=== PATIENT | female | born 1960 | race Caucasian/White ===

== ENCOUNTER → 2024-07-17 | Outpatient (CLI) | payer OTHER ==
--- NOTE | 2024-07-17 19:07 | XR ---
EXAMINATION TYPE: XR chest 2V DATE OF EXAM: 07/17/2024 6:52 PM CLINICAL INDICATION: Female, 63 years old with history of R06.02 SHORT OF BREATH; PHH COMPARISON: None TECHNIQUE: XR chest 2V Frontal view of the chest. FINDINGS: Lungs/Pleura: There is no evidence of pleural effusion, focal consolidation, or pneumothorax. Pulmonary vascularity: Unremarkable. Heart/mediastinum: Cardiomediastinal silhouette is unremarkable. Musculoskeletal: Degenerative changes of the shoulder joints. IMPRESSION: No acute cardiopulmonary disease/process.
== END | disposition home or self-care (01) ==
LOC: RADXRMAIN 18:23
PROVIDERS: ATTEND Internal Medicine
DX: R06.02 Shortness of breath
CPT/HCPCS: 71046

== ENCOUNTER → 2024-09-21 | Outpatient (CLI) | payer MEDICARE ==
[2024-09-21 13:43] LABS: African American GFR (CKD) >90 (>60 ml/min/1.73 sqM); Blood Urea Nitrogen 15 mg/dL (7-17); Non-African American GFR(CKD) 85 (>60 ml/min/1.73 sqM)
--- NOTE | 2024-09-21 15:18 | CT ---
CT chest and abdomen with and without contrast HISTORY: Shortness of breath. History of lung cancer. COMPARISON: None. TECHNIQUE: Multiple axial images are obtained through the chest and abdomen before and after the unev entful administration of nonionic IV contrast material. FINDINGS: CT CHEST: There are multiple scattered ill-defined nodular/parenchymal densities, right greater than left. The largest density seen right lower lobe posteriorly and measures approximately 19 mm. There is no pleural effusion or pneumothorax. There is moderate to marked cardiomegaly with marked left atrial enlargement. The main pulmonary brent ry is 4 cm raising the question of pulmonary hypertension. Caliber of the thoracic aorta is normal. There are no focal osseous lesions. There is no mediastinal, hilar or axillary adenopathy. CT ABDOMEN: The gallbladder is normal. There is no focal mass or organomegaly involving the liver, pancreas, spleen or adrenal glands. There are multiple large right renal cortical cysts but there is no solid renal mass or hydronephrosi s. The caliber of the abdominal aorta is normal as no retroperitoneal adenopathy. The bowel loops are normal in caliber and no dilatation or obstruction. No inflammatory changes are i dentified in the bowel wall or mesentery and there is no free intraperitoneal air or fluid. The osseous structures are intact. IMPRESSION: 1. Multiple scattered ill-defined lung masses as described above. Given the provided history of lung cancer. the possibility of recurrent lung cancer cannot be excluded. The findings could also be infe ctious in nature and either PET scan or short-term follow-up is recommended. 2. Marked dilatation of the main pulmonary artery raising question of pulmonary hypertension. 3. Moderate to marked cardiomegaly and marked left atrial enlargement. 4. No significant abnormality in the abdomen. [facility], Workstation: FÉLIX, 09/21/2024 3:16 PM
== END | disposition home or self-care (01) ==
LOC: RADCTMAIN 12:49
PROVIDERS: ATTEND Internal Medicine
DX: I27.20 Pulmonary hypertension, unspecified (principal); I51.7 Cardiomegaly; N28.1 Cyst of kidney, acquired; B37.2 Candidiasis of skin and nail; R91.8 Other nonspecific abnormal finding of lung field
CPT/HCPCS: 82565; 84520; 71270; 74170; 36415; Q9967

== ENCOUNTER → 2024-10-26 | Outpatient (CLI) | payer MEDICARE ==
--- NOTE | 2024-10-28 22:38 | PE ---
EXAMINATION TYPE: PET CT fusion skull to thigh DATE OF EXAM: 10/26/2024 COMPARISON: Chest abdomen 09/21/2024 Prior PET/CT: None CLINICAL INDICATION: Female, 64 years old with history of R91.8 lung mass, TECHNIQUE: Following the intravenous administration of 10.38 mCi of F-18 FDG, whole body images are performed from the skull base to the midthigh. Images are reviewed on the computer in the coronal, a xial, and sagittal planes. Reconstructed rotating images are created on independent workstation and reviewed on the computer. A localization and attenuation correction CT is performed in conjunction with the PET scan. DLP: 684.68 mGycm SCAN: Initial Blood glucose: 182 mg/dL Average Mediastinum SUV: 2.23 Average Liver SUV: 2.96 FINDINGS: NECK: No suspicious uptake THORAX: No suspicious uptake. Example nodule right lateral chest, SUV 0.62 posterior right chest SUV 0.58 image 94 ABDOMEN: No suspicious uptake PELVIS: No suspicious uptake OSSEOUS STRUCTURES: No abnormal uptake LOCALIZATION CT: The abnormal densities within the lung castellon are identified on the PET/CT may be so mewhat smaller COMPARISON: Findings from the PET/CT correlate with the earlier CT chest. No enlargement is evident. IMPRESSION: 1. No suspicious radiotracer lung findings have diminished in size over the interval. No suspicious r adiotracer uptake identified. Inflammatory changes most likely within the differential. Recommend fol low-up CT chest in 3-6 months. [facility], , 10/28/2024 10:36 PM
== END | disposition home or self-care (01) ==
LOC: RADPETMAIN 08:19
PROVIDERS: ATTEND Internal Medicine
DX: R91.8 Other nonspecific abnormal finding of lung field (principal)
CPT/HCPCS: 78815; A9552

== ENCOUNTER 2024-11-15 18:10 | Inpatient (IN) | payer MEDICARE ==
--- NOTE | 2024-11-15 18:42 | ED ---
SOB HPI - General Source: patient, RN notes reviewed Mode of arrival: wheelchair Limitations: no limitations - History of Present Illness MD Complaint: shortness of breath, cough <Paulette Bowman - Last Filed: 11/15/24 18:39> <Shahriar Louis - Last Filed: 11/15/24 21:33> - General Chief Complaint: Shortness of Breath Stated Complaint: unable to walk,urinate or breathe Time Seen by Provider: 11/15/24 18:35 - History of Present Illness Initial Comments: Quick Note: This is a 64-year-old female who presents to the emergency department for shortness of breath. Patient reports worsening shortness of breath over the last week. She has a history of COPD and states that her inhalers are not effective. She also reports a history of lung cancer. She has some coughing. States that her chest feels tight and that she cannot take a deep breath. She is also struggling to lay flat. Additionally, she is concerned about left leg pain that has been there for 1.5 years. She has had x- rays and ultrasounds that have been negative and she is waiting for a referral to pain management, but is concerned because the pain is getting worse and she is struggling to walk. (Paulette Bowman) Dictation was produced using [employer] dictation software. please excuse any grammatical, word or spelling errors. Chief Complaint: 64-year-old female presents emergency department with generalized weakness History of Present Illness: Patient is a 64-year-old female presents emergency department for generalized weakness and shortness of breath. Patient is here wi th her son who she lives with. She stays at home by herself because son and patient's [id number] work long hours. She was at home by herself felt too weak to get out of bed and take her medications. Patient has been having cough congestion. No obvious sick contacts. She has been complaining of some leg pain secondary to her rheumatoid arthritis The ROS documented in this emergency department record has been reviewed and confirmed by me. Those systems with pertinent positive or negative responses have been documented in the HPI. All other systems are other negative and/or noncontributory. (Shahriar Louis) - Related Data Allergies Allergy/AdvReac Type Severity Reaction Status Date / Time No Known Allergies Allergy Verified 11/15/24 20:36 Review of Systems ROS Other: All systems not noted in ROS Statement are negative. <Paulette Bowman - Last Filed: 11/15/24 18:39> ROS Other: All systems not noted in ROS Statement are negative. <Shahriar Louis - Last Filed: 11/15/24 21:33> ROS Statement: Those systems with pertinent positive or pertinent negative responses have been documented in the HPI. General Exam <Paulette Bowman - Last Filed: 11/15/24 18:39> <Shahriar Louis - Last Filed: 11/15/24 21:33> - General Exam Comments Initial Comments: Visual Physical Exam Vital signs reviewed General: Well-appearing, nontoxic, no acute distress. Head: Normocephalic, atraumatic Eyes: PERRLA, EOMI ENT: Airway patent Chest: Nonlabored breathing Skin: No visual rash, normal skin tone Neuro: Alert and oriented 3 Musculoskeletal: No gross abnormalities (Paulette Bowman) PHYSICAL EXAM: General Impression: Alert and oriented x3, not in acute distress HEENT: Normocephalic atraumatic, extra-ocular movements intact, pupils equal and reactive to light bilaterally, mucous membranes moist. Cardiovascular: Newly tachycardic Chest: Able to complete full sentences, no retractions, no tachypnea Abdomen: abdomen soft, non-tender, non-distended, no organomegaly Musculoskeletal: Pulses present and equal in all extremities, no peripheral edema lower extremity in internal rotation Motor: no focal deficits noted Neurological: CN II-XII grossly intact, no focal motor or sensory deficits noted Skin: Intact with no visualized rashes Psych: Normal affect and mood (Shahriar Louis) Course Vital Signs 11/15/24 11/15/24 11/15/24 18:54 21:10 21:25 Temperature 98.2 F Pulse Rate 128 H 144 H Respiratory 22 18 18 Rate Blood Pressure 166/116 171/97 O2 Sat by Pulse 93 L 92 L Oximetry Medical Decision Making <Paulette Bowman - Last Filed: 11/15/24 18:39> - Lab Data Result diagrams: 11/15/24 20:07 11/15/24 20:07 <Shahriar Louis - Last Filed: 11/15/24 21:33> - Medical Decision Making I performed the QuickNote portion of this chart. Signed Paulette Bowman PA-C. (Paulette Bowman) Was pt. sent in by a medical professional or institution (CORDELIA Mcdonough, [employer], urgent care, hospital, or long-term...) When possible be specific @ -No Did you speak to anyone other than the patient for history (EMS, parent, family, police, friend...)? What history was obtained from this source @ -History obtained from son as described above Did you review nursing and triage notes (agree or disagree)? Why? @ -I reviewed and agree with nursing and triage notes Were old charts reviewed (outside hosp., previous admission, EMS record, old EKG, old radiological studies, urgent care reports/EKG's, long-term records)? Report findings @ -No old charts were reviewed Differential Diagnosis (chest pain, altered mental status, abdominal pain women, abdominal pain men, vaginal bleeding, musculoskeletal, weakness, fever, dyspnea, syncope, headache, dizziness, GI bleed, back pain, seizure, CVA, palpatations, mental health)? @ -Differential Weakness: Hypoglycemia, shock, sepsis, hyponatremia, anemia, infection, OH, ETOH, adverse medicine reaction, overdose, stroke, this is not meant to be an all-inclusive list. EKG interpreted by me (3pts min.). @ -My EKG interpretation: Ventricular rate 141, A-fib with RVR, QRS 93, QTc 36 4. No QTC prolongation, no ST or T-wave changes noted. EKG for comparison. EKG is nonspecific X-rays interpreted by me (1pt min.). @ -Chest x-ray shows no acute processes CT interpreted by me (1pt min.). @ -None done U/S interpreted by me (1pt. min.). @ -None done What testing was considered but not performed or refused? (CT, X-rays, U/S, labs)? Why? @ -None What meds were considered but not given or refused? Why? @ -None Was smoking cessation discussed for >3mins.? @ -No Were there social determinants of health that impacted care today? How? (Homelessness, low income, unemployed, alcoholism, drug addiction, transportation, low edu. Level, literacy, decrease access to med. care, long-term, rehab)? @ -No Was there de-escalation of care discussed even if they declined (Discuss DNR or withdrawal of care, Hospice)? DNR status @ -No What co-morbidities impacted this encounter? (DM, HTN, Smoking, COPD, CAD, Cancer, CVA, ARF, Chemo, Hep., AIDS, mental health diagnosis, sleep apnea, mor bid obesity)? @ -A-fib Was patient admitted / discharged? Hospital course, mention meds given and r oute, prescriptions, significant lab abnormalities, going to OR and other pertinent info. @ -64-year-old female presents to the emergency department weakness congestion upper respiratory type symptoms. Vital signs upon arrival shows heart rate of 128 vitals within acceptable limits. Laboratory evaluation obtained. CBC, coag panel metabolic panel is within acceptable limits. Patient positive for coronavirus. Chest x-ray nonacute. Patient in A-fib RVR started on Cardizem drip. Will be admitted for further care including social work consultation, cardiology consultation Did you discuss the management of the patient with other professionals (professionals i.e. , PA, [employer]PER[employer], lab, RT, psych nurse, social work faculty member, lawyers, teacher, medical officer psychiatry, heel caser)? Give summary @ -Case discussed with hospitalist for admission Was critical care preformed (if so, how long)? @ -Yes for management of A-fib with RVR, 33 minutes Undiagnosed new problem with uncertain prognosis? @ -No Drug Therapy requiring intensive monitoring for toxicity (Heparin, Nitro, Insulin, Cardizem)? @ -No Were any procedures done? @ -No Diagnosis/symptom? Acute, or Chronic, or Acute on Chronic? Uncomplicated (without systemic symptoms) or Complicated (systemic symptoms)? @ -Coronavirus, A-fib with RVR Side effects of treatment? @ -No Exacerbation, Progression, or Severe Exacerbation? @ -No Poses a threat to life or bodily function? How? (Chest pain, USA, OH, pneumonia, PE, COPD, DKA, ARF, appy, cholecystitis, CVA, Diverticulitis, Homicidal, Suicidal, threat to staff... and all critical care pts) @ -yes (Shahriar Louis) - Lab Data Lab Results 01/01/0811/15/24 11/15/24 Range/Units 20:07 20:07 20:07 WBC 9.8 (3.8-10.6) k/uL RBC 5.08 (3.80-5.40) m/uL Hgb 13.1 (11.4-16.0) gm/dL Hct 41.5 (34.0-46.0) % MCV 81.7 (80.0-100.0) fL MCH 25.8 (25.0-35.0) pg MCHC 31.6 (31.0-37.0) g/dL RDW 15.2 (11.5-15.5) % Plt Count 348 (150-450) k/uL MPV 8.1 Neutrophils % 87 % Lymphocytes % 6 % Monocytes % 5 % Eosinophils % 1 % Basophils % 0 % Neutrophils # 8.5 H (1.3-7.7) k/uL Lymphocytes # 0.6 L (1.0-4.8) k/uL Monocytes # 0.5 (0-1.0) k/uL Eosinophils # 0.1 (0-0.7) k/uL Basophils # 0.0 (0-0.2) k/uL Hypochromasia Moderate PT 11.4 (10.0-12.5) sec INR 1.0 (<1.2) APTT 24.5 (22.0-30.0) sec Sodium 139 (137-145) mmol/L Potassium 3.9 (3.5-5.1) mmol/L Chloride 99 (98-107) mmol/L Carbon Dioxide 25 (22-30) mmol/L Anion Gap 15 mmol/L BUN 13 (7-17) mg/dL Creatinine 0.49 L (0.52-1.04) mg/dL Est GFR (CKD-EPI)AfAm >90 (>60 ml/min/1.73 sqM) Est GFR (CKD-EPI)NonAf >90 (>60 ml/min/1.73 sqM) Glucose 162 H (74-99) mg/dL Plasma Lactic Acid Giovanny (0.7-2.0) mmol/L Calcium 9.3 (8.4-10.2) mg/dL Magnesium 1.7 (1.6-2.3) mg/dL Total Bilirubin 0.7 (0.2-1.3) mg/dL AST 20 (14-36) U/L ALT 10 (4-34) U/L Alkaline Phosphatase 116 (38-126) U/L Troponin I (0.000-0.034) ng/mL NT-Pro-B Natriuret Pep 1720 pg/mL Total Protein 7.3 (6.3-8.2) g/dL Albumin 4.5 (3.5-5.0) g/dL Influenza Type A (PCR) (Not Detectd) Influenza Type B (PCR) (Not Detectd) RSV (PCR) (Not Detectd) SARS-CoV-2 (PCR) (Not Detectd) 11/15/24 11/15/24 11/15/24 Range/Units 20:07 20:07 20:07 WBC (3.8-10.6) k/uL RBC (3.80-5.40) m/uL Hgb (11.4-16.0) gm/dL Hct (34.0-46.0) % MCV (80.0-100.0) fL MCH (25.0-35.0) pg MCHC (31.0-37.0) g/dL RDW (11.5-15.5) % Plt Count (150-450) k/uL MPV Neutrophils % % Lymphocytes % % Monocytes % % Eosinophils % % Basophils % % Neutrophils # (1.3-7.7) k/uL Lymphocytes # (1.0-4.8) k/uL Monocytes # (0-1.0) k/uL Eosinophils # (0-0.7) k/uL Basophils # (0-0.2) k/uL Hypochromasia PT (10.0-12.5) sec INR (<1.2) APTT (22.0-30.0) sec Sodium (137-145) mmol/L Potassium (3.5-5.1) mmol/L Chloride (98-107) mmol/L Carbon Dioxide (22-30) mmol/L Anion Gap mmol/L BUN (7-17) mg/dL Creatinine (0.52-1.04) mg/dL Est GFR (CKD-EPI)AfAm (>60 ml/min/1.73 sqM) Est GFR (CKD-EPI)NonAf (>60 ml/min/1.73 sqM) Glucose (74-99) mg/dL Plasma Lactic Acid Giovanny 1.4 (0.7-2.0) mmol/L Calcium (8.4-10.2) mg/dL Magnesium (1.6-2.3) mg/dL Total Bilirubin (0.2-1.3) mg/dL AST (14-36) U/L ALT (4-34) U/L Alkaline Phosphatase (38-126) U/L Troponin I <0.012 (0.000-0.034) ng/mL NT-Pro-B Natriuret Pep pg/mL Total Protein (6.3-8.2) g/dL Albumin (3.5-5.0) g/dL Influenza Type A (PCR) Not Detected (Not Detectd) Influenza Type B (PCR) Not Detected (Not Detectd) RSV (PCR) Not Detected (Not Detectd) SARS-CoV-2 (PCR) Detected A (Not Detectd) Disposition <Paulette Bowman - Last Filed: 11/15/24 18:39> Decision Time: 20:30 <Shahriar Louis - Last Filed: 11/15/24 21:33> Clinical Impression: Atrial fibrillation with RVR, Coronavirus infection Disposition: ADMITTED IP TO THIS HOSP Condition: Fair Referrals: Khanh Hale DO [Primary Care Provider] - 1-2 days
--- NOTE | 2024-11-15 19:43 | XR ---
EXAMINATION TYPE: XR chest 2V DATE OF EXAM: 11/15/2024 7:31 PM COMPARISON: Chest radiographs from 07/17/2024. CLINICAL INDICATION: Female, 64 years old with history of difficulty breathing; TECHNIQUE: XR chest 2V Frontal and lateral views of the chest. FINDINGS: Lungs/Pleura: There is flattening of the diaphragm with increased lucency of the lungs. No evidence o f pneumothorax, pleural effusion or focal consolidation. Pulmonary vascularity: Unremarkable. Heart/mediastinum: Cardiomediastinal silhouette is unremarkable. Musculoskeletal: No acute osseous pathology. IMPRESSION: 1. No acute cardiopulmonary disease process. 2. COPD changes. [facility], , 11/15/2024 7:41 PM
[2024-11-15 20:24] LABS: Basophils % (A) 0 %; Eosinophils # (A) 0.1 k/uL (0-0.7); Eosinophils % (A) 1 %; HCT 41.5 % (34.0-46.0); HGB 13.1 gm/dL (11.4-16.0); Hypochromasia Moderate; Lymphocytes # (A) 0.6 k/uL (1.0-4.8); Lymphocytes % (A) 6 %; MCH 25.8 pg (25.0-35.0); MCHC 31.6 g/dL (31.0-37.0); MCV 81.7 fL (80.0-100.0); Mean Platelet Volume 8.1; Monocytes # (A) 0.5 k/uL (0-1.0); Monocytes % (A) 5 %; Neutrophils # (A) 8.5 k/uL (1.3-7.7); Neutrophils % (A) 87 %; Platelet Count 348 k/uL (150-450); RBC 5.08 m/uL (3.80-5.40); RDW 15.2 % (11.5-15.5); WBC 9.8 k/uL (3.8-10.6)
[2024-11-15 20:34] LABS: Partial Thromboplastin Time 24.5 sec (22.0-30.0); Prothrombin Time 11.4 sec (10.0-12.5)
[2024-11-15 20:43] LABS: ALT 10 U/L (4-34); AST 20 U/L (14-36); African American GFR (CKD) >90 (>60 ml/min/1.73 sqM); Albumin 4.5 g/dL (3.5-5.0); Alkaline Phosphatase 116 U/L (38-126); Anion Gap 15 mmol/L; Blood Urea Nitrogen 13 mg/dL (7-17); Calcium 9.3 mg/dL (8.4-10.2); Carbon Dioxide 25 mmol/L (22-30); Chloride 99 mmol/L (98-107); Glucose 162 mg/dL (74-99); Magnesium 1.7 mg/dL (1.6-2.3); Non-African American GFR(CKD) >90 (>60 ml/min/1.73 sqM); Potassium 3.9 mmol/L (3.5-5.1); Sodium 139 mmol/L (137-145); Total Bilirubin 0.7 mg/dL (0.2-1.3); Total Protein 7.3 g/dL (6.3-8.2)
[2024-11-15 20:52] LABS: NT-Pro-B-Type Natriuretic Pept 1720 pg/mL
[2024-11-15] MEDS: MORPHINE SULFATE 4 MG/ML SYRINGE IV STA (21:59)
[2024-11-15] MEDS: DILTIAZEM 125 MG in SODIUM CHLORIDE 0.9% 100 ML IV SCH (22:00)
[2024-11-15] MEDS ORDERED: NALOXONE 0.4 MG/ML 1 ML VIAL IV PRN (23:00)
[2024-11-16] MEDS: SODIUM CHLORIDE 0.9% 1,000 ML IV SCH (02:19)
[2024-11-16] MEDS: MORPHINE SULFATE 4 MG/ML SYRINGE IV PRN (02:23)
--- NOTE | 2024-11-16 03:35 | P.HPIM ---
History of Present Illness H&P Date: 11/15/24 Patient is a 64-year-old female with a PMH of A-fib on Eliquis, COPD, and chronic left hip pain who presents to the emergency room with complaints of shortness of breath. The patient reports that she has been experiencing progressive shortness of breath over the past 1 week. She reports using her inhaler multiple times with minimal relief. She also reports that she has had a persistent left hip pain for which she has followed up with multiple providers at [facility] and with pain management but that they have been unable to manage her pain. She is requesting another opinion from an orthopedic surgeon. She reports compliance with her home medications including Eliquis. She denied experiencing chest discomfort, nausea, vomiting, dizziness, abdominal pain, diarrhea, diaphoresis. Chest x-ray in emergency room revealed findings of COPD with EKG showing A-fib with RVR at 141 bpm as reviewed by me. Laboratory evaluation revealed a troponin less than 0.012 with proBNP 1720 with coronavirus PCR positive. ED documentation reviewed and case discussed with ED provider. Review of systems: Pertinent positives and negatives as discussed in HPI, a complete review of systems was performed and all other systems are negative. Physical examination: Vital signs reviewed General: non toxic, no distress, appears at stated age, overweight Derm: no unusual rashes/lesions, warm Head: atraumatic, normocephalic, symmetric Eyes: EOMI, no lid lag, anicteric sclera, pupils equal round reactive to light ENT: Nose and ears atraumatic Neck: No cervical lymphadenopathy, trachea midline, supple Mouth: no lip lesion, mucus membranes moist Cardiovascular: Irregularly irregular, no murmur, positive dorsalis pedis pulse bilateral, no edema Lungs: CTA bilateral, no rhonchi, no rales, no accessory muscle use Abdominal: soft, nontender to palpation, no guarding Ext: muscle strength 4 out of 5 in all 4 extremities grossly, no gross muscle atrophy, no contractures, Neuro: CN II-XI grossly intact, no gross focal neuro deficits Psych: Alert, oriented, appropriate affect Assessment: A-fib with RVR Coronavirus PCR positive, suspect incidental finding Left hip pain Imaging: Chest x-ray in emergency room revealed findings of COPD with EKG showing A-fib with RVR at 141 bpm as reviewed by me. Data Review: Laboratory evaluation revealed a troponin less than 0.012 with proBNP 1720 with coronavirus PCR positive. Plan: Continue with Cardizem infusion monitoring analyst Cardiology consult Obtain echocardiogram Resume patient's home medications once reconciled Orthopedic surgery consult DVT prophylaxis: Heparin subq The patient is admitted with an anticipated greater than 2 midnight stay for e valuation of Afib CODE STATUS: Full Code Discussed with: Patient Anticipated discharge place: Home 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, Past Psychological History: Bipolar, Depression Smoking Status: Former smoker Past Alcohol Use History: Occasional Past Drug Use History: None Reported Medications and Allergies Allergies Allergy/AdvReac Type Severity Reaction Status Date / Time No Known Allergies Allergy Verified 11/15/24 20:36 Physical Exam Vitals: Vital Signs Temp Pulse Resp BP Pulse Ox 11/16/24 02:31 117 H 18 133/72 11/16/24 01:31 120 H 18 141/90 96 11/16/24 00:17 125 H 18 130/89 95 11/15/24 21:25 144 H 18 171/97 92 L 11/15/24 21:10 18 11/15/24 18:54 98.2 F 128 H 22 166/116 93 L Intake and Output 11/15/24 11/15/24 11/16/24 14:59 22:59 06:59 Other: Weight 70.307 kg Results CBC & Chem 7: 11/15/24 20:07 11/15/24 20:07 Labs: Abnormal Lab Results - Last 24 Hours (Table) 11/15/24 11/15/24 11/15/24 Range/Units 20:07 20:07 20:07 Neutrophils # 8.5 H (1.3-7.7) k/uL Lymphocytes # 0.6 L (1.0-4.8) k/uL Creatinine 0.49 L (0.52-1.04) mg/dL Glucose 162 H (74-99) mg/dL SARS-CoV-2 (PCR) Detected A (Not Detectd)
[2024-11-16] MEDS: ACETAMINOPHEN TAB 325 MG TAB PO PRN (04:50)
--- NOTE | 2024-11-16 08:31 | P.CNOR ---
History of Present Illness - [facility] Consult date: 11/16/24 Requesting physician: Jose Rafael Yap Consult reason: other (left hip pain) History of present illness: History of Presenting Illness Patient is a Pleasant 64-year-old female who presented to the ER with complaints of shortness of breath. Patient is also reporting left hip pain that has been persistent over the last year. Our services have been consulted in regards to the left hip pain. Patient describes a dull aching lumbar pain that radiates into the left buttock, left hip, and anterior left thigh. Patient denies any numbness or tingling to the bilateral lower extremities. Patient states that she does have a history of rheumatoid arthritis. She states that she has been following with multiple doctors at [facility] due to multiple bilateral hip surgeri es. Patient reports that she has had for surgeries performed to her left hip and 3 surgeries performed to her right hip. Patient states that she has been attempting to see Dr. Ashley since May for possible injections into her low back, but has yet to have a call back. Patient states that she has just moved up here to live with her son due to her inability to care for herself. Patient states that she has been missing physician appointments. Over the past year she states that she was utilizing a cane and has now used a 4 wheeled walker due to the progression with her pain. Patient does have a past medical history of A- fib and is currently on Eliquis and COPD. During her workup through the ER patient is positive for COVID. Review of Systems Pertinent positives and negatives as discussed in HPI, a complete review of systems was performed and all other systems are negative. Physical Examination General: The patient is awake and alert, in no acute distress Skin: Skin is warm and dry with no obvious rashes or lesions. Neck: The neck is supple, there is no tenderness and ROM intact. Gastrointestinal: Soft, non-distended, non-tender abdomen. Back: There is no tenderness to palpation in the midline, paralumbar, paratho racic or buttocks region. There is no obvious deformity. Musculoskeletal: ROM limited to the left hip due to pain. Patients left leg is internally rotated at he hip and knee, she is unable to straighten this extremity. Right: shoulder abduction 5/5, elbow flexors 5/5, wrist dorsiflexors 5/5. finger abductor 5/5, baker second 5/5, hip flexor 4/5, knee flexor 4/5, ankle dorsiflexor 4/5, ankle plantarflexion 4/5 and extensor hallucis 4/5. Left: shoulder abduction 5/5, elbow flexors 5/5, wrist dorsiflexors 5/5. finger abductor 5/5, baker second 5/5, hip flexor 3/5, knee flexor 4/5, ankle dorsiflexor 4/5, ankle plantarflexion 4/5 and extensor hallucis 4/5. Neurological: CN 2-12 intact. There are no obvious motor or sensory deficits. Movement and coordination equal and intact. Sensory exam to light touch intact C5-T1 and intact from L2-S1. Reflexes 2/4 in bilateral upper and lower extremities. Negative Hoffmans, babinski, and clonus signs. Psychiatric: Cooperative, appropriate mood & affect, normal judgment. Special test: Straight leg raise positive on the left. Log roll maneuver of the left lower extremity does not reproduce pain. Assessment Mechanical low back pain left lower extremity radiculopathy left lower extremity weakness multiple complex medical comorbidities Plan At this time we have ordered x-rays of the pelvis and a CT scan of the lumbar spine for further evaluation and recommendations will follow. 2. Appreciate medical management 3. Pain management - continue with current treatment regimen 4. PT/OT - weightbearing as tolerated with a walker as needed. 5. Appreciate consult. I reviewed and discussed this case with my attending Dr. Oconnor, whom has reviewed this chart and films and is in agreement with assessment and plan of care as outlined above. I have personally seen and examined the patient, performed the documentation and the assessment and plan as written. Number of minutes spent on the visit: 30m. 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, Past Psychological History: Bipolar, Depression Smoking Status: Former smoker Past Alcohol Use History: Occasional Past Drug Use History: None Reported Medications and Allergies Home Medications Medication Instructions Recorded Confirmed Type Apixaban [Eliquis] 5 mg PO BID 01/03/25 01/03/25 History Empagliflozin [Jardiance] 10 mg PO DAILY 11/16/24 11/16/24 History Fluticasone Propion/Salmeterol 1 inhalation PO RT-BID 11/16/24 11/16/24 History [Advair 250-50 Diskus] Furosemide [Lasix] 20 mg PO DAILY PRN 11/16/24 11/16/24 History Ibuprofen [Advil] 400 mg PO 5XD 11/16/24 11/16/24 History Metoprolol Succinate [Toprol XL] 100 mg PO BID 11/16/24 11/16/24 History Tiotropium [place] [Spiriva] 1 puff INHALATION RT-DAILY 11/16/24 11/16/24 History dilTIAZem HCL [Cardizem CD] 360 mg PO DAILY 11/16/24 11/16/24 History Allergies Allergy/AdvReac Type Severity Reaction Status Date / Time codeine AdvReac Nausea Verified 11/16/24 08:05 Results - Labs Labs: Abnormal Lab Results - Last 24 Hours (Table) 11/15/24 11/15/24 11/15/24 Range/Units 20:07 20:07 20:07 Neutrophils # 8.5 H (1.3-7.7) k/uL Lymphocytes # 0.6 L (1.0-4.8) k/uL Creatinine 0.49 L (0.52-1.04) mg/dL Glucose 162 H (74-99) mg/dL SARS-CoV-2 (PCR) Detected A (Not Detectd) H & H 11/15/24 Range/Units 20:07 Hgb 13.1 (11.4-16.0) gm/dL Hct 41.5 (34.0-46.0) % Coagulation 11/15/24 Range/Units 20:07 INR 1.0 (<1.2) Result Diagrams: 11/15/24 20:07 11/15/24 20:07
[2024-11-16] MEDS ORDERED: FUROSEMIDE 20 MG TAB PO PRN (09:17)
[2024-11-16 09:45] LABS: HCT 35.1 % (34.0-46.0); HGB 11.2 gm/dL (11.4-16.0); Hypochromasia Moderate; MCH 26.1 pg (25.0-35.0); MCHC 31.8 g/dL (31.0-37.0); MCV 82.2 fL (80.0-100.0); Mean Platelet Volume 8.8; Platelet Count 271 k/uL (150-450); RBC 4.28 m/uL (3.80-5.40); RDW 15.3 % (11.5-15.5); WBC 6.1 k/uL (3.8-10.6)
[2024-11-16] MEDS: APIXABAN 5 MG TAB PO SCH (09:59)
[2024-11-16] MEDS: DAPAGLIFLOZIN PROPANEDIOL 5 MG TABLET PO SCH (10:00)
[2024-11-16] MEDS: METOPROLOL SUCCINATE (ER) 100 MG TAB.ER.24H PO SCH (10:00)
--- NOTE | 2024-11-16 10:09 | XR ---
EXAMINATION TYPE: XR Hip Bilateral and AP pelvis DATE OF EXAM: 11/16/2024 9:08 AM COMPARISON: None. CLINICAL INDICATION: Female, 64 years old with history of pain s/p multiple surgeries, pain TECHNIQUE: 2 views view(s) obtained bilateral hips. Supplemented with an AP pelvis FINDINGS: Bilateral hip prostheses are present. A complex prosthesis is at the left acetabulum. No acute fractures evident. No dislocation identified. IMPRESSION: 1. Bilateral hip prostheses. No acute fractures identified. [facility], , 11/16/2024 10:06 AM
[2024-11-16 10:19] LABS: ALT 10 U/L (4-34); AST 17 U/L (14-36); African American GFR (CKD) >90 (>60 ml/min/1.73 sqM); Albumin 3.4 g/dL (3.5-5.0); Alkaline Phosphatase 86 U/L (38-126); Anion Gap 7 mmol/L; Blood Urea Nitrogen 15 mg/dL (7-17); Calcium 8.6 mg/dL (8.4-10.2); Carbon Dioxide 30 mmol/L (22-30); Chloride 101 mmol/L (98-107); Glucose 167 mg/dL (74-99); Magnesium 1.8 mg/dL (1.6-2.3); Non-African American GFR(CKD) >90 (>60 ml/min/1.73 sqM); Potassium 3.8 mmol/L (3.5-5.1); Sodium 138 mmol/L (137-145); Total Bilirubin 0.6 mg/dL (0.2-1.3); Total Protein 5.9 g/dL (6.3-8.2)
--- NOTE | 2024-11-16 12:02 | P.CRDCN ---
History of Present Illness Consult date: 11/16/24 Consult reason: atrial fibrillation History of present illness: This is a 64-year-old female patient of Dr. Myles Decker with past medical history of persistent atrial fibrillation on Eliquis with previous ablation done at [facility], congestive heart failure, COPD and follows with Dr. 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 We have been asked to evaluate the patient for atrial fibrillation. Patient presented to the hospital due to left hip pain. She states due to rheumatoid arthritis she has had 5 hip replacements done. She has been suffering with left hip pain for the past year that comes and goes. She now states the pain is a number 10 out of 10. Patient also complains of some difficulty in breathing as well as cough and wheezing. Patient has tested positive for COVID. Blood pressure 128/73, heart rate 106, pulse ox 93% on 2 L nasal cannula. Patient's heart rate has been up to a maximum of 144. Patient is seen today in the emergency center waiting for bed on the cardiac stepdown un it. Patient has been started on a Cardizem drip currently at 10 mg/h. Patient states that she has been taking her Eliquis and not missing any doses. -EKG: Atrial fibrillation with ventricular rate of 141 bpm -Chest x-ray: No acute process. COPD. -Laboratory studies: WBC 6.1, hemoglobin 11.2. Sodium 138, potassium 3.8, BUN 15 creatinine 0.53. Troponin negative x 1. proBNP 1720. TSH 1.25. -Home cardiac medications: Eliquis 5 mg twice daily, Cardizem CD3 160 mg daily, Jardiance 10 mg daily, Lasix 20 mg daily as needed, Toprol-XL 100 mg twice daily. -Echocardiogram performed in the office on 11/12/2024 revealed EF of 50 to 55%, mild left ventricular hypertrophy, mildly dilated right atrium and severely dilated left atrium, trace aortic regurgitation, a ascending aorta is enlarged, mild to moderate mitral regurgitation, mild tricuspid regurgitation, pulmonary artery systolic pressure of 35 mmHg, mild pulmonary regurgitation. -Event monitor 09/29/2024 revealed atrial fibrillation/flutter with average heart rate of 87 bpm, minimum heart rate 54 and maximum heart rate 122. PVC burden 0.08%. -Patient reports history of cardiac catheterization done 1 year ago at [facility] that revealed no obstructive disease. Review Of Systems: At the time of my exam: CONSTITUTIONAL: Denies fever or chills. HEENT: Denies blurred vision, vision changes, or eye pain. Denies hemoptysis CARDIOVASCULAR: Denies chest pain. Denies orthopnea. Denies PND. Denies palpitations RESPIRATORY: Chronic shortness of breath. Reports cough, reports wheezing. GASTROINTESTINAL: Denies abdominal pain. Denies nausea or vomiting. HEMATOLOGIC: Denies bleeding disorders. GENITOURINARY: Denies any blood in urine. SKIN: Denies puritis. Denies rash. Physical examination: Gen: This is a 64-year-old female in no acute respiratory distress VS: reviewed HEENT: Head is atraumatic, normocephalic. Pupils equal, round. Sclerae is anicteric. NECK: Supple. No JVD. LUNGS: Clear to auscultation. No wheezes or rhonchi. No intercostal retractions. HEART: Irregular rate and rhythm. No murmur. ABDOMEN: Soft No tenderness. EXTREMITIES: No pedal edema. No calf tenderness. NEUROLOGICAL: Patient is awake, alert and oriented x3. Assessment: COVID Left hip pain Persistent atrial fibrillation with RVR due to COVID infection COPD Chronic hypoxic respiratory failure on home O2 at 2 L Hypertension History of CVA x 3 Remote history of tobacco use and dependence Plan: Resume patient's home cardiac medications Continue Cardizem drip and plan to transition to oral Cardizem tomorrow. Patient is on Cardizem CD 360 mg daily at home. No need to repeat echocardiogram as this was done in the office Further recommendations to follow based upon clinical course Thank you kindly for this consultation. Nurse practitioner note has been reviewed, I agree with documented findings and plan of care. Patient was seen and examined. 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, Past Psychological History: Bipolar, Depression Smoking Status: Former smoker Past Alcohol Use History: Occasional Past Drug Use History: None Reported Medications and Allergies Home Medications Medication Instructions Recorded Confirmed Type Apixaban [Eliquis] 5 mg PO BID 11/16/24 11/16/24 History Empagliflozin [Jardiance] 10 mg PO DAILY 11/16/24 11/16/24 History Fluticasone Propion/Salmeterol 1 inhalation PO RT-BID 11/16/24 11/16/24 History [Advair 250-50 Diskus] Furosemide [Lasix] 20 mg PO DAILY PRN 11/16/24 11/16/24 History Ibuprofen [Advil] 400 mg PO 5XD 11/16/24 11/16/24 History Metoprolol Succinate [Toprol XL] 100 mg PO BID 11/16/24 11/16/24 History Tiotropium [place] [Spiriva] 1 puff INHALATION RT-DAILY 11/16/24 11/16/24 History dilTIAZem HCL [Cardizem CD] 360 mg PO DAILY 11/16/24 11/16/24 History Allergies Allergy/AdvReac Type Severity Reaction Status Date / Time codeine AdvReac Nausea Verified 11/16/24 08:05 Physical Exam Vitals: Vital Signs Temp Pulse Resp BP Pulse Ox 11/16/24 06:12 106 H 18 128/73 93 L 11/16/24 04:34 109 H 16 139/85 11/16/24 02:31 117 H 18 133/72 11/16/24 01:31 120 H 18 141/90 96 11/16/24 00:17 125 H 18 130/89 95 11/15/24 21:25 144 H 18 171/97 92 L 11/15/24 21:10 18 11/15/24 18:54 98.2 F 128 H 22 166/116 93 L Intake and Output 11/15/24 11/16/24 11/16/24 22:59 06:59 14:59 Other: Weight 70.307 kg Results 11/16/24 09:31 11/16/24 09:31 Cardiac Enzymes 11/15/24 11/15/24 Range/Units 20:07 20:07 AST 20 (14-36) U/L Troponin I <0.012 (0.000-0.034) ng/mL Coagulation 11/15/24 Range/Units 20:07 PT 11.4 (10.0-12.5) sec APTT 24.5 (22.0-30.0) sec CBC 11/15/24 11/16/24 Range/Units 20:07 09:31 WBC 9.8 6.1 (3.8-10.6) k/uL RBC 5.08 4.28 (3.80-5.40) m/uL Hgb 13.1 11.2 L (11.4-16.0) gm/dL Hct 41.5 35.1 (34.0-46.0) % Plt Count 348 271 (150-450) k/uL Comprehensive Metabolic Panel 11/15/24 Range/Units 20:07 Sodium 139 (137-145) mmol/L Potassium 3.9 (3.5-5.1) mmol/L Chloride 99 (98-107) mmol/L Carbon Dioxide 25 (22-30) mmol/L BUN 13 (7-17) mg/dL Creatinine 0.49 L (0.52-1.04) mg/dL Glucose 162 H (74-99) mg/dL Calcium 9.3 (8.4-10.2) mg/dL AST 20 (14-36) U/L ALT 10 (4-34) U/L Alkaline Phosphatase 116 (38-126) U/L Total Protein 7.3 (6.3-8.2) g/dL Albumin 4.5 (3.5-5.0) g/dL Current Medications Generic Name Dose Route Start Last Admin Trade Name Freq PRN Reason Stop Dose Admin Acetaminophen 650 mg 11/15/24 23:00 11/16/24 04:50 Acetaminophen Tab 325 Mg Tab PO 650 mg Q6HR PRN Administration Mild Pain or Fever > 100.5 Apixaban 5 mg 11/16/24 09:30 Apixaban 5 Mg Tab PO BID [facility] Protocol Budesonide/Formoterol Fumarate 2 puff 11/16/24 20:00 Symbicort 80-4.5 Mcg Inhaler INHALATION RT-BID ANTONELLA Dapagliflozin 5 mg 11/16/24 09:30 Dapagliflozin Propanediol 5 Mg Tablet PO DAILY [facility] Diltiazem HCl 360 mg 11/17/24 09:00 Diltiazem Cd 180 Mg Cap.Er.24h PO DAILY ANTONELLA Furosemide 20 mg 11/16/24 09:17 Furosemide 20 Mg Tab PO DAILY PRN Edema Diltiazem HCl 125 mg/ Sodium 125 mls @ 10 mls/hr 11/15/24 21:30 11/15/24 22:0 0 Chloride IV 10 mg/hr .[id number] ANTONELLA 10 mls/hr Administration 10 MG/HR Sodium Chloride 1,000 mls @ 20 mls/hr 11/15/24 23:00 11/16/24 02:19 Saline 0.9% IV 20 mls/hr .Q24H ANTONELLA Administration Ipratropium [place] 0.5 mg 11/17/24 08:00 Ipratropium 0.5 Mg/2.5 Ml Nebu INHALATION RT-QID ANTONELLA Metoprolol Succinate 100 mg 11/16/24 09:30 Metoprolol Succinate (Er) 100 Mg Tab.Er.24h PO BID ANTONELLA Morphine Sulfate 4 mg 11/15/24 23:00 11/16/24 02:23 Morphine Sulfate 4 Mg/Ml Syringe IV 4 mg Q4HR PRN Administration Severe Pain (Scale 7 to 10) Naloxone HCl 0.2 mg 11/15/24 23:00 Naloxone 0.4 Mg/Ml 1 Ml Vial IV Q2M PRN Opioid Reversal Intake and Output 11/15/24 11/16/24 11/16/24 22:59 06:59 14:59 Other: Weight 70.307 kg 11/16/24 09:31 11/15/24 20:07
[2024-11-16] MEDS ORDERED: ALBUTEROL HFA INHALER INHALATION PRN (16:01)
--- NOTE | 2024-11-16 16:08 | P.PN ---
Subjective Progress Note Date: 11/16/24 Hospital course: Patient is a very pleasant 64-year-old female with a past medical history of chronic atrial fibrillation on Eliquis, history of 3 previous CVAs, COPD with chronic hypoxic respiratory failure home oxygen dependent on 2 L, and chronic left hip pain. She presented to the hospital on 11/15/2024 with complaints of shortness of breath. The patient reports that she has been experiencing progressive shortness of breath over the past 1 week. She reports using her inhaler multiple times with minimal relief. She also reported that she has had a persistent left hip pain for which she has followed up with multiple providers at [facility] and with pain management but that they have been unable to manage her pain. She is requesting another opinion from an orthopedic surgeon. She reports compliance with her home medications including Eliquis. She denied experiencing chest discomfort, nausea, vomiting, dizziness, abdominal pain, diarrhea, diaphoresis. Upon arrival to our facility, patient underwent evaluation in the emergency department. Vital signs upon arrival show blood pressure 166/116, heart rate 128, respiratory rate 22, temp 98.2 F, and SpO2 of 93% on room air. EKG was completed showing A-fib RVR to 141 bpm with T wave inversion in lateral lead I and aVL and incomplete right bundle branch block. Chest x-ray completed negative for acute cardiopulmonary process showing changes of COPD with flattening of the diaphragm and increased lucency of the lungs. Labs completed and reviewed. CBC unremarkable. Coagulation profile normal findings. BMP unremarkable. Blood glucose 162. Lactic acid was 1.4. Magnesium slightly low at 1.7. Liver profile unremarkable. Troponin was negative at less than 0.012 and proBNP was 1720. Cepheid 4 Plex viral panel positive for COVID. Patient admitted under our services with consultation to cardiology and orthopedic surgery. Physical exam: Patient was seen and fully evaluated at bedside this morning. She remains in atrial fibrillation with RVR rate 110s to 120s at this time. Cardizem infusing. Patient reports continued shortness of breath and states her main concern is her uncontrolled hip pain and difficulty with ambulation. Patient requesting placement in SNF on discharge. PT/OT has been consulted. Vital signs reviewed and stable. General: Nontoxic, no distress and appears stated age. Derm: Skin warm and dry, normal coloration for ethnicity. Head: Atraumatic, normocephalic and symmetric. Eyes: EOM's intact, no lid lag, and anicteric sclera Mouth: no lip lesions, mucus membranes moist Cardiovascular: irregularly irregular, no murmur, positive posterior tibial pulses bilaterally, and cap refill < 2 seconds. Lungs: Respirations even, regular, and unlabored on 2 L O2. Lungs CTA bilaterally, no rhonchi, no rales, no wheezing, and no accessory muscle usage. Abdominal: soft, nontender to palpation, no guarding, no appreciable organomegaly Ext: ROM intact. No gross muscle atrophy, 1+ bilateral lower extremity edema, no contractures Neuro: Speech clear, face symmetrical and CN II-XII grossly intact with no noted focal neuro deficits Psych: Alert and oriented to person, place, time, and situation. Appropriate and pleasant affect. Assessment and Plan of Care: Atrial fibrillation with RVR Hypertension History of CVA x 3 -Cardiology consulted, appreciate recommendations -Telemetry monitoring -Continue Cardizem infusion 10 mg/h with likely plans for transitioning to oral Cardizem tomorrow morning. -Continue home cardiac medication regimen with Eliquis 5 mg twice daily, Farxiga 5 mg daily, and metoprolol 100 mg twice daily. COVID-19 infection COPD Chronic hypoxic respiratory failure home oxygen dependent on 2 L -Contact plus droplet precautions. -Continue Symbicort 80-4.5 mcg inhaler 2 puffs twice daily and Spiriva 2.5 mcg inhaler 2 puffs daily. -Supportive and symptomatic care. -Provide patient with supplemental oxygen as needed to maintain SpO2 equal to or greater than 90%. -Ventolin inhaler scheduled 4 times daily and as needed for wheezing/shortness of breath. Acute on chronic hip pain Weakness and difficulties with ambulation -Orthopedic surgery consulted ordered for CT lumbar spine and x-ray of bilateral hips. -PT/OT consulted, appreciate recommendations -Case management/social work consulted for assistance with possible placement. Data and imaging reviewed: Morning labs reviewed. CBC showing stable normocytic anemia with hemoglobin of 11.2. BMP unremarkable. Blood glucose 167. Magnesium 1.8. Liver profile normal findings. TSH 1.25. Vital signs reviewed. Blood pressure 128/73, heart rate 106, respiratory rate 18, and SpO2 of 93% on 2 L. CODE STATUS: Full code DVT prophylaxis: Eliquis Anticipated discharge date: Pending clinical course Anticipated discharge place: Pending clinical course, patient requesting SNF placement awaiting PT recommendations. Patient was seen independently by Nurse Pracitioner. This document was prepared using [employer] dictation software. Please allow for errors in pool lifeguard, while rare they do occur. Joe Romero NP rendered care for this patient independently, reviewed the findings and plan as documented in the note above and agree with plan. I did not physically speak with or examine the patient on this date. Objective - Vital Signs Vital signs: Vital Signs Temp 98.2 F 11/15/24 18:54 Pulse 106 H 11/16/24 06:12 Resp 18 11/16/24 06:12 BP 128/73 11/16/24 06:12 Pulse Ox 93 L 11/16/24 06:12 FiO2 Intake & Output 11/15/24 11/16/24 11/16/24 18:59 06:59 18:59 Weight 70.307 kg - Labs CBC & Chem 7: 11/16/24 09:31 11/16/24 09:31 Labs: Abnormal Lab Results - Last 24 Hours (Table) 11/15/24 11/15/24 11/15/24 Range/Units 20:07 20:07 20:07 Neutrophils # 8.5 H (1.3-7.7) k/uL Lymphocytes # 0.6 L (1.0-4.8) k/uL Creatinine 0.49 L (0.52-1.04) mg/dL Glucose 162 H (74-99) mg/dL SARS-CoV-2 (PCR) Detected A (Not Detectd)
--- NOTE | 2024-11-16 16:21 | CT ---
EXAMINATION TYPE: CT lumbar spine wo con DATE OF EXAM: 11/16/2024 9:16 AM COMPARISON: None. CLINICAL INDICATION: Female, 64 years old with history of pain s/p multiple surgeries, pain s/p multi ple surgeries TECHNIQUE: CT of the lumbar spine is performed on a spiral scan at 3 mm thick sections. Reconstructed images are performed in the coronal and sagittal planes. Contrast used: mL of , (none if empty) Oral contrast used: (none if empty) CT DLP: 1023.6 mGycm, Automated exposure control for dose reduction was used. FINDINGS: T12-L1: No focal disc herniation or significant disc bulge is evident. No spinal canal stenosis or neural foraminal stenosis is present. L1-L2: No focal disc herniation or significant disc bulge is evident. No spinal canal stenosis or n eural foraminal stenosis is present L2-L3: Minimal disc bulge is present with anterior thecal sac contact. No AP spinal canal stenosis fo ramen are patent. No spinal canal stenosis or neural foraminal stenosis is present L3-L4: Mild disc bulge is present with anterior thecal sac flattening. AP spinal canal stenosis. Neur al foramen are patent No spinal canal stenosis or neural foraminal stenosis is present L4-L5: No focal disc herniation or significant disc bulge is evident. No spinal canal stenosis or n eural foraminal stenosis is present L5-S1: No focal disc herniation or significant disc bulge is evident. No spinal canal stenosis or n eural foraminal stenosis is present Vertebral alignment appears normal. IMPRESSION: 1. Mild disc bulging L3-4 with anterior thecal sac flattening. 2. Minimal disc bulging with anterior thecal sac contacting L2-3. [facility], , 11/16/2024 4:19 PM
[2024-11-16 16:44] LABS: Glucose,Whole Blood 122 mg/dL (70-110)
--- NOTE | 2024-11-16 18:09 | P.PN ---
Progress Note - Text Progress Note Date: 11/16/24 CT of the lumbar spine and X-rays of the pelvis have been reviewed, no acute process of the bilateral hips. The lumbar spine demonstrates mild disc bulge at L2-L3 and L3-L4. At this time we do not recommend any urgent /emergent surgical intervention. Patient may follow up with Dr. Oconnor's office for further evaluation as needed. Recommend a consult to pain management for possible injections. Our services will be signing off at this time. Please feel free to reach out with any questions or concerns.
[2024-11-16 19:55] LABS: Glucose,Whole Blood 178 mg/dL (70-110)
[2024-11-16] MEDS: ALBUTEROL HFA INHALER INHALATION SCH (22:25)
[2024-11-16] MEDS: SYMBICORT 80-4.5 MCG INHALER INHALATION SCH (22:25)
[2024-11-17 05:48] LABS: Glucose,Whole Blood 144 mg/dL (70-110)
[2024-11-17 06:28] LABS: HCT 32.6 % (34.0-46.0); HGB 10.3 gm/dL (11.4-16.0); Hypochromasia Moderate; MCHC 31.7 g/dL (31.0-37.0); Mean Platelet Volume 8.6; Platelet Count 261 k/uL (150-450); RBC 3.98 m/uL (3.80-5.40); RDW 15.2 % (11.5-15.5); WBC 6.3 k/uL (3.8-10.6)
[2024-11-17 06:53] LABS: ALT 8 U/L (4-34); AST 20 U/L (14-36); African American GFR (CKD) >90 (>60 ml/min/1.73 sqM); Albumin 3.1 g/dL (3.5-5.0); Alkaline Phosphatase 82 U/L (38-126); Anion Gap 7 mmol/L; Blood Urea Nitrogen 11 mg/dL (7-17); Calcium 8.2 mg/dL (8.4-10.2); Carbon Dioxide 27 mmol/L (22-30); Chloride 98 mmol/L (98-107); Glucose 135 mg/dL (74-99); Magnesium 1.7 mg/dL (1.6-2.3); Non-African American GFR(CKD) >90 (>60 ml/min/1.73 sqM); Sodium 132 mmol/L (137-145); Total Bilirubin 0.4 mg/dL (0.2-1.3); Total Protein 5.5 g/dL (6.3-8.2)
[2024-11-17] MEDS ORDERED: IPRATROPIUM 0.5 MG/2.5 ML NEBU INHALATION SCH (08:00)
[2024-11-17] MEDS ORDERED: DILTIAZEM CD 180 MG CAP.ER.24H PO SCH (09:00)
[2024-11-17] MEDS: TIOTROPIUM 2.5 MCG INHALER INHALATION SCH (09:36)
[2024-11-17] MEDS: MAGNESIUM SULFATE-D5W PMX 1 GM in DEXTROSE/WATER 1 100ML.BAG IVPB SCH (10:07)
[2024-11-17] MEDS: DILTIAZEM CD 180 MG CAP.ER.24H PO SCH (12:33)
--- NOTE | 2024-11-17 13:54 | P.PN ---
Subjective HISTORY OF PRESENT ILLNESS: This is a 64-year-old female patient of Dr. Myles Decker with past medical history of persistent atrial fibrillation on Eliquis with previous ablation done at [facility], congestive heart failure, COPD and follows with Dr. 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 We have been asked to evaluate the patient for atrial fibrillation. Patient presented to the hospital due to left hip pain. She states due to rheumatoid arthritis she has had 5 hip replacements done. She has been suffering with left hip pain for the past year that comes and goes. She now states the pain is a number 10 out of 10. Patient also complains of some difficulty in breathing as well as cough and wheezing. Patient has tested positive for COVID. Blood pressure 128/73, heart rate 106, pulse ox 93% on 2 L nasal cannula. Patient's heart rate has been up to a maximum of 144. Patient is seen today in the emergency center waiting for bed on the cardiac stepdown unit. Patient has been started on a Cardizem drip currently at 10 mg/h. Patient states that she has been taking her Eliquis and not missing any doses. -EKG: Atrial fibrillation with ventricular rate of 141 bpm -Chest x-ray: No acute process. COPD. -Laboratory studies: WBC 6.1, hemoglobin 11.2. Sodium 138, potassium 3.8, BUN 15 creatinine 0.53. Troponin negative x 1. proBNP 1720. TSH 1.25. -Home cardiac medications: Eliquis 5 mg twice daily, Cardizem CD3 160 mg daily, Jardiance 10 mg daily, Lasix 20 mg daily as needed, Toprol-XL 100 mg twice daily. -Echocardiogram performed in the office on 11/12/2024 revealed EF of 50 to 55%, mild left ventricular hypertrophy, mildly dilated right atrium and severely dilated left atrium, trace aortic regurgitation, a ascending aorta is enlarged, mild to moderate mitral regurgitation, mild tricuspid regurgitation, pulmonary artery systolic pressure of 35 mmHg, mild pulmonary regurgitation. -Event monitor 09/29/2024 revealed atrial fibrillation/flutter with average heart rate of 87 bpm, minimum heart rate 54 and maximum heart rate 122. PVC burden 0.08%. -Patient reports history of cardiac catheterization done 1 year ago at [facility] that revealed no obstructive disease. 11/17/2024 Patient examined this morning at the bedside. Patient currently denies chest pain or pressure. She denies shortness of breath. She continues to report pain in her hip. She has been evaluated by orthopedics with no plans for any surgical intervention. Pain management has been consulted for evaluation. The patient remains on IV Cardizem at 10 mg an hour. Telemetry reviewed revealing atrial fibrillation with heart rate in the 80s. PHYSICAL EXAM: VITAL SIGNS: Reviewed. GENERAL: Well-developed in no acute distress. NECK: Supple. No JVD or thyromegaly LUNGS: Respirations even and unlabored. Lungs essentially clear to auscultation bilaterally. HEART: Irregular rate and rhythm. S1 and S2 heard. EXTREMITIES: Normal range of motion. No clubbing or cyanosis. Peripheral pulses intact. No lower extremity edema ASSESSMENT: COVID Left hip pain Persistent atrial fibrillation with RVR due to COVID infection COPD Chronic hypoxic respiratory failure on home O2 at 2 L Hypertension History of CVA x 3 Remote history of tobacco use and dependence PLAN: Continue current cardiac medications Discontinue IV Cardizem. Begin oral Cardizem 180 mg daily Continue oral anticoagulation with Eliquis Continue telemetry monitoring Awaiting evaluation from pain management in regards to left hip pain Further recommendations pending patient course Nurse practitioner note has been reviewed by physician. Signing provider agrees with the documented findings, assessment, and plan of care documented by SUPERVISOR ELECTRON [employer]BE PROCESSING as a scribe. Objective - Vital Signs Vital signs: Vital Signs Temp 98.1 F 11/17/24 08:58 Pulse 82 11/17/24 09:40 Resp 18 11/17/24 09:40 BP 166/74 11/17/24 08:58 Pulse Ox 90 L 11/17/24 08:58 FiO2 Intake & Output 11/16/24 11/17/24 11/17/24 18:59 06:59 18:59 Intake Total 125 108.667 365 Output Total 700 Balance 125 108.667 -335 Weight 74.7 kg Intake: Intake, IV Titration 125 108.667 125 Amount Diltiazem 125 mg In 125 108.667 125 Sodium Chloride 0.9% 100 ml @ 10 MG/HR 10 mls/hr IV .[id number] [facility] Rx#: [id number] Oral 240 Output: Urine 700 Other: Voiding Method External Catheter Diaper # Bowel Movements 1 - Labs CBC & Chem 7: 11/17/24 05:38 11/17/24 05:38 Labs: Abnormal Lab Results - Last 24 Hours (Table) 11/16/24 11/16/24 11/17/24 Range/Units 16:43 19:53 05:38 Hgb 10.3 L (11.4-16.0) gm/dL Hct 32.6 L (34.0-46.0) % Sodium (137-145) mmol/L Glucose (74-99) mg/dL POC Glucose (mg/dL) 122 H 178 H (70-110) mg/dL Calcium (8.4-10.2) mg/dL Total Protein (6.3-8.2) g/dL Albumin (3.5-5.0) g/dL 11/17/24 11/17/24 Range/Units 05:38 05:41 Hgb (11.4-16.0) gm/dL Hct (34.0-46.0) % Sodium 132 L (137-145) mmol/L Glucose 135 H (74-99) mg/dL POC Glucose (mg/dL) 144 H (70-110) mg/dL Calcium 8.2 L (8.4-10.2) mg/dL Total Protein 5.5 L (6.3-8.2) g/dL Albumin 3.1 L (3.5-5.0) g/dL
[2024-11-17] MEDS: NYSTATIN 100,000 UNIT/GM OINT 30 GM TUBE TOPICAL SCH (15:33)
[2024-11-17 16:18] LABS: Glucose,Whole Blood 156 mg/dL (70-110)
--- NOTE | 2024-11-17 16:23 | P.PN ---
Subjective Progress Note Date: 11/17/24 Hospital course: Patient is a very pleasant 64-year-old female with a past medical history of chronic atrial fibrillation on Eliquis, history of 3 previous CVAs, COPD with chronic hypoxic respiratory failure home oxygen dependent on 2 L, and chronic left hip pain. She presented to the hospital on 11/15/2024 with complaints of shortness of breath. The patient reports that she has been experiencing progressive shortness of breath over the past 1 week. She reports using her inhaler multiple times with minimal relief. She also reported that she has had a persistent left hip pain for which she has followed up with multiple providers at [facility] and with pain management but that they have been unable to manage her pain. She is requesting another opinion from an orthopedic surgeon. She reports compliance with her home medications including Eliquis. She denied experiencing chest discomfort, nausea, vomiting, dizziness, abdominal pain, diarrhea, diaphoresis. Upon arrival to our facility, patient underwent evaluation in the emergency department. Vital signs upon arrival show blood pressure 166/116, heart rate 128, respiratory rate 22, temp 98.2 F, and SpO2 of 93% on room air. EKG was completed showing A-fib RVR to 141 bpm with T wave inversion in lateral lead I and aVL and incomplete right bundle branch block. Chest x-ray completed negative for acute cardiopulmonary process showing changes of COPD with flattening of the diaphragm and increased lucency of the lungs. Labs completed and reviewed. CBC unremarkable. Coagulation profile normal findings. BMP unremarkable. Blood glucose 162. Lactic acid was 1.4. Magnesium slightly low at 1.7. Liver profile unremarkable. Troponin was negative at less than 0.012 and proBNP was 1720. Cepheid 4 Plex viral panel positive for COVID. Patient admitted under our services with consultation to cardiology and orthopedic surgery. Physical exam: Patient was seen and fully evaluated at bedside this morning. She remains in atrial fibrillation with controlled ventricular rate 80s to 90s at this time. Cardizem infusing. Patient reports continued shortness of breath and uncontrolled pain in her lower back and left hip radiating down left lateral leg. Vital signs reviewed and stable. General: Nontoxic, no distress and appears stated age. Derm: Skin warm and dry, normal coloration for ethnicity. Head: Atraumatic, normocephalic and symmetric. Eyes: EOM's intact, no lid lag, and anicteric sclera Mouth: no lip lesions, mucus membranes moist Cardiovascular: irregularly irregular, no murmur, positive posterior tibial pulses bilaterally, and cap refill < 2 seconds. Lungs: Respirations even, regular, and unlabored on 2 L O2. Lungs CTA bilaterally, no rhonchi, no rales, no wheezing, and no accessory muscle usage. Abdominal: soft, nontender to palpation, no guarding, no appreciable organomegaly Ext: ROM intact. No gross muscle atrophy, 1+ bilateral lower extremity edema, no contractures Neuro: Speech clear, face symmetrical and CN II-XII grossly intact with no noted focal neuro deficits Psych: Alert and oriented to person, place, time, and situation. Appropriate and pleasant affect. Assessment and Plan of Care: Atrial fibrillation with RVR Hypertension History of CVA x 3 -Cardiology consulted, discussed plan of care in detail with cardiac COUNTER CONTROL OPERATOR will be transitioning patient from IV Cardizem to oral Cardizem today. -Telemetry monitoring -Continue Cardizem infusion 10 mg/h with likely plans for transitioning to oral Cardizem tomorrow morning. -Continue home cardiac medication regimen with Eliquis 5 mg twice daily, Farxiga 5 mg daily, and metoprolol 100 mg twice daily. COVID-19 infection COPD Chronic hypoxic respiratory failure home oxygen dependent on 2 L -Contact plus droplet precautions. -Continue Symbicort 80-4.5 mcg inhaler 2 puffs twice daily and Spiriva 2.5 mcg inhaler 2 puffs daily. -Supportive and symptomatic care. -Provide patient with supplemental oxygen as needed to maintain SpO2 equal to or greater than 90%. -Ventolin inhaler scheduled 4 times daily and as needed for wheezing/shortness of breath. Acute on chronic lower back and left hip pain with left lower extremity radiculopathy Weakness and difficulties with ambulation -CT lumbar spine showing mild disc bulging L3-L4 with anterior thecal sac flattening and minimal disc bulging with anterior thecal sac contacting L2-L3. -X-ray bilateral hips showing bilateral hip prosthesis with no acute fractures or dislocations reported. -Orthopedic surgery evaluated and discussed case with orthopedic COUNTER CONTROL OPERATOR recommending no urgent or emergent surgical intervention stating patient may benefit from pain management consult and to follow-up outpatient in their office. -Consult placed to pain management -PT/OT consulted, appreciate recommendations -Case management/social work consulted for assistance with possible placement in SNF. Data and imaging reviewed: -CT lumbar spine showing mild disc bulging L3-L4 with anterior thecal sac flattening and minimal disc bulging with anterior thecal sac contacting L2-L3. -X-ray bilateral hips showing bilateral hip prosthesis with no acute fractures or dislocations reported. -Morning labs reviewed. CBC showing stable normocytic anemia with hemoglobin of 10.3. BMP showing mild hyponatremia sodium of 132, blood glucose 135, and slightly low magnesium of 1.7. Orders placed for magnesium sulfate 2 g IVPB. -Vital signs reviewed. Blood pressure 166/74, heart rate 82, respiratory rate 18, temp 98.1 F, and SpO2 of 90% on room air. CODE STATUS: Full code DVT prophylaxis: Eliquis Anticipated discharge date: Pending evaluation by pain management and PT/OT Anticipated discharge place: Pending clinical course, patient requesting SNF placement awaiting PT recommendations. Patient was seen independently by Nurse Pracitioner. This document was prepared using Desk[employer] dictation software. Please allow for errors in terminal block assembler, while rare they do occur. Joe Romero NP rendered care for this patient independently, reviewed the findings and plan as documented in the note above and agree with plan. I did not physically speak with or examine the patient on this date. Objective - Vital Signs Vital signs: Vital Signs Temp 98.1 F 11/17/24 08:58 Pulse 82 11/17/24 08:58 Resp 18 11/17/24 08:58 BP 166/74 11/17/24 08:58 Pulse Ox 90 L 11/17/24 08:58 FiO2 Intake & Output 11/16/24 11/17/24 11/17/24 18:59 06:59 18:59 Intake Total 125 108.667 240 Balance 125 108.667 240 Weight 74.7 kg Intake: Intake, IV Titration 125 108.667 Amount Diltiazem 125 mg In 125 108.667 Sodium Chloride 0.9% 100 ml @ 10 MG/HR 10 mls/hr IV .[id number] [facility] Rx#: [id number] Oral 240 Other: Voiding Method External Catheter - Labs CBC & Chem 7: 11/17/24 05:38 11/17/24 05:38 Labs: Abnormal Lab Results - Last 24 Hours (Table) 11/16/24 11/16/24 11/16/24 Range/Units 09:31 09:31 16:43 Hgb 11.2 L (11.4-16.0) gm/dL Hct (34.0-46.0) % Sodium (137-145) mmol/L Glucose 167 H (74-99) mg/dL POC Glucose (mg/dL) 122 H (70-110) mg/dL Calcium (8.4-10.2) mg/dL Total Protein 5.9 L (6.3-8.2) g/dL Albumin 3.4 L (3.5-5.0) g/dL 11/16/24 11/17/24 11/17/24 Range/Units 19:53 05:38 05:38 Hgb 10.3 L (11.4-16.0) gm/dL Hct 32.6 L (34.0-46.0) % Sodium 132 L (137-145) mmol/L Glucose 135 H (74-99) mg/dL POC Glucose (mg/dL) 178 H (70-110) mg/dL Calcium 8.2 L (8.4-10.2) mg/dL Total Protein 5.5 L (6.3-8.2) g/dL Albumin 3.1 L (3.5-5.0) g/dL 11/17/24 Range/Units 05:41 Hgb (11.4-16.0) gm/dL Hct (34.0-46.0) % Sodium (137-145) mmol/L Glucose (74-99) mg/dL POC Glucose (mg/dL) 144 H (70-110) mg/dL Calcium (8.4-10.2) mg/dL Total Protein (6.3-8.2) g/dL Albumin (3.5-5.0) g/dL
[2024-11-17 20:47] LABS: Glucose,Whole Blood 205 mg/dL (70-110)
[2024-11-18 06:13] LABS: Glucose,Whole Blood 134 mg/dL (70-110)
[2024-11-18 07:25] LABS: HCT 33.5 % (34.0-46.0); HGB 10.4 gm/dL (11.4-16.0); Hypochromasia Marked; MCH 25.6 pg (25.0-35.0); MCHC 30.9 g/dL (31.0-37.0); MCV 82.7 fL (80.0-100.0); Mean Platelet Volume 8.1; Platelet Count 254 k/uL (150-450); RBC 4.05 m/uL (3.80-5.40); RDW 15.1 % (11.5-15.5); WBC 6.4 k/uL (3.8-10.6)
[2024-11-18 07:50] LABS: African American GFR (CKD) >90 (>60 ml/min/1.73 sqM); Anion Gap 5 mmol/L; Blood Urea Nitrogen 10 mg/dL (7-17); Calcium 8.2 mg/dL (8.4-10.2); Carbon Dioxide 30 mmol/L (22-30); Chloride 100 mmol/L (98-107); Glucose 124 mg/dL (74-99); Magnesium 1.9 mg/dL (1.6-2.3); Non-African American GFR(CKD) >90 (>60 ml/min/1.73 sqM); Potassium 4.1 mmol/L (3.5-5.1); Sodium 135 mmol/L (137-145)
[2024-11-18] MEDS: DILTIAZEM ORAL 30 MG TAB PO STA (10:28)
[2024-11-18 11:42] LABS: Glucose,Whole Blood 173 mg/dL (70-110)
--- NOTE | 2024-11-18 13:53 | P.PN ---
Subjective HISTORY OF PRESENT ILLNESS: This is a 64-year-old female patient of Dr. Myles Decker with past medical history of persistent atrial fibrillation on Eliquis with previous ablation done at [facility], congestive heart failure, COPD and follows with Dr. 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 We have been asked to evaluate the patient for atrial fibrillation. Patient presented to the hospital due to left hip pain. She states due to rheumatoid arthritis she has had 5 hip replacements done. She has been suffering with left hip pain for the past year that comes and goes. She now states the pain is a number 10 out of 10. Patient also complains of some difficulty in breathing as well as cough and wheezing. Patient has tested positive for COVID. Blood pressure 128/73, heart rate 106, pulse ox 93% on 2 L nasal cannula. Patient's heart rate has been up to a maximum of 144. Patient is seen today in the emergency center waiting for bed on the cardiac stepdown unit. Patient has been started on a Cardizem drip currently at 10 mg/h. Patient states that she has been taking her Eliquis and not missing any doses. -EKG: Atrial fibrillation with ventricular rate of 141 bpm -Chest x-ray: No acute process. COPD. -Laboratory studies: WBC 6.1, hemoglobin 11.2. Sodium 138, potassium 3.8, BUN 15 creatinine 0.53. Troponin negative x 1. proBNP 1720. TSH 1.25. -Home cardiac medications: Eliquis 5 mg twice daily, Cardizem CD3 160 mg daily, Jardiance 10 mg daily, Lasix 20 mg daily as needed, Toprol-XL 100 mg twice daily. -Echocardiogram performed in the office on 11/12/2024 revealed EF of 50 to 55%, mild left ventricular hypertrophy, mildly dilated right atrium and severely dilated left atrium, trace aortic regurgitation, a ascending aorta is enlarged, mild to moderate mitral regurgitation, mild tricuspid regurgitation, pulmonary artery systolic pressure of 35 mmHg, mild pulmonary regurgitation. -Event monitor 09/29/2024 revealed atrial fibrillation/flutter with average heart rate of 87 bpm, minimum heart rate 54 and maximum heart rate 122. PVC burden 0.08%. -Patient reports history of cardiac catheterization done 1 year ago at [facility] that revealed no obstructive disease. 11/17/2024 Patient examined this morning at the bedside. Patient currently denies chest pain or pressure. She denies shortness of breath. She continues to report pain in her hip. She has been evaluated by orthopedics with no plans for any surgical intervention. Pain management has been consulted for evaluation. The patient remains on IV Cardizem at 10 mg an hour. Telemetry reviewed revealing atrial fibrillation with heart rate in the 80s. 11/18/2024 Patient examined this morning at the bedside. Patient currently denies chest pain or pressure. She denies shortness of breath. She remains in atrial fibrillation with a heart rate around [id number]. She continues to report pain in her hip and is awaiting evaluation from anesthesia pain management. PHYSICAL EXAM: VITAL SIGNS: Reviewed. GENERAL: Well-developed in no acute distress. NECK: Supple. No JVD or thyromegaly LUNGS: Respirations even and unlabored. Lungs essentially clear to auscultation bilaterally. HEART: Irregular rate and rhythm. S1 and S2 heard. EXTREMITIES: Normal range of motion. No clubbing or cyanosis. Peripheral pulses intact. No lower extremity edema ASSESSMENT: COVID Left hip pain Persistent atrial fibrillation with RVR due to COVID infection COPD Chronic hypoxic respiratory failure on home O2 at 2 L Hypertension History of CVA x 3 Remote history of tobacco use and dependence PLAN: Continue current cardiac medications Increase Cardizem CD to 240 mg daily. Give additional dose of 60 mg x 1 now Continue oral anticoagulation with Eliquis Continue telemetry monitoring Awaiting evaluation from pain management in regards to left hip pain Further recommendations pending patient course Nurse practitioner note has been reviewed by physician. Signing provider agrees with the documented findings, assessment, and plan of care documented by GROUP ROOMS COORDINATOR as a scribe. Objective - Vital Signs Vital signs: Vital Signs Temp 97.8 F 11/18/24 08:44 Pulse 104 H 11/18/24 13:21 Resp 18 11/18/24 13:21 BP 139/63 11/18/24 08:44 Pulse Ox 93 L 11/18/24 08:44 FiO2 Intake & Output 11/17/24 11/18/24 11/18/24 18:59 06:59 18:59 Intake Total 725 716 Output Total 700 Balance 25 716 Intake: Intake, IV Titration 125 Amount Diltiazem 125 mg In 125 Sodium Chloride 0.9% 100 ml @ 10 MG/HR 10 mls/hr IV .[id number] [facility] Rx#: [id number] Oral 600 716 Output: Urine 700 Other: Voiding Method Diaper Diaper Diaper # Voids 1 1 # Bowel Movements 1 - Labs CBC & Chem 7: 11/18/24 06:38 11/18/24 06:38 Labs: Abnormal Lab Results - Last 24 Hours (Table) 11/17/24 11/17/24 11/18/24 Range/Units 16:16 20:46 06:11 Hgb (11.4-16.0) gm/dL Hct (34.0-46.0) % MCHC (31.0-37.0) g/dL Sodium (137-145) mmol/L Glucose (74-99) mg/dL POC Glucose (mg/dL) 156 H 205 H 134 H (70-110) mg/dL Calcium (8.4-10.2) mg/dL 11/18/24 11/18/24 11/18/24 Range/Units 06:38 06:38 11:40 Hgb 10.4 L (11.4-16.0) gm/dL Hct 33.5 L (34.0-46.0) % MCHC 30.9 L (31.0-37.0) g/dL Sodium 135 L (137-145) mmol/L Glucose 124 H (74-99) mg/dL POC Glucose (mg/dL) 173 H (70-110) mg/dL Calcium 8.2 L (8.4-10.2) mg/dL
--- NOTE | 2024-11-18 14:16 | P.PN ---
Subjective Progress Note Date: 11/18/24 Hospital course: Patient is a very pleasant 64-year-old female with a past medical history of chronic atrial fibrillation on Eliquis, history of 3 previous CVAs, COPD with chronic hypoxic respiratory failure home oxygen dependent on 2 L, and chronic left hip pain. She presented to the hospital on 11/15/2024 with complaints of shortness of breath. The patient reports that she has been experiencing progressive shortness of breath over the past 1 week. She reports using her inhaler multiple times with minimal relief. She also reported that she has had a persistent left hip pain for which she has followed up with multiple providers at [facility] and with pain management but that they have been unable to manage her pain. She is requesting another opinion from an orthopedic surgeon. She reports compliance with her home medications including Eliquis. She denied experiencing chest discomfort, nausea, vomiting, dizziness, abdominal pain, diarrhea, diaphoresis. Upon arrival to our facility, patient underwent evaluation in the emergency department. Vital signs upon arrival show blood pressure 166/116, heart rate 128, respiratory rate 22, temp 98.2 F, and SpO2 of 93% on room air. EKG was completed showing A-fib RVR to 141 bpm with T wave inversion in lateral lead I and aVL and incomplete right bundle branch block. Chest x-ray completed negative for acute cardiopulmonary process showing changes of COPD with flattening of the diaphragm and increased lucency of the lungs. Labs completed and reviewed. CBC unremarkable. Coagulation profile normal findings. BMP unremarkable. Blood glucose 162. Lactic acid was 1.4. Magnesium slightly low at 1.7. Liver profile unremarkable. Troponin was negative at less than 0.012 and proBNP was 1720. Cepheid 4 Plex viral panel positive for COVID. Patient admitted under our services with consultation to cardiology and orthopedic surgery. Physical exam: Patient was seen and fully evaluated at bedside this morning. She remains in atrial fibrillation with RVR with rate 100-110's. Patient appears to be comfortable at this time and denied any needs or complaints. Vital signs reviewed and stable. General: Nontoxic, no distress and appears stated age. Derm: Skin warm and dry, normal coloration for ethnicity. Head: Atraumatic, normocephalic and symmetric. Eyes: EOM's intact, no lid lag, and anicteric sclera Mouth: no lip lesions, mucus membranes moist Cardiovascular: irregularly irregular, no murmur, positive posterior tibial pulses bilaterally, and cap refill < 2 seconds. Lungs: Respirations even, regular, and unlabored on 2 L O2. Lungs CTA bilaterally, no rhonchi, no rales, no wheezing, and no accessory muscle usage. Abdominal: soft, nontender to palpation, no guarding, no appreciable organomegaly Ext: ROM intact. No gross muscle atrophy, 1+ bilateral lower extremity edema, no contractures Neuro: Speech clear, face symmetrical and CN II-XII grossly intact with no noted focal neuro deficits Psych: Alert and oriented to person, place, time, and situation. Appropriate and pleasant affect. Assessment and Plan of Care: Atrial fibrillation with RVR Hypertension History of CVA x 3 -Cardiology moving, discussed plan of care in detail with cardiac LABORATORY MACHINIST stating they are increasing Cardizem to 240 mg daily and will continue to monitor overnight. -Telemetry monitoring -Continue home cardiac medication regimen with Eliquis 5 mg twice daily, Farxiga 5 mg daily, and metoprolol 100 mg twice daily and Cardizem was increased to 240 mg daily. COVID-19 infection COPD Chronic hypoxic respiratory failure home oxygen dependent on 2 L -Contact plus droplet precautions. -Continue Symbicort 80-4.5 mcg inhaler 2 puffs twice daily and Spiriva 2.5 mcg inhaler 2 puffs daily. -Supportive and symptomatic care. -Provide patient with supplemental oxygen as needed to maintain SpO2 equal to or greater than 90%. -Ventolin inhaler scheduled 4 times daily and as needed for wheezing/shortness of breath. Acute on chronic lower back and left hip pain with left lower extremity radiculopathy Weakness and difficulties with ambulation -CT lumbar spine showing mild disc bulging L3-L4 with anterior thecal sac flattening and minimal disc bulging with anterior thecal sac contacting L2-L3. -X-ray bilateral hips showing bilateral hip prosthesis with no acute fractures or dislocations reported. -Orthopedic surgery evaluated and recommending no urgent or emergent surgical intervention stating patient may benefit from pain management consult and to follow-up outpatient in their office. -Consult placed to pain management, appreciate recommendations -PT/OT consulted, appreciate recommendations -Case management/social work consulted for assistance with possible placement in SNF. Data and imaging reviewed: -Morning labs reviewed. CBC showing stable normocytic anemia with hemoglobin of 10.3. BMP showing mild hyponatremia sodium of 132, blood glucose 135, and slightly low magnesium of 1.7. Orders placed for magnesium sulfate 2 g IVPB. -Vital signs reviewed. Blood pressure 139/63, heart rate 104, respiratory rate 18, temp 97.8 F, and SpO2 of 93% on 3 L. CODE STATUS: Full code DVT prophylaxis: Eliquis Anticipated discharge date: Pending evaluation by pain management and PT/OT Anticipated discharge place: Pending clinical course, patient requesting SNF placement awaiting PT recommendations. Patient was seen independently by Nurse Pracitioner. This document was prepared using [employer] dictation software. Please allow for errors in automobile rental representative, while rare they do occur. Joe Romero NP rendered care for this patient independently, reviewed the findings and plan as documented in the note above and agree with plan. I did not physically speak with or examine the patient on this date. Objective - Vital Signs Vital signs: Vital Signs Temp 98.2 F 11/18/24 03:14 Pulse 88 11/18/24 03:14 Resp 18 11/18/24 03:14 BP 146/75 11/18/24 03:14 Pulse Ox 95 11/18/24 03:14 FiO2 Intake & Output 11/17/24 11/18/24 11/18/24 18:59 06:59 18:59 Intake Total 725 Output Total 700 Balance 25 Intake: Intake, IV Titration 125 Amount Diltiazem 125 mg In 125 Sodium Chloride 0.9% 100 ml @ 10 MG/HR 10 mls/hr IV .[id number] [facility] Rx#: [id number] Oral 600 Output: Urine 700 Other: Voiding Method Diaper Diaper # Voids 1 1 # Bowel Movements 1 - Labs CBC & Chem 7: 11/18/24 06:38 11/18/24 06:38 Labs: Abnormal Lab Results - Last 24 Hours (Table) 11/17/24 11/17/24 11/18/24 Range/Units 16:16 20:46 06:11 Hgb (11.4-16.0) gm/dL Hct (34.0-46.0) % MCHC (31.0-37.0) g/dL Sodium (137-145) mmol/L Glucose (74-99) mg/dL POC Glucose (mg/dL) 156 H 205 H 134 H (70-110) mg/dL Calcium (8.4-10.2) mg/dL 11/18/24 11/18/24 Range/Units 06:38 06:38 Hgb 10.4 L (11.4-16.0) gm/dL Hct 33.5 L (34.0-46.0) % MCHC 30.9 L (31.0-37.0) g/dL Sodium 135 L (137-145) mmol/L Glucose 124 H (74-99) mg/dL POC Glucose (mg/dL) (70-110) mg/dL Calcium 8.2 L (8.4-10.2) mg/dL
[2024-11-18 16:55] LABS: Glucose,Whole Blood 190 mg/dL (70-110)
[2024-11-18 20:24] LABS: Glucose,Whole Blood 229 mg/dL (70-110)
[2024-11-18] MEDS ORDERED: DEXTROSE 50% SYRINGE 50 ML IVP PRN ×2 (20:32)
[2024-11-18] MEDS: INSULIN ASPART (NovoLOG) 100 UNIT/ML VIAL SQ SCH (21:41)
[2024-11-19 06:21] LABS: Glucose,Whole Blood 110 mg/dL (70-110)
[2024-11-19] MEDS: DILTIAZEM CD 240 MG CAP.ER.24H PO SCH (07:54)
[2024-11-19 11:24] LABS: Glucose,Whole Blood 120 mg/dL (70-110)
--- NOTE | 2024-11-19 13:31 | P.PN ---
Subjective Progress Note Date: 11/19/24 Hospital course: Patient is a very pleasant 64-year-old female with a past medical history of chronic atrial fibrillation on Eliquis, history of 3 previous CVAs, COPD with chronic hypoxic respiratory failure home oxygen dependent on 2 L, and chronic left hip pain. She presented to the hospital on 11/15/2024 with complaints of shortness of breath. The patient reports that she has been experiencing progressive shortness of breath over the past 1 week. She reports using her inhaler multiple times with minimal relief. She also reported that she has had a persistent left hip pain for which she has followed up with multiple providers at [facility] and with pain management but that they have been unable to manage her pain. She is requesting another opinion from an orthopedic surgeon. She reports compliance with her home medications including Eliquis. She denied experiencing chest discomfort, nausea, vomiting, dizziness, abdominal pain, diarrhea, diaphoresis. Upon arrival to our facility, patient underwent evaluation in the emergency department. Vital signs upon arrival show blood pressure 166/116, heart rate 128, respiratory rate 22, temp 98.2 F, and SpO2 of 93% on room air. EKG was completed showing A-fib RVR to 141 bpm with T wave inversion in lateral lead I and aVL and incomplete right bundle branch block. Chest x-ray completed negative for acute cardiopulmonary process showing changes of COPD with flattening of the diaphragm and increased lucency of the lungs. Labs completed and reviewed. CBC unremarkable. Coagulation profile normal findings. BMP unremarkable. Blood glucose 162. Lactic acid was 1.4. Magnesium slightly low at 1.7. Liver profile unremarkable. Troponin was negative at less than 0.012 and proBNP was 1720. Cepheid 4 Plex viral panel positive for COVID. Patient admitted under our services with consultation to cardiology and orthopedic surgery. Orthopedic surgery evaluated and recommending no urgent or emergent surgical intervention stating patient may benefit from pain management consult and to follow-up outpatient in their office. Physical exam: Patient was seen and fully evaluated at bedside this morning. Patient was sleeping upon entering room and was easily awoken via verbal stimuli. Upon awakening patient tearful stating that her hip and left leg still hurts. Patient very concerned that she is going to be discharged home and still be in pain. Awaiting evaluation and recommendations from pain management and discussed this with patient. Patient also awaiting evaluation from PT/OT for possible placement in SNF. Vital signs reviewed and stable. General: Nontoxic, no distress and appears stated age. Derm: Skin warm and dry, normal coloration for ethnicity. Head: Atraumatic, normocephalic and symmetric. Eyes: EOM's intact, no lid lag, and anicteric sclera Mouth: no lip lesions, mucus membranes moist Cardiovascular: irregularly irregular, no murmur, positive posterior tibial pulses bilaterally, and cap refill < 2 seconds. Lungs: Respirations even, regular, and unlabored on 2 L O2. Lungs CTA bilaterally, no rhonchi, no rales, no wheezing, and no accessory muscle usage. Abdominal: soft, nontender to palpation, no guarding, no appreciable organomegaly Ext: ROM intact. No gross muscle atrophy, 1+ bilateral lower extremity edema, no contractures Neuro: Speech clear, face symmetrical and CN II-XII grossly intact with no noted focal neuro deficits Psych: Alert and oriented to person, place, time, and situation. Appropriate and pleasant affect. Assessment and Plan of Care: Atrial fibrillation with RVR Hypertension History of CVA x 3 -Cardiology following, discussed plan of care in detail with cardiac GORE INSERTER stating they are increasing Cardizem to 240 mg daily and will continue to monitor overnight. -Telemetry monitoring -Continue home cardiac medication regimen with Eliquis 5 mg twice daily, Farxiga 5 mg daily, and metoprolol 100 mg twice daily and Cardizem was increased to 240 mg daily. COVID-19 infection COPD Chronic hypoxic respiratory failure home oxygen dependent on 2 L -Contact plus droplet precautions. -Continue Symbicort 80-4.5 mcg inhaler 2 puffs twice daily and Spiriva 2.5 mcg inhaler 2 puffs daily. -Supportive and symptomatic care. -Provide patient with supplemental oxygen as needed to maintain SpO2 equal to or greater than 90%. -Ventolin inhaler scheduled 4 times daily and as needed for wheezing/shortness of breath. Acute on chronic lower back and left hip pain with left lower extremity radiculopathy Weakness and difficulties with ambulation -CT lumbar spine showing mild disc bulging L3-L4 with anterior thecal sac flattening and minimal disc bulging with anterior thecal sac contacting L2-L3. -X-ray bilateral hips showing bilateral hip prosthesis with no acute fractures or dislocations reported. -Orthopedic surgery evaluated and recommending no urgent or emergent surgical intervention stating patient may benefit from pain management consult and to follow-up outpatient in their office. -Consult placed to pain management, appreciate recommendations -PT/OT consulted, appreciate recommendations -Case management/social work consulted for assistance with possible placement in SNF. Hyperglycemia, newly diagnosed type 2 diabetes melitis with hemoglobin A1c of 7.8%. -Patient currently on glycemic protocol with NovoLog sliding scale and will plan for discharge on metformin 500 mg twice daily. Data and imaging reviewed: -Labs reviewed. CBC showing stable normocytic anemia with hemoglobin of 10.3. BMP showing mild hyponatremia sodium of 132, blood glucose 135, and slightly low magnesium of 1.7. Hemoglobin A1c 7.8%. -Vital signs reviewed. Blood pressure 151/84, heart rate 95, respiratory rate 18, temp 97.7 F, and SpO2 of 95% on 4 L.. CODE STATUS: Full code DVT prophylaxis: Eliquis Anticipated discharge date: Pending evaluation by pain management and PT/OT Anticipated discharge place: Pending clinical course, patient requesting SNF placement awaiting PT recommendations. Patient was seen independently by Nurse Pracitioner. This document was prepared using [employer] dictation software. Please allow for errors in hand bookbinder, while rare they do occur. Joe Romero NP rendered care for this patient independently, reviewed the findings and plan as documented in the note above and agree with plan. I did not physically speak with or examine the patient on this date. Objective - Vital Signs Vital signs: Vital Signs Temp 97.7 F 11/19/24 07:56 Pulse 95 11/19/24 07:56 Resp 18 11/19/24 07:56 BP 151/84 11/19/24 07:56 Pulse Ox 95 11/19/24 07:56 FiO2 Intake & Output 11/18/24 11/19/24 11/19/24 18:59 06:59 18:59 Intake Total 1178 250 Balance 1178 250 Intake: IV 10 Invasive Line 1 10 Oral 1178 240 Other: Voiding Method Diaper Diaper Bedpan Diaper # Voids 1 - Labs CBC & Chem 7: 11/18/24 06:38 11/18/24 06:38 Labs: Abnormal Lab Results - Last 24 Hours (Table) 11/18/24 11/18/24 11/18/24 Range/Units 11:40 16:53 20:22 POC Glucose (mg/dL) 173 H 190 H 229 H (70-110) mg/dL
--- NOTE | 2024-11-19 14:15 | P.PN ---
Subjective HISTORY OF PRESENT ILLNESS: This is a 64-year-old female patient of Dr. Myles Decker with past medical history of persistent atrial fibrillation on Eliquis with previous ablation done at [facility], congestive heart failure, COPD and follows with Dr. 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 We have been asked to evaluate the patient for atrial fibrillation. Patient presented to the hospital due to left hip pain. She states due to rheumatoid arthritis she has had 5 hip replacements done. She has been suffering with left hip pain for the past year that comes and goes. She now states the pain is a number 10 out of 10. Patient also complains of some difficulty in breathing as well as cough and wheezing. Patient has tested positive for COVID. Blood pressure 128/73, heart rate 106, pulse ox 93% on 2 L nasal cannula. Patient's heart rate has been up to a maximum of 144. Patient is seen today in the emergency center waiting for bed on the cardiac stepdown unit. Patient has been started on a Cardizem drip currently at 10 mg/h. Patient states that she has been taking her Eliquis and not missing any doses. -EKG: Atrial fibrillation with ventricular rate of 141 bpm -Chest x-ray: No acute process. COPD. -Laboratory studies: WBC 6.1, hemoglobin 11.2. Sodium 138, potassium 3.8, BUN 15 creatinine 0.53. Troponin negative x 1. proBNP 1720. TSH 1.25. -Home cardiac medications: Eliquis 5 mg twice daily, Cardizem CD3 160 mg daily, Jardiance 10 mg daily, Lasix 20 mg daily as needed, Toprol-XL 100 mg twice daily. -Echocardiogram performed in the office on 11/12/2024 revealed EF of 50 to 55%, mild left ventricular hypertrophy, mildly dilated right atrium and severely dilated left atrium, trace aortic regurgitation, a ascending aorta is enlarged, mild to moderate mitral regurgitation, mild tricuspid regurgitation, pulmonary artery systolic pressure of 35 mmHg, mild pulmonary regurgitation. -Event monitor 09/29/2024 revealed atrial fibrillation/flutter with average heart rate of 87 bpm, minimum heart rate 54 and maximum heart rate 122. PVC burden 0.08%. -Patient reports history of cardiac catheterization done 1 year ago at [facility] that revealed no obstructive disease. 11/17/2024 Patient examined this morning at the bedside. Patient currently denies chest pain or pressure. She denies shortness of breath. She continues to report pain in her hip. She has been evaluated by orthopedics with no plans for any surgical intervention. Pain management has been consulted for evaluation. The patient remains on IV Cardizem at 10 mg an hour. Telemetry reviewed revealing atrial fibrillation with heart rate in the 80s. 11/18/2024 Patient examined this morning at the bedside. Patient currently denies chest pain or pressure. She denies shortness of breath. She remains in atrial fibrillation with a heart rate around [id number]. She continues to report pain in her hip and is awaiting evaluation from anesthesia pain management. 11/19/2024 Patient examined this morning the bedside. Patient without complaints of chest pain or shortness of breath. Telemetry reveals atrial fibrillation with controlled ventricular rate in the 70s. PHYSICAL EXAM: VITAL SIGNS: Reviewed. GENERAL: Well-developed in no acute distress. NECK: Supple. No JVD or thyromegaly LUNGS: Respirations even and unlabored. Lungs essentially clear to auscultation bilaterally. HEART: Irregular rate and rhythm. S1 and S2 heard. EXTREMITIES: Normal range of motion. No clubbing or cyanosis. Peripheral pulses intact. No lower extremity edema ASSESSMENT: COVID Left hip pain Persistent atrial fibrillation with RVR due to COVID infection COPD Chronic hypoxic respiratory failure on home O2 at 2 L Hypertension History of CVA x 3 Remote history of tobacco use and dependence PLAN: Continue current cardiac medications Continue telemetry monitoring No further inpatient recommendations from a cardiac standpoint We will sign off. Please reconsult if needed. Nurse practitioner note has been reviewed by physician. Signing provider agrees with the documented findings, assessment, and plan of care documented by MATHEMATICAL STATISTICIAN as a scribe. Objective - Vital Signs Vital signs: Vital Signs Temp 98 F 11/19/24 12:54 Pulse 82 11/19/24 12:54 Resp 20 11/19/24 12:54 BP 163/99 11/19/24 13:02 Pulse Ox 93 L 11/19/24 13:02 FiO2 Intake & Output 11/18/24 11/19/24 11/19/24 18:59 06:59 18:59 Intake Total 1178 472 Balance 1178 472 Intake: IV 10 Invasive Line 1 10 Oral [id number] Other: Voiding Method Diaper Diaper Bedpan Diaper # Voids 1 1 - Labs CBC & Chem 7: 11/18/24 06:38 11/18/24 06:38 Labs: Abnormal Lab Results - Last 24 Hours (Table) 11/18/24 11/18/24 11/19/24 Range/Units 16:53 20:22 07:26 POC Glucose (mg/dL) 190 H 229 H (70-110) mg/dL Hemoglobin A1c 7.8 H (<=6.0) % 11/19/24 Range/Units 11:22 POC Glucose (mg/dL) 120 H (70-110) mg/dL Hemoglobin A1c (<=6.0) %
[2024-11-19 16:39] LABS: Glucose,Whole Blood 153 mg/dL (70-110)
--- NOTE | 2024-11-19 17:03 | P.PAINPG ---
Objective - Vital Signs Vital signs: Vital Signs Temp 98 F 11/19/24 12:54 Pulse 82 11/19/24 12:54 Resp 20 11/19/24 12:54 BP 163/99 11/19/24 13:02 Pulse Ox 93 L 11/19/24 14:24 FiO2 Intake & Output 11/18/24 11/19/24 11/19/24 18:59 06:59 18:59 Intake Total 1178 472 Balance 1178 472 Intake: IV 10 Invasive Line 1 10 Oral 1178 462 Other: Voiding Method Diaper Diaper Bedpan Diaper # Voids 1 1 - Labs CBC & Chem 7: 11/18/24 06:38 11/18/24 06:38 Labs: Abnormal Lab Results - Last 24 Hours (Table) 11/18/24 11/18/24 11/19/24 Range/Units 16:53 20:22 07:26 POC Glucose (mg/dL) 190 H 229 H (70-110) mg/dL Hemoglobin A1c 7.8 H (<=6.0) % 11/19/24 11/19/24 Range/Units 11:22 16:37 POC Glucose (mg/dL) 120 H 153 H (70-110) mg/dL Hemoglobin A1c (<=6.0) % PQRS Measure Charge Sheet Comment: HISTORY OF PRESENT ILLNESS: A 64 yr old female presents today w severe and chronic LBP and L hip pain secondary to DJD, radiculopathy, spondylosis and facet arthropathy without myelopathy for evaluation. Pt states pain level is provoked at 7 /10 in intensity, constant, localized in the mid lumbar spine and L hip, predominantly axial, achy in character w occasional shooting pain from the lumbar spine towards the L hip. Pain is provoked by any movement. Pain is alleviated by medications (MS 4mg IVP q4h prn, Tyl 650mg PO q6h prn), repositioning and rest . PMH: OA, aFib, CHF, CAD, COPD, CVA x3, Seizure Disorder, Juvenile RA, MDD/ Bipolar PSH: Lung CA, , Hip Replacement x5, RUE Tumor Resection SH: Former tobacco user, Occ ETOH use, No illicit drug use FH: Non contributory All: See list Meds: See list REVIEW OF ORGAN SYSTEMS: CONSTITUTIONAL: No fevers or chills. No recent weight loss. NEUROLOGICAL: + numbness and tingling along the distal extremities. No seizure disorders or headaches. MUSCULOSKELETAL: + pain PSYCHIATRIC: Denies current depression or suicidal thoughts. Physical Examinations : Constitutional : Cooperative , not in acute distress . Neurologic : Cranial nerve II to XII intact. No focal neurological deficits. Psychiatric : alert & oriented x 3. Matching mood & appropriate affect. Judgment & insight intact. Musculoskeletal : Cervical Spine Motor strength in the deltoid and biceps: Normal right side. Normal Left side Motor strength biceps and the wrist extensors: Normal right side . Normal left side Motor strength in the triceps muscle: Normal right side. Normal left side Deep tendon reflexes: Normal at the biceps. Normal at Brachioradialis. Normal at triceps Vertebral body tenderness to deep palpation over Cervical facet loading test: positive bilaterally Spurling test: positive bilaterally Neck distraction test: positive bilaterally Wisam sign: positive bilaterally Lumbar spine Motor strength lower extremities ,thigh and legs 5/5 Right side , 5/5 Left side Deep tendon reflexes : Normal Knee Jerk. Normal Ankle Jerk Vertebral body tenderness over Kwong Test positive L3-L4 BL Lumbar facet Loading Test: positive Right / positive Left Range of motion of the lumbar spine Flexion 30 degrees, extension 10 degrees Straight Leg Raise test: Left/ Right positive at degrees Lacy test: positive right / positive left. Severe tenderness over the Sacroiliac joint on the Right / Left sides Gaenslen test: positive bilaterally Seated flexion test: positive bilaterally. Sacral spine : Severe tenderness over the Sacroiliac joint: right side / left side Range of motion: Flexion of the lumbar spine <60 degrees Range of motion: Extension of the lumbar spine <20 degrees Gaenslen's Test positive Lacy test: positive right side / left side Thigh Thrust Test Sacral Thrust Test Imaging: CT non contrast lumbar spine from 11/18/24 reviewed Assessment/ Plan : L3-L4 radiculopathy Recommendation of medication management. Would benefit from FREDO L3-L4 in an outpatient basis. Pt is scheduled a discharge to a SNF at this time. Discussed taking Percocet prior to start of in-house PT to achieve therapy goals. All questions answered. I have spent greater than 30 minutes on patient care today. Dr Kmibrough was available by phone for the evaluation of this patient. The time was used to review the medical records including relevant urine studies and Prescription history (MAPs), review of the available imaging, evaluation and examination of the patient, coordination of care with the medical staff and if applicable referring physicians, as well as creation of the medical record Pain Comment: patient rolled and bed changed increased o2 to 5L PQRS Narrative: Blood Pressure [Left Arm] 163/99 Blood Pressure 152/70 Pain Intensity [Left Hip] 8 Pain Intensity [Back] 0 Pain Intensity 5 Pain Scale Used Numeric (1 - 10) Scale Used Numeric (1 - 10) Home Medications: Ambulatory Orders Apixaban [Eliquis] 5 mg PO BID 11/16/24 Empagliflozin [Jardiance] 10 mg PO DAILY 11/16/24 Fluticasone Propion/Salmeterol [Advair 250-50 Diskus] 1 inhalation PO RT-BID 11/16/24 Furosemide [Lasix] 20 mg PO DAILY PRN 11/16/24 Ibuprofen [Advil] 400 mg PO 5XD 11/16/24 Metoprolol Succinate [Toprol XL] 100 mg PO BID 11/16/24 Tiotropium [place] [Spiriva] 1 puff INHALATION RT-DAILY 11/16/24 dilTIAZem HCL [Cardizem CD] 360 mg PO DAILY 11/16/24 Controlled Substance Measures - Controlled Substance Measures Is patient prescribed a controlled substance at discharge?: No
[2024-11-19 20:25] LABS: Glucose,Whole Blood 163 mg/dL (70-110)
[2024-11-20 05:46] LABS: Glucose,Whole Blood 147 mg/dL (70-110)
[2024-11-20 08:01] LABS: HCT 35.9 % (34.0-46.0); HGB 10.9 gm/dL (11.4-16.0); Hypochromasia Marked; MCH 25.1 pg (25.0-35.0); MCHC 30.3 g/dL (31.0-37.0); MCV 82.8 fL (80.0-100.0); Mean Platelet Volume 8.3; Platelet Count 273 k/uL (150-450); RBC 4.34 m/uL (3.80-5.40)
[2024-11-20 08:26] LABS: African American GFR (CKD) >90 (>60 ml/min/1.73 sqM); Anion Gap 5 mmol/L; Blood Urea Nitrogen 9 mg/dL (7-17); Calcium 8.5 mg/dL (8.4-10.2); Carbon Dioxide 35 mmol/L (22-30); Chloride 98 mmol/L (98-107); Glucose 121 mg/dL (74-99); Non-African American GFR(CKD) >90 (>60 ml/min/1.73 sqM); Potassium 4.4 mmol/L (3.5-5.1); Sodium 138 mmol/L (137-145)
[2024-11-20 11:40] LABS: Glucose,Whole Blood 179 mg/dL (70-110)
[2024-11-20 13:03] VITALS: RESP 20
--- NOTE | 2024-11-20 13:35 | P.PN ---
Subjective Progress Note Date: 11/20/24 Hospital course: Patient is a very pleasant 64-year-old female with a past medical history of chronic atrial fibrillation on Eliquis, history of 3 previous CVAs, COPD with chronic hypoxic respiratory failure home oxygen dependent on 2 L, and chronic left hip pain. She presented to the hospital on 11/15/2024 with complaints of shortness of breath. The patient reports that she has been experiencing progressive shortness of breath over the past 1 week. She reports using her inhaler multiple times with minimal relief. She also reported that she has had a persistent left hip pain for which she has followed up with multiple providers at [facility] and with pain management but that they have been unable to manage her pain. She is requesting another opinion from an orthopedic surgeon. She reports compliance with her home medications including Eliquis. She denied experiencing chest discomfort, nausea, vomiting, dizziness, abdominal pain, diarrhea, diaphoresis. Upon arrival to our facility, patient underwent evaluation in the emergency department. Vital signs upon arrival show blood pressure 166/116, heart rate 128, respiratory rate 22, temp 98.2 F, and SpO2 of 93% on room air. EKG was completed showing A-fib RVR to 141 bpm with T wave inversion in lateral lead I and aVL and incomplete right bundle branch block. Chest x-ray completed negative for acute cardiopulmonary process showing changes of COPD with flattening of the diaphragm and increased lucency of the lungs. Labs completed and reviewed. CBC unremarkable. Coagulation profile normal findings. BMP unremarkable. Blood glucose 162. Lactic acid was 1.4. Magnesium slightly low at 1.7. Liver profile unremarkable. Troponin was negative at less than 0.012 and proBNP was 1720. Cepheid 4 Plex viral panel positive for COVID. Patient admitted under our services with consultation to cardiology and orthopedic surgery. Orthopedic surgery evaluated and recommending no urgent or emergent surgical intervention stating patient may benefit from pain management consult and to follow-up outpatient in their office. Physical exam: Patient was seen and fully evaluated at bedside this morning. She is currently resting comfortably, appears in better spirits now that she knows she is going to [facility] facility stating she has some relief. Patient denies having any other complaints at this time. She states right now her back pain is better controlled. Vital signs reviewed and stable. General: Nontoxic, no distress and appears stated age. Derm: Skin warm and dry, normal coloration for ethnicity. Head: Atraumatic, normocephalic and symmetric. Eyes: EOM's intact, no lid lag, and anicteric sclera Mouth: no lip lesions, mucus membranes moist Cardiovascular: irregularly irregular, no murmur, positive posterior tibial pulses bilaterally, and cap refill < 2 seconds. Lungs: Respirations even, regular, and unlabored on 2 L O2. Lungs CTA bilaterally, no rhonchi, no rales, no wheezing, and no accessory muscle usage. Abdominal: soft, nontender to palpation, no guarding, no appreciable organomegaly Ext: ROM intact. No gross muscle atrophy, 1+ bilateral lower extremity edema, no contractures Neuro: Speech clear, face symmetrical and CN II-XII grossly intact with no noted focal neuro deficits Psych: Alert and oriented to person, place, time, and situation. Appropriate and pleasant affect. Assessment and Plan of Care: Atrial fibrillation with RVR Hypertension History of CVA x 3 -Cardiology following, discussed plan of care in detail with cardiac SELF PAY REPRESENTATIVE stating patient cleared from cardiac perspective for discharge. -Telemetry monitoring -Continue home cardiac medication regimen with Eliquis 5 mg twice daily, Farxiga 5 mg daily, and metoprolol 100 mg twice daily and Cardizem 240 mg daily. COVID-19 infection COPD Chronic hypoxic respiratory failure home oxygen dependent on 2 L -Contact plus droplet precautions. -Continue Symbicort 80-4.5 mcg inhaler 2 puffs twice daily and Spiriva 2.5 mcg inhaler 2 puffs daily. -Decadron 10 mg IVP x 1 dose followed by Decadron 6 mg by mouth daily. -Supportive and symptomatic care. -Provide patient with supplemental oxygen as needed to maintain SpO2 equal to or greater than 90%. -Ventolin inhaler scheduled 4 times daily and as needed for wheezing/shortness of breath. Acute on chronic lower back and left hip pain with left lower extremity radiculopathy Weakness and difficulties with ambulation -CT lumbar spine showing mild disc bulging L3-L4 with anterior thecal sac flattening and minimal disc bulging with anterior thecal sac contacting L2-L3. -X-ray bilateral hips showing bilateral hip prosthesis with no acute fractures or dislocations reported. -Orthopedic surgery evaluated and recommending no urgent or emergent surgical intervention stating patient may benefit from pain management consult and to follow-up outpatient in their office. -Consult placed to pain management, appreciate recommendations -PT/OT consulted, appreciate recommendations -Case management/social work consulted for assistance with possible placement in SNF. Hyperglycemia, newly diagnosed type 2 diabetes melitis with hemoglobin A1c of 7.8%. -Patient currently on glycemic protocol with NovoLog sliding scale and will plan for discharge on metformin 500 mg twice daily. Data and imaging reviewed: -Labs reviewed. CBC showing stable normocytic anemia with hemoglobin of 10.9. BMP showing hypercarbia with bicarb of 35 otherwise normal findings. Blood glucose 121. -Vital signs reviewed. Blood pressure 160/86, heart rate 103, respiratory rate 22, temp 97.5 F, and SpO2 of 93% on 4 L.. CODE STATUS: Full code DVT prophylaxis: Eliquis Anticipated discharge date: Patient has been accepted to SNF, awaiting insurance authorization. Anticipated discharge place: [facility] Patient was seen independently by Nurse Pracitioner. This document was prepared using [employer] dictation software. Please allow for errors in trade facilitator, while rare they do occur. Joe Romero NP rendered care for this patient independently, reviewed the findings and plan as documented in the note above and agree with plan. I did not physically speak with or examine the patient on this date. Objective - Vital Signs Vital signs: Vital Signs Temp 98.1 F 11/20/24 03:30 Pulse 82 11/20/24 03:30 Resp 20 11/20/24 03:30 BP 126/75 11/20/24 03:30 Pulse Ox 94 L 11/20/24 03:30 FiO2 Intake & Output 11/19/24 11/20/24 11/20/24 18:59 06:59 18:59 Intake Total 704 20 Balance 704 20 Intake: IV 20 20 Invasive Line 1 10 Invasive Line 2 10 20 Oral 684 Other: Voiding Method Bedpan Bedpan Diaper Diaper # Voids 2 2 - Labs CBC & Chem 7: 11/20/24 07:20 11/20/24 07:20 Labs: Abnormal Lab Results - Last 24 Hours (Table) 11/19/24 11/19/24 11/19/24 Range/Units 07:26 11:22 16:37 Hgb (11.4-16.0) gm/dL MCHC (31.0-37.0) g/dL POC Glucose (mg/dL) 120 H 153 H (70-110) mg/dL Hemoglobin A1c 7.8 H (<=6.0) % 11/19/24 11/20/24 11/20/24 Range/Units 20:23 05:44 07:20 Hgb 10.9 L (11.4-16.0) gm/dL MCHC 30.3 L (31.0-37.0) g/dL POC Glucose (mg/dL) 163 H 147 H (70-110) mg/dL Hemoglobin A1c (<=6.0) %
--- NOTE | 2024-11-20 14:45 | P.CN ---
Psychiatric Consult - . Consult date: 11/20/24 Consult:: 11/20/24 13:50 IDENTIFYING DATA: This patient is a 64-year-old female, currently is , lives with her son, [id number], 3 grandkids in a house, she collects Social Security disability REASON FOR REFERRAL: Psychiatry was consulted for depression HISTORY OF PRESENT ILLNESS: The patient presented to the hospital on 11/15 for shortness of breath increasing for the past week or so, patient apparently is endorsing a cough has a history of COPD lung cancer and several other comorbidities. Patient was also found positive for COVID, also atrial fibrillation. Patient was sitting in a chair agreeable to speak to policy writer today. She was endorsing "severe leg pain" and states that this is chronic since she was younger. Claims that she has a history of rheumatoid arthritis from a young age. States that she was seeing pain management however was not getting much help from them. Claims that she is taking a lot of ibuprofen at home, received morphine while in the hospital which helped. She claims that its gotten the point where she has trouble walking. Claims that she is finding it difficult to manage several different medical comorbidities. Denied any problems at home with the kids or with her son and [id number]. Claims that she does have financial issues. Claims that her sleep and appetite are fair at this time however is sleeping a bit during the day. Claims that she is not having any paranoia no delusions today. At this time patient denies any suicidal or homical ideations, intent or plan. Patient denies any auditory, visual hallucinations and denies any paranoia or delusions. Patients admits to using no recreational drugs, claims that she quit smoking several years ago PAST PSYCHIATRIC HISTORY: Patient has a a history of depression. Claims that she has been on several different antidepressants in the past including Effexor Prozac, has also tried Xanax which was not effective. She states that she has been on other medications however cannot remember them. Claims that she was admitted to a psychiatric unit about 5 years ago to [facility]. Patient denies any psychiatric outpatient follow-up. Claims that she attempted suicide when she went on the train track and laid on it this was about 5 years ago PAST MEDICAL HISTORY: As per medical H&P ALLERGIES: as per EMR. CHEMICAL DEPENDENCY HISTORY: as per HPI. FAMILY PSYCHIATRIC/SUBSTANCE USE HISTORY: Denies SOCIAL HISTORY: Patient was born and raised in [place]. 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 Claims that she currently lives with her son and also her [id number]. Claims that she has 3 grandkids, she lives in a house. Denies any legal history. MENTAL STATUS EXAM: General Appearance: Patient appears to be sitting in a chair, has a nasal cannula, stated age is alert, attempts to be cooperative. Patient appears to have fair hygiene and grooming wearing hospital gown with fair eye contact. Behavior: Patient is calmly lying in bed without any agitated behavior. Attempts to cooperate, somewhat demanding Speech: Patient's speech is fluent and nonpressured. Mood/Affect: Patient reports their mood is "depressed and a bit anxious", affect is congruent and emotional at times during the interview Suicidality/Homicidality: Patient denies having any suicidal or homicidal ideation intent or plan. Perceptions: Patient denies any visual hallucinations and denies any auditory hallucinations Though content/process: There is no evidence of any delusional thought content and thought process is linear and goal-directed. Focused on her pain Memory and concentration: AOX3, grossly intact for the purposes of this session. Can spell "WORLD" backwards Judgment and insight: Poor IMPRESSIONS: Major depressive disorder Pain disorder with psychological factors Anxiety disorder unspecified PLAN: -At this time patient DOES NOT meet criteria for inpatient psychiatric admission. -Delirium precautions recommended with patient including - avoiding use of narcotics and LICENSED CERTIFIED ORTHOTIST sedatives, limit anticholinergic medications when possible, frequent re-orientation, minimize use of restraints, open window shades during the day and close them at night -Would recommend the following medication changes/additions: Please be cautious with steroids and also opiates as it may precipitate an episode of delirium/confusion. Melatonin 5 mg nightly for sleep, Cymbalta 30 mg daily for mood/anxiety/pain. -bee worker to provide patient with outpatient mental health/psychiatry resources for appropriate follow up upon discharge -Communicated plan to patient's nurse and CM. Would recommend placement at this time in [place], will likely be going to [facility]. -Psychiatry will sign off at this time -Please contact with any questions.
[2024-11-20 16:46] LABS: Glucose,Whole Blood 158 mg/dL (70-110)
[2024-11-20] MEDS: DEXAMETHASONE SOD PHOSPHATE 10 MG/ML 1 ML VIAL IVP STA (16:55)
[2024-11-20] MEDS: DULoxetine HCL 30 MG CAPSULE.DR PO SCH (16:55)
[2024-11-20 20:13] LABS: Glucose,Whole Blood 146 mg/dL (70-110)
[2024-11-20] MEDS: MELATONIN 5 MG TABLET PO SCH (21:11)
[2024-11-21 06:29] LABS: Glucose,Whole Blood 213 mg/dL (70-110)
[2024-11-21] MEDS ORDERED: dexAMETHasone 4 MG TAB PO SCH (09:00)
[2024-11-21] MEDS: dexAMETHasone 4 MG TAB PO SCH (09:33)
[2024-11-21 10:16] VITALS: BP 138/73; PULSE 88; TEMP 97.9
[2024-11-21 11:31] LABS: Glucose,Whole Blood 232 mg/dL (70-110)
--- NOTE | 2024-11-21 13:04 | P.DS ---
Providers Date of admission: 11/15/24 23:00 Expected date of discharge: 11/21/24 Attending physician: Jose Rafael Yap MD Consults: 11/16/24 03:32 Consult Physician Urgent Consulting Provider: Ilan Oconnor Consult Reason/Comments: L hip pain Do you want consulting provider notified?: Yes 11/19/24 15:25 Consult Physician Routine Consulting Provider: Te Reddy Consult Reason/Comments: making statements about being depressed Do you want consulting provider notified?: Yes [facility]: Discharge Diagnosis: Atrial fibrillation with RVR. Cardiology evaluated, medication changes made patient cleared from cardiac perspective for discharge recommending outpatient follow-up in our office.Continue home cardiac medication regimen with Eliquis 5 mg twice daily, Farxiga 5 mg daily, and metoprolol 100 mg twice daily and Cardizem 240 mg daily. Hypertension History of CVA x 3 COVID-19 infection. Continue Decadron 6 mg by mouth daily for additional 3 days. Ventolin inhaler scheduled 4 times daily and as needed for wheezing/shortness of breath. COPD. Continue Symbicort 80-4.5 mcg inhaler 2 puffs twice daily and Spiriva 2.5 mcg inhaler 2 puffs daily. Chronic hypoxic respiratory failure home oxygen dependent on 2 L. Provide patient with supplemental oxygen to maintain SpO2 equal to or greater than 90%. Acute on chronic lower back and left hip pain with left lower extremity radiculopathy. CT lumbar spine showing mild disc bulging L3-L4 with anterior th ecal sac flattening and minimal disc bulging with anterior thecal sac contacting L2-L3. Orthopedic surgery evaluated and recommending no urgent or emergent surgical intervention stating patient may benefit from pain management consult and to follow-up outpatient in their office. Pain management evaluated stating patient may benefit from FREDO L3-L4 on an outpatient basis to achieve therapy goals. Patient to follow-up outpatient with Dr. Kimbrough in 1-2 weeks. Weakness and difficulties with ambulation. PT/OT evaluated recommending SNF placement. Patient accepted to [facility] for rehab. Hyperglycemia, newly diagnosed type 2 diabetes melitis with hemoglobin A1c of 7.8%. Hospital course: Patient is a very pleasant 64-year-old female with a past medical history of chronic atrial fibrillation on Eliquis, history of 3 previous CVAs, COPD with chronic hypoxic respiratory failure home oxygen dependent on 2 L, and chronic left hip pain. She presented to the hospital on 11/15/2024 with complaints of shortness of breath. The patient reports that she has been experiencing progressive shortness of breath over the past 1 week. She reports using her inhaler multiple times with minimal relief. She also reported that she has had a persistent left hip pain for which she has followed up with multiple providers at [facility] and with pain management but that they have been unable to manage her pain. She is requesting another opinion from an orthopedic surgeon. She re ports compliance with her home medications including Eliquis. She denied experiencing chest discomfort, nausea, vomiting, dizziness, abdominal pain, diarrhea, diaphoresis. Upon arrival to our facility, patient underwent evaluation in the emergency department. Vital signs upon arrival show blood pressure 166/116, heart rate 128, respiratory rate 22, temp 98.2 F, and SpO2 of 93% on room air. EKG was completed showing A-fib RVR to 141 bpm with T wave inversion in lateral lead I and aVL and incomplete right bundle branch block. Chest x-ray completed negative for acute cardiopulmonary process showing changes of COPD with flattening of the diaphragm and increased lucency of the lungs. Labs completed and reviewed. CBC unremarkable. Coagulation profile normal findings. BMP unremarkable. Blood glucose 162. Lactic acid was 1.4. Magnesium slightly low at 1.7. Liver profile unremarkable. Troponin was negative at less than 0.012 and proBNP was 1720. Cepheid 4 Plex viral panel positive for COVID. Patient admitted under our services with consultation to cardiology and orthopedic surgery. Orthopedic surgery evaluated and recommending no urgent or emergent surgical intervention stating patient may benefit from pain management consult and to follow-up outpatient in their office. Physical exam: Vital signs reviewed and stable. General: Nontoxic, no distress and appears stated age. Derm: Skin warm and dry, normal coloration for ethnicity. Head: Atraumatic, normocephalic and symmetric. Eyes: EOM's intact, no lid lag, and anicteric sclera Mouth: no lip lesions, mucus membranes moist Cardiovascular: irregularly irregular, no murmur, positive posterior tibial pulses bilaterally, and cap refill < 2 seconds. Lungs: Respirations even, regular, and unlabored on 2 L O2. Lungs CTA bilaterally, no rhonchi, no rales, no wheezing, and no accessory muscle usage. Abdominal: soft, nontender to palpation, no guarding, no appreciable o rganomegaly Ext: ROM intact. No gross muscle atrophy, 1+ bilateral lower extremity edema, no contractures Neuro: Speech clear, face symmetrical and CN II-XII grossly intact with no noted focal neuro deficits Psych: Alert and oriented to person, place, time, and situation. Appropriate and pleasant affect. A total of 35 minutes of time were spent preparing this complex discharge summary. Pt was discharged on 11/21/24 at 8:59 AM. Patient was seen independently by Nurse Practitioner. This document was prepared using [employer] dictation software. Please allow for errors in hand spray operator while rare they do occur. Joe Romero NP rendered care for this patient independently, reviewed the findings and plan as documented in the note above. I did not physically speak with or examine the patient on this date. Patient Condition at Discharge: Stable Plan - Discharge Summary New Discharge Prescriptions: New Diltiazem Cd [Cardizem CD] 240 mg PO DAILY cap Melatonin 5 mg PO HS tab Acetaminophen Tab [Tylenol] 650 mg PO Q6HR PRN tab PRN Reason: Mild Pain Or Fever > 100.5 Albuterol Inhaler [Ventolin Hfa Inhaler] 1 puff INHALATION RT-QID PRN each PRN Reason: Shortness Of Breath Or Wheezing HYDROcodone/APAP 7.5-325MG [Uneeda 7.5-325] 1 tab PO Q4H PRN 3 Days #18 tab PRN Reason: Pain DULoxetine HCL [Cymbalta] 30 mg PO DAILY cap dexAMETHasone ORAL [Hexadrol] 6 mg PO DAILY 3 Days #3 tab Nystatin 100,000 Unit/gm Oint [Mycostatin Oint] 1 applic TOPICAL TID each INSULIN ASPART (NovoLOG) [NovoLOG (formulary)] See Rx Instructions .ROUTE .COMPLEX each Albuterol Inhaler [Ventolin Hfa Inhaler] 1 puff INHALATION RT-QID each Continue Metoprolol Succinate [Toprol XL] 100 mg PO BID Apixaban [Eliquis] 5 mg PO BID Empagliflozin [Jardiance] 10 mg PO DAILY Furosemide [Lasix] 20 mg PO DAILY PRN PRN Reason: Edema Tiotropium Mora [Spiriva Handihaler] 1 puff INHALATION RT-DAILY Fluticasone Propion/Salmeterol [Advair 250-50 Diskus] 1 inhalation PO RT-BID Ibuprofen [Advil] 400 mg PO 5XD Discontinued dilTIAZem HCL [Cardizem CD] 360 mg PO DAILY Discharge Medication List Apixaban [Eliquis] 5 mg PO BID 11/16/24 [History] Empagliflozin [Jardiance] 10 mg PO DAILY 11/16/24 [History] Fluticasone Propion/Salmeterol [Advair 250-50 Diskus] 1 inhalation PO RT-BID 11/16/24 [History] Furosemide [Lasix] 20 mg PO DAILY PRN 11/16/24 [History] Ibuprofen [Advil] 400 mg PO 5XD 11/16/24 [History] Metoprolol Succinate [Toprol XL] 100 mg PO BID 11/16/24 [History] Tiotropium Mora [Spiriva Handihaler] 1 puff INHALATION RT-DAILY 11/16/24 [ History] Acetaminophen Tab [Tylenol] 650 mg PO Q6HR PRN tab 11/21/24 [Rx] Albuterol Inhaler [Ventolin Hfa Inhaler] 1 puff INHALATION RT-QID each 11/21/24 [Rx] Albuterol Inhaler [Ventolin Hfa Inhaler] 1 puff INHALATION RT-QID PRN each 11/21/24 [Rx] DULoxetine HCL [Cymbalta] 30 mg PO DAILY cap 11/21/24 [Rx] Diltiazem Cd [Cardizem CD] 240 mg PO DAILY cap 11/21/24 [Rx] HYDROcodone/APAP 7.5-325MG [Uneeda 7.5-325] 1 tab PO Q4H PRN 3 Days #18 tab 11/21/24 [Rx] INSULIN ASPART (NovoLOG) [NovoLOG (formulary)] See Rx Instructions .ROUTE .COMPLEX each 11/21/24 [Rx] Melatonin 5 mg PO HS tab 11/21/24 [Rx] Nystatin 100,000 Unit/gm Oint [Mycostatin Oint] 1 applic TOPICAL TID each 11/21/24 [Rx] dexAMETHasone ORAL [Hexadrol] 6 mg PO DAILY 3 Days #3 tab 11/21/24 [Rx] Follow up Appointment(s)/Referral(s): [facility] [REFERRING] - Khanh Hale, [Primary Care Provider] - 1-2 days Barbara Kimbrough MD [STAFF PHYSICIAN] - 1 Week Discharge/Stand Alone Forms: Who Do I Call?, Adult [facility] List, Help In The Home Discharge Disposition: TRANSFER TO SNF/ECF
--- NOTE | 2024-11-23 09:21 | CDI ---
Documentation Clarification Form Date: 11/23/2024 09:05:02 AM From: Kiera Salvador Phone: Admit Date: 11/15/2024 11:00:00 PM Patient Name: Bety Leon Visit Number: [id number] Discharge Date: 11/21/2024 02:57:00 PM ATTENTION: The Clinical Documentation Specialists (CDI) and [facility] Coding Staff appreciate your assistance in clarifying documentation. Please respond to the clarification below the line at the bottom and electronically sign. The CDI & [facility] Coding staff will review the response and follow-up if needed. Please note: Queries are made part of the Legal Health Record. If you have any questions, please contact the author of this message via ITS. Doctor/Provider: Bernard Rodriguez Your patient has the documented diagnosis of unspecified CHF in H/P note on 11/15 Additional information regarding the [type, ] of CHF is requested. History/Risk Factors: Patient is a 64-year-old female with a PMH ofA-fibon Eliquis,COPD, and chronic left hip painwho presents to the emergency room with complaints of shortness of breath. The patient reports that she has been experiencing progressiveshortness of breathover the past 1 week. Clinical Indicators: VS/Pulse OX: vital signs upon arrival show blood pressure 166/116, heart rate 128, respiratory rate 22, temp 98. 2 F, and SpO2 of 93% on room air. BNP:on 11/15 -1720. Echocardiogram Results: was completed showing A-fib RVR to 141 bpm with T wave inversion in lateral lead I and aVL and incomplete right bundle branch block. Chest X Ray:on 11/15No acute cardiopulmonary disease process. Cardiology consult on 11/16 -Echocardiogramperformed in the office on4revealed EF of 50 to 55%, mildleft ventricular hypertrophy, mildlydilatedright atrium and severely dilatedleft atrium, trace aorticregurgitation, a ascending aorta isenlarged, mild to moderatemitral regurgitation, mildtricuspid regurgitation, pulmonary artery systolicpressureof 35 mmHg, mildpulmonary regurgitation. -Event monitor 09/29/2024 revealedatrial fibrillation/flutterwith average heart rate of 87 bpm, minimum heart rate 54 and maximum heart rate 122. PVC burden 0. 08%. Cardiology pn 11/18 -Patient examined this morning at the bedside. Patient currentlydenieschest painorpressure. Shedeniesshortness of breath. She remains inatrial fibrillationwith a heart rate around [id number]. She continues to reportpain in her hipand is awaitingevaluationfrom anesthesiapainmanagement. Pn on 11/19 -Patient examined this morning the bedside. Patientwithoutcomplaints ofchest painorshortness of breath. Telemetryrevealsatrial fibrillationwith controlled ventricular rate in the 70s. Treatment: IV Cardizem. Begin oral Cardizem 180 mg daily Continue oral anticoagulation with Eliquis Continuetelemetry monitoring Awaitingevaluationfrompainmanagement in regards toleft hip pain In your professional opinion, can you please clarify the type of CHF if known? [ ] Chronic Systolic Heart Failure (reduced EF) [x ] Chronic Diastolic Heart Failure (preserved EF) [ ] Chronic Systolic & Diastolic Heart Failure [ ] Other, please specify [ ] Unable to determine (Template Last Revised: December 2020) MTDD
== END 2024-11-21 14:57 | DRG 178 ==
LOC: EC 18:10 → 3SCARD 23:00
PROVIDERS: ADMIT Internal Medicine; ATTEND Internal Medicine
PROC: 3E033RZ Introduction of Antiarrhythmic into Peripheral Vein, Percutaneous Approach (ICD-10-PCS; principal; 2024-11-16)
DX: U07.1 COVID-19 (principal); I48.19 Other persistent atrial fibrillation; J96.11 Chronic respiratory failure with hypoxia; I50.32 Chronic diastolic (congestive) heart failure; I11.0 Hypertensive heart disease with heart failure; J44.9 Chronic obstructive pulmonary disease, unspecified; M25.552 Pain in left hip; M54.16 Radiculopathy, lumbar region; R53.1 Weakness; E11.65 Type 2 diabetes mellitus with hyperglycemia; I45.10 Unspecified right bundle-branch block; M06.9 Rheumatoid arthritis, unspecified; M54.50 Low back pain, unspecified; F31.9 Bipolar disorder, unspecified; F45.42 Pain disorder with related psychological factors; F41.9 Anxiety disorder, unspecified; Z86.73 Personal history of transient ischemic attack (TIA), and cerebral infarction without residual deficits; G40.909 Epilepsy, unspecified, not intractable, without status epilepticus; G89.29 Other chronic pain; I25.10 Atherosclerotic heart disease of native coronary artery without angina pectoris; Z99.81 Dependence on supplemental oxygen; Z85.118 Personal history of other malignant neoplasm of bronchus and lung; Z87.891 Personal history of nicotine dependence; Z79.01 Long term (current) use of anticoagulants; Z88.5 Allergy status to narcotic agent; Z79.51 Long term (current) use of inhaled steroids; Z79.84 Long term (current) use of oral hypoglycemic drugs
CPT/HCPCS: 36415; 71046; 72131; 73521; 80048; 80053; 83036; 83605; 83735; 83880; 84443; 84484; 85025; 85027; 85610; 85730; 87636; 93005; 94640; 96365; 96366; 96375; 96376; 99291

== ENCOUNTER 2025-01-30 13:35 | Observation (INO) | payer MEDICARE ==
[2025-01-30 14:15] LABS: Anisocytosis Slight; HCT 29.2 % (34.0-46.0); HGB 8.5 gm/dL (11.4-16.0); Hypochromasia Marked; MCH 22.6 pg (25.0-35.0); MCHC 29.1 g/dL (31.0-37.0); MCV 77.4 fL (80.0-100.0); Mean Platelet Volume 7.1; Microcytosis Slight; Platelet Count 594 k/uL (150-450); RBC 3.77 m/uL (3.80-5.40); RDW 16.8 % (11.5-15.5); WBC 9.5 k/uL (3.8-10.6)
[2025-01-30 14:27] LABS: INR 1.3 (<1.2); Partial Thromboplastin Time 34.2 sec (22.0-30.0)
[2025-01-30 14:31] LABS: ALT 6 U/L (4-34); AST 14 U/L (14-36); African American GFR (CKD) >90 (>60 ml/min/1.73 sqM); Albumin 2.2 g/dL (3.5-5.0); Alkaline Phosphatase 129 U/L (38-126); Anion Gap 6 mmol/L; Blood Urea Nitrogen 15 mg/dL (7-17); Calcium 7.5 mg/dL (8.4-10.2); Carbon Dioxide 26 mmol/L (22-30); Chloride 94 mmol/L (98-107); Glucose 132 mg/dL (74-99); Magnesium 1.8 mg/dL (1.6-2.3); Non-African American GFR(CKD) >90 (>60 ml/min/1.73 sqM); Sodium 126 mmol/L (137-145); Total Bilirubin 0.5 mg/dL (0.2-1.3); Total Protein 5.6 g/dL (6.3-8.2)
[2025-01-30] MEDS: SODIUM CHLORIDE 0.9% 1,000 ML IV ONE (14:34)
[2025-01-30] MEDS: ONDANSETRON 4 MG/2 ML VIAL IVP STA (14:34)
[2025-01-30] MEDS: PANTOPRAZOLE 40 MG/10 ML VIAL IVP STA (14:34)
[2025-01-30] MEDS: ACETAMINOPHEN TAB 500 MG TAB PO STA (14:37)
[2025-01-30 15:02] LABS: Influenza A Not Detected (Not Detectd); Influenza B Not Detected (Not Detectd); RSV Not Detected (Not Detectd)
[2025-01-30 15:08] LABS: Lymphocytes # (M) 0.38 k/uL (1.0-4.8); Monocytes # (M) 0.48 k/uL (0-1.0); Neutrophils # (M) 8.65 k/uL (1.3-7.7); Neutrophils % (M) 91 %; Nucleated Red Blood Cells 0 /100 WBC (0-0); Total Cells Counted 100
[2025-01-30 15:09] LABS: Anisocytosis (M) Present; Poikilocytosis (M) Present
--- NOTE | 2025-01-30 15:28 | XR ---
EXAMINATION TYPE: XR chest 2V DATE OF EXAM: 01/30/2025 3:23 PM COMPARISON: 11/15/2024 CLINICAL INDICATION: Female, 64 years old with history of Weakness: Shortness of breath TECHNIQUE: XR chest 2V views of the chest are obtained. FINDINGS: Scattered senescent parenchymal changes noted. Hyperinflation compatible with COPD. No evidence for infiltrate. No evidence for atelectasis. Heart size is stable. Mediastinal structures are stable and grossly unremarkable. No evidence for hilar prominence. Degenerative changes dorsal spine. IMPRESSION: 1. No evidence for acute pulmonary disease. [facility], , 01/30/2025 3:26 PM
--- NOTE | 2025-01-30 15:29 | XR ---
EXAMINATION TYPE: XR wrist complete LT DATE OF EXAM: 01/30/2025 3:23 PM COMPARISON: 2 CLINICAL INDICATION: Female, 64 years old with history of pain, pain TECHNIQUE: XR wrist complete LT XX views were obtained. FINDINGS: There is no acute fracture/dislocation evident. Severe degenerative narrowing radiocarpal, ulnar carpal, radial ulnar and intercarpal joint spaces. There is chronic-appearing bone deformity a nd dorsal spurring. Findings are felt to be chronic in nature without definite acute fracture. The ov erlying soft tissue appears unremarkable. IMPRESSION: No definite acute fracture appreciated. Chronic changes as noted. [facility], , 01/30/2025 3:27 PM
--- NOTE | 2025-01-30 16:08 | CT ---
EXAMINATION TYPE: CT angio abdomen pelvis CT DLP: 2399.5 mGycm, Automated exposure control for dose reduction was used. DATE OF EXAM: 01/30/2025 3:51 PM COMPARISON:PET CT 10/26/2024, CT chest abdomen 09/21/2024 CLINICAL INDICATION:Female, 64 years old with history of gi bleed protocol, constipation/obstruction; GI bleed protocol, constipation/obstruction. TECHNIQUE: Multiple thin slice sub-millimeter images were obtained through the abdomen and pelvis bef ore and after administration of contrast. Patient was given Isovue 370, 100 cc intravenously. Delaye d imaging was performed. MIPS were performed on a separate workstation. FINDINGS: CTA Abdomen and pelvis: The abdominal aorta does not demonstrate aneurysmal dilatation. Minimal athe rosclerotic plaquing is identified within the abdominal aorta. The origins of the superior mesenteri c artery, renal arteries, inferior mesenteric artery, and celiac axis are patent. The iliac vessels are normal in morphology. VISCERA: The liver, spleen, adrenal glands, kidneys, pancreas, and gallbladder are not optimally enha nced due the arterial phase utilized. LIVER: Unremarkable GALLBLADDER AND BILE DUCTS: Hydropic gallbladder with layering hyperdensity. No surrounding inflammat ory changes. No biliary duct dilatation. PANCREAS: Unremarkable. SPLEEN: Unremarkable. ADRENAL GLANDS: Unremarkable. KIDNEYS AND URETERS: No evidence of hydronephrosis or renal calculus. Nonspecific bilateral perinephr ic fat stranding. Right renal upper pole cyst with largest measuring up to 5.9 cm. Left renal inferio r pole 1.3 cm cyst. PELVIS BLADDER: Incompletely distended but grossly unremarkable. REPRODUCTIVE: The uterus is surgically absent. ABDOMEN & PELVIS STOMACH AND BOWEL: Stomach and duodenum are unremarkable. Scattered colonic diverticulosis without ev idence for acute diverticulitis. Rectal fecaloma measuring up to 8.8 cm without stranding inflammator y changes however evaluation is limited due to streak artifact. There is some scattered hyperdense in tramural nodularity within the splenic flexure (series 501, image 70) with additional intraluminal hy perdensity within the descending colon. No significant change on delayed imaging suggest active GI bl eed. No evidence of bowel obstruction. PERITONEUM: No evidence of pneumoperitoneum or free fluid. VASCULATURE: Mild atherosclerotic calcifications are present throughout the abdominal aorta and its b ranches. No abdominal aortic aneurysm. No evidence for intramural hematoma or dissection. MUSCULOSKELETAL: No acute osseous abnormalities. Post surgical changes from bilateral total hip arthr oplasty which limits evaluation due to streak artifact. Additional postsurgical changes from fixation hardware involving the left iliac bone. Redemonstration of large loculated intramuscular fluid colle ction involving the left proximal thigh. Single focus of gas identified in the posterior aspect. LYMPH NODES: No gross evidence for lymphadenopathy. SOFT TISSUE/ABDOMINAL WALL: Unremarkable LOWER CHEST: Regions of air trapping within the lungs. Scattered regions of linear scarring and/or at electasis. Small coronary calcifications. No sizable pericardial effusion. Dilated main pulmonary art new measuring up to 3.6 cm suggesting pulmonary arterial hypertension. IMPRESSION 1. No CT evidence for GI bleed or bowel obstruction however there is colonic diverticulosis without evidence for acute diverticulitis. Few intraluminal hyperdense foci which may represent polyps identi fied within the splenic flexure and descending colon. Consider direct visualization. 2. Postsurgical changes of the hips with large loculated intramuscular fluid within the left thigh. P resent since 10/26/2024 exam. Single focus of gas identified within the collection. May represent a s eroma however underlying hematoma or abscess is not excluded. Correlate clinically. 3. Hydropic gallbladder with layering cholelithiasis/biliary sludge. No surrounding inflammatory bass ges. Consider ultrasound if there is concern for acute cholecystitis. [facility], , 01/30/2025 4:06 PM
--- NOTE | 2025-01-30 17:00 | US ---
EXAMINATION TYPE: US gallbladder DATE OF EXAM: 01/30/2025 COMPARISON: CT(Today) CLINICAL INDICATION: Female, 64 years old with history of eval for cholecystitis. nausea; known hydro pic gb from prior CT TECHNIQUE: Grayscale and color Doppler imaging of the right upper quadrant. FINDINGS: EXAM MEASUREMENTS: Liver Length: 17.9 cm Gallbladder Wall: 0.2 cm CBD: 0.6 cm, color Doppler imaging was utilized to isolate the common bile duct for measurement. Right Kidney: 8.2x4.9x5.0 cm CHANCELLOR NOTES: slightly limited scan due to overlying gas/bowel Pancreas: Pancreas not well visualized. Visualized portion of the pancreatic duct near the upper limi ts of normal measuring 3 mm in diameter. Liver: Increased attenuation, decreased visualization of vessels suggestive of fatty infiltrate Gallbladder: Dilated gallbladder lumen with layering biliary sludge. No definite gallbladder wall th ickening or acute pericholecystic fluid. Evidence for sonographic Mcginnis's sign: No CBD: wnl Right Kidney: Mildly prominent right renal pelvis without evidence of hydronephrosis. Multiple anechoic cysts with largest as follows: 1. 5.2x4.6x4.7cm 2. 2.0x2.2x2.0cm IMPRESSION: Distended gallbladder lumen and layering biliary sludge without definite sonographic evidence of acut e cholecystitis. [facility], Workstation: [id number], 01/30/2025 4:58 PM
[2025-01-30] MEDS ORDERED: ONDANSETRON 4 MG/2 ML VIAL IVP PRN (17:21)
[2025-01-30] MEDS ORDERED: NALOXONE 0.4 MG/ML 1 ML VIAL IV PRN (17:21)
--- NOTE | 2025-01-30 17:21 | ED ---
General Adult HPI - General Chief complaint: Recheck/Abnormal Lab/Rx Stated complaint: poss bowel ob, weakness Time Seen by Provider: 01/30/25 13:40 Source: patient, EMS, RN notes reviewed, old records reviewed Mode of arrival: EMS - History of Present Illness Initial comments: Patient is a 64-year-old female presents emergency department complaining of constipation. Presents from fdc. Also concern for low hemoglobin that they have been closely monitoring. Has a history of A-fib, COPD. Is chronically on 2 L nasal cannula oxygen at home. Denies any other acute complaints at this time. Presents for further evaluation at this time. Denies any significant nausea or vomiting. Denies diarrhea. Denies any focal abdominal pain but states she occasionally will have abdominal discomfort but currently denies any. Mostly is concerned because she has not been pooping. States she has been anemic but this has been an ongoing issue and denies any dark tarry stools, bright red blood stools, or hematemesis. No source of bleeding. - Related Data Home Medications Medication Instructions Recorded Confirmed Apixaban [Eliquis] 5 mg PO BID@0800,1700 11/16/24 01/30/25 Empagliflozin [Jardiance] 10 mg PO DAILY 11/16/24 01/30/25 Fluticasone Propion/Salmeterol 1 inhalation PO RT-BID@0800,1700 11/16/24 [Advair 250-50 Diskus] Ibuprofen [Advil] 400 mg PO 5XD PRN 11/16/24 01/30/25 Metoprolol Succinate [Toprol XL] 100 mg PO BID@0800,1700 11/16/24 01/30/25 Tiotropium [place] [Spiriva 1 puff INHALATION RT-DAILY 11/16/24 01/30/25 Handihaler] Caldesene Powder 1 applic TOPICAL TID 01/30/25 01/30/25 Cholecalciferol [Vitamin D3 (25 125 mcg PO DAILY 01/30/25 01/30/25 Mcg = 1000 Iu)] Escitalopram [Lexapro] 10 mg PO DAILY 01/30/25 01/30/25 Ferrous Sulfate [Feosol] 325 mg PO DAILY 01/30/25 01/30/25 Furosemide [Lasix] 20 mg PO DAILY 01/30/25 01/30/25 INSULIN ASPART (NovoLOG) [NovoLOG See Protocol SQ ACHS 01/30/25 01/30/25 (formulary)] Ipratropium-Albuterol Nebulize 3 ml INHALATION RT-Q6H PRN 01/30/25 01/30/25 [Duoneb 0.5 mg-3 mg/3 ml Soln] Maalox Plus 30 ml PO Q6H PRN 01/30/25 01/30/25 Magnesium Hydroxide [Milk of 7,200 mg PO DAILY PRN 01/30/25 01/30/25 Magnesia Concentrate] Menthol/Zinc Oxide [Calprotect 1 applic TOPICAL TID 01/30/25 01/30/25 0.44%-20.6% Oint] Na Phos,M-B/Na Phos,Di-Ba [Fleet 133 ml RECTAL DAILY PRN 01/30/25 01/30/25 Adult] Nystatin 100,000 Unit/gm Oint 1 applic TOPICAL TID@0800,1200,1700 01/30/25 01/30/25 [Mycostatin Oint] Ondansetron [Zofran] 4 mg PO Q6HR PRN 01/30/25 01/30/25 Potassium Chloride [Klor-Con M10] 10 meq PO HS 01/30/25 01/30/25 Sennosides [Senokot] 8.6 mg PO BID@0800,2100 01/30/25 01/30/25 bisacodyL [Dulcolax] 10 mg RECTAL DAILY PRN 01/30/25 01/30/25 Previous Rx's Medication Instructions Recorded Acetaminophen Tab [Tylenol] 650 mg PO Q6HR PRN tab 11/21/24 Albuterol Inhaler [Ventolin Hfa 1 puff INHALATION RT-QID each 11/21/24 Inhaler] Albuterol Inhaler [Ventolin Hfa 1 puff INHALATION RT-QID PRN each 11/21/24 Inhaler] DULoxetine HCL [Cymbalta] 30 mg PO DAILY cap 11/21/24 Diltiazem Cd [Cardizem CD] 240 mg PO DAILY cap 11/21/24 HYDROcodone/APAP 7.5-325MG [[place] 1 tab PO Q4H PRN 3 Days #18 tab 11/21/24 7.5-325] Melatonin 5 mg PO HS tab 11/21/24 Allergies Allergy/AdvReac Type Severity Reaction Status Date / Time codeine AdvReac Nausea Verified 01/30/25 17:39 Review of Systems ROS Statement: Those systems with pertinent positive or pertinent negative responses have been documented in the HPI. Review of Systems: CONST: Denies fever EYES: Denies blurry vision ENT: Denies nasal congestion C/V: Denies Chest pain RESP: Denies shortness of breath GI: Denies abdominal pain : Denies dysuria SKIN: Denies rash. MSK: Denies joint pain. NEURO: Denies headache ROS Other: All systems not noted in ROS Statement are negative. 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 HEAD: Normal with no signs of head trauma. EYES: PERRLA, EOMI, conjunctiva normal, no discharge. ENT: Hearing grossly intact, normal oropharynx.Dry mucous membranes. RESPIRATORY: Clear breath sounds bilaterally. No wheezes, rales, or rhonchi. C/V: Regular rate and rhythm. S1 and S2 auscultated, no edema, peripheral pulses 2+ and intact throughout ABD: Abd is soft, nontender, nondistended. No guarding or rebound tenderness. No peritoneal signs. EXT: Normal range of motion, no obvious deformity SKIN: No rashes or lesions observed on exposed skin. NEURO: Alert and oriented x 4. Course Vital Signs 01/30/25 01/30/25 01/30/25 13:42 16:00 17:47 Temperature 98 F Pulse Rate 93 78 74 Respiratory 18 18 18 Rate Blood Pressure 105/72 128/98 121/86 O2 Sat by Pulse 97 Oximetry 01/30/25 19:54 Temperature Pulse Rate 84 Respiratory 18 Rate Blood Pressure 122/79 O2 Sat by Pulse 96 Oximetry Medical Decision Making - Medical Decision Making Was pt. sent in by a medical professional or institution (, PA, STRUCTURAL STEEL WORKER APPRENTICE, urgent care, hospital, or fdc...) When possible be specific @ -Sent in by nursing facility for evaluation for weakness, and chronic ongoing anemia Did you speak to anyone other than the patient for history (EMS, parent, family, police, friend...)? What history was obtained from this source @ -No Did you review nursing and triage notes (agree or disagree)? Why? @ -I reviewed and agree with nursing and triage notes Were old charts reviewed (outside hosp., previous admission, EMS record, old EKG, old radiological studies, urgent care reports/EKG's, fdc records)? Report findings @ -Reviewed including old hemoglobins which showed hemoglobin around 8. Most recent from earlier this morning showing a hemoglobin of 8.6. Differential Diagnosis (chest pain, altered mental status, abdominal pain women, abdominal pain men, vaginal bleeding, weakness, fever, dyspnea, syncope, headache, dizziness, GI bleed, back pain, seizure, CVA, palpatations, mental health, musculoskeletal)? @ -Differential Abdominal Pain Women: Appendicitis, Cholecystitis, diverticulosis, ischemic bowel, pancreatitis, hepatitis, UTI, gastroenteritis, AAA, incarcerated hernia, bowel obstruction, constipation, inflammatory bowel, hepatitis, peptic ulcer disease, splenic infarction, perforated viscus, vulvitis, ovarian torsion, PID, kidney stone, placenta abruption, this is not meant to be an all-inclusive list EKG interpreted by me (3pts min.). @ -As above X-rays interpreted by me (1pt min.). @ -Chest x-ray shows no obvious acute cardiopulmonary process. Wrist x-ray shows no obvious acute process. CT interpreted by me (1pt min.). @ -CT abdomen pelvis shows no evidence of GI bleed. No obvious acute intra- abdominal process otherwise. Biliary sludge in the gallbladder without any definitive diagnosis of cholecystitis. Patient also has chart chronic findings in the intramuscular fluid in the left thigh. Was on antibiotics for this multiple years ago. States she was told this for since October. This is a chronic finding. No new pain or symptoms. U/S interpreted by me (1pt. min.). @ -Gallbladder ultrasound shows no evidence of acute cholecystitis. What testing was considered but not performed or refused? (CT, X-rays, U/S, labs)? Why? @ -None What meds were considered but not given or refused? Why? @ -None Did you discuss the management of the patient with other professionals (professionals i.e. , PA, STRUCTURAL STEEL WORKER APPRENTICE, lab, RT, psych nurse, social work program coordinator, securities vault supervisor, teacher, aboriginal liaison officer, leather case finisher)? Give summary @ -Discussed with the admitting provider, Dr. Barksdale who accepted the admission. Was smoking cessation discussed for >3mins.? @ -No Was critical care preformed (if so, how long)? @ -No Were there social determinants of health that impacted care today? How? (Homelessness, low income, unemployed, alcoholism, drug addiction, tra nsportation, low edu. Level, literacy, decrease access to med. care, retirement, rehab)? @ -No Was there de-escalation of care discussed even if they declined (Discuss DNR or withdrawal of care, Hospice)? DNR status @ -No What co-morbidities impacted this encounter? (DM, HTN, Smoking, COPD, CAD, Cancer, CVA, ARF, Chemo, Hep., AIDS, mental health diagnosis, sleep apnea, morbid obesity)? @ -None Was patient admitted / discharged? Hospital course, mention meds given and route, prescriptions, significant lab abnormalities, going to OR and other pertinent info. @ -Based on the patient's presentation and physical exam, patient presents emergency department complaining of weakness, ongoing anemia, as well as intermittent abdominal pain which patient currently does not have. Described the pain is generally no focal tenderness. Presents for further evaluation at this time. Vitals within acceptable limits. Patient clinically appears dehydrated. She will be given IV fluids. She was in agreement this plan. No concern for GI bleed at this time. Laboratory studies remarkable for chronic anemia which appears stable at 8.5. She is hyponatremic to 126 and hypokalemic to 94. Patient has 4+ glucose in the urine as well as ketones that are trace but no evidence of DKA. Viral swabs are unremarkable. Chest x-ray unremarkable. CT abdomen pelvis reveals no obvious acute intra- abdominal process to explain current symptoms. Possible gallbladder pathology and therefore ultrasound was obtained which showed no evidence of cholecystitis. On reevaluation, patient has no symptoms currently. However due to clinical dehydration as well as the hyponatremia and hypochloremia and weakness, patient will be admitted and we will monitor her labs. Will continue with IV fluid hydration. She was in agreement this plan. I spoke with the admitting provider, Dr. Barksdale who accepted the admission. Undiagnosed new problem with uncertain prognosis? @ -No Drug Therapy requiring intensive monitoring for toxicity (Heparin, Nitro, Insulin, Cardizem)? @ -No Were any procedures done? @ -No Diagnosis/symptom? @ -Weakness, dehydration Acute, or Chronic, or Acute on Chronic? @ -Acute Uncomplicated (without systemic symptoms) or Complicated (systemic symptoms)? @ -Complicated Side effects of treatment? @ -No Exacerbation, Progression, or Severe Exacerbation? @ -No Poses a threat to life or bodily function? How? (Chest pain, [place], [place], pneumonia, PE, COPD, DKA, ARF, appy, cholecystitis, CVA, Diverticulitis, Homicidal, Suicidal, threat to staff... and all critical care pts) @ -Potentially, yes - Lab Data Result diagrams: 01/30/25 14:03 01/30/25 14:03 Lab Results 01/30/25 01/30/25 01/30/25 Range/Units 13:55 14:00 14:03 WBC 9.5 (3.8-10.6) k/uL RBC 3.77 L (3.80-5.40) m/uL Hgb 8.5 L (11.4-16.0) gm/dL Hct 29.2 L (34.0-46.0) % MCV 77.4 L (80.0-100.0) fL MCH 22.6 L (25.0-35.0) pg MCHC 29.1 L (31.0-37.0) g/dL RDW 16.8 H (11.5-15.5) % Plt Count 594 H (150-450) k/uL MPV 7.1 Neutrophils % (Manual) 91 % Lymphocytes % (Manual) 4 % Monocytes % (Manual) 5 % Neutrophils # (Manual) 8.65 H (1.3-7.7) k/uL Lymphocytes # (Manual) 0.38 L (1.0-4.8) k/uL Monocytes # (Manual) 0.48 (0-1.0) k/uL Nucleated RBCs 0 (0-0) /100 WBC Manual Slide Review Performed Hypochromasia Marked Poikilocytosis (manual Present Anisocytosis Slight Anisocytosis (manual) Present Microcytosis Slight PT (10.0-12.5) sec INR (<1.2) APTT (22.0-30.0) sec Sodium (137-145) mmol/L Potassium (3.5-5.1) mmol/L Chloride (98-107) mmol/L Carbon Dioxide (22-30) mmol/L Anion Gap mmol/L BUN (7-17) mg/dL Creatinine (0.52-1.04) mg/dL Est GFR (CKD-EPI)AfAm (>60 ml/min/1.73 sqM) Est GFR (CKD-EPI)NonAf (>60 ml/min/1.73 sqM) Glucose (74-99) mg/dL Plasma Lactic Acid Giovanny (0.7-2.0) mmol/L Calcium (8.4-10.2) mg/dL Magnesium (1.6-2.3) mg/dL Total Bilirubin (0.2-1.3) mg/dL AST (14-36) U/L ALT (4-34) U/L Alkaline Phosphatase (38-126) U/L Total Protein (6.3-8.2) g/dL Albumin (3.5-5.0) g/dL Influenza Type A (PCR) (Not Detectd) Influenza Type B (PCR) (Not Detectd) RSV (PCR) (Not Detectd) SARS-CoV-2 (PCR) (Not Detectd) Blood Type O Positive Blood Type Confirm O Positive Blood Type Recheck No Previous Record Bld Type Recheck Status CABO Indicated Antibody Screen POSITIVE Antibody Identification Not Reportable Direct Antiglob Test Postive Spec Expiration Date 02/02/2025 - 229901/30/25 01/30/25 01/30/25 Range/Units 14:03 14:03 14:03 WBC (3.8-10.6) k/uL RBC (3.80-5.40) m/uL Hgb (11.4-16.0) gm/dL Hct (34.0-46.0) % MCV (80.0-100.0) fL MCH (25.0-35.0) pg MCHC (31.0-37.0) g/dL RDW (11.5-15.5) % Plt Count (150-450) k/uL MPV Neutrophils % (Manual) % Lymphocytes % (Manual) % Monocytes % (Manual) % Neutrophils # (Manual) (1.3-7.7) k/uL Lymphocytes # (Manual) (1.0-4.8) k/uL Monocytes # (Manual) (0-1.0) k/uL Nucleated RBCs (0-0) /100 WBC Manual Slide Review Hypochromasia Poikilocytosis (manual Anisocytosis Anisocytosis (manual) Microcytosis PT 14.0 H (10.0-12.5) sec INR 1.3 H (<1.2) APTT 34.2 H (22.0-30.0) sec Sodium 126 L (137-145) mmol/L Potassium 4.0 (3.5-5.1) mmol/L Chloride 94 L (98-107) mmol/L Carbon Dioxide 26 (22-30) mmol/L Anion Gap 6 mmol/L BUN 15 (7-17) mg/dL Creatinine 0.43 L (0.52-1.04) mg/dL Est GFR (CKD-EPI)AfAm >90 (>60 ml/min/1.73 sqM) Est GFR (CKD-EPI)NonAf >90 (>60 ml/min/1.73 sqM) Glucose 132 H (74-99) mg/dL Plasma Lactic Acid Giovanny 1.1 (0.7-2.0) mmol/L Calcium 7.5 L (8.4-10.2) mg/dL Magnesium 1.8 (1.6-2.3) mg/dL Total Bilirubin 0.5 (0.2-1.3) mg/dL AST 14 (14-36) U/L ALT 6 (4-34) U/L Alkaline Phosphatase 129 H (38-126) U/L Total Protein 5.6 L (6.3-8.2) g/dL Albumin 2.2 L (3.5-5.0) g/dL Influenza Type A (PCR) (Not Detectd) Influenza Type B (PCR) (Not Detectd) RSV (PCR) (Not Detectd) SARS-CoV-2 (PCR) (Not Detectd) Blood Type Blood Type Confirm Blood Type Recheck Bld Type Recheck Status Antibody Screen Antibody Identification Direct Antiglob Test Spec Expiration Date 01/30/25 01/30/25 Range/Units 14:03 17:15 WBC (3.8-10.6) k/uL RBC (3.80-5.40) m/uL Hgb (11.4-16.0) gm/dL Hct (34.0-46.0) % MCV (80.0-100.0) fL MCH (25.0-35.0) pg MCHC (31.0-37.0) g/dL RDW (11.5-15.5) % Plt Count (150-450) k/uL MPV Neutrophils % (Manual) % Lymphocytes % (Manual) % Monocytes % (Manual) % Neutrophils # (Manual) (1.3-7.7) k/uL Lymphocytes # (Manual) (1.0-4.8) k/uL Monocytes # (Manual) (0-1.0) k/uL Nucleated RBCs (0-0) /100 WBC Manual Slide Review Hypochromasia Poikilocytosis (manual Anisocytosis Anisocytosis (manual) Microcytosis PT (10.0-12.5) sec INR (<1.2) APTT (22.0-30.0) sec Sodium (137-145) mmol/L Potassium (3.5-5.1) mmol/L Chloride (98-107) mmol/L Carbon Dioxide (22-30) mmol/L Anion Gap mmol/L BUN (7-17) mg/dL Creatinine (0.52-1.04) mg/dL Est GFR (CKD-EPI)AfAm (>60 ml/min/1.73 sqM) Est GFR (CKD-EPI)NonAf (>60 ml/min/1.73 sqM) Glucose (74-99) mg/dL Plasma Lactic Acid Giovanny (0.7-2.0) mmol/L Calcium (8.4-10.2) mg/dL Magnesium (1.6-2.3) mg/dL Total Bilirubin (0.2-1.3) mg/dL AST (14-36) U/L ALT (4-34) U/L Alkaline Phosphatase (38-126) U/L Total Protein (6.3-8.2) g/dL Albumin (3.5-5.0) g/dL Influenza Type A (PCR) Not Detected (Not Detectd) Influenza Type B (PCR) Not Detected (Not Detectd) RSV (PCR) Not Detected (Not Detectd) SARS-CoV-2 (PCR) Not Detected (Not Detectd) Blood Type O Positive Blood Type Confirm Blood Type Recheck O Pos Bld Type Recheck Status No Antibody Screen POSITIVE Antibody Identification Direct Antiglob Test Postive Spec Expiration Date 02/02/20252314 - EKG Data -: EKG Interpreted by Me EKG Comments: 12-lead Electrocardiogram Interpretation Note EKG was reviewed and interpreted by myself. 12-lead ECG performed at 1405 is interpreted by me as revealing atrial fibrillation at a rate of 86 beats per minute. Left axis deviation. QRS duration is 98 ms, QTc is 385 ms.. There were no ST or T wave abnormalities to suggest myocardial ischemia or injury. R wave progression across the precordium was satisfactory. By my interpretation this EKG is non-diagnostic for acute ischemia. Disposition Clinical Impression: Weakness, Dehydration Disposition: ADMITTED IP TO THIS HOSP Condition: Stable Time of Disposition: 17:21
[2025-01-30] MEDS: HYDROcodone/APAP 7.5-325MG 1 EACH TAB PO PRN (17:44)
[2025-01-30] MEDS: SODIUM CHLORIDE 0.9% 1,000 ML IV SCH (17:45)
[2025-01-30 20:28] LABS: Appearance,Urine Clear (Clear); Bilirubin,Urine Negative (Negative); Blood,Urine Trace (Negative); Color,Urine Yellow; Glucose,Urine (UA) 4+ (Negative); Hyaline Casts,Urine 1 /lpf (0-2); Ketones,Urine Trace (Negative); Leukocyte Esterase,Urine Negative (Negative); Nitrite,Urine Negative (Negative); PH, Urine 6.5 (5.0-8.0); Protein,Urine Negative (Negative); RBC,Urine 4 /hpf (0-5); Specific Gravity,Urine 1.034 (1.001-1.035); Squamous Epithelial Cell,Urine 1 /hpf (0-4); Urobilinogen,Urine <2.0 mg/dL (<2.0); WBC,Urine 2 /hpf (0-5)
[2025-01-30 20:39] LABS: Glucose,Whole Blood 156 mg/dL (70-110)
[2025-01-30] MEDS ORDERED: HYDROcodone/APAP 7.5-325MG 1 EACH TAB PO PRN (20:57)
[2025-01-30] MEDS ORDERED: ACETAMINOPHEN TAB 325 MG TAB PO PRN (20:57)
[2025-01-30] MEDS ORDERED: IPRATROPIUM-ALBUTEROL 3 ML NEB INHALATION PRN (20:57)
[2025-01-30] MEDS ORDERED: ONDANSETRON ODT 4 MG TAB PO PRN (20:57)
[2025-01-30] MEDS ORDERED: ALBUTEROL NEBULIZED 2.5 MG/3 ML INHALATION PRN (20:57)
[2025-01-30] MEDS ORDERED: bisacodyL 10 MG SUPP RECTAL PRN (20:57)
[2025-01-30] MEDS: POTASSIUM CHLORIDE ER 10 MEQ TAB.ER.PRT PO SCH (22:55)
[2025-01-30] MEDS: MELATONIN 5 MG TABLET PO SCH (22:55)
[2025-01-31] MEDS: ALBUTEROL NEBULIZED 2.5 MG/3 ML INHALATION SCH (05:51)
[2025-01-31] MEDS: TIOTROPIUM 2.5 MCG INHALER INHALATION SCH (05:52)
[2025-01-31] MEDS: SYMBICORT 80-4.5 MCG INHALER INHALATION SCH (05:52)
[2025-01-31 05:53] LABS: Glucose,Whole Blood 137 mg/dL (70-110)
[2025-01-31] MEDS: APIXABAN 5 MG TAB PO SCH (08:12)
[2025-01-31] MEDS: METOPROLOL SUCCINATE (ER) 100 MG TAB.ER.24H PO SCH (08:12)
[2025-01-31] MEDS: FUROSEMIDE 20 MG TAB PO SCH (08:13)
[2025-01-31] MEDS: DULoxetine HCL 30 MG CAPSULE.DR PO SCH (08:13)
[2025-01-31] MEDS: ESCITALOPRAM 10 MG TAB PO SCH (08:13)
[2025-01-31] MEDS: DAPAGLIFLOZIN PROPANEDIOL 5 MG TABLET PO SCH (08:13)
[2025-01-31] MEDS: DILTIAZEM CD 240 MG CAP.ER.24H PO SCH (08:13)
[2025-01-31 08:39] LABS: HCT 30.7 % (37.2-46.3); HGB 8.7 g/dL (12.0-15.0); MCH 22.5 pg (27.0-32.0); MCHC 28.3 g/dL (32.0-37.0); MCV 79.3 FL (80.0-97.0); Mean Platelet Volume 10.1 FL (9.5-12.2); NRBC Per 100 WBC 0 X 10*3/uL (0.00-0.01); Platelet Count 602 X 10*3/uL (140-440); RBC 3.87 X 10*6/uL (4.10-5.20); RDW 18.1 % (11.5-14.5); WBC 10.22 X 10*3/uL (4.50-10.00)
[2025-01-31 08:42] LABS: ALT 6 U/L (8-44); AST 14 U/L (13-35); Albumin 2.5 g/dL (3.8-4.9); Albumin/Globulin Ratio 0.64 Ratio (1.60-3.17); Alkaline Phosphatase 148 U/L (41-126); BUN/Creat Ratio 22.33 Ratio (12.00-20.00); Blood Urea Nitrogen 13.4 mg/dL (9.0-27.0); Calcium 8.2 mg/dL (8.7-10.3); Carbon Dioxide 25.5 mmol/L (21.6-31.8); Chloride 94 mmol/L (96-109); Globulin 3.9 g/dL (1.6-3.3); Glucose 122 mg/dL (70-110); Potassium 4.8 mmol/L (3.5-5.5); Sodium 131 mmol/L (135-145); Total Bilirubin 0.3 mg/dL (0.3-1.2); Total Protein 6.4 g/dL (6.2-8.2)
[2025-01-31 09:31] LABS: Basophils # (A) 0.08 X 10*3/uL (0.00-0.10); Basophils % (A) 0.8 %; Elliptocytes 2+ (None Seen); Eosinophils # (A) 0.07 X 10*3/uL (0.04-0.35); Eosinophils % (A) 0.7 %; Lymphocytes # (A) 0.45 X 10*3/uL (0.90-5.00); Lymphocytes % (A) 4.4 %; Monocytes # (A) 0.71 X 10*3/uL (0.20-1.00); Monocytes % (A) 6.9 %; Neutrophils # (A) 8.72 X 10*3/uL (1.80-7.70); Neutrophils % (A) 85.3 %
[2025-01-31 12:31] LABS: Glucose,Whole Blood 181 mg/dL (70-110)
--- NOTE | 2025-01-31 13:08 | P.HPIM ---
History of Present Illness H&P Date: 01/31/25 Chief Complaint: Multiple complaint 64-year-old patient, follows with Dr. Menchaca at [facility], long-term care resident. Chronic medical conditions include atrial fibrillation, COPD, seizure disorder, rheumatoid arthritis previous lung cancer multiple hip surgeries bipolar disorder. 2 L of oxygen at home. Patient currently does use a wheelchair. When taking history from the patient she has multiple complaints. In the ER she reported of constipation. Also concern for low hemoglobin at the [facility]. Which is being monitored. Denies any abdominal pain. Though she has significant hip pain. Denies any dark stool or anh bleeding. She states she is was diagnosed with rheumatoid arthritis at the age of 4 years. Normally has a bowel movement every day but last 7 days did not have a bowel movement. Hemoglobin here is 8.7. Admission sodium 126 Review of systems: GEN.: Tired EYES: None HEENT: None NECK: None RESPIRATORY: None CARDIOVASCULAR: None GASTROINTESTINAL: No BM for 7 days GENITOURINARY: None MUSCULOSKELETAL: Joint pains including the hip LYMPHATICS: None HEMATOLOGICAL: None PSYCHIATRY: Anxiety NEUROLOGICAL: Does use a wheelchair Social history: Former smoker. Occasional alcohol. Long-term resident at [facility]. Uses wheelchair Physical examination: VITAL SIGNS: 98.2, 104, 18, 122 x 79, 98% room air GENERAL: BMI 29.1., Reclining bed awake comfortable EYES: Pupils equal. Conjunctiva melissa l. HEENT: External appearance of nose and ears normal, oral cavity grossly normal. NECK: JVD not raised; masses not palpable. HEART: First and second heart sounds are normal; no edema. LUNGS: Respiratory rate normal; decreased breath sound. ABDOMEN: Soft, nontender, liver spleen not palpable, no masses palpable. PSYCH: Able to answer questions mood and affect bit anxious l. MUSCULOSKELETAL:No Clubbing/cyanosis;muscles-grossly intact. OA. Limited range of motion left hip NEUROLOGICAL: Cranial nerves grossly intact; no facial asymmetry, power and sensation grossly intact. LYMPHATICS: No lymph nodes palpable in the axilla and neck INVESTIGATIONS, reviewed in the clinical context: January 31, 2025: White count 10.2 hemoglobin 8.7 platelets 602 sodium 131 potassium 4.8 BUN 13.4 creatinine 0.6 UA glucose 4+ trace ketone January 30: White count 9.5 hemoglobin 8.5 platelets 594 INR 1.3 sodium 126 potassium 4 BUN 15 creatinine 0.43 Chest x-ray film personally reviewed by me-possibly rotated to the right. Some cardiomegaly CT angio abdomen pelvis: No evidence of bleed. No bowel obstruction. Colonic diverticulosis. Hydropic gallbladder with biliary sludge. No inflammatory changes. EKG tracing personally reviewed by me-atrial fibrillation. Some ST-T wave changes. Rate 86 Assessment plan: -Hyponatremia, from increase water intake Restrict fluid intake. Encourage food intake. -Acute obstipation with no bowel movement for 7 days. Normally has a bowel movement every day. On examination abdomen is soft. No evidence of obstruction on the CT scan. Lactulose 20 g. Also Dulcolax suppository. -Chronic hip pain. Has had at least 5 hip surgeries. On the left side. Possible chronic seroma. -Chronic microcytic anemia. This is being followed outpatient. -Chronic hypoxic respiratory failure from underlying COPD -Essential hypertension Cardizem CD to 40 mg a day Toprol-XL 100 mg twice daily -Persistent atrial fibrillation. Rate controlled. Cardizem CD to 40 mg a day. Toprol-XL 100 mg twice daily. Eliquis -COPD in a previous smoker Albuterol as needed. DuoNeb as needed. Advair 250/50 twice daily. Spiriva. -Bipolar disorder Lexapro. Cymbalta. -Primary osteoarthritis and also secondary arthritis from previous surgeries placed in the left hip. Pain medication as needed -Chronic gait dysfunction at the baseline does use a wheelchair -Patient's son Anton is the medical power of compliance attorney Care was discussed with the patient. Questions answered. 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, Past Anesthesia/Blood Transfusion Reactions: No Reported Reaction Additional Past Anesthesia/Blood Transfusion Reaction / Comment(s): hard to intubate Past Psychological History: Bipolar, Depression Smoking Status: Former smoker Past Alcohol Use History: Occasional Past Drug Use History: None Reported Medications and Allergies Home Medications Medication Instructions Recorded Confirmed Type Apixaban [Eliquis] 5 mg PO BID@0800,1700 11/16/24 01/30/25 History Empagliflozin [Jardiance] 10 mg PO DAILY 11/16/24 01/30/25 History Fluticasone Propion/Salmeterol 1 inhalation PO RT-BID@0800,1700 11/16/24 01/30/25 History [Advair 250-50 Diskus] Ibuprofen [Advil] 400 mg PO 5XD PRN 11/16/24 01/30/25 History Metoprolol Succinate [Toprol XL] 100 mg PO BID@0800,1700 11/16/24 01/30/25 History Tiotropium [place] [Spiriva 1 puff INHALATION RT-DAILY 11/16/24 01/30/25 History Handihaler] Acetaminophen Tab [Tylenol] 650 mg PO Q6HR PRN tab 11/21/24 01/30/25 Rx Albuterol Inhaler [Ventolin Hfa 1 puff INHALATION RT-QID each 11/21/24 01/30/25 Rx Inhaler] Albuterol Inhaler [Ventolin Hfa 1 puff INHALATION RT-QID PRN each 11/21/24 01/30/25 Rx Inhaler] DULoxetine HCL [Cymbalta] 30 mg PO DAILY cap 11/21/24 01/30/25 Rx Diltiazem Cd [Cardizem CD] 240 mg PO DAILY cap 11/21/24 01/30/25 Rx HYDROcodone/APAP 7.5-325MG [[place] 1 tab PO Q4H PRN 3 Days #18 tab 11/21/24 01/30/25 Rx 7.5-325] Melatonin 5 mg PO HS tab 11/21/24 01/30/25 Rx Caldesene Powder 1 applic TOPICAL TID 01/30/25 01/30/25 History Cholecalciferol [Vitamin D3 (25 125 mcg PO DAILY 01/30/25 01/30/25 History Mcg = 1000 Iu)] Escitalopram [Lexapro] 10 mg PO DAILY 01/30/25 01/30/25 History Ferrous Sulfate [Feosol] 325 mg PO DAILY 01/30/25 01/30/25 History Furosemide [Lasix] 20 mg PO DAILY 01/30/25 01/30/25 History INSULIN ASPART (NovoLOG) [NovoLOG See Protocol SQ ACHS 01/30/25 01/30/25 History (formulary)] Ipratropium-Albuterol Nebulize 3 ml INHALATION RT-Q6H PRN 01/30/25 01/30/25 History [Duoneb 0.5 mg-3 mg/3 ml Soln] Maalox Plus 30 ml PO Q6H PRN 01/30/25 01/30/25 History Magnesium Hydroxide [Milk of 7,200 mg PO DAILY PRN 01/30/25 01/30/25 History Magnesia Concentrate] Menthol/Zinc Oxide [Calprotect 1 applic TOPICAL TID 01/30/25 01/30/25 History 0.44%-20.6% Oint] Na Phos,M-B/Na Phos,Di-Ba [Fleet 133 ml RECTAL DAILY PRN 01/30/25 01/30/25 History Adult] Nystatin 100,000 Unit/gm Oint 1 applic TOPICAL TID@0800,1200,1700 01/30/25 01/30/25 History [Mycostatin Oint] Ondansetron [Zofran] 4 mg PO Q6HR PRN 01/30/25 01/30/25 History Potassium Chloride [Klor-Con M10] 10 meq PO HS 01/30/25 01/30/25 History Sennosides [Senokot] 8.6 mg PO BID@0800,2100 01/30/25 01/30/25 History bisacodyL [Dulcolax] 10 mg RECTAL DAILY PRN 01/30/25 01/30/25 History Allergies Allergy/AdvReac Type Severity Reaction Status Date / Time codeine AdvReac Nausea Verified 01/30/25 17:39 Physical Exam Vitals: Vital Signs Temp Pulse Pulse Resp BP BP Pulse Ox 01/31/25 07:00 98.2 F 104 H 18 122/79 98 01/31/25 06:05 88 01/31/25 05:52 90 01/31/25 01:57 97.5 F L 94 17 97/54 98 01/30/25 20:00 97.6 F 92 17 103/56 97 01/30/25 19:54 84 18 122/79 96 01/30/25 17:47 74 18 121/86 01/30/25 16:00 78 18 128/98 01/30/25 13:42 98 F 93 18 105/72 97 Intake and Output 01/30/25 01/31/25 01/31/25 22:59 06:59 14:59 Output Total 200 Balance -200 Output: Urine 200 Other: Voiding Method External Catheter # Voids 2 Weight 69.853 kg Results CBC & Chem 7: 01/31/25 04:07 01/31/25 04:07 Labs: Abnormal Lab Results - Last 24 Hours (Table) 01/30/25 01/30/25 01/30/25 Range/Units 14:03 14:03 14:03 WBC (4.50-10.00) X 10*3/uL RBC 3.77 L (3.80-5.40) m/uL Hgb 8.5 L (11.4-16.0) gm/dL Hct 29.2 L (34.0-46.0) % MCV 77.4 L (80.0-100.0) fL MCH 22.6 L (25.0-35.0) pg MCHC 29.1 L (31.0-37.0) g/dL RDW 16.8 H (11.5-15.5) % Plt Count 594 H (150-450) k/uL Immature Gran # (0.00-0.04) X 10*3/uL Neutrophils # (1.80-7.70) X 10*3/uL Neutrophils # (Manual) 8.65 H (1.3-7.7) k/uL Lymphocytes # (0.90-5.00) X 10*3/uL Lymphocytes # (Manual) 0.38 L (1.0-4.8) k/uL Elliptocytes (None Seen) PT 14.0 H (10.0-12.5) sec INR 1.3 H (<1.2) APTT 34.2 H (22.0-30.0) sec Sodium 126 L (137-145) mmol/L Chloride 94 L (98-107) mmol/L Creatinine 0.43 L (0.52-1.04) mg/dL BUN/Creatinine Ratio (12.00-20.00) Ratio Glucose 132 H (74-99) mg/dL POC Glucose (mg/dL) (70-110) mg/dL Calcium 7.5 L (8.4-10.2) mg/dL ALT (8-44) U/L Alkaline Phosphatase 129 H (38-126) U/L Total Protein 5.6 L (6.3-8.2) g/dL Albumin 2.2 L (3.5-5.0) g/dL Globulin (1.6-3.3) g/dL Albumin/Globulin Ratio (1.60-3.17) Ratio Urine Glucose (UA) (Negative) Urine Ketones (Negative) Urine Blood (Negative) 01/30/25 01/30/25 01/31/25 Range/Units 19:58 20:38 04:07 WBC 10.22 H (4.50-10.00) X 10*3/uL RBC 3.87 L (3.80-5.40) m/uL Hgb 8.7 L (11.4-16.0) gm/dL Hct 30.7 L (34.0-46.0) % MCV 79.3 L (80.0-100.0) fL MCH 22.5 L (25.0-35.0) pg MCHC 28.3 L (31.0-37.0) g/dL RDW 18.1 H (11.5-15.5) % Plt Count 602 H (150-450) k/uL Immature Gran # 0.19 H (0.00-0.04) X 10*3/uL Neutrophils # 8.72 H (1.80-7.70) X 10*3/uL Neutrophils # (Manual) (1.3-7.7) k/uL Lymphocytes # 0.45 L (0.90-5.00) X 10*3/uL Lymphocytes # (Manual) (1.0-4.8) k/uL Elliptocytes 2+ A (None Seen) PT (10.0-12.5) sec INR (<1.2) APTT (22.0-30.0) sec Sodium (137-145) mmol/L Chloride (98-107) mmol/L Creatinine (0.52-1.04) mg/dL BUN/Creatinine Ratio (12.00-20.00) Ratio Glucose (74-99) mg/dL POC Glucose (mg/dL) 156 H (70-110) mg/dL Calcium (8.4-10.2) mg/dL ALT (8-44) U/L Alkaline Phosphatase (38-126) U/L Total Protein (6.3-8.2) g/dL Albumin (3.5-5.0) g/dL Globulin (1.6-3.3) g/dL Albumin/Globulin Ratio (1.60-3.17) Ratio Urine Glucose (UA) 4+ H (Negative) Urine Ketones Trace H (Negative) Urine Blood Trace H (Negative) 01/31/25 01/31/25 Range/Units 04:07 05:52 WBC (4.50-10.00) X 10*3/uL RBC (3.80-5.40) m/uL Hgb (11.4-16.0) gm/dL Hct (34.0-46.0) % MCV (80.0-100.0) fL MCH (25.0-35.0) pg MCHC (31.0-37.0) g/dL RDW (11.5-15.5) % Plt Count (150-450) k/uL Immature Gran # (0.00-0.04) X 10*3/uL Neutrophils # (1.80-7.70) X 10*3/uL Neutrophils # (Manual) (1.3-7.7) k/uL Lymphocytes # (0.90-5.00) X 10*3/uL Lymphocytes # (Manual) (1.0-4.8) k/uL Elliptocytes (None Seen) PT (10.0-12.5) sec INR (<1.2) APTT (22.0-30.0) sec Sodium 131 L (137-145) mmol/L Chloride 94 L (98-107) mmol/L Creatinine (0.52-1.04) mg/dL BUN/Creatinine Ratio 22.33 H (12.00-20.00) Ratio Glucose 122 H (74-99) mg/dL POC Glucose (mg/dL) 137 H (70-110) mg/dL Calcium 8.2 L (8.4-10.2) mg/dL ALT 6 L (8-44) U/L Alkaline Phosphatase 148 H (38-126) U/L Total Protein (6.3-8.2) g/dL Albumin 2.5 L (3.5-5.0) g/dL Globulin 3.9 H (1.6-3.3) g/dL Albumin/Globulin Ratio 0.64 L (1.60-3.17) Ratio Urine Glucose (UA) (Negative) Urine Ketones (Negative) Urine Blood (Negative) Thrombosis Risk Factor Assmnt - Choose All That Apply Any of the Below Risk Factors Present?: Yes Each Factor Represents 1 point: Obesity (BMI >25) Other Risk Factors: Yes Each Risk Factor Represents 2 Points: Age 61-74 years Each Risk Factor Represents 3 Points: History of DVT/PE Other congenital or acquired thrombophilia - If yes, enter type in comment: No Thrombosis Risk Factor Assessment Total Risk Factor Score: 6 Thrombosis Risk Factor Assessment Level: High Risk
[2025-01-31] MEDS: LACTULOSE 20 GM/30 ML CUP PO ONE (13:28)
[2025-01-31] MEDS: bisacodyL 10 MG SUPP RECTAL STA (14:50)
[2025-01-31 17:49] LABS: Glucose,Whole Blood 212 mg/dL (70-110)
[2025-01-31 19:18] LABS: Glucose,Whole Blood 154 mg/dL (70-110)
[2025-02-01 06:56] LABS: Anisocytosis Slight; Basophils % (A) 0 %; Eosinophils # (A) 0.1 k/uL (0-0.7); Eosinophils % (A) 1 %; HCT 25.7 % (34.0-46.0); HGB 7.7 gm/dL (11.4-16.0); Hypochromasia Marked; Lymphocytes # (A) 0.3 k/uL (1.0-4.8); Lymphocytes % (A) 3 %; MCH 23.1 pg (25.0-35.0); MCV 76.9 fL (80.0-100.0); Mean Platelet Volume 6.8; Microcytosis Slight; Monocytes # (A) 0.5 k/uL (0-1.0); Monocytes % (A) 4 %; Neutrophils # (A) 9.9 k/uL (1.3-7.7); Neutrophils % (A) 91 %; Platelet Count 514 k/uL (150-450); RBC 3.34 m/uL (3.80-5.40); RDW 16.7 % (11.5-15.5); WBC 10.9 k/uL (3.8-10.6)
[2025-02-01 07:13] LABS: African American GFR (CKD) >90 (>60 ml/min/1.73 sqM); Anion Gap 3 mmol/L; Blood Urea Nitrogen 10 mg/dL (7-17); Calcium 8.1 mg/dL (8.4-10.2); Carbon Dioxide 30 mmol/L (22-30); Chloride 94 mmol/L (98-107); Glucose 88 mg/dL (74-99); Non-African American GFR(CKD) >90 (>60 ml/min/1.73 sqM); Potassium 4.5 mmol/L (3.5-5.1); Sodium 127 mmol/L (137-145)
[2025-02-01 12:33] LABS: Glucose,Whole Blood 170 mg/dL (70-110)
--- NOTE | 2025-02-01 14:57 | P.DS ---
Providers Date of admission: 01/30/25 17:21 Expected date of discharge: 02/01/25 Attending physician: Popeye Barksdale Primary care physician: Te Menchaca [facility] Course: Chief Complaint: Multiple complaint 64-year-old patient, follows with Dr. Menchaca at [facility], long-term care resident. Chronic medical conditions include atrial fibrillation, COPD, seizure disorder, rheumatoid arthritis previous lung cancer multiple hip surgeries bipolar disorder. 2 L of oxygen at home. Patient currently does use a wheelchair. When taking history from the patient she has multiple complaints. In the ER she reported of constipation. Also concern for low hemoglobin at the [facility]. Which is being monitored. Denies any abdominal pain. Though she has significant hip pain. Denies any dark stool or anh bleeding. She states she is was diagnosed with rheumatoid arthritis at the age of 4 years. Normally has a bowel movement every day but last 7 days did not have a bowel movement. Hemoglobin here is 8.7. Admission sodium 126 February 01: Patient received lactulose and Dulcolax suppository yesterday. Had very large bowel movements. Feeling well. Tolerating diet. Patient told to restrict water. Have a repeat BMP in 3 to 4 days. Fluid restriction. 1800 cc a day. Return to ECF Discussion and discharge planning more than 35 minutes Social history: Former smoker. Occasional alcohol. Long-term resident at [facility]. Uses wheelchair Physical examination: VITAL SIGNS: 97.7, 105, 16, 103 x 72, 98% 2 L GENERAL: BMI 29.1., Reclining bed awake comfortable EYES: Pupils equal. Conjunctiva melissa l. HEENT: External appearance of nose and ears normal, oral cavity grossly normal. NECK: JVD not raised; masses not palpable. HEART: First and second heart sounds are normal; no edema. LUNGS: Respiratory rate normal; decreased breath sound. ABDOMEN: Soft, nontender, liver spleen not palpable, no masses palpable. PSYCH: Able to answer questions mood and affect bit anxious l. MUSCULOSKELETAL:No Clubbing/cyanosis;muscles-grossly intact. OA. Limited range of motion left hip INVESTIGATIONS, reviewed in the clinical context: February 01: White count 10.9 hemoglobin 7.7 platelets 514 sodium 127 potassium 4.5 creatinine 0.52 January 31, 2025: White count 10.2 hemoglobin 8.7 platelets 602 sodium 131 potassium 4.8 BUN 13.4 creatinine 0.6 UA glucose 4+ trace ketone January 30: White count 9.5 hemoglobin 8.5 platelets 594 INR 1.3 sodium 126 potassium 4 BUN 15 creatinine 0.43 Chest x-ray film personally reviewed by me-possibly rotated to the right. Some cardiomegaly CT angio abdomen pelvis: No evidence of bleed. No bowel obstruction. Colonic diverticulosis. Hydropic gallbladder with biliary sludge. No inflammatory changes. EKG tracing personally reviewed by me-atrial fibrillation. Some ST-T wave changes. Rate 86 Assessment plan: -Hyponatremia, from increase water intake Restrict fluid intake. 1800 cc a day. Lasix discontinued. BMP: Recheck 3 to 4 days -Acute obstipation with no bowel movement for 7 days. Normally has a bowel movement every day. On examination abdomen is soft. No evidence of obstruction on the CT scan. Lactulose 20 g. Dulcolax suppository.: Very large bowel movement obtained. -Chronic hip pain. Has had at least 5 hip surgeries. On the left side. Possible chronic seroma. -Chronic microcytic anemia. This is being followed outpatient. This is being followed outpatient -Chronic hypoxic respiratory failure from underlying COPD 2 L -Essential hypertension Cardizem CD to 40 mg a day Toprol-XL 100 mg twice daily -Persistent atrial fibrillation. Rate controlled. Cardizem CD to 40 mg a day. Toprol-XL 100 mg twice daily. Eliquis -COPD in a previous smoker Albuterol as needed. DuoNeb as needed. Advair 250/50 twice daily. Spiriva. -Bipolar disorder Lexapro. Cymbalta. -Primary osteoarthritis and also secondary arthritis from previous surgeries placed in the left hip. Pain medication as needed -Chronic gait dysfunction at the baseline does use a wheelchair -Patient's son Anton is the medical power of office assistant receptionist Disposition: 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, Past Anesthesia/Blood Transfusion Reactions: No Reported Reaction Additional Past Anesthesia/Blood Transfusion Reaction / Comment(s): hard to intubate Past Psychological History: Bipolar, Depression Smoking Status: Former smoker Past Alcohol Use History: Occasional Past Drug Use History: None Reported Plan - Discharge Summary Discharge Rx Participant: No New Discharge Prescriptions: Continue Metoprolol Succinate [Toprol XL] 100 mg PO BID@0800,1700 Apixaban [Eliquis] 5 mg PO BID@0800,1700 Empagliflozin [Jardiance] 10 mg PO DAILY Diltiazem Cd [Cardizem CD] 240 mg PO DAILY cap Melatonin 5 mg PO HS tab Acetaminophen Tab [Tylenol] 650 mg PO Q6HR PRN tab PRN Reason: Mild Pain Or Fever > 100.5 Albuterol Inhaler [Ventolin Hfa Inhaler] 1 puff INHALATION RT-QID PRN each PRN Reason: Shortness Of Breath Or Wheezing HYDROcodone/APAP 7.5-325MG [[place] 7.5-325] 1 tab PO Q4H PRN 3 Days #18 tab PRN Reason: Pain Caldesene Powder 1 applic TOPICAL TID Ondansetron [Zofran] 4 mg PO Q6HR PRN PRN Reason: Nausea And Vomiting Magnesium Hydroxide [Milk of Magnesia Concentrate] 7,200 mg PO DAILY PRN PRN Reason: Constipation Maalox Plus 30 ml PO Q6H PRN PRN Reason: Gi Upset Ipratropium-Albuterol Nebulize [Duoneb 0.5 mg-3 mg/3 ml Soln] 3 ml INHALATION RT-Q6H PRN PRN Reason: Shortness Of Breath Na Phos,M-B/Na Phos,Di-Ba [Fleet Adult] 133 ml RECTAL DAILY PRN PRN Reason: Constipation bisacodyL [Dulcolax] 10 mg RECTAL DAILY PRN PRN Reason: Constipation Nystatin 100,000 Unit/gm Oint [Mycostatin Oint] 1 applic TOPICAL TID@0800,1200,1700 Sennosides [Senokot] 8.6 mg PO BID@0800,2100 Escitalopram [Lexapro] 10 mg PO DAILY Cholecalciferol [Vitamin D3 (25 Mcg = 1000 Iu)] 125 mcg PO DAILY Tiotropium [place] [Spiriva Handihaler] 1 puff INHALATION RT-DAILY Fluticasone Propion/Salmeterol [Advair 250-50 Diskus] 1 inhalation PO RT- BID@0800,1700 DULoxetine HCL [Cymbalta] 30 mg PO DAILY cap Albuterol Inhaler [Ventolin Hfa Inhaler] 1 puff INHALATION RT-QID each INSULIN ASPART (NovoLOG) [NovoLOG (formulary)] See Protocol SQ ACHS Ferrous Sulfate [Iron (65 MG Elemental)] 325 mg PO DAILY Menthol/Zinc Oxide [Calprotect 0.44%-20.6% Oint] 1 applic TOPICAL TID Discontinued Potassium Chloride [Klor-Con M10] 10 meq PO HS Ibuprofen [Advil] 400 mg PO 5XD PRN PRN Reason: Pain Furosemide [Lasix] 20 mg PO DAILY Discharge Medication List Apixaban [Eliquis] 5 mg PO BID@0800,1700 11/16/24 [History] Empagliflozin [Jardiance] 10 mg PO DAILY 11/16/24 [History] Fluticasone Propion/Salmeterol [Advair 250-50 Diskus] 1 inhalation PO RT- BID@0800,1700 11/16/24 [History] Metoprolol Succinate [Toprol XL] 100 mg PO BID@0800,1700 11/16/24 [History] Tiotropium [place] [Spiriva Handihaler] 1 puff INHALATION RT-DAILY 11/16/24 [History] Acetaminophen Tab [Tylenol] 650 mg PO Q6HR PRN tab 11/21/24 [Rx] Albuterol Inhaler [Ventolin Hfa Inhaler] 1 puff INHALATION RT-QID each 11/21/24 [Rx] Albuterol Inhaler [Ventolin Hfa Inhaler] 1 puff INHALATION RT-QID PRN each 11/21/24 [Rx] DULoxetine HCL [Cymbalta] 30 mg PO DAILY cap 11/21/24 [Rx] Diltiazem Cd [Cardizem CD] 240 mg PO DAILY cap 11/21/24 [Rx] HYDROcodone/APAP 7.5-325MG [[place] 7.5-325] 1 tab PO Q4H PRN 3 Days #18 tab 11/21/24 [Rx] Melatonin 5 mg PO HS tab 11/21/24 [Rx] Caldesene Powder 1 applic TOPICAL TID 01/30/25 [History] Cholecalciferol [Vitamin D3 (25 Mcg = 1000 Iu)] 125 mcg PO DAILY 01/30/25 [History] Escitalopram [Lexapro] 10 mg PO DAILY 01/30/25 [History] Ferrous Sulfate [Iron (65 MG Elemental)] 325 mg PO DAILY 01/30/25 [History] INSULIN ASPART (NovoLOG) [NovoLOG (formulary)] See Protocol SQ ACHS 01/30/25 [History] Ipratropium-Albuterol Nebulize [Duoneb 0.5 mg-3 mg/3 ml Soln] 3 ml INHALATION RT-Q6H PRN 01/30/25 [History] Maalox Plus 30 ml PO Q6H PRN 01/30/25 [History] Magnesium Hydroxide [Milk of Magnesia Concentrate] 7,200 mg PO DAILY PRN 01/30/25 [History] Menthol/Zinc Oxide [Calprotect 0.44%-20.6% Oint] 1 applic TOPICAL TID 01/30/25 [History] Na Phos,M-B/Na Phos,Di-Ba [Fleet Adult] 133 ml RECTAL DAILY PRN 01/30/25 [History] Nystatin 100,000 Unit/gm Oint [Mycostatin Oint] 1 applic TOPICAL TID@0800,1200 ,1700 01/30/25 [History] Ondansetron [Zofran] 4 mg PO Q6HR PRN 01/30/25 [History] Sennosides [Senokot] 8.6 mg PO BID@0800,2100 01/30/25 [History] bisacodyL [Dulcolax] 10 mg RECTAL DAILY PRN 01/30/25 [History] Follow up Appointment(s)/Referral(s): Te Menchaca DO [Primary Care Provider] - 1-2 days Geraldine Cantrell [NON-STAFF] - 1 Week Activity/Diet/Wound Care/Special Instructions: fluid restrict - 1800 cc/day
[2025-02-01 16:03] VITALS: BP 106/72; PULSE 99; RESP 18; TEMP 98
== END 2025-02-01 16:06 ==
LOC: EC 13:35 → 6NMEDSUR 17:21
PROVIDERS: ADMIT Hospitalist; ATTEND Hospitalist
DX: E87.1 Hypo-osmolality and hyponatremia (principal); K59.00 Constipation, unspecified; G89.29 Other chronic pain; M25.552 Pain in left hip; D50.9 Iron deficiency anemia, unspecified; J44.9 Chronic obstructive pulmonary disease, unspecified; J96.11 Chronic respiratory failure with hypoxia; G40.909 Epilepsy, unspecified, not intractable, without status epilepticus; I11.0 Hypertensive heart disease with heart failure; I50.9 Heart failure, unspecified; I48.19 Other persistent atrial fibrillation; M06.9 Rheumatoid arthritis, unspecified; M16.12 Unilateral primary osteoarthritis, left hip; F31.9 Bipolar disorder, unspecified; Z79.01 Long term (current) use of anticoagulants; Z79.84 Long term (current) use of oral hypoglycemic drugs; Z79.899 Other long term (current) drug therapy; Z85.118 Personal history of other malignant neoplasm of bronchus and lung; Z86.73 Personal history of transient ischemic attack (TIA), and cerebral infarction without residual deficits; Z87.891 Personal history of nicotine dependence; Z88.5 Allergy status to narcotic agent; Z79.4 Long term (current) use of insulin; Z79.51 Long term (current) use of inhaled steroids; Z96.649 Presence of unspecified artificial hip joint
CPT/HCPCS: 96361 ×2; 96374; 96375; 99285; 36415; 94640 ×4; 93005; 86900; 86901; 83930; 80053 ×2; 80048; 83605; 83735; 85025 ×3; 85610; 85730; 86850; 86870; 86880; 81001; 87636; 73110; 71046; 76705; 74174; G0378 ×3; J2405; Q9967; J2470

== ENCOUNTER 2025-02-10 07:10 | Emergency (ER) | payer MEDICARE ==
[2025-02-10 07:15] VITALS: RESP 18
[2025-02-10] MEDS: HYDROmorphone 1 MG/ML 1 ML SYRINGE IVP STA (08:04)
[2025-02-10 08:23] LABS: ALT 8 U/L (4-34); AST 15 U/L (14-36); African American GFR (CKD) >90 (>60 ml/min/1.73 sqM); Albumin 2.2 g/dL (3.5-5.0); Alkaline Phosphatase 140 U/L (38-126); Anion Gap 2 mmol/L; Blood Urea Nitrogen 13 mg/dL (7-17); Calcium 8.2 mg/dL (8.4-10.2); Carbon Dioxide 32 mmol/L (22-30); Chloride 93 mmol/L (98-107); Glucose 92 mg/dL (74-99); Non-African American GFR(CKD) >90 (>60 ml/min/1.73 sqM); Potassium 4.3 mmol/L (3.5-5.1); Sodium 127 mmol/L (137-145); Total Bilirubin 0.5 mg/dL (0.2-1.3); Total Protein 5.6 g/dL (6.3-8.2)
--- NOTE | 2025-02-10 08:35 | ED ---
Extremity Problem HPI - General Chief complaint: Extremity Problem,Nontraumatic Stated complaint: hip pain Time Seen by Provider: 02/10/25 07:15 Source: EMS Mode of arrival: EMS Limitations: no limitations - History of Present Illness Initial comments: 64-year-old female with past medical history of rheumatoid arthritis, A-fib, CVA who presents to the emergency department from rust ([facility] [place]). Patient reports that she has had issues with left hip pain and swelling for years which seems to be getting progressively worse. Patient had been seen at our facility in November of this year. She did have x-rays performed which demonstrated bilateral hip prostheses. She also had a CT performed that demonstrated a large loculated intramuscular fluid collection that was dated back to October 2024. There was a single foci of gas within the collection. Differential was seroma versus abscess. Orthopedic did see the patient in November and there was no surgical intervention required at that time per their recommendations. Patient presents today stating that she has worsening pain. She does have some fluctuance near the central portion of her incision site. Patient has had 5 surgeries on the left hip, the last of which was [address] hunter Bowser at [facility]. Patient denies having any fevers. No nausea or vomiting. She is on Eliquis twice daily for her history of A-fib. No other alleviating, precipitating or modifying factors - Related Data Home Medications Medication Instructions Recorded Confirmed Apixaban [Eliquis] 5 mg PO BID@0800,1700 11/16/24 01/30/25 Empagliflozin [Jardiance] 10 mg PO DAILY 11/16/24 01/30/25 Fluticasone Propion/Salmeterol 1 inhalation PO RT-BID@0800,169911/16/24 01/30/25 [Advair 250-50 Diskus] Metoprolol Succinate [Toprol XL] 100 mg PO BID@0800,0 11/16/24 01/30/25 Tiotropium [place] [Spiriva 1 puff INHALATION RT-DAILY 11/16/24 01/30/25 Handihaler] Caldesene Powder 1 applic TOPICAL TID 01/30/25 01/30/25 Cholecalciferol [Vitamin D3 (25 125 mcg PO DAILY 01/30/25 01/30/25 Mcg = 1000 Iu)] Escitalopram [Lexapro] 10 mg PO DAILY 01/30/25 01/30/25 Ferrous Sulfate [Iron (65 MG 325 mg PO DAILY 01/30/25 01/30/25 Elemental)] INSULIN ASPART (NovoLOG) [NovoLOG See Protocol SQ ACHS 01/30/25 01/30/25 (formulary)] Ipratropium-Albuterol Nebulize 3 ml INHALATION RT-Q6H PRN 01/30/25 01/30/25 [Duoneb 0.5 mg-3 mg/3 ml Soln] Maalox Plus 30 ml PO Q6H PRN 01/30/25 01/30/25 Magnesium Hydroxide [Milk of 7,200 mg PO DAILY PRN 01/30/25 01/30/25 Magnesia Concentrate] Menthol/Zinc Oxide [Calprotect 1 applic TOPICAL TID 01/30/25 01/30/25 0.44%-20.6% Oint] Na Phos,M-B/Na Phos,Di-Ba [Fleet 133 ml RECTAL DAILY PRN 01/30/25 01/30/25 Adult] Nystatin 100,000 Unit/gm Oint 1 applic TOPICAL TID@0800,1200,1700 01/30/25 01/30/25 [Mycostatin Oint] Ondansetron [Zofran] 4 mg PO Q6HR PRN 01/30/25 01/30/25 Sennosides [Senokot] 8.6 mg PO BID@0800,2100 01/30/25 01/30/25 bisacodyL [Dulcolax] 10 mg RECTAL DAILY PRN 01/30/25 01/30/25 Previous Rx's Medication Instructions Recorded Acetaminophen Tab [Tylenol] 650 mg PO Q6HR PRN tab 11/21/24 Albuterol Inhaler [Ventolin Hfa 1 puff INHALATION RT-QID each 11/21/24 Inhaler] Albuterol Inhaler [Ventolin Hfa 1 puff INHALATION RT-QID PRN each 11/21/24 Inhaler] DULoxetine HCL [Cymbalta] 30 mg PO DAILY cap 11/21/24 Diltiazem Cd [Cardizem CD] 240 mg PO DAILY cap 11/21/24 HYDROcodone/APAP 7.5-325MG [[place] 1 tab PO Q4H PRN 3 Days #18 tab 11/21/24 7.5-325] Melatonin 5 mg PO HS tab 11/21/24 Allergies Allergy/AdvReac Type Severity Reaction Status Date / Time codeine AdvReac Nausea Verified 01/30/25 17:39 Review of Systems ROS Statement: Those systems with pertinent positive or pertinent negative responses have been documented in the HPI. ROS Other: All systems not noted in ROS Statement are negative. 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 Absent: scleral icterus, conjunctival injection, periorbital swelling ENT exam: Present: normal exam, mucous membranes moist Neck exam: Present: normal inspection. Absent: tenderness, meningismus, lymphadenopathy Respiratory exam: Present: normal lung sounds bilaterally. Absent: respiratory distress, wheezes, rales, rhonchi, stridor Cardiovascular Exam: Present: tachycardia, irregular rhythm, normal heart sounds. Absent: systolic murmur, diastolic murmur, rubs, gallop, clicks GI/Abdominal exam: Present: soft, normal bowel sounds. Absent: distended, tenderness, guarding, rebound, rigid Extremities exam: Present: tenderness, other (Patient has tenderness to palpation of the left thigh and hip region. There is a healed incision over the left lateral aspect. Proximal and distal portions of the incision are well- healed however the central aspect has an area measuring 2 cm in length that is significantly fluctuant. No drainage.). Absent: pedal edema, calf tenderness Back exam: Present: normal inspection Neurological exam: Present: alert, oriented X3, CN II-XII intact Psychiatric exam: Present: normal affect, normal mood Skin exam: Present: warm, dry, intact, normal color. Absent: rash Course Vital Signs 02/10/25 07:13 Temperature 98.5 F Pulse Rate 104 H Respiratory 18 Rate Blood Pressure 107/81 O2 Sat by Pulse 95 Oximetry Medical Decision Making - Medical Decision Making Was pt. sent in by a medical professional or institution (, PA, FREELANCE ART DIRECTOR, urgent care, hospital, or assisted...) When possible be specific @ -Patient was sent in from [facility] [place] Did you speak to anyone other than the patient for history (EMS, parent, family, police, friend...)? What history was obtained from this source @ -I spoke with EMS for history Did you review nursing and triage notes (agree or disagree)? Why? @ -I reviewed and agree with nursing and triage notes Were old charts reviewed (outside hosp., previous admission, EMS record, old EKG, old radiological studies, urgent care reports/EKG's, assisted records)? Report findings @ -I reviewed patient's chart from November where she received a CT of her pelvis as well as a hip x-ray Differential Diagnosis (chest pain, altered mental status, abdominal pain women, abdominal pain men, vaginal bleeding, weakness, fever, dyspnea, syncope, headache, dizziness, GI bleed, back pain, seizure, CVA, palpatations, mental health, musculoskeletal)? @ -Differential Musculoskeletal Muscular strain, contusion, ligament sprain, fracture, arthritis, septic arthri tis, bursitis, cellulitis, muscle spasm, nerve compression, DVT, arterial occlusion, herpes zoster, electrolyte abnormality, tumor.... This is not meant to be in all inclusive list EKG interpreted by me (3pts min.). @ -Not done X-rays interpreted by me (1pt min.). @ -None done CT interpreted by me (1pt min.). @ -None done U/S interpreted by me (1pt. min.). @ -None done What testing was considered but not performed or refused? (CT, X-rays, U/S, labs)? Why? @ -CT, x-ray and ultrasound were all considered however patient has had previous imaging done in November which demonstrated seroma versus abscess What meds were considered but not given or refused? Why? @ -None Did you discuss the management of the patient with other professionals (professionals i.e. , PA, FREELANCE ART DIRECTOR, lab, RT, psych nurse, child welfare social worker, scene painter, teacher, radiation officer, field nurse case manager)? Give summary @ -I spoke with Dr. Al at [facility] who did accept the patient as a transfer to the emergency department Was smoking cessation discussed for >3mins.? @ -No Was critical care preformed (if so, how long)? @ -No Were there social determinants of health that impacted care today? How? (Homelessness, low income, unemployed, alcoholism, drug addiction, transportation, low edu. Level, literacy, decrease access to med. care, fdc, rehab)? @ -Patient is currently residing in rehab Was there de-escalation of care discussed even if they declined (Discuss DNR or withdrawal of care, Hospice)? DNR status @ -No What co-morbidities impacted this encounter? (DM, HTN, Smoking, COPD, CAD, Cancer, CVA, ARF, Chemo, Hep., AIDS, mental health diagnosis, sleep apnea, morbid obesity)? @ -Rheumatoid arthritis, A-fib on Eliquis Was patient admitted / discharged? Hospital course, mention meds given and route, prescriptions, significant lab abnormalities, going to OR and other pertinent info. @ -Upon arrival patient seen and evaluated in bed 5. Thorough history and physical exam was performed. I did review the patient's record which demonstrates that she has suffered from pain in the left hip for a period of ti me. I am able to review images from November that demonstrated the patient had an abscess versus seroma. Orthopedics was consulted and recommended medical management. X-ray also performed at that time demonstrated hardware bilaterally. I did conduct laboratory studies on the patient for which she does have a significantly elevated CRP. White blood cell count is within normal range. During the patient's stay in the emergency department she does have abrupt rupture of the left surgical site where the area of fluctuance was. Patient does release approximately 800 cc of brown pustular drainage. I did culture this. Patient is initiated on Unasyn and vancomycin after blood cultures are obtained. I did call our on-call orthopedics, Dr. Oconnor who feels that the patient requires higher level of care due to her multiple surgeries with extensive hardware. Patient reports her last surgery was done at [facility] 2 years ago. I did call and speak with Dr. Barker who does accept the patient as a transfer. She will go from our emergency department to the emergency department at [facility]. She did receive 1 mg of Dilaudid for pain control. Patient did sign COBRA forms and patient was transferred in stable condition Undiagnosed new problem with uncertain prognosis? @ -No Drug Therapy requiring intensive monitoring for toxicity (Heparin, Nitro, Insulin, Cardizem)? @ -No Were any procedures done? @ -No Diagnosis/symptom? @ -Acute on chronic left hip pain, suspected infected prosthetic left hip Acute, or Chronic, or Acute on Chronic? @ -Acute on chronic Uncomplicated (without systemic symptoms) or Complicated (systemic symptoms)? @ -Complicated Side effects of treatment? @ -No Exacerbation, Progression, or Severe Exacerbation? @ -No Poses a threat to life or bodily function? How? (Chest pain, [place], [place], pneumonia, PE, COPD, DKA, ARF, appy, cholecystitis, CVA, Diverticulitis, Homicidal, Suicidal, threat to staff... and all critical care pts) @ -No - Lab Data Result diagrams: 02/10/25 07:29 02/10/25 07:29 Lab Results 02/10/25 02/10/25 02/10/25 Range/Units 07:29 07:29 08:15 WBC 10.5 (3.8-10.6) k/uL RBC 3.63 L (3.80-5.40) m/uL Hgb 8.0 L (11.4-16.0) gm/dL Hct 26.9 L (34.0-46.0) % MCV 74.1 L (80.0-100.0) fL MCH 22.1 L (25.0-35.0) pg MCHC 29.9 L (31.0-37.0) g/dL RDW 17.5 H (11.5-15.5) % Plt Count 577 H (150-450) k/uL MPV 7.2 Neutrophils % 89 % Lymphocytes % 4 % Monocytes % 6 % Eosinophils % 1 % Basophils % 0 % Neutrophils # 9.3 H (1.3-7.7) k/uL Lymphocytes # 0.4 L (1.0-4.8) k/uL Monocytes # 0.6 (0-1.0) k/uL Eosinophils # 0.1 (0-0.7) k/uL Basophils # 0.0 (0-0.2) k/uL Hypochromasia Marked Anisocytosis Slight Microcytosis Moderate Sodium 127 L (137-145) mmol/L Potassium 4.3 (3.5-5.1) mmol/L Chloride 93 L (98-107) mmol/L Carbon Dioxide 32 H (22-30) mmol/L Anion Gap 2 mmol/L BUN 13 (7-17) mg/dL Creatinine 0.48 L (0.52-1.04) mg/dL Est GFR (CKD-EPI)AfAm >90 (>60 ml/min/1.73 sqM) Est GFR (CKD-EPI)NonAf >90 (>60 ml/min/1.73 sqM) Glucose 92 (74-99) mg/dL Plasma Lactic Acid Giovanny 1.0 (0.7-2.0) mmol/L Calcium 8.2 L (8.4-10.2) mg/dL Total Bilirubin 0.5 (0.2-1.3) mg/dL AST 15 (14-36) U/L ALT 8 (4-34) U/L Alkaline Phosphatase 140 H (38-126) U/L C-Reactive Protein 28.9 H (<1.0) mg/dL Total Protein 5.6 L (6.3-8.2) g/dL Albumin 2.2 L (3.5-5.0) g/dL Disposition Clinical Impression: Left hip pain, Infected prosthesis of left hip, Abscess Disposition: OTHER INSTITUTION NOT DEFINED Condition: Serious Is patient prescribed a controlled substance at d/c from ED?: No Referrals: None,Stated [Primary Care Provider] - 1-2 days Time of Disposition: 11:43 - Out of Hospital Transfer - Req. Specs Out of Hospital Transfer - Requested Specifics: Other Emergency Center ([facility])
[2025-02-10 08:38] LABS: Anisocytosis Slight; Basophils % (A) 0 %; Eosinophils # (A) 0.1 k/uL (0-0.7); Eosinophils % (A) 1 %; HCT 26.9 % (34.0-46.0); Hypochromasia Marked; Lymphocytes # (A) 0.4 k/uL (1.0-4.8); Lymphocytes % (A) 4 %; MCH 22.1 pg (25.0-35.0); MCHC 29.9 g/dL (31.0-37.0); MCV 74.1 fL (80.0-100.0); Mean Platelet Volume 7.2; Microcytosis Moderate; Monocytes # (A) 0.6 k/uL (0-1.0); Monocytes % (A) 6 %; Neutrophils # (A) 9.3 k/uL (1.3-7.7); Neutrophils % (A) 89 %; Platelet Count 577 k/uL (150-450); RBC 3.63 m/uL (3.80-5.40); RDW 17.5 % (11.5-15.5); WBC 10.5 k/uL (3.8-10.6)
[2025-02-10 09:13] LABS: C Reactive Protein 28.9 mg/dL (<1.0)
[2025-02-10] MEDS ORDERED: VANCOMYCIN IV PER PHARMACY 1 EACH MISC MISCELLANE PRN (10:59)
[2025-02-10] MEDS: AMPICILLIN-SULBACTAM 3 GM in SODIUM CHLORIDE 0.9% 100 ML IVPB STA (11:28)
[2025-02-10] MEDS: VANCOMYCIN 1,250 MG in SODIUM CHLORIDE 0.9% 250 ML IVPB STA (11:58)
[2025-02-10] MEDS: HYDROcodone/APAP 10-325MG 1 EACH TAB PO ONE (12:09)
[2025-02-10 12:15] VITALS: BP 101/73; PULSE 107; TEMP 97.4
[2025-02-10 13:00] LABS: Erythrocyte Sedimentation Rate 62 mm/Hr (0-30)
== END 2025-02-10 12:12 | disposition other institution (70) ==
LOC: EC 07:10
DX: M25.552 Pain in left hip (principal); T84.52XA Infection and inflammatory reaction due to internal left hip prosthesis, initial encounter; L02.416 Cutaneous abscess of left lower limb; I48.91 Unspecified atrial fibrillation; M06.9 Rheumatoid arthritis, unspecified; Z86.73 Personal history of transient ischemic attack (TIA), and cerebral infarction without residual deficits; Z87.891 Personal history of nicotine dependence; Z88.5 Allergy status to narcotic agent
CPT/HCPCS: 36415; 80053; 85652; 83605; 85025; 86140; 87040; 87070; 87205; 99285; 96365; 96368; 96375; J3370; J1171; J0295

== ENCOUNTER 2025-02-25 16:53 | Observation (INO) | payer MEDICARE, OTHER ==
[2025-02-25] MEDS: PANTOPRAZOLE 40 MG/10 ML VIAL IVP STA (17:24)
[2025-02-25] MEDS: SODIUM CHLORIDE 0.9% 1,000 ML IV ONE ×2 (17:25→21:34)
--- NOTE | 2025-02-25 17:28 | ED ---
GI Bleed HPI - General Source: patient, EMS Mode of arrival: EMS Limitations: no limitations <Evita Plasencia - Last Filed: 02/25/25 19:10> <Emanuel Camarillo - Last Filed: 02/25/25 20:02> - General Chief complaint: GI Bleed Stated complaint: Low Hemoglobin Time Seen by Provider: 02/25/25 17:24 - History of Present Illness Initial comments: 64-year-old female with a past medical history significant of atrial fibrillat ion on Eliquis and COPD presenting to the ER for evaluation of low hemoglobin. Patient sent by [facility] after hemoglobin drawn today 6.4 and positive fecal occult blood. Reported by [facility] nursing staff patient's hemoglobin was 8 on 02 19 25 and yesterday it was 7. Patient is on Eliquis and received a dose this morning. Patient was discharged back to [facility] on 02/17/25 from [facility] after undergoing a left hip arthroplasty. Patient states while admitted at [facility] she had a endoscopy and was found to have a bleeding ulcer. Ulcer was cauterized and patient did receive a blood transfusion prior to discharge. [facility] nursing staff state since returning patient has been very weak. They have not noticed grossly hematochezia or melena. Patient reports she feels very tired with shortness of breath. Patient does states she is on 2 L nasal cannula oxygen typically and has COPD. She denies any abdominal pain, constipation, diarrhea, urinary complaints. Patient does admit to mild nausea but denies any vomiting, fevers, chills. Patient denies any chest pain, dizziness, lightheadedness or other complaints at this time. (Evita Plasencia) - Related Data Home Medications Medication Instructions Recorded Confirmed Apixaban [Eliquis] 5 mg PO BID@0800,1700 11/16/24 01/30/25 Empagliflozin [Jardiance] 10 mg PO DAILY 11/16/24 01/30/25 Fluticasone Propion/Salmeterol 1 inhalation PO RT-BID@0800,1700 11/16/24 01/30/25 [Advair 250-50 Diskus] Metoprolol Succinate [Toprol XL] 100 mg PO BID@0800,1700 11/16/24 01/30/25 Tiotropium [place] [Spiriva 1 puff INHALATION RT-DAILY 11/16/24 01/30/25 Handihaler] Caldesene Powder 1 applic TOPICAL TID 01/30/25 01/30/25 Cholecalciferol [Vitamin D3 (25 125 mcg PO DAILY 01/30/25 01/30/25 Mcg = 1000 Iu)] Escitalopram [Lexapro] 10 mg PO DAILY 01/30/25 01/30/25 Ferrous Sulfate [Iron (65 MG 325 mg PO DAILY 01/30/25 01/30/25 Elemental)] INSULIN ASPART (NovoLOG) [NovoLOG See Protocol SQ ACHS 01/30/25 01/30/25 (formulary)] Ipratropium-Albuterol Nebulize 3 ml INHALATION RT-Q6H PRN 01/30/25 01/30/25 [Duoneb 0.5 mg-3 mg/3 ml Soln] Maalox Plus 30 ml PO Q6H PRN 01/30/25 01/30/25 Magnesium Hydroxide [Milk of 7,200 mg PO DAILY PRN 01/30/25 01/30/25 Magnesia Concentrate] Menthol/Zinc Oxide [Calprotect 1 applic TOPICAL TID 01/30/25 01/30/25 0.44%-20.6% Oint] Na Phos,M-B/Na Phos,Di-Ba [Fleet 133 ml RECTAL DAILY PRN 01/30/25 01/30/25 Adult] Nystatin 100,000 Unit/gm Oint 1 applic TOPICAL TID@0800,1200,1700 01/30/25 01/30/25 [Mycostatin Oint] Ondansetron [Zofran] 4 mg PO Q6HR PRN 01/30/25 01/30/25 Sennosides [Senokot] 8.6 mg PO BID@0800,2100 01/30/25 01/30/25 bisacodyL [Dulcolax] 10 mg RECTAL DAILY PRN 01/30/25 01/30/25 Previous Rx's Medication Instructions Recorded Acetaminophen Tab [Tylenol] 650 mg PO Q6HR PRN tab 11/21/24 Albuterol Inhaler [Ventolin Hfa 1 puff INHALATION RT-QID each 11/21/24 Inhaler] Albuterol Inhaler [Ventolin Hfa 1 puff INHALATION RT-QID PRN each 11/21/24 Inhaler] DULoxetine HCL [Cymbalta] 30 mg PO DAILY cap 11/21/24 Diltiazem Cd [Cardizem CD] 240 mg PO DAILY cap 11/21/24 HYDROcodone/APAP 7.5-325MG [[place] 1 tab PO Q4H PRN 3 Days #18 tab 11/21/24 7.5-325] Melatonin 5 mg PO HS tab 11/21/24 Allergies Allergy/AdvReac Type Severity Reaction Status Date / Time codeine AdvReac Nausea Verified 02/25/25 16:59 Review of Systems ROS Other: All systems not noted in ROS Statement are negative. <Evita Plasencia - Last Filed: 02/25/25 19:10> ROS Other: All systems not noted in ROS Statement are negative. <Emanuel Camarillo - Last Filed: 02/25/25 20:02> ROS Statement: Those systems with pertinent positive or pertinent negative responses have been documented in the HPI. 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 Absent: respiratory distress, wheezes, rales, rhonchi, stridor Cardiovascular Exam: Present: regular rate, irregular rhythm, normal heart sounds GI/Abdominal exam: Present: soft, normal bowel sounds. Absent: distended, tenderness, guarding, rebound, rigid Rectal exam: Present: normal inspection, normal rectal tone Neurological exam: Present: alert, oriented X3, CN II-XII intact Skin exam: Present: warm, dry, intact, pallor. Absent: rash <Evita Plasencia - Last Filed: 02/25/25 19:10> Course <Evita Plasencia - Last Filed: 02/25/25 19:10> Vital Signs 02/25/25 02/25/25 02/25/25 16:56 17:00 17:30 Temperature 97.7 F Pulse Rate 105 H 95 85 Respiratory 18 28 H 18 Rate Blood Pressure 95/71 104/71 O2 Sat by Pulse 96 98 100 Oximetry 02/25/25 02/25/25 02/25/25 18:00 18:30 19:00 Temperature Pulse Rate 89 90 88 Respiratory 14 14 18 Rate Blood Pressure 117/77 112/85 114/93 O2 Sat by Pulse 95 98 98 Oximetry - Reevaluation(s) Reevaluation #1: 02/25/25 19:11 Case signed out to Dr. Camarillo (Evita Plasencia) Reevaluation #2: Rectal exam chaperoned by Wang GALLARDO (Evita Plasencia) Medical Decision Making - Lab Data Result diagrams: 02/25/25 17:07 02/25/25 17:07 - EKG Data -: EKG Interpreted by Me <Evita Plasencia - Last Filed: 02/25/25 19:10> - Lab Data Result diagrams: 02/25/25 17:07 02/25/25 17:07 <Emanuel Camarillo - Last Filed: 02/25/25 20:02> - Medical Decision Making Was pt. sent in by a medical professional or institution (, PA, DIRECTOR OF CATEGORY MANAGEMENT, urgent care, hospital, or [facility]...) When possible be specific @ -Patient sent from [facility] for evaluation of low hemoglobin and positive fecal occult blood Did you speak to anyone other than the patient for history (EMS, parent, family, police, friend...)? What history was obtained from this source @ -EMS and [facility] nursing staff aiding in HPI past medical history Did you review nursing and triage notes (agree or disagree)? Why? @ -I reviewed and agree with nursing and triage notes Were old charts reviewed (outside hosp., previous admission, EMS record, old EKG, old radiological studies, urgent care reports/EKG's, [facility] records)? Report findings @ -No old charts were reviewed Differential Diagnosis (chest pain, altered mental status, abdominal pain women, abdominal pain men, vaginal bleeding, weakness, fever, dyspnea, syncope, headache, dizziness, GI bleed, back pain, seizure, CVA, palpatations, mental health, musculoskeletal)? @ -[Differential GI Bleed:Esophageal varices, aortoenteric fistula, Alesha-We iss, gastritis, peptic ulcer disease, diverticulosis, inflammatory bowel disease, hemorrhoids, fissure, colitis, malignancy, Meckel's diverticulum, this is not meant to be an all-inclusive list. EKG interpreted by me (3pts min.). @ -As above X-rays interpreted by me (1pt min.). @ -None done CT interpreted by me (1pt min.). @ -Pending U/S interpreted by me (1pt. min.). @ -None done What testing was considered but not performed or refused? (CT, X-rays, U/S, labs)? Why? @ -None What meds were considered but not given or refused? Why? @ -None Did you discuss the management of the patient with other professionals (professionals i.e. , PA, DIRECTOR OF CATEGORY MANAGEMENT, lab, RT, psych nurse, social services director, office equipment technician, teacher, public health service officer, director of casework)? Give summary @ -No Was smoking cessation discussed for >3mins.? @ -No Was critical care preformed (if so, how long)? @ -No Were there social determinants of health that impacted care today? How? (Homelessness, low income, unemployed, alcoholism, drug addiction, transportation, low edu. Level, literacy, decrease access to med. care, senior living, rehab)? @ -Patient residing at [facility] Was there de-escalation of care discussed even if they declined (Discuss DNR or withdrawal of care, Hospice)? DNR status @ -No What co-morbidities impacted this encounter? (DM, HTN, Smoking, COPD, CAD, Cancer, CVA, ARF, Chemo, Hep., AIDS, mental health diagnosis, sleep apnea, morbid obesity)? @ -History of GI bleed,Atrial fibrillation on Eliquis, COPD, seizure disorder, CVA Was patient admitted / discharged? Hospital course, mention meds given and r oute, prescriptions, significant lab abnormalities, going to OR and other pertinent info. @ -[64-year-old female presented the ER via EMS from [facility] for evaluation of low hemoglobin. Vitals within acceptable limits. Repeat hemoglobin today 7.1. Stool occult is negative. Lactic of 3.4 which patient received IV fluid bolus. Urine analysis concerning of infection with 58 WBCs and 21 RBCs which patient was started on Rocephin. CT abdomen pelvis and disposition pending at time of signout to Dr. Camarillo. (Evita Plasencia) Was patient admitted / discharged? Hospital course, mention meds given and route, prescriptions, significant lab abnormalities, going to OR and other pertinent info. @ -Patient was signed out to me by Evita the physician radiology practitioner assistant. CAT scan came back and I saw no acute abnormality. However patient's sodium was low and patient urinary tract infection and since there was varying results on both the guaiac test which the [facility] said was positive though we had a negative and the hemoglobin was 6.4 there and it ours was 7.1 I decided to admit the patient to make sure that the patient was stable.Dr. Barksdale excepted the admission and will write admission oriented Undiagnosed new problem with uncertain prognosis? @ -[No] Drug Therapy requiring intensive monitoring for toxicity (Heparin, Nitro, Insulin, Cardizem)? @ -No Were any procedures done? @ -No Diagnosis/symptom? @ -Anemia Acute, or Chronic, or Acute on Chronic? @ -Acute Uncomplicated (without systemic symptoms) or Complicated (systemic symptoms)? @ -Complicated Side effects of treatment? @ -No Exacerbation, Progression, or Severe Exacerbation? @ -No Poses a threat to life or bodily function? How? (Chest pain, USA, SD, pneumonia, PE, COPD, DKA, ARF, appy, cholecystitis, CVA, Diverticulitis, Homicidal, Suicidal, threat to staff... and all critical care pts) @ -Yes severe anemia can lead to hypoxia and endorgan dysfunction Diagnosis/symptom? @ -Hyponatremia Acute, or Chronic, or Acute on Chronic? @ -Acute Uncomplicated (without systemic symptoms) or Complicated (systemic symptoms)? @ -Complicated Side effects of treatment? @ -None Exacerbation, Progression, or Severe Exacerbation] @ -No Poses a threat to life or bodily function? @ -No Diagnosis/symptom? @ -Urinary tract infection Acute, or Chronic, or Acute on Chronic? @ -Acute Uncomplicated (without systemic symptoms) or Complicated (systemic symptoms)? @ -Complicated Side effects of treatment? @ -None Exacerbation, Progression, or Severe Exacerbation] @ -No Poses a threat to life or bodily function? @ -No (CamarilloEmanuel) - Lab Data Lab Results 02/25/25 02/25/25 02/25/25 Range/Units 17:07 17:07 17:07 WBC 9.45 (4.50-10.00) 10*3/uL RBC 2.57 L (4.10-5.20) 10*6/uL Hgb 7.1 L (12.0-15.0) g/dL Hct 22.0 L (37.2-46.3) % MCV 85.6 (80.0-97.0) fL MCH 27.6 (27.0-32.0) pg MCHC 32.3 (32.0-37.0) g/dL Plt Count 233 (140-440) 10*3/uL MPV 9.6 (9.5-12.2) fL Immature Gran % (Auto) 0.4 % Neutrophils % 84.4 % Lymphocytes % 7.5 % Monocytes % 6.6 % Eosinophils % 0.8 % Basophils % 0.3 % Immature Gran # 0.04 (0.00-0.04) 10*3/uL Neutrophils # 7.97 H (1.80-7.70) 10*3/uL Lymphocytes # 0.71 L (0.90-5.00) 10*3/uL Monocytes # 0.62 (0.20-1.00) 10*3/uL Eosinophils # 0.08 (0.04-0.35) 10*3/uL Basophils # 0.03 (0.00-0.10) 10*3/uL Manual Slide Review Performed Anisocytosis (manual) Present PT (10.0-12.5) sec INR (<1.2) APTT (22.0-30.0) sec Sodium (137-145) mmol/L Potassium (3.5-5.1) mmol/L Chloride (98-107) mmol/L Carbon Dioxide (22-30) mmol/L Anion Gap mmol/L BUN (7-17) mg/dL Creatinine (0.52-1.04) mg/dL Est GFR (CKD-EPI)AfAm (>60 ml/min/1.73 sqM) Est GFR (CKD-EPI)NonAf (>60 ml/min/1.73 sqM) Glucose (74-99) mg/dL Lactic Ac Sepsis Rflx Plasma Lactic Acid Giovanny (0.7-2.0) mmol/L Calcium (8.4-10.2) mg/dL Total Bilirubin (0.2-1.3) mg/dL AST (14-36) U/L ALT (4-34) U/L Alkaline Phosphatase (38-126) U/L Total Protein (6.3-8.2) g/dL Albumin (3.5-5.0) g/dL Lipase (23-300) U/L Urine Color Yellow Urine Appearance Cloudy H (Clear) Urine pH 6.0 (5.0-8.0) Ur Specific [place] 1.019 (1.001-1.035) Urine Protein 1+ H (Negative) Urine Glucose (UA) Negative (Negative) Urine Ketones Negative (Negative) Urine Blood Small H (Negative) Urine Nitrite Negative (Negative) Urine Bilirubin Negative (Negative) Urine Urobilinogen <2.0 (<2.0) mg/dL Ur Leukocyte Esterase Large H (Negative) Urine RBC 21 H (0-5) /hpf Urine WBC 58 H (0-5) /hpf Urine WBC Clumps Rare H (None) /hpf Calcium Oxalate Crystal Moderate H (None) /hpf Urine Bacteria Rare H (None) /hpf Urine Mucus Occasional H (None) /hpf Stool Occult Blood Negative (Negative) Blood Type Blood Type Recheck Bld Type Recheck Status Antibody Screen Spec Expiration Date 02/25/25 02/25/25 02/25/25 Range/Units 17:07 17:07 17:07 WBC (4.50-10.00) 10*3/uL RBC (4.10-5.20) 10*6/uL Hgb (12.0-15.0) g/dL Hct (37.2-46.3) % MCV (80.0-97.0) fL MCH (27.0-32.0) pg MCHC (32.0-37.0) g/dL Plt Count (140-440) 10*3/uL MPV (9.5-12.2) fL Immature Gran % (Auto) % Neutrophils % % Lymphocytes % % Monocytes % % Eosinophils % % Basophils % % Immature Gran # (0.00-0.04) 10*3/uL Neutrophils # (1.80-7.70) 10*3/uL Lymphocytes # (0.90-5.00) 10*3/uL Monocytes # (0.20-1.00) 10*3/uL Eosinophils # (0.04-0.35) 10*3/uL Basophils # (0.00-0.10) 10*3/uL Manual Slide Review Anisocytosis (manual) PT 13.0 H (10.0-12.5) sec INR 1.2 H (<1.2) APTT 41.3 H (22.0-30.0) sec Sodium 128 L (137-145) mmol/L Potassium 3.7 (3.5-5.1) mmol/L Chloride 91 L (98-107) mmol/L Carbon Dioxide 33 H (22-30) mmol/L Anion Gap 4 mmol/L BUN 13 (7-17) mg/dL Creatinine 0.47 L (0.52-1.04) mg/dL Est GFR (CKD-EPI)AfAm >90 (>60 ml/min/1.73 sqM) Est GFR (CKD-EPI)NonAf >90 (>60 ml/min/1.73 sqM) Glucose 131 H (74-99) mg/dL Lactic Ac Sepsis Rflx Plasma Lactic Acid Giovanny 3.4 H* (0.7-2.0) mmol/L Calcium 7.7 L (8.4-10.2) mg/dL Total Bilirubin 0.5 (0.2-1.3) mg/dL AST 12 L (14-36) U/L ALT 10 (4-34) U/L Alkaline Phosphatase 138 H (38-126) U/L Total Protein 4.7 L (6.3-8.2) g/dL Albumin 2.2 L (3.5-5.0) g/dL Lipase 46 (23-300) U/L Urine Color Urine Appearance (Clear) Urine pH (5.0-8.0) Ur Specific [place] (1.001-1.035) Urine Protein (Negative) Urine Glucose (UA) (Negative) Urine Ketones (Negative) Urine Blood (Negative) Urine Nitrite (Negative) Urine Bilirubin (Negative) Urine Urobilinogen (<2.0) mg/dL Ur Leukocyte Esterase (Negative) Urine RBC (0-5) /hpf Urine WBC (0-5) /hpf Urine WBC Clumps (None) /hpf Calcium Oxalate Crystal (None) /hpf Urine Bacteria (None) /hpf Urine Mucus (None) /hpf Stool Occult Blood (Negative) Blood Type Blood Type Recheck Bld Type Recheck Status Antibody Screen Spec Expiration Date 02/25/25 02/25/25 Range/Units 17:20 17:52 WBC (4.50-10.00) 10*3/uL RBC (4.10-5.20) 10*6/uL Hgb (12.0-15.0) g/dL Hct (37.2-46.3) % MCV (80.0-97.0) fL MCH (27.0-32.0) pg MCHC (32.0-37.0) g/dL Plt Count (140-440) 10*3/uL MPV (9.5-12.2) fL Immature Gran % (Auto) % Neutrophils % % Lymphocytes % % Monocytes % % Eosinophils % % Basophils % % Immature Gran # (0.00-0.04) 10*3/uL Neutrophils # (1.80-7.70) 10*3/uL Lymphocytes # (0.90-5.00) 10*3/uL Monocytes # (0.20-1.00) 10*3/uL Eosinophils # (0.04-0.35) 10*3/uL Basophils # (0.00-0.10) 10*3/uL Manual Slide Review Anisocytosis (manual) PT (10.0-12.5) sec INR (<1.2) APTT (22.0-30.0) sec Sodium (137-145) mmol/L Potassium (3.5-5.1) mmol/L Chloride (98-107) mmol/L Carbon Dioxide (22-30) mmol/L Anion Gap mmol/L BUN (7-17) mg/dL Creatinine (0.52-1.04) mg/dL Est GFR (CKD-EPI)AfAm (>60 ml/min/1.73 sqM) Est GFR (CKD-EPI)NonAf (>60 ml/min/1.73 sqM) Glucose (74-99) mg/dL Lactic Ac Sepsis Rflx Y Plasma Lactic Acid Giovanny (0.7-2.0) mmol/L Calcium (8.4-10.2) mg/dL Total Bilirubin (0.2-1.3) mg/dL AST (14-36) U/L ALT (4-34) U/L Alkaline Phosphatase (38-126) U/L Total Protein (6.3-8.2) g/dL Albumin (3.5-5.0) g/dL Lipase (23-300) U/L Urine Color Urine Appearance (Clear) Urine pH (5.0-8.0) Ur Specific [place] (1.001-1.035) Urine Protein (Negative) Urine Glucose (UA) (Negative) Urine Ketones (Negative) Urine Blood (Negative) Urine Nitrite (Negative) Urine Bilirubin (Negative) Urine Urobilinogen (<2.0) mg/dL Ur Leukocyte Esterase (Negative) Urine RBC (0-5) /hpf Urine WBC (0-5) /hpf Urine WBC Clumps (None) /hpf Calcium Oxalate Crystal (None) /hpf Urine Bacteria (None) /hpf Urine Mucus (None) /hpf Stool Occult Blood (Negative) Blood Type O Positive Blood Type Recheck O Pos Bld Type Recheck Status No Antibody Screen POSITIVE Spec Expiration Date 02/28/20252319 - EKG Data EKG Comments: EKG taken at 17: 07 showing atrial fibrillation. Ventricular rate 81, QRS duration 95, QT/QTc 384/421. (Evita Plasencia) Disposition <Evita Plasencia - Last Filed: 02/25/25 19:10> Time of Disposition: 20:02 <Emanuel Camarillo - Last Filed: 02/25/25 20:02> Clinical Impression: Urinary tract infection, Anemia, Hyponatremia Disposition: ADMITTED IP TO THIS HOSP Referrals: Te Menchaca DO [Primary Care Provider] - 1-2 days
[2025-02-25 17:37] LABS: Basophils # (A) 0.03 10*3/uL (0.00-0.10); Basophils % (A) 0.3 %; Eosinophils # (A) 0.08 10*3/uL (0.04-0.35); Eosinophils % (A) 0.8 %; HGB 7.1 g/dL (12.0-15.0); Lymphocytes # (A) 0.71 10*3/uL (0.90-5.00); Lymphocytes % (A) 7.5 %; MCH 27.6 pg (27.0-32.0); MCHC 32.3 g/dL (32.0-37.0); MCV 85.6 fL (80.0-97.0); Mean Platelet Volume 9.6 fL (9.5-12.2); Monocytes # (A) 0.62 10*3/uL (0.20-1.00); Monocytes % (A) 6.6 %; Neutrophils # (A) 7.97 10*3/uL (1.80-7.70); Neutrophils % (A) 84.4 %; Platelet Count 233 10*3/uL (140-440); RBC 2.57 10*6/uL (4.10-5.20); RDW 22.2 % (11.5-14.5); WBC 9.45 10*3/uL (4.50-10.00)
[2025-02-25 17:46] LABS: Appearance,Urine Cloudy (Clear); Bacteria,Urine Rare /hpf; Bilirubin,Urine Negative (Negative); Blood,Urine Small (Negative); Calcium Oxalate Crystals,Urine Moderate /hpf; Color,Urine Yellow; Glucose,Urine (UA) Negative (Negative); Ketones,Urine Negative (Negative); Leukocyte Esterase,Urine Large (Negative); Mucus,Urine Occasional /hpf; Nitrite,Urine Negative (Negative); Protein,Urine 1+ (Negative); RBC,Urine 21 /hpf (0-5); Specific Gravity,Urine 1.019 (1.001-1.035); Urobilinogen,Urine <2.0 mg/dL (<2.0); WBC,Urine 58 /hpf (0-5)
[2025-02-25 17:51] LABS: ALT 10 U/L (4-34); AST 12 U/L (14-36); African American GFR (CKD) >90 (>60 ml/min/1.73 sqM); Albumin 2.2 g/dL (3.5-5.0); Alkaline Phosphatase 138 U/L (38-126); Anion Gap 4 mmol/L; Blood Urea Nitrogen 13 mg/dL (7-17); Calcium 7.7 mg/dL (8.4-10.2); Carbon Dioxide 33 mmol/L (22-30); Chloride 91 mmol/L (98-107); Glucose 131 mg/dL (74-99); Lipase 46 U/L (23-300); Non-African American GFR(CKD) >90 (>60 ml/min/1.73 sqM); Potassium 3.7 mmol/L (3.5-5.1); Sodium 128 mmol/L (137-145); Total Bilirubin 0.5 mg/dL (0.2-1.3); Total Protein 4.7 g/dL (6.3-8.2)
[2025-02-25 17:55] LABS: INR 1.2 (<1.2); Partial Thromboplastin Time 41.3 sec (22.0-30.0)
[2025-02-25 18:50] LABS: Anisocytosis (M) Present
--- NOTE | 2025-02-25 19:45 | CT ---
EXAMINATION TYPE: CT abdomen pelvis w con DATE OF EXAM: 02/25/2025 7:11 PM COMPARISON: 01/30/2025 CLINICAL INDICATION: Female, 64 years old with history of +FOB, low hgb hx stomach ulcer; +FOB, low h gb hx stomach ulcer TECHNIQUE: Axial CT abdomen pelvis w con;Sagittal and coronal reformats were created on a separate w orkstation. Contrast used:100 ml mL of Isovue 300 with IV Contrast, (none if empty) Oral contrast used: without Oral Contrast (none if empty) CT DLP: 1207.6 mGycm, Automated exposure control for dose reduction was used. FINDINGS: LOWER CHEST: Trace bilateral pleural effusions. The heart is mildly enlarged for size. ABDOMEN LIVER: Unremarkable GALLBLADDER AND BILE DUCTS: Dilation of the gallbladder with layering high density suggestive of bili nick sludge. PANCREAS: Pancreatic divisum morphology to the pancreatic duct suggested. SPLEEN: Unremarkable. ADRENAL GLANDS: Unremarkable. KIDNEYS AND URETERS: No evidence of hydronephrosis or obstructing renal calculus. The ureters are unr emarkable. Right renal cysts measuring up to 5.8 cm. Left renal cortical cyst measuring up to 13 m m. No follow-up is recommended. PELVIS For visualization of the pelvis due to streak artifact from either arthroplasties. BLADDER: Nondistended with Meza catheter in place. REPRODUCTIVE: Unremarkable. ABDOMEN & PELVIS Evaluation of the pelvis is limited due to streak artifact from hip arthroplasties. STOMACH AND BOWEL: No evidence of bowel obstruction. Narrowing of the duodenum as it crosses over the aorta PERITONEUM/RETROPERITONEUM: No evidence of pneumoperitoneum or free fluid. VASCULATURE: Mild atherosclerotic calcifications are present throughout the abdominal aorta and its b ranches. No evidence of aortic aneurysm. MUSCULOSKELETAL: No acute osseous abnormalities LYMPH NODES: No gross evidence for lymphadenopathy. SOFT TISSUE/ABDOMINAL WALL: Complex fluid collection around the left proximal humeral femur with flui d collection and measuring at least 7.1 x 8.3 cm with foci of gas present additionally there is fluid extending towards the lateral aspect of the thigh/hip. Series 201 image 69 Anterior right thigh flui d collection is visualized measuring up to 5.9 x 4.1 cm. Subcutis edema throughout the osseous struct ures. IMPRESSION: Limited evaluation of the pelvis due to streak artifact from hip arthroplasty. 1. No evidence for acute abdominal process. No evidence for gastrointestinal hemorrhage. 2. Colonic diverticulosis. 3. Cardiomegaly with trace bilateral pleural effusions correlate for congestive heart failure. Diffu se anasarca correlate for third spacing of fluid. 4. Organizing fluid collection around the left femur/hip seen dating back to 10/26/2024. Few foci of gas are present superimposed infection not excluded. Tract extends towards the lateral aspect of the [id number] possibly represent fistula. 5. Organizing fluid collection anterior to the right thigh/hip arthroplasty seen dating back to 10/14. Right hip arthroplasty with hardware intact. 6. Dilation of the gallbladder with biliary sludge. [facility], , 02/25/2025 7:43 PM
[2025-02-25 21:38] LABS: Basophils # (A) 0.05 10*3/uL (0.00-0.10); Basophils % (A) 0.5 %; Eosinophils # (A) 0.07 10*3/uL (0.04-0.35); Eosinophils % (A) 0.8 %; HCT 21.5 % (37.2-46.3); Lymphocytes # (A) 0.64 10*3/uL (0.90-5.00); MCH 27.3 pg (27.0-32.0); MCHC 31.2 g/dL (32.0-37.0); MCV 87.8 fL (80.0-97.0); Monocytes # (A) 0.53 10*3/uL (0.20-1.00); Monocytes % (A) 5.8 %; Neutrophils # (A) 7.87 10*3/uL (1.80-7.70); Neutrophils % (A) 85.6 %; Platelet Count 205 10*3/uL (140-440); RBC 2.45 10*6/uL (4.10-5.20); RDW 22.1 % (11.5-14.5); WBC 9.19 10*3/uL (4.50-10.00)
[2025-02-25 21:57] LABS: HGB 6.7 g/dL (12.0-15.0)
[2025-02-25] MEDS ORDERED: ALBUTEROL NEBULIZED 2.5 MG/3 ML INHALATION PRN (22:30)
[2025-02-25] MEDS ORDERED: IPRATROPIUM-ALBUTEROL 3 ML NEB INHALATION PRN (22:30)
[2025-02-25] MEDS ORDERED: ACETAMINOPHEN TAB 325 MG TAB PO PRN (22:30)
[2025-02-25] MEDS ORDERED: bisacodyL 10 MG SUPP RECTAL PRN (22:30)
--- NOTE | 2025-02-25 22:35 | P.HPIM ---
History of Present Illness H&P Date: 02/25/25 Chief Complaint: No hemoglobin 64-year-old patient, follows with Dr. Menchaca at [facility], long-term care resident. Chronic medical conditions include atrial fibrillation, COPD, seizure disorder, rheumatoid arthritis previous lung cancer multiple hip surgeries bipolar disorder. 2 L of oxygen at home. Patient a week ago underwent left hip replacement [facility]. Now getting therapy at [facility]. She is able to stand and up in a chair. With therapy. Patient was sent in and hemoglobin was found to be 6.4. On arrival to the ER hemoglobin was 7.1. Repeat tonight is come back at 6.7. Patient has been feeling weak and tired. Denies any black stools. Decreased appetite. No fever no chills Review of systems: GEN.: Tired EYES: None HEENT: None NECK: None RESPIRATORY: None CARDIOVASCULAR: None GASTROINTESTINAL: None GENITOURINARY: None MUSCULOSKELETAL: Left hip replaced 7 days ago LYMPHATICS: None HEMATOLOGICAL: None PSYCHIATRY: Anxiety NEUROLOGICAL: Prior to surgery using a wheelchair Social history: Former smoker. Occasional alcohol. Long-term resident at [facility]. Uses wheelchair Physical examination: VITAL SIGNS: 97.7, 105, 18, 95 x 71, 98% room air upon presentation GENERAL: BMI 29.3, laying in bed awake tired EYES: Pupils equal. Conjunctiva pale HEENT: External appearance of nose and ears normal, oral cavity grossly normal. NECK: JVD not raised; masses not palpable. HEART: First and second heart sounds are normal; no edema. LUNGS: Respiratory rate normal; decreased breath sound. ABDOMEN: Soft, nontender, liver spleen not palpable, no masses palpable. PSYCH: Able to answer questions mood and affect a bit low MUSCULOSKELETAL:No Clubbing/cyanosis;muscles-grossly intact. OA. Limited range of motion left hip. Left thigh is much larger compared to the right thigh NEUROLOGICAL: Cranial nerves grossly intact; no facial asymmetry, power and sensation grossly intact. LYMPHATICS: No lymph nodes palpable in the axilla and neck INVESTIGATIONS, reviewed in the clinical context: February 25, 2025: White count 9.1 hemoglobin 6.7 platelets 205 sodium 128 potassium 3.7 BUN 13 creatinine 0.47 Assessment plan: - Likely acute postprocedure blood loss anemia from recent left total hip arthroplasty. Hemoglobin 6.7. Symptomatic. Patient has been feeling rather tired. Transfuse 1 unit of packed red blood cell -Hyponatremia, from increase water intake, decrease salt intake Restrict fluid intake. 1800 cc a day. -Chronic microcytic anemia. This is being followed outpatient. This is being followed outpatient -Chronic hypoxic respiratory failure from underlying COPD 2 L -Essential hypertension Cardizem CD to 40 mg a day Toprol-XL 100 mg twice daily -Persistent atrial fibrillation. Rate controlled. Cardizem CD to 40 mg a day. Toprol-XL 100 mg twice daily. Eliquis -COPD in a previous smoker Albuterol as needed. DuoNeb as needed. Advair 250/50 twice daily. Spiriva. -Bipolar disorder Lexapro. Cymbalta. -Primary osteoarthritis and also secondary arthritis from previous surgeries placed in the left hip. Pain medication as needed -Patient just underwent left total hip arthroplasty a week ago at 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, Past Anesthesia/Blood Transfusion Reactions: No Reported Reaction Additional Past Anesthesia/Blood Transfusion Reaction / Comment(s): hard to intubate Past Psychological History: Bipolar, Depression Smoking Status: Former smoker Past Alcohol Use History: Occasional Past Drug Use History: None Reported Medications and Allergies Home Medications Medication Instructions Recorded Confirmed Type Apixaban [Eliquis] 5 mg PO BID@0800,1700 11/16/24 01/30/25 History Empagliflozin [Jardiance] 10 mg PO DAILY 11/16/24 01/30/25 History Fluticasone Propion/Salmeterol 1 inhalation PO RT-BID@0800,1700 11/16/24 01/30/25 History [Advair 250-50 Diskus] Metoprolol Succinate [Toprol XL] 100 mg PO BID@0800,1700 11/16/24 01/30/25 History Tiotropium [place] [Spiriva 1 puff INHALATION RT-DAILY 11/16/24 01/30/25 History Handihaler] Acetaminophen Tab [Tylenol] 650 mg PO Q6HR PRN tab 11/21/24 01/30/25 Rx Albuterol Inhaler [Ventolin Hfa 1 puff INHALATION RT-QID each 11/21/24 01/30/25 Rx Inhaler] Albuterol Inhaler [Ventolin Hfa 1 puff INHALATION RT-QID PRN each 11/21/24 01/30/25 Rx Inhaler] DULoxetine HCL [Cymbalta] 30 mg PO DAILY cap 11/21/24 01/30/25 Rx Diltiazem Cd [Cardizem CD] 240 mg PO DAILY cap 11/21/24 01/30/25 Rx HYDROcodone/APAP 7.5-325MG [Acworth 1 tab PO Q4H PRN 3 Days #18 tab 11/21/24 01/30/25 Rx 7.5-325] Melatonin 5 mg PO HS tab 11/21/24 01/30/25 Rx Caldesene Powder 1 applic TOPICAL TID 01/30/25 01/30/25 History Cholecalciferol [Vitamin D3 (25 125 mcg PO DAILY 01/30/25 01/30/25 History Mcg = 1000 Iu)] Escitalopram [Lexapro] 10 mg PO DAILY 01/30/25 01/30/25 History Ferrous Sulfate [Iron (65 MG 325 mg PO DAILY 01/30/25 01/30/25 History Elemental)] INSULIN ASPART (NovoLOG) [NovoLOG See Protocol SQ ACHS 01/30/25 01/30/25 History (formulary)] Ipratropium-Albuterol Nebulize 3 ml INHALATION RT-Q6H PRN 01/30/25 01/30/25 History [Duoneb 0.5 mg-3 mg/3 ml Soln] Maalox Plus 30 ml PO Q6H PRN 01/30/25 01/30/25 History Magnesium Hydroxide [Milk of 7,200 mg PO DAILY PRN 01/30/25 01/30/25 History Magnesia Concentrate] Menthol/Zinc Oxide [Calprotect 1 applic TOPICAL TID 01/30/25 01/30/25 History 0.44%-20.6% Oint] Na Phos,M-B/Na Phos,Di-Ba [Fleet 133 ml RECTAL DAILY PRN 01/30/25 01/30/25 History Adult] Nystatin 100,000 Unit/gm Oint 1 applic TOPICAL TID@0800,1200,1700 01/30/25 01/30/25 History [Mycostatin Oint] Ondansetron [Zofran] 4 mg PO Q6HR PRN 01/30/25 01/30/25 History Sennosides [Senokot] 8.6 mg PO BID@0800,2100 01/30/25 01/30/25 History bisacodyL [Dulcolax] 10 mg RECTAL DAILY PRN 01/30/25 01/30/25 History Allergies Allergy/AdvReac Type Severity Reaction Status Date / Time codeine AdvReac Nausea Verified 02/25/25 16:59 Physical Exam Vitals: Vital Signs Temp Pulse Resp BP Pulse Ox 02/25/25 21:04 94 17 105/60 97 02/25/25 19:00 88 18 114/93 98 02/25/25 18:30 90 14 112/85 98 02/25/25 18:00 89 14 117/77 95 02/25/25 17:30 85 18 104/71 100 02/25/25 17:00 95 28 H 95/71 98 02/25/25 16:56 97.7 F 105 H 18 96 Intake and Output 02/25/25 02/25/25 02/25/25 06:59 14:59 22:59 Other: Weight 70.307 kg Results CBC & Chem 7: 02/25/25 21:27 02/25/25 17:07 Labs: Abnormal Lab Results - Last 24 Hours (Table) 02/25/25 02/25/25 02/25/25 Range/Units 17:07 17:07 17:07 RBC 2.57 L (4.10-5.20) 10*6/uL Hgb 7.1 L (12.0-15.0) g/dL Hct 22.0 L (37.2-46.3) % MCHC (32.0-37.0) g/dL Neutrophils # 7.97 H (1.80-7.70) 10*3/uL Lymphocytes # 0.71 L (0.90-5.00) 10*3/uL PT (10.0-12.5) sec INR (<1.2) APTT (22.0-30.0) sec Sodium 128 L (137-145) mmol/L Chloride 91 L (98-107) mmol/L Carbon Dioxide 33 H (22-30) mmol/L Creatinine 0.47 L (0.52-1.04) mg/dL Glucose 131 H (74-99) mg/dL Plasma Lactic Acid Giovanny (0.7-2.0) mmol/L Calcium 7.7 L (8.4-10.2) mg/dL AST 12 L (14-36) U/L Alkaline Phosphatase 138 H (38-126) U/L Total Protein 4.7 L (6.3-8.2) g/dL Albumin 2.2 L (3.5-5.0) g/dL Urine Appearance Cloudy H (Clear) Urine Protein 1+ H (Negative) Urine Blood Small H (Negative) Ur Leukocyte Esterase Large H (Negative) Urine RBC 21 H (0-5) /hpf Urine WBC 58 H (0-5) /hpf Urine WBC Clumps Rare H (None) /hpf Calcium Oxalate Crystal Moderate H (None) /hpf Urine Bacteria Rare H (None) /hpf Urine Mucus Occasional H (None) /hpf 02/25/25 02/25/25 02/25/25 Range/Units 17:07 17:07 20:01 RBC (4.10-5.20) 10*6/uL Hgb (12.0-15.0) g/dL Hct (37.2-46.3) % MCHC (32.0-37.0) g/dL Neutrophils # (1.80-7.70) 10*3/uL Lymphocytes # (0.90-5.00) 10*3/uL PT 13.0 H (10.0-12.5) sec INR 1.2 H (<1.2) APTT 41.3 H (22.0-30.0) sec Sodium (137-145) mmol/L Chloride (98-107) mmol/L Carbon Dioxide (22-30) mmol/L Creatinine (0.52-1.04) mg/dL Glucose (74-99) mg/dL Plasma Lactic Acid Giovanny 3.4 H* 3.5 H* (0.7-2.0) mmol/L Calcium (8.4-10.2) mg/dL AST (14-36) U/L Alkaline Phosphatase (38-126) U/L Total Protein (6.3-8.2) g/dL Albumin (3.5-5.0) g/dL Urine Appearance (Clear) Urine Protein (Negative) Urine Blood (Negative) Ur Leukocyte Esterase (Negative) Urine RBC (0-5) /hpf Urine WBC (0-5) /hpf Urine WBC Clumps (None) /hpf Calcium Oxalate Crystal (None) /hpf Urine Bacteria (None) /hpf Urine Mucus (None) /hpf 02/25/25 Range/Units 21:27 RBC 2.45 L (4.10-5.20) 10*6/uL Hgb 6.7 L* (12.0-15.0) g/dL Hct 21.5 L (37.2-46.3) % MCHC 31.2 L (32.0-37.0) g/dL Neutrophils # 7.87 H (1.80-7.70) 10*3/uL Lymphocytes # 0.64 L (0.90-5.00) 10*3/uL PT (10.0-12.5) sec INR (<1.2) APTT (22.0-30.0) sec Sodium (137-145) mmol/L Chloride (98-107) mmol/L Carbon Dioxide (22-30) mmol/L Creatinine (0.52-1.04) mg/dL Glucose (74-99) mg/dL Plasma Lactic Acid Giovanny (0.7-2.0) mmol/L Calcium (8.4-10.2) mg/dL AST (14-36) U/L Alkaline Phosphatase (38-126) U/L Total Protein (6.3-8.2) g/dL Albumin (3.5-5.0) g/dL Urine Appearance (Clear) Urine Protein (Negative) Urine Blood (Negative) Ur Leukocyte Esterase (Negative) Urine RBC (0-5) /hpf Urine WBC (0-5) /hpf Urine WBC Clumps (None) /hpf Calcium Oxalate Crystal (None) /hpf Urine Bacteria (None) /hpf Urine Mucus (None) /hpf
[2025-02-25] MEDS: METOPROLOL SUCCINATE (ER) 100 MG TAB.ER.24H PO SCH (23:57)
[2025-02-25] MEDS: MELATONIN 5 MG TABLET PO SCH (23:57)
[2025-02-26] MEDS: SENNOSIDES 8.6 MG TAB PO SCH (07:42)
[2025-02-26] MEDS: DAPAGLIFLOZIN PROPANEDIOL 5 MG TABLET PO SCH (07:42)
[2025-02-26] MEDS: CHOLECALCIFEROL 125 MCG (5000 IU) TABLET PO SCH (07:42)
[2025-02-26] MEDS: DULoxetine HCL 30 MG CAPSULE.DR PO SCH (07:42)
[2025-02-26] MEDS: ESCITALOPRAM 10 MG TAB PO SCH (07:43)
[2025-02-26] MEDS: HYDROcodone/APAP 7.5-325MG 1 EACH TAB PO PRN (07:50)
[2025-02-26] MEDS: SYMBICORT 80-4.5 MCG INHALER INHALATION SCH (08:07)
[2025-02-26] MEDS: ALBUTEROL NEBULIZED 2.5 MG/3 ML INHALATION SCH (08:07)
[2025-02-26] MEDS: TIOTROPIUM 2.5 MCG INHALER INHALATION SCH (08:08)
[2025-02-26] MEDS: cefTRIAXone 2 GM in DEXTROSE 5% IN WATER 50 ML IVPB SCH (08:29)
[2025-02-26 09:00] LABS: Basophils # (A) 0.02 X 10*3/uL (0.00-0.10); Basophils % (A) 0.3 %; Eosinophils # (A) 0.06 X 10*3/uL (0.04-0.35); Eosinophils % (A) 0.9 %; HCT 24.7 % (37.2-46.3); HGB 7.6 g/dL (12.0-15.0); Lymphocytes # (A) 0.64 X 10*3/uL (0.90-5.00); Lymphocytes % (A) 9.6 %; MCHC 30.8 g/dL (32.0-37.0); MCV 87.6 FL (80.0-97.0); Mean Platelet Volume 10.4 FL (9.5-12.2); Monocytes # (A) 0.35 X 10*3/uL (0.20-1.00); Monocytes % (A) 5.2 %; NRBC Per 100 WBC 0 X 10*3/uL (0.00-0.01); Neutrophils # (A) 5.57 X 10*3/uL (1.80-7.70); Neutrophils % (A) 83.6 %; Platelet Count 189 X 10*3/uL (140-440); RBC 2.82 X 10*6/uL (4.10-5.20); RDW 20.3 % (11.5-14.5); WBC 6.67 X 10*3/uL (4.50-10.00)
[2025-02-26] MEDS: NYSTATIN 100,000 UNIT/GM OINT 30 GM TUBE TOPICAL SCH (09:10)
--- NOTE | 2025-02-26 14:41 | US ---
EXAMINATION TYPE: US extremity nonvasc mass LT DATE OF EXAM: 02/26/2025 COMPARISON: CT abdomen and pelvis 02/25/2025 CLINICAL INDICATION: Female, 64 years old with history of poss Lhip hematoma- post LHR; Post hip repl acement left side hematoma. TECHNIQUE: Multiple grayscale ultrasound images in the left hip area were obtained. FINDINGS/IMPRESSION: Complex fluid visualized within the left hip region along the stitches measuring at least 6.7 x 1.9 x 6.3 cm. Reportedly measures up to 12 cm in length. Predominantly anechoic with some debris identified. May represent a complex seroma versus hematoma. Abscess is not entirely exclu ded. [facility], , 02/26/2025 2:39 PM
[2025-02-26] MEDS: ZINC OXIDE PASTE (Z-GUARD) 1 APPLIC TOPICAL PRN (17:29)
--- NOTE | 2025-02-26 21:10 | P.PN ---
Progress Note - Text Progress Note Date: 02/26/25 Chief Complaint: No hemoglobin 64-year-old patient, follows with Dr. Menchaca at [facility], long-term care resident. Chronic medical conditions include atrial fibrillation, COPD, seizure disorder, rheumatoid arthritis previous lung cancer multiple hip surgeries bipolar disorder. 2 L of oxygen at home. Patient a week ago underwent left hip replacement [facility]. Now getting therapy at [facility]. She is able to stand and up in a chair. With kamari chapin Patient was sent in and hemoglobin was found to be 6.4. On arrival to the ER hemoglobin was 7.1. Repeat tonight is come back at 6.7. Patient has been feeling weak and tired. Denies any black stools. Decreased appetite. No fever no chills February 26: Patient was seen this morning in the ER. Feeling better after blood transfusion. Ultrasound the left hip showed complex fluid in the left hip region along the stitches measuring 6.7 x 1.9 x 6.3 cm. About 12 cm in length. Complex aroma versus hematoma. Which is a likely source of patient's drop in hemoglobin. Encourage oral intake. Patient has no urinary symptoms. No urgency to abdominal pain no dysuria. Patient's had a Meza fill for 5 days. Will DC the same. Active Medications Acetaminophen (Acetaminophen Tab 325 Mg Tab) 650 mg PO Q6HR PRN PRN Reason: Mild Pain or Fever > 100.5 Hydrocodone Bitart/Acetaminophen (Hydrocodone/Apap 7.5-325mg 1 Each Tab) 1 each PO Q4H PRN PRN Reason: Pain Last Admin: 02/26/25 20:47 Dose: 1 each Albuterol Sulfate (Albuterol Nebulized 2.5 Mg/3 Ml) 2.5 mg INHALATION RT-QID PRN PRN Reason: Shortness Of Breath Or Wheezing Albuterol Sulfate (Albuterol Nebulized 2.5 Mg/3 Ml) 2.5 mg INHALATION RT-QID ANTONELLA Last Admin: 02/26/25 16:25 Dose: 2.5 mg Albuterol/Ipratropium (Ipratropium-Albuterol 3 Ml Neb) 3 ml INHALATION RT-Q6H PRN PRN Reason: Shortness Of Breath Bisacodyl (Bisacodyl 10 Mg Supp) 10 mg RECTAL DAILY PRN PRN Reason: Constipation Budesonide/Formoterol Fumarate (Symbicort 80-4.5 Mcg Inhaler) 2 puff INHALATION RT-BID [facility] Last Admin: 02/26/25 08:07 Dose: 2 puff Cholecalciferol (Cholecalciferol 125 Mcg (5000 Iu) Tablet) 125 mcg PO DAILY [facility] Last Admin: 02/26/25 07:42 Dose: 125 mcg Dapagliflozin (Dapagliflozin Propanediol 5 Mg Tablet) 5 mg PO DAILY [facility] Last Admin: 02/26/25 07:42 Dose: 5 mg Duloxetine HCl (Duloxetine Hcl 30 Mg Capsule.Dr) 30 mg PO DAILY [facility] Last Admin: 02/26/25 07:42 Dose: 30 mg Melatonin (Melatonin 5 Mg Tablet) 5 mg PO HS [facility] Last Admin: 02/26/25 20:47 Dose: 5 mg Metoprolol Succinate (Metoprolol Succinate (Er) 100 Mg Tab.Er.24h) 100 mg PO DAILY [facility] Ondansetron HCl (Ondansetron Odt 4 Mg Tab) 4 mg PO Q6HR PRN PRN Reason: Nausea And Vomiting Petrolatum (Zinc Oxide Paste (Z-Guard) 1 Applic) 1 applic TOPICAL Q2HR PRN; Protocol PRN Reason: Wound Healing Last Admin: 02/26/25 17:29 Dose: 1 applic Senna (Sennosides 8.6 Mg Tab) 8.6 mg PO BID [facility] Last Admin: 02/26/25 20:47 Dose: 8.6 mg Tiotropium [place] (Tiotropium 2.5 Mcg Inhaler) 2 puff INHALATION RT-DAILY [facility] Last Admin: 02/26/25 08:08 Dose: 2 puff Social history: Former smoker. Occasional alcohol. Long-term resident at [facility]. Uses wheelchair Physical examination: VITAL SIGNS: 38.3, 100, 20, 123 x 79, 95% on 2 L GENERAL: BMI 29.3, laying in bed awake, looking better EYES: Pupils equal. Conjunctiva pale HEENT: External appearance of nose and ears normal, oral cavity grossly normal. NECK: JVD not raised; masses not palpable. HEART: First and second heart sounds are normal; no edema. LUNGS: Respiratory rate normal; decreased breath sound. ABDOMEN: Soft, nontender, liver spleen not palpable, no masses palpable. PSYCH: Able to answer questions mood and affect a bit low MUSCULOSKELETAL:No Clubbing/cyanosis;muscles-grossly intact. OA. Limited range of motion left hip. Left thigh is much larger compared to the right thigh INVESTIGATIONS, reviewed in the clinical context: Ultrasound left thigh: Complex fluid visualized within the left hip region along with the stitches measuring at least 6.7 x 1.9 x 6.3 cm. Reportedly measures up to 12 cm length. May represent a complex seroma versus hematoma. February 25, 2025: White count 9.1 hemoglobin 6.7 platelets 205 sodium 128 po tassium 3.7 BUN [address] abdomen pelvis: Colonic diverticulosis. Cardiomegaly. Diffuse anasarca with some third spacing. Organizing fluid collection of the left femur. CT seen dating back to 10/26/2024. Organizing fluid collection anterior to the right thigh hip arthroplasty. Dating back to October 26, 2024. Dilation of gallbladder with biliary sludge. Assessment plan: - Likely acute postprocedure blood loss anemia from recent left total hip arthroplasty. With significant hematoma at the incision site. Hemoglobin 6.7. Symptomatic. With feeling rather tired. At presentation. Received 1 unit of blood -Hyponatremia, from increase water intake, decrease salt intake Restrict fluid intake. 1800 cc a day. - Left thigh hematoma at the incision site. From recent surgery a week ago., Causing drop in hemoglobin Hold Eliquis for now. Until hemoglobin stabilizes -Chronic microcytic anemia. This is being followed outpatient. This is being followed outpatient -Chronic hypoxic respiratory failure from underlying COPD 2 L -Essential hypertension Cardizem CD to 40 mg a day Toprol-XL 100 mg twice daily -Persistent atrial fibrillation. Rate controlled. Cardizem CD to 40 mg a day. Toprol-XL 100 mg twice daily. Eliquis -COPD in a previous smoker Albuterol as needed. DuoNeb as needed. Advair 250/50 twice daily. Spiriva. -Bipolar disorder Lexapro. Cymbalta. -Primary osteoarthritis and also secondary arthritis from previous surgeries placed in the left hip. Pain medication as needed -Patient just underwent left total hip arthroplasty a week ago at [facility] PT OT - son Anton is the [facility] power [facility] Continue to hold Eliquis. Repeat hemoglobin tomorrow. Other medication to continue. Repeat labs. 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
[2025-02-27 03:50] LABS: Basophils # (A) 0.02 10*3/uL (0.00-0.10); Basophils % (A) 0.4 %; Eosinophils # (A) 0.08 10*3/uL (0.04-0.35); Eosinophils % (A) 1.5 %; HCT 24.3 % (37.2-46.3); HGB 7.4 g/dL (12.0-15.0); Lymphocytes # (A) 0.74 10*3/uL (0.90-5.00); Lymphocytes % (A) 14.2 %; MCHC 30.5 g/dL (32.0-37.0); MCV 88.7 fL (80.0-97.0); Monocytes # (A) 0.32 10*3/uL (0.20-1.00); Monocytes % (A) 6.1 %; Neutrophils # (A) 4.04 10*3/uL (1.80-7.70); Neutrophils % (A) 77.4 %; Platelet Count 177 10*3/uL (140-440); RBC 2.74 10*6/uL (4.10-5.20); RDW 20.4 % (11.5-14.5); WBC 5.22 10*3/uL (4.50-10.00)
[2025-02-27 04:43] LABS: African American GFR (CKD) >90 (>60 ml/min/1.73 sqM); Anion Gap 2 mmol/L; Blood Urea Nitrogen 12 mg/dL (7-17); Carbon Dioxide 34 mmol/L (22-30); Chloride 97 mmol/L (98-107); Glucose 82 mg/dL (74-99); Non-African American GFR(CKD) >90 (>60 ml/min/1.73 sqM); Potassium 3.2 mmol/L (3.5-5.1); Sodium 133 mmol/L (137-145)
[2025-02-27] MEDS: POTASSIUM CHLORIDE ER 20 MEQ TAB.ER PO STA (06:57)
[2025-02-27] MEDS: METOPROLOL SUCCINATE (ER) 100 MG TAB.ER.24H PO SCH (10:07)
--- NOTE | 2025-02-27 14:15 | P.CN ---
Psychiatric Consult - . Consult date: 02/27/25 Consult:: 02/27/25 14:06 IDENTIFYING DATA: This patient is a 64-year-old female, living at a nursing facility, on SSD REASON FOR REFERRAL: Psychiatry was consulted for triggers moderate risk for suicide HISTORY OF PRESENT ILLNESS: The patient presented to the hospital with a chief complaint of GI bleed. Patient has been staying at a nursing facility after being discharged from [facility] with an ulcer bleed. Patient's hemoglobin dropped to 6.4 and she has since received a blood transfusion with recent hemoglobin of 7.4. Patient seen and evaluated with sitter stepping outside for privacy. She reports being frustrated due to experiencing chronic hip pain and made statements of "why do not God just take me". She mentions the statements are more an expression rather than actual suicidal ideations, vehemently denying any suicidal ideations at this time. She reports difficulties with transitioning to living in a [facility] permanently, losing her independence and freedom. 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 She reports poor appetite, hopelessness, no motivation with low energy, denying any sleep or concentration difficulties. At this time patient denies any suicidal or homicidal ideations, intent or plan. Patient denies any auditory, visual hallucinations and denies any paranoia or delusions. Patients admits to using no substances PAST PSYCHIATRIC HISTORY: Patient has a history of depression. Patient states recently being put back on Cymbalta 30 mg at [facility]. She reports 2 inpatient hospitalizations, most recent being 5 years ago in [place]. Patient denies any psychiatric outpatient follow-up. She reports 1 previous suicide attempt, 5 years ago. PAST MEDICAL HISTORY: COPD, A-fib, CVA, rheumatoid arthritis. ALLERGIES: as per EMR. CHEMICAL DEPENDENCY HISTORY: as per HPI. FAMILY PSYCHIATRIC/SUBSTANCE USE HISTORY: Denies SOCIAL HISTORY: Patient is and has 2 sons. She was recently living with one of her sons however has been staying at [facility]. She is on SSD MENTAL STATUS EXAM: General Appearance: Patient appears to be stated age is alert, pleasant, and cooperative. Patient appears to have fair hygiene and grooming wearing hospital gown with fair eye contact. Behavior: Patient is calmly lying in bed without any agitated behavior. Speech: Patient's speech is fluent and nonpressured. Mood/Affect: Patient reports their mood is "depressed", affect is congruent Suicidality/Homicidality: Patient denies having any suicidal or homicidal ideation intent or plan. Perceptions: Patient denies any visual hallucinations and denies any auditory hallucinations Though content/process: There is no evidence of any delusional thought content and thought process is linear and goal-directed. Memory and concentration: AOX3, grossly intact for the purposes of this session. Can spell "WORLD" backwards Judgment and insight: Fair IMPRESSIONS: Depression, unspecified Rule out major depressive disorder versus depression due to medical condition (microcytic anemia) PLAN: -At this time patient DOES NOT meet criteria for inpatient psychiatric admission. -Would recommend the following medication changes/additions: Increase Cymbalta to 60 mg daily for depression -Can discontinue 1:1 sitter at this time as patient is not currently an imminent threat to themselves -Communicated plan to patient's nurse -Psychiatry will sign off at this time -Please contact with any questions.
[2025-02-27] MEDS: DULoxetine HCL 30 MG CAPSULE.DR PO ONE (16:17)
--- NOTE | 2025-02-27 17:59 | P.PN ---
Progress Note - Text Progress Note Date: 02/27/25 Chief Complaint: No hemoglobin 64-year-old patient, follows with Dr. Menchaca at [facility], long-term care resident. Chronic medical conditions include atrial fibrillation, COPD, seizure disorder, rheumatoid arthritis previous lung cancer multiple hip surgeries bipolar disorder. 2 L of oxygen at home. Patient a week ago underwent left hip replacement [facility]. Now getting therapy at [facility]. She is able to stand and up in a chair. With therquentin greenwood. Patient was sent in and hemoglobin was found to be 6.4. On arrival to the ER hemoglobin was 7.1. Repeat tonight is come back at 6.7. Patient has been feeling weak and tired. Denies any black stools. Decreased appetite. No fever no chills February 26: Patient was seen this morning in the ER. Feeling better after blood transfusion. Ultrasound the left hip showed complex fluid in the left hip region along the stitches measuring 6.7 x 1.9 x 6.3 cm. About 12 cm in length. Complex aroma versus hematoma. Which is a likely source of patient's drop in hemoglobin. Encourage oral intake. Patient has no urinary symptoms. No urgency to abdominal pain no dysuria. Patient's had a Meza fill for 5 days. Will DC the same. February 27: Up in recliner. Cheerful. Patient suicide score was high per nursing staff hence they consulted psychiatry. Sitter was placed. I saw the patient this morning. Feels better. Seen by physical therapy. Total assist. Later this afternoon seen by psychiatrist Dr. Cunningham. Cymbalta was increased to 60 mg a day. Sitter was discontinued. Will hold off Eliquis for now. Because of hematoma in the left thigh. Active Medications Acetaminophen (Acetaminophen Tab 325 Mg Tab) 650 mg PO Q6HR PRN PRN Reason: Mild Pain or Fever > 100.5 Hydrocodone Bitart/Acetaminophen (Hydrocodone/Apap 7.5-325mg 1 Each Tab) 1 each PO Q4H PRN PRN Reason: Pain Last Admin: 02/27/25 10:06 Dose: 1 each Albuterol Sulfate (Albuterol Nebulized 2.5 Mg/3 Ml) 2.5 mg INHALATION RT-QID PRN PRN Reason: Shortness Of Breath Or Wheezing Albuterol Sulfate (Albuterol Nebulized 2.5 Mg/3 Ml) 2.5 mg INHALATION RT-QID [facility] Last Admin: 02/27/25 16:11 Dose: 2.5 mg Albuterol/Ipratropium (Ipratropium-Albuterol 3 Ml Neb) 3 ml INHALATION RT-Q6H PRN PRN Reason: Shortness Of Breath Bisacodyl (Bisacodyl 10 Mg Supp) 10 mg RECTAL DAILY PRN PRN Reason: Constipation Budesonide/Formoterol Fumarate (Symbicort 80-4.5 Mcg Inhaler) 2 puff INHALATION RT-BID [facility] Last Admin: 02/27/25 08:49 Dose: 2 puff Cholecalciferol (Cholecalciferol 125 Mcg (5000 Iu) Tablet) 125 mcg PO DAILY [facility] Last Admin: 02/27/25 10:07 Dose: 125 mcg Dapagliflozin (Dapagliflozin Propanediol 5 Mg Tablet) 5 mg PO DAILY [facility] Last Admin: 02/27/25 10:07 Dose: 5 mg Duloxetine HCl (Duloxetine Hcl 60 Mg Capsule.Dr) 60 mg PO DAILY [facility] Melatonin (Melatonin 5 Mg Tablet) 5 mg PO HS [facility] Last Admin: 02/26/25 20:47 Dose: 5 mg Metoprolol Succinate (Metoprolol Succinate (Er) 100 Mg Tab.Er.24h) 100 mg PO DAILY [facility] Last Admin: 02/27/25 10:07 Dose: 100 mg Ondansetron HCl (Ondansetron Odt 4 Mg Tab) 4 mg PO Q6HR PRN PRN Reason: Nausea And Vomiting Petrolatum (Zinc Oxide Paste (Z-Guard) 1 Applic) 1 applic TOPICAL Q2HR PRN; Protocol PRN Reason: Wound Healing Last Admin: 02/26/25 17:29 Dose: 1 applic Senna (Sennosides 8.6 Mg Tab) 8.6 mg PO BID [facility] Last Admin: 02/27/25 10:06 Dose: 8.6 mg Tiotropium [place] (Tiotropium 2.5 Mcg Inhaler) 2 puff INHALATION RT-DAILY [facility] Last Admin: 02/27/25 08:49 Dose: 2 puff Social history: Former smoker. Occasional alcohol. Long-term resident at [facility]. Uses wheelchair Physical examination: VITAL SIGNS: 97.6, 117, 17, 110 x 73, 97% 2 L GENERAL: BMI 29.3, up in a recliner more cheerful today EYES: Pupils equal. Conjunctiva pale HEENT: External appearance of nose and ears normal, oral cavity grossly normal. NECK: JVD not raised; masses not palpable. HEART: First and second heart sounds are normal; no edema. LUNGS: Respiratory rate normal; decreased breath sound. ABDOMEN: Soft, nontender, liver spleen not palpable, no masses palpable. PSYCH: Answering question appropriately. Less depressed today MUSCULOSKELETAL:No Clubbing/cyanosis;muscles-grossly intact. OA. Limited range of motion left hip. Left thigh is much larger compared to the right thigh INVESTIGATIONS, reviewed in the clinical context: February 27: Hemoglobin 7.4 Ultrasound left thigh: Complex fluid visualized within the left hip region along with the stitches measuring at least 6.7 x 1.9 x 6.3 cm. Reportedly measures up to 12 cm length. May represent a complex seroma versus hematoma. February 25, 2025: White count 9.1 hemoglobin 6.7 platelets 205 sodium 128 potassium 3.7 BUN [address] abdomen pelvis: Colonic diverticulosis. Cardiomegaly. Diffuse anasarca with some third spacing. Organizing fluid collection of the left femur. CT seen dating back to 10/26/2024. Organizing fluid collection anterior to the right thigh hip arthroplasty. Dating back to October 26, 2024. Dilation of gallbla dder with biliary sludge. Assessment plan: - Likely acute postprocedure blood loss anemia from recent left total hip arthroplasty. With significant hematoma at the incision site. Hemoglobin 6.7. Symptomatic. With feeling rather tired. At presentation. Received 1 unit of blood -Hyponatremia, from increase water intake, decrease salt intake: Better Restrict fluid intake. 1800 cc a day. - Left thigh hematoma at the incision site. From recent surgery a week ago., Causing drop in hemoglobin Hold Eliquis for now. Until hemoglobin stabilizes -Chronic microcytic anemia. This is being followed outpatient. This is being followed outpatient -Chronic hypoxic respiratory failure from underlying COPD 2 L -Essential hypertension Cardizem CD to 40 mg a day Toprol-XL 100 mg twice daily -Persistent atrial fibrillation. Rate controlled. Cardizem CD to 40 mg a day. Toprol-XL 100 mg twice daily. Eliquis -COPD in a previous smoker Albuterol as needed. DuoNeb as needed. Advair 250/50 twice daily. Spiriva. -Depression Seen by psychiatry, Dr. Cunningham Cymbalta. Increase to 60 mg a day. Sitter discontinued -Primary osteoarthritis and also secondary arthritis from previous surgeries placed in the left hip. Pain medication as needed -Patient just underwent left total hip arthroplasty a week ago at [facility] PT OT - son Anton is the [facility] Continue to hold Jamilagiftee. Seen by psychiatry. ÁLVARO sitter. Cymbalta increased. Repeat hemoglobin in the morning. 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
[2025-02-28 06:02] LABS: Basophils # (A) 0.02 10*3/uL (0.00-0.10); Basophils % (A) 0.5 %; Eosinophils # (A) 0.09 10*3/uL (0.04-0.35); Eosinophils % (A) 2.2 %; HCT 24.7 % (37.2-46.3); HGB 7.5 g/dL (12.0-15.0); Lymphocytes # (A) 0.49 10*3/uL (0.90-5.00); Lymphocytes % (A) 12.2 %; MCHC 30.4 g/dL (32.0-37.0); MCV 88.8 fL (80.0-97.0); Mean Platelet Volume 9.7 fL (9.5-12.2); Monocytes # (A) 0.42 10*3/uL (0.20-1.00); Monocytes % (A) 10.4 %; Neutrophils # (A) 2.99 10*3/uL (1.80-7.70); Neutrophils % (A) 74.2 %; Platelet Count 172 10*3/uL (140-440); RBC 2.78 10*6/uL (4.10-5.20); RDW 20.7 % (11.5-14.5); WBC 4.03 10*3/uL (4.50-10.00)
[2025-02-28] MEDS: ONDANSETRON ODT 4 MG TAB PO PRN (07:54)
[2025-02-28 08:15] LABS: BUN/Creat Ratio 33.67 Ratio (12.00-20.00); Blood Urea Nitrogen 10.1 mg/dL (9.0-27.0); Carbon Dioxide 32.6 mmol/L (21.6-31.8); Chloride 102 mmol/L (96-109); Glucose 85 mg/dL (70-110); Potassium 4.7 mmol/L (3.5-5.5); Sodium 140 mmol/L (135-145)
[2025-02-28] MEDS: DULoxetine HCL 60 MG CAPSULE.DR PO SCH (09:09)
--- NOTE | 2025-02-28 14:59 | P.DS ---
Providers Date of admission: 02/25/25 20:04 Expected date of discharge: 02/28/25 Attending physician: Popeye Barksdale Consults: 02/27/25 03:28 Consult Physician Urgent Consulting Provider: Te Reddy Consult Reason/Comments: triggers moderate risk for suicide Do you want consulting provider notified?: Yes Primary care physician: Te [facility] Course: Chief Complaint: No hemoglobin 64-year-old patient, follows with Dr. Menchaca at [facility], long-term care resident. Chronic medical conditions include atrial fibrillation, COPD, seizure disorder, rheumatoid arthritis previous lung cancer multiple hip surgeries bipolar disorder. 2 L of oxygen at home. Patient a week ago underwent left hip replacement [facility]. Now getting therapy at [facility]. She is able to stand and up in a chair. With therapy. Patient was sent in and hemoglobin was found to be 6.4. On arrival to the ER hemoglobin was 7.1. Repeat tonight is come back at 6.7. Patient has been feeling weak and tired. Denies any black stools. Decreased appetite. No fever no chills February 26: Patient was seen this morning in the ER. Feeling better after blood transfusion. Ultrasound the left hip showed complex fluid in the left hip region along the stitches measuring 6.7 x 1.9 x 6.3 cm. About 12 cm in length. Complex aroma versus hematoma. Which is a likely source of patient's drop in hemoglobin. Encourage oral intake. Patient has no urinary symptoms. No urgency to abdominal pain no dysuria. Patient's had a Meza fill for 5 days. Will DC the same. February 27: Up in recliner. Cheerful. Patient suicide score was high per nursing staff hence they consulted psychiatry. Sitter was placed. I saw the patient this morning. Feels better. Seen by physical therapy. Total assist. Later this afternoon seen by psychiatrist Dr. Cunningham. Cymbalta was increased to 60 mg a day. Sitter was discontinued. Will hold off Eliquis for now. Because of hematoma in the left thigh. 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 Status post I&D February 10. Course complicated by GI bleed status post EGD with epinephrine. Cauterization. And clipping. On February 14. She was restarted on therapeutic anticoagulant Eliquis. Cultures from her left hip grew Streptococcus pneumoniae. She will be treated with Lesly linezolid 600 mg twice daily through March 23. They will be transition to amoxicillin for chronic suppression. She will follow-up with outpatient infectious disease. Attending: Dr. Annamaria Enriquez]. Patient doing well. Tolerating diet. Because of hematoma in the left hip.. Resume Eliquis this Tuesday. March 04, 2025. Zyvox resumed. CBC BMP on Tuesday. Discussion and discharge planning more than 35 minutes Social history: Former smoker. Occasional alcohol. Long-term resident at [facility]. Uses wheelchair Physical examination: VITAL SIGNS: 97.2, 65, 17, 109 x 68, 93% 2 L GENERAL: Sitting up, smiling EYES: Pupils equal. Conjunctiva pale HEENT: External appearance of nose and ears normal, oral cavity grossly normal. NECK: JVD not raised; masses not palpable. HEART: First and second heart sounds are normal; no edema. LUNGS: Respiratory rate normal; decreased breath sound. ABDOMEN: Soft, nontender, liver spleen not palpable, no masses palpable. PSYCH: Answering questions appropriately MUSCULOSKELETAL:No Clubbing/cyanosis;muscles-grossly intact. OA. Limited range of motion left hip. Left thigh is much larger compared to the right thigh INVESTIGATIONS, reviewed in the clinical context: February 27: Hemoglobin 7.4 Ultrasound left thigh: Complex fluid visualized within the left hip region along with the stitches measuring at least 6.7 x 1.9 x 6.3 cm. Reportedly measures up to 12 cm length. May represent a complex seroma versus hematoma. February 25, 2025: White count 9.1 hemoglobin 6.7 platelets 205 sodium 128 potassium 3.7 BUN [address] abdomen pelvis: Colonic diverticulosis. Cardiomegaly. Diffuse anasarca with some third spacing. Organizing fluid collection of the left femur. CT seen dating back to 10/26/2024. Organizing fluid collection anterior to the right thigh hip arthroplasty. Dating back to October 26, 2024. Dilation of gallbladder with biliary sludge. Assessment plan: - Likely acute postprocedure blood loss anemia from recent left total hip arthroplasty. With significant hematoma at the incision site. Hemoglobin 6.7. Symptomatic. With feeling rather tired. At presentation. Received 1 unit of blood -Hyponatremia, from increase water intake, decrease salt intake: Better Restrict fluid intake. 1800 cc a day. - Left thigh hematoma at the incision site. 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 Status post I&D February 10. Cultures grew Streptococcus pneumonia. Patient to continue with Zyvox 600 mg twice daily through March 23. That she will transition to amoxicillin for chronic suppression. Patient to follow-up with her ID and keep appointment. -Chronic microcytic anemia. This is being followed outpatient. This is being followed outpatient -Chronic hypoxic respiratory failure from underlying COPD 2 L -Essential hypertension Cardizem CD to 40 mg a day Toprol-XL 100 mg twice daily -Persistent atrial fibrillation. Rate controlled. Cardizem CD to 40 mg a day. Toprol-XL 100 mg twice daily. Eliquis -COPD in a previous smoker Albuterol as needed. DuoNeb as needed. Advair 250/50 twice daily. Spiriva. -Depression Seen by psychiatry, Dr. Octavio Patel. Increase to 60 mg a day. Sitter discontinued -Primary osteoarthritis and also secondary arthritis from previous surgeries placed in the left hip. Pain medication as needed -Patient just underwent left total hip arthroplasty a week ago at [facility] PT OT - son Anton is the medical power of motorboat mechanic inboard/outboard Disposition: -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, Past Anesthesia/Blood Transfusion Reactions: No Reported Reaction Additional Past Anesthesia/Blood Transfusion Reaction / Comment(s): hard to intubate Past Psychological History: Bipolar, Depression Smoking Status: Former smoker Past Alcohol Use History: Occasional Past Drug Use History: None Reported Plan - Discharge Summary New Discharge Prescriptions: New Dapagliflozin Propanediol [Farxiga] 5 mg PO DAILY tab Continue Metoprolol Succinate [Toprol XL] 100 mg PO DAILY Apixaban [Eliquis] 5 mg PO BID@0800,1700 Albuterol Inhaler [Ventolin Hfa Inhaler] 1 puff INHALATION RT-QID PRN each PRN Reason: Shortness Of Breath Or Wheezing Caldesene Powder 1 applic TOPICAL BID Ondansetron [Zofran] 4 mg PO Q6HR PRN PRN Reason: Nausea And Vomiting Magnesium Hydroxide [Milk of Magnesia Concentrate] 7,200 mg PO DAILY PRN PRN Reason: Constipation Ipratropium-Albuterol Nebulize [Duoneb 0.5 mg-3 mg/3 ml Soln] 3 ml INHALATION RT-Q4H PRN PRN Reason: Shortness Of Breath Na Phos,M-B/Na Phos,Di-Ba [Fleet Adult] 133 ml RECTAL DAILY PRN PRN Reason: Constipation bisacodyL [Dulcolax] 10 mg RECTAL DAILY PRN PRN Reason: Constipation Sennosides [Senokot] 8.6 mg PO BID@0800,1700 Cholecalciferol [Vitamin D3 (25 Mcg = 1000 Iu)] 125 mcg PO DAILY Acetaminophen Tab [Tylenol] 500 mg PO Q8H PRN PRN Reason: Pain Atorvastatin [Lipitor] 10 mg PO HS Linezolid [Zyvox] 600 mg PO BID Omeprazole [PriLOSEC] 40 mg PO BID@0600,1700 Tiotropium [place] [Spiriva Handihaler] 1 puff INHALATION RT-DAILY Fluticasone Propion/Salmeterol [Advair 250-50 Diskus] 1 puff INHALATION RT- BID@0800,1700 INSULIN ASPART (NovoLOG) [NovoLOG (formulary)] See Protocol SQ ACHS Ferrous Sulfate [Iron (65 MG Elemental)] 325 mg PO BID@0800,1700 Menthol/Zinc Oxide [Calprotect 0.44%-20.6% Oint] 1 applic TOPICAL BID dilTIAZem HCL [dilTIAZem HCL 24Hr ER (LA)] 240 mg PO DAILY Hydroxychloroquine Sulfate [Plaquenil] 200 mg PO DAILY polyethylene glycoL 3350 [Miralax] 17 gm PO DAILY PRN PRN Reason: Constipation HYDROcodone/APAP 7.5-325MG [[place] 7.5-325] 1 tab PO Q4H PRN 3 Days #18 tab PRN Reason: Pain Changed DULoxetine HCL [Cymbalta] 60 mg PO DAILY #0 Discontinued DULoxetine HCL [Cymbalta] 30 mg PO DAILY cap Furosemide [Lasix] 40 mg PO DAILY@0600 Discharge Medication List Apixaban [Eliquis] 5 mg PO BID@0800,1700 11/16/24 [History] Fluticasone Propion/Salmeterol [Advair 250-50 Diskus] 1 puff INHALATION RT- BID@0800,1700 11/16/24 [History] Metoprolol Succinate [Toprol XL] 100 mg PO DAILY 11/16/24 [History] Tiotropium [place] [Spiriva Handihaler] 1 puff INHALATION RT-DAILY 11/16/24 [History] Albuterol Inhaler [Ventolin Hfa Inhaler] 1 puff INHALATION RT-QID PRN each 07/08 [Rx] Caldesene Powder 1 applic TOPICAL BID 01/30/25 [History] Cholecalciferol [Vitamin D3 (25 Mcg = 1000 Iu)] 125 mcg PO DAILY 01/30/25 [History] Ferrous Sulfate [Iron (65 MG Elemental)] 325 mg PO BID@0800,1700 01/30/25 [History] INSULIN ASPART (NovoLOG) [NovoLOG (formulary)] See Protocol SQ ACHS 01/30/25 [History] Ipratropium-Albuterol Nebulize [Duoneb 0.5 mg-3 mg/3 ml Soln] 3 ml INHALATION RT-Q4H PRN 01/30/25 [History] Magnesium Hydroxide [Milk of Magnesia Concentrate] 7,200 mg PO DAILY PRN 01/30/25 [History] Menthol/Zinc Oxide [Calprotect 0.44%-20.6% Oint] 1 applic TOPICAL BID 01/30/25 [History] Na Phos,M-B/Na Phos,Di-Ba [Fleet Adult] 133 ml RECTAL DAILY PRN 01/30/25 [History] Ondansetron [Zofran] 4 mg PO Q6HR PRN 01/30/25 [History] Sennosides [Senokot] 8.6 mg PO BID@0800,1700 01/30/25 [History] bisacodyL [Dulcolax] 10 mg RECTAL DAILY PRN 01/30/25 [History] Acetaminophen Tab [Tylenol] 500 mg PO Q8H PRN 02/26/25 [History] Atorvastatin [Lipitor] 10 mg PO HS 02/26/25 [History] Hydroxychloroquine Sulfate [Plaquenil] 200 mg PO DAILY 02/26/25 [History] Linezolid [Zyvox] 600 mg PO BID 02/26/25 [History] Omeprazole [PriLOSEC] 40 mg PO BID@0600,1700 02/26/25 [History] dilTIAZem HCL [dilTIAZem HCL 24Hr ER (LA)] 240 mg PO DAILY 02/26/25 [History] polyethylene glycoL 3350 [Miralax] 17 gm PO DAILY PRN 02/26/25 [History] DULoxetine HCL [Cymbalta] 60 mg PO DAILY #0 02/28/25 [Rx] Dapagliflozin Propanediol [Farxiga] 5 mg PO DAILY tab 02/28/25 [Rx] HYDROcodone/APAP 7.5-325MG [[place] 7.5-325] 1 tab PO Q4H PRN 3 Days #18 tab 02/28/25 [Rx] Follow up Appointment(s)/Referral(s): Te Menchaca DO [Primary Care Provider] - 1-2 days (Office stated she is not a patient, will have to call to make appointment.) Activity/Diet/Wound Care/Special Instructions: start Eliquis on Tuesday03/04/2025
[2025-02-28 16:57] VITALS: BP 130/93; PULSE 115; RESP 16; TEMP 98.7
[2025-02-28] MEDS ORDERED: LINEZOLID 600 MG TAB PO SCH (21:00)
== END 2025-02-28 17:28 ==
LOC: EC 16:53 → 4SSUR 20:04
PROVIDERS: ADMIT Hospitalist; ATTEND Hospitalist
DX: D50.9 Iron deficiency anemia, unspecified (principal); T84.52XA Infection and inflammatory reaction due to internal left hip prosthesis, initial encounter; Y83.1 Surgical operation with implant of artificial internal device as the cause of abnormal reaction of the patient, or of later complication, without mention of misadventure at the time of the procedure; A40.3 Sepsis due to Streptococcus pneumoniae; B96.5 Pseudomonas (aeruginosa) (mallei) (pseudomallei) as the cause of diseases classified elsewhere; B96.1 Klebsiella pneumoniae [K. pneumoniae] as the cause of diseases classified elsewhere; B95.3 Streptococcus pneumoniae as the cause of diseases classified elsewhere; N39.0 Urinary tract infection, site not specified; E87.1 Hypo-osmolality and hyponatremia; J44.9 Chronic obstructive pulmonary disease, unspecified; J96.11 Chronic respiratory failure with hypoxia; I48.19 Other persistent atrial fibrillation; F31.9 Bipolar disorder, unspecified; G40.909 Epilepsy, unspecified, not intractable, without status epilepticus; M06.9 Rheumatoid arthritis, unspecified; I50.9 Heart failure, unspecified; Z87.891 Personal history of nicotine dependence; Z86.73 Personal history of transient ischemic attack (TIA), and cerebral infarction without residual deficits; Z85.118 Personal history of other malignant neoplasm of bronchus and lung; Z79.01 Long term (current) use of anticoagulants; Z99.81 Dependence on supplemental oxygen; Z79.899 Other long term (current) drug therapy; Z79.51 Long term (current) use of inhaled steroids; Z88.5 Allergy status to narcotic agent
CPT/HCPCS: 36430; 96361 ×2; 96365; 96366; 96375; 99285; 36415; 94640 ×6; 94760; 93005; 97530 ×2; 97162; 97166; 86900; 86901; 86902; 80053; 80048 ×2; 83605 ×2; 83690; 85025 ×4; 85610; 85730; 86850; 86920; 86870; 82272; 81001; 87040; 87086; 87077; 87186; 76882; 74177; G0378 ×4; P9016; J0696 ×2; Q9967; J2470

== ENCOUNTER 2025-03-08 06:43 | Inpatient (IN) | payer MEDICARE, OTHER ==
--- NOTE | 2025-03-08 06:56 | ED ---
General Adult HPI - General Chief complaint: Shortness of Breath Stated complaint: Respiratory Distress Time Seen by Provider: 03/08/25 06:52 Source: patient, EMS, RN notes reviewed Mode of arrival: EMS Limitations: no limitations - History of Present Illness Initial comments: This is a 64-year-old female with a history of A-fib (on eliquis), COPD with chr onic respiratory failure on 2 L nasal cannula and joint replacements including recent left joint infected prosthesis presenting to emergency department via EMS from [facility] with complaint of difficulty in breathing. Patient states that she was in her room this morning when she woke from her sleep she states that she was drenched in sweat and was having a difficult time breathing. Currently patient states that she is feeling better than she did this morning however still feels mildly short of breath. States episode of sweating this morning is the first time this event has happened. She denies abdominal pain, chest pain, dizziness, lightheadedness. Nausea with no reported emesis, urinary symptoms, known dark or bloody stools. patient is currently on linezolid 2 times a day due to infected left hip prosthesis. - Related Data Home Medications Medication Instructions Recorded Confirmed Apixaban [Eliquis] 5 mg PO BID@0800,1700 11/16/24 03/08/25 Metoprolol Succinate [Toprol XL] 100 mg PO DAILY@0800 11/16/24 03/08/25 Tiotropium [place] [Spiriva 1 puff INHALATION RT-DAILY@0800 11/16/24 03/08/25 Handihaler] Cholecalciferol [Vitamin D3 (25 125 mcg PO DAILY@0800 01/30/25 03/08/25 Mcg = 1000 Iu)] Ferrous Sulfate [Iron (65 MG 325 mg PO TID@0800,1200,1700 01/30/25 03/08/25 Elemental)] Hydroxychloroquine Sulfate 200 mg PO DAILY@0800 02/26/25 03/08/25 [Plaquenil] dilTIAZem HCL [dilTIAZem HCL 24Hr 240 mg PO DAILY@0800 02/26/25 03/08/25 ER (LA)] Acetaminophen Tab [Tylenol Tab] 500 mg PO Q8H PRN 03/08/25 03/08/25 Albuterol Sulfate [Ventolin HFA] 1 puff INHALATION RT-QID PRN 03/08/25 03/08/25 Atorvastatin [Lipitor] 10 mg PO HS 03/08/25 03/08/25 DULoxetine HCL [Cymbalta] 60 mg PO DAILY@0800 03/08/25 03/08/25 Dapagliflozin Propanediol [Farxiga] 5 mg PO DAILY@0800 03/08/25 03/08/25 Fluticasone Propion/Salmeterol 1 puff INHALATION RT-BID 03/08/25 03/08/25 [Advair 250-50 Diskus] HYDROcodone/APAP 7.5-325MG [Nokomis 1 tab PO Q4H PRN 03/08/25 03/08/25 7.5-325] INSULIN ASPART (NovoLOG) [NovoLOG See Protocol SQ ACHS 03/08/25 03/08/25 (formulary)] Ipratropium-Albuterol Nebulize 3 ml INHALATION RT-Q4H PRN 03/08/25 03/08/25 [Duoneb 0.5 mg-3 mg/3 ml Soln] Linezolid [Zyvox] 600 mg PO Q12H 03/08/25 03/08/25 Magnesium Hydroxide [Milk of 7,200 mg PO DAILY PRN 03/08/25 03/08/25 Magnesia Concentrate] Na Phos,M-B/Na Phos,Di-Ba [Fleet 133 ml RECTAL DAILY PRN 03/08/25 03/08/25 Adult] Omeprazole 40 mg PO BID 03/08/25 03/08/25 Ondansetron [Zofran] 4 mg PO Q6H PRN 03/08/25 03/08/25 Sennosides [Senokot] 8.6 mg PO BID 03/08/25 03/08/25 bisacodyL [Dulcolax] 10 mg RECTAL Q24H PRN 03/08/25 03/08/25 polyethylene glycoL 3350 [Miralax] 17 gm PO DAILY PRN 03/08/25 03/08/25 Allergies Allergy/AdvReac Type Severity Reaction Status Date / Time codeine AdvReac Nausea Verified 03/08/25 11:08 Review of Systems ROS Statement: Those systems with pertinent positive or pertinent negative responses have been documented in the HPI. ROS Other: All systems not noted in ROS Statement are negative. 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 Second and Third vetebre are fragile per pt Past Psychological History: Bipolar, Depression Smoking Status: Former smoker Past Alcohol Use History: Occasional Past Drug Use History: None Reported - Past Family History Mother Family Medical History: Congestive Heart Failure (CHF) Father Additional Family Medical History / Comment(s): Fibrosycrosis General Exam Limitations: no limitations Neck exam: Present: normal inspection. Absent: tenderness, meningismus, lymphadenopathy Respiratory exam: Present: wheezes, decreased breath sounds. Absent: normal lung sounds bilaterally, respiratory distress Cardiovascular Exam: Present: tachycardia, irregular rhythm, normal heart sounds. Absent: normal rhythm, systolic murmur, diastolic murmur, rubs, gallop, clicks GI/Abdominal exam: Present: soft, normal bowel sounds. Absent: distended, tenderness, guarding, rebound, rigid Extremities exam: Present: normal inspection, full ROM, normal capillary refill. Absent: tenderness, pedal edema, joint swelling, calf tenderness Back exam: Present: normal inspection Skin exam: Present: warm, dry, intact, normal color. Absent: rash Course Vital Signs 03/08/25 03/08/25 03/08/25 06:44 07:01 07:15 Temperature 96.2 F L Pulse Rate 111 H 112 H 108 H Respiratory 18 16 18 Rate Blood Pressure 118/106 113/90 113/91 O2 Sat by Pulse 94 L 98 97 Oximetry 03/08/25 03/08/25 03/08/25 08:01 08:09 08:13 Temperature Pulse Rate 103 H 114 H 112 H Respiratory 18 Rate Blood Pressure 125/100 O2 Sat by Pulse 98 Oximetry 03/08/25 03/08/25 03/08/25 11:17 13:00 13:50 Temperature 98.1 F Pulse Rate 117 H 110 H 107 H Respiratory 18 20 24 Rate Blood Pressure 137/82 133/79 119/93 O2 Sat by Pulse 97 97 98 Oximetry Medical Decision Making - Medical Decision Making Was pt. sent in by a medical professional or institution (, PA, SCALE EXPERT, urgent care, hospital, or long term...) When possible be specific @ -No Did you speak to anyone other than the patient for history (EMS, parent, family, police, friend...)? What history was obtained from this source @ -No Did you review nursing and triage notes (agree or disagree)? Why? @ -I reviewed and agree with nursing and triage notes Were old charts reviewed (outside hosp., previous admission, EMS record, old EKG, old radiological studies, urgent care reports/EKG's, long term records)? Report findings @ -Reviewed patient's discharge summary from 02/28/2025 where it was noticed that patient underwent a incision and drainage of infected prosthetic joint of the left hip at [facility] on February 10 for cultures through Streptococcus pneumoniae Reviewed patient's urine culture that was completed on 02/25/2025 which revealed growth of Pseudomonas aeruginosa and Klebsiella pneumonia a that both have susceptibility to tobramycin, levofloxacin and ciprofloxacin Differential Diagnosis (chest pain, altered mental status, abdominal pain women, abdominal pain men, vaginal bleeding, weakness, fever, dyspnea, syncope, headache, dizziness, GI bleed, back pain, seizure, CVA, palpatations, mental health, musculoskeletal)? @ -Differential Dyspnea: Coronary syndrome, arrhythmia, tamponade, asthma, COPD, pulmonary embolism, pneumonia, pneumothorax, pulmonary effusion, anaphylaxis, diabetic ketoacidosis, flailed chest, pulmonary contusion, diaphragmatic rupture, anemia, neuromuscular, this is not meant to be an all-inclusive list. EKG interpreted by me (3pts min.). @ -Completed at 650 A-fib with RVR, ventricular rate 121, QRS 91, QTc 366. X-rays interpreted by me (1pt min.). @ -Patient's chest x-ray chest x-ray completed with posterior increasing density possibly the pleural effusion. CT interpreted by me (1pt min.). @ -CTA of the chest completed reveals no evidence of PE with diffuse patchy groundglass opacities throughout the lungs mild cardiomegaly possible superimposed infectious inflammatory process U/S interpreted by me (1pt. min.). @ -None done What testing was considered but not performed or refused? (CT, X-rays, U/S, labs)? Why? @ -None What meds were considered but not given or refused? Why? @ -None Did you discuss the management of the patient with other professionals (professionals i.e. DrRamesh, PA, SCALE EXPERT, lab, RT, psych nurse, social services director, circular saw edge fuser, teacher, landing signal officer, rn case mgr)? Give summary @ -Spoke with on-call [facility] physician, Dr. Guerin, was agreed to admit the patient. Was smoking cessation discussed for >3mins.? @ -No Was critical care preformed (if so, how long)? @ -No Were there social determinants of health that impacted care today? How? (Homelessness, low income, unemployed, alcoholism, drug addiction, transpo rtation, low edu. Level, literacy, decrease access to med. care, fci, rehab)? @ -No Was there de-escalation of care discussed even if they declined (Discuss DNR or withdrawal of care, Hospice)? DNR status @ -No What co-morbidities impacted this encounter? (DM, HTN, Smoking, COPD, CAD, Cancer, CVA, ARF, Chemo, Hep., AIDS, mental health diagnosis, sleep apnea, morbid obesity)? @ -None Was patient admitted / discharged? Hospital course, mention meds given and route, prescriptions, significant lab abnormalities, going to OR and other pertinent info. @ -Admitted. 64-year-old female presenting to emergency department via EMS from [facility] for complaints of difficulty breathing. Patient is tachycardic on arrival with a heart rate of 112 revealing an atrial fibrillation. Patient has a history of A-fib and is on Eliquis. Patient is in no signs respiratory distress on my evaluation and is wearing her baseline oxygen of 2 L with an oxygen saturation of 97. Patient has diminished lung sounds and wheezes bilaterally. She is provided with dose of Solu-Medrol and DuoNeb breathing tr eatment. Laboratory testing reveals a hemoglobin of 8.4 and hematocrit of 28.0 chronic for the patient. Patient has a mildly elevated lactic acid 2.4 likely secondary to mild dehydration and is provided with 500 mL fluid bolus.. Troponin nonelevated. Urinalysis remarkable with infection including positive nitrites, large leukocyte esterase, greater than 182 white blood cells and many white blood cell clumps. Chest x-ray cardiomegaly with possible pleural effusion. My attending recommended that D-dimer lab be drawn which is elevated at 1.[address] of the chest is unremarkable for acute PE. Patient will be admitted to internal medicine with pulmonology on consult with concern for COPD exacerbation. Additionally, patient will be treated for urinary tract infection with Cipro. case is discussed with my attending Dr. Cunningham Undiagnosed new problem with uncertain prognosis? @ -No Drug Therapy requiring intensive monitoring for toxicity (Heparin, Nitro, Ins ulin, Cardizem)? @ -No Were any procedures done? @ -No Diagnosis/symptom? @ -Urinary tract infection, COPD exacerbation Acute, or Chronic, or Acute on Chronic? @ -Acute Uncomplicated (without systemic symptoms) or Complicated (systemic symptoms)? @ -Complicated Side effects of treatment? @ -No Exacerbation, Progression, or Severe Exacerbation? @ -No Poses a threat to life or bodily function? How? (Chest pain, [place], [place], pneumonia, PE, COPD, DKA, ARF, appy, cholecystitis, CVA, Diverticulitis, Homicidal, Suicidal, threat to staff... and all critical care pts) @ -No - Lab Data Result diagrams: 03/08/25 07:25 03/08/25 07:25 Lab Results 03/08/25 03/08/25 03/08/25 Range/Units 07:25 07:25 07:25 WBC 11.03 H (4.50-10.00) 10*3/uL RBC 3.08 L (4.10-5.20) 10*6/uL Hgb 8.4 L (12.0-15.0) g/dL Hct 28.0 L (37.2-46.3) % MCV 90.9 (80.0-97.0) fL MCH 27.3 (27.0-32.0) pg MCHC 30.0 L (32.0-37.0) g/dL Plt Count 425 (140-440) 10*3/uL MPV 9.7 (9.5-12.2) fL Immature Gran % (Auto) 0.7 % Neutrophils % 90.8 % Lymphocytes % 4.1 % Monocytes % 3.4 % Eosinophils % 0.7 % Basophils % 0.3 % Immature Gran # 0.08 H (0.00-0.04) 10*3/uL Neutrophils # 10.01 H (1.80-7.70) 10*3/uL Lymphocytes # 0.45 L (0.90-5.00) 10*3/uL Monocytes # 0.38 (0.20-1.00) 10*3/uL Eosinophils # 0.08 (0.04-0.35) 10*3/uL Basophils # 0.03 (0.00-0.10) 10*3/uL Manual Slide Review Performed Anisocytosis (manual) Present Spherocytes Present Stomatocytes Present PT 13.1 H (10.0-12.5) sec INR 1.2 H (<1.2) APTT 40.0 H (22.0-30.0) sec Sodium 135 L (137-145) mmol/L Potassium 4.3 (3.5-5.1) mmol/L Chloride 101 (98-107) mmol/L Carbon Dioxide 27 (22-30) mmol/L Anion Gap 7 mmol/L BUN 10 (7-17) mg/dL Creatinine 0.49 L (0.52-1.04) mg/dL Est GFR (CKD-EPI)AfAm >90 (>60 ml/min/1.73 sqM) Est GFR (CKD-EPI)NonAf >90 (>60 ml/min/1.73 sqM) Glucose 146 H (74-99) mg/dL Lactic Ac Sepsis Rflx Plasma Lactic Acid Giovanny (0.7-2.0) mmol/L Calcium 8.6 (8.4-10.2) mg/dL Magnesium 1.9 (1.6-2.3) mg/dL Total Bilirubin 0.6 (0.2-1.3) mg/dL AST 13 L (14-36) U/L ALT 9 (4-34) U/L Alkaline Phosphatase 163 H (38-126) U/L Troponin I (0.000-0.034) ng/mL NT-Pro-B Natriuret Pep 2810 pg/mL Total Protein 5.7 L (6.3-8.2) g/dL Albumin 2.7 L (3.5-5.0) g/dL Urine Color Urine Appearance (Clear) Urine pH (5.0-8.0) Ur Specific [place] (1.001-1.035) Urine Protein (Negative) Urine Glucose (UA) (Negative) Urine Ketones (Negative) Urine Blood (Negative) Urine Nitrite (Negative) Urine Bilirubin (Negative) Urine Urobilinogen (<2.0) mg/dL Ur Leukocyte Esterase (Negative) Urine RBC (0-5) /hpf Urine WBC (0-5) /hpf Urine WBC Clumps (None) /hpf Urine Bacteria (None) /hpf Urine Mucus (None) /hpf 03/08/25 03/08/25 03/08/25 Range/Units 07:25 07:25 07:25 WBC (4.50-10.00) 10*3/uL RBC (4.10-5.20) 10*6/uL Hgb (12.0-15.0) g/dL Hct (37.2-46.3) % MCV (80.0-97.0) fL MCH (27.0-32.0) pg MCHC (32.0-37.0) g/dL Plt Count (140-440) 10*3/uL MPV (9.5-12.2) fL Immature Gran % (Auto) % Neutrophils % % Lymphocytes % % Monocytes % % Eosinophils % % Basophils % % Immature Gran # (0.00-0.04) 10*3/uL Neutrophils # (1.80-7.70) 10*3/uL Lymphocytes # (0.90-5.00) 10*3/uL Monocytes # (0.20-1.00) 10*3/uL Eosinophils # (0.04-0.35) 10*3/uL Basophils # (0.00-0.10) 10*3/uL Manual Slide Review Anisocytosis (manual) Spherocytes Stomatocytes PT (10.0-12.5) sec INR (<1.2) APTT (22.0-30.0) sec Sodium (137-145) mmol/L Potassium (3.5-5.1) mmol/L Chloride (98-107) mmol/L Carbon Dioxide (22-30) mmol/L Anion Gap mmol/L BUN (7-17) mg/dL Creatinine (0.52-1.04) mg/dL Est GFR (CKD-EPI)AfAm (>60 ml/min/1.73 sqM) Est GFR (CKD-EPI)NonAf (>60 ml/min/1.73 sqM) Glucose (74-99) mg/dL Lactic Ac Sepsis Rflx Plasma Lactic Acid Giovanny 2.4 H* (0.7-2.0) mmol/L Calcium (8.4-10.2) mg/dL Magnesium (1.6-2.3) mg/dL Total Bilirubin (0.2-1.3) mg/dL AST (14-36) U/L ALT (4-34) U/L Alkaline Phosphatase (38-126) U/L Troponin I <0.012 (0.000-0.034) ng/mL NT-Pro-B Natriuret Pep pg/mL Total Protein (6.3-8.2) g/dL Albumin (3.5-5.0) g/dL Urine Color Yellow Urine Appearance Turbid H (Clear) Urine pH 5.5 (5.0-8.0) Ur Specific [place] 1.021 (1.001-1.035) Urine Protein 1+ H (Negative) Urine Glucose (UA) 3+ H (Negative) Urine Ketones 1+ H (Negative) Urine Blood Moderate H (Negative) Urine Nitrite Positive H (Negative) Urine Bilirubin Negative (Negative) Urine Urobilinogen <2.0 (<2.0) mg/dL Ur Leukocyte Esterase Large H (Negative) Urine RBC 6 H (0-5) /hpf Urine WBC >182 H (0-5) /hpf Urine WBC Clumps Many H (None) /hpf Urine Bacteria Occasional H (None) /hpf Urine Mucus Many H (None) /hpf 03/08/ Range/Units 08:09 WBC (4.50-10.00) 10*3/uL RBC (4.10-5.20) 10*6/uL Hgb (12.0-15.0) g/dL Hct (37.2-46.3) % MCV (80.0-97.0) fL MCH (27.0-32.0) pg MCHC (32.0-37.0) g/dL Plt Count (140-440) 10*3/uL MPV (9.5-12.2) fL Immature Gran % (Auto) % Neutrophils % % Lymphocytes % % Monocytes % % Eosinophils % % Basophils % % Immature Gran # (0.00-0.04) 10*3/uL Neutrophils # (1.80-7.70) 10*3/uL Lymphocytes # (0.90-5.00) 10*3/uL Monocytes # (0.20-1.00) 10*3/uL Eosinophils # (0.04-0.35) 10*3/uL Basophils # (0.00-0.10) 10*3/uL Manual Slide Review Anisocytosis (manual) Spherocytes Stomatocytes PT (10.0-12.5) sec INR (<1.2) APTT (22.0-30.0) sec Sodium (137-145) mmol/L Potassium (3.5-5.1) mmol/L Chloride (98-107) mmol/L Carbon Dioxide (22-30) mmol/L Anion Gap mmol/L BUN (7-17) mg/dL Creatinine (0.52-1.04) mg/dL Est GFR (CKD-EPI)AfAm (>60 ml/min/1.73 sqM) Est GFR (CKD-EPI)NonAf (>60 ml/min/1.73 sqM) Glucose (74-99) mg/dL Lactic Ac Sepsis Rflx Y Plasma Lactic Acid Giovanny (0.7-2.0) mmol/L Calcium (8.4-10.2) mg/dL Magnesium (1.6-2.3) mg/dL Total Bilirubin (0.2-1.3) mg/dL AST (14-36) U/L ALT (4-34) U/L Alkaline Phosphatase (38-126) U/L Troponin I (0.000-0.034) ng/mL NT-Pro-B Natriuret Pep pg/mL Total Protein (6.3-8.2) g/dL Albumin (3.5-5.0) g/dL Urine Color Urine Appearance (Clear) Urine pH (5.0-8.0) Ur Specific [place] (1.001-1.035) Urine Protein (Negative) Urine Glucose (UA) (Negative) Urine Ketones (Negative) Urine Blood (Negative) Urine Nitrite (Negative) Urine Bilirubin (Negative) Urine Urobilinogen (<2.0) mg/dL Ur Leukocyte Esterase (Negative) Urine RBC (0-5) /hpf Urine WBC (0-5) /hpf Urine WBC Clumps (None) /hpf Urine Bacteria (None) /hpf Urine Mucus (None) /hpf Disposition Clinical Impression: COPD exacerbation, UTI (urinary tract infection) Disposition: ADMITTED IP TO THIS [facility] Condition: Stable Decision to Admit Reason: Admit from EC Decision Date: 03/08/25 Decision Time: 13:05
--- NOTE | 2025-03-08 07:27 | XR ---
EXAMINATION TYPE: XR chest 2V DATE OF EXAM: 03/08/2025 7:22 AM COMPARISON: 01/30/2025 CLINICAL INDICATION: Female, 64 years old with history of difficulty breathing, TECHNIQUE: XR chest 2V view(s) obtained. FINDINGS: The heart size is enlarged. The pulmonary vasculature is normal. There is some minimal tenting of the left diaphragm and mild atelectasis present. There is increasing density within the posterior lung, correlate for pleural effusion, follow-up jimbo mmended. Degenerative change bilateral shoulders.. IMPRESSION: 1. Posterior increasing density may be a pleural effusion. Follow-up recommended. 2. Cardiomegaly [facility], Workstation: [facility], 03/08/2025 7:24 AM
[2025-03-08] MEDS: methylPREDNISolone SOD SUCCI 125 MG/2 ML VIAL IV STA (07:31)
[2025-03-08 07:36] LABS: Basophils # (A) 0.03 10*3/uL (0.00-0.10); Basophils % (A) 0.3 %; Eosinophils # (A) 0.08 10*3/uL (0.04-0.35); Eosinophils % (A) 0.7 %; HGB 8.4 g/dL (12.0-15.0); Lymphocytes # (A) 0.45 10*3/uL (0.90-5.00); Lymphocytes % (A) 4.1 %; MCH 27.3 pg (27.0-32.0); MCV 90.9 fL (80.0-97.0); Mean Platelet Volume 9.7 fL (9.5-12.2); Monocytes # (A) 0.38 10*3/uL (0.20-1.00); Monocytes % (A) 3.4 %; Neutrophils # (A) 10.01 10*3/uL (1.80-7.70); Neutrophils % (A) 90.8 %; Platelet Count 425 10*3/uL (140-440); RBC 3.08 10*6/uL (4.10-5.20); RDW 23.5 % (11.5-14.5); WBC 11.03 10*3/uL (4.50-10.00)
[2025-03-08 07:51] LABS: ALT 9 U/L (4-34); AST 13 U/L (14-36); African American GFR (CKD) >90 (>60 ml/min/1.73 sqM); Albumin 2.7 g/dL (3.5-5.0); Alkaline Phosphatase 163 U/L (38-126); Anion Gap 7 mmol/L; Blood Urea Nitrogen 10 mg/dL (7-17); Calcium 8.6 mg/dL (8.4-10.2); Carbon Dioxide 27 mmol/L (22-30); Chloride 101 mmol/L (98-107); Glucose 146 mg/dL (74-99); Magnesium 1.9 mg/dL (1.6-2.3); Non-African American GFR(CKD) >90 (>60 ml/min/1.73 sqM); Potassium 4.3 mmol/L (3.5-5.1); Sodium 135 mmol/L (137-145); Total Bilirubin 0.6 mg/dL (0.2-1.3); Total Protein 5.7 g/dL (6.3-8.2)
[2025-03-08 07:56] LABS: INR 1.2 (<1.2); Prothrombin Time 13.1 sec (10.0-12.5)
[2025-03-08 08:00] LABS: NT-Pro-B-Type Natriuretic Pept 2810 pg/mL
[2025-03-08] MEDS: IPRATROPIUM-ALBUTEROL 3 ML NEB INHALATION STA (08:01)
[2025-03-08 08:11] LABS: Anisocytosis (M) Present
[2025-03-08 08:16] LABS: Stomatocytes Present
[2025-03-08] MEDS: SODIUM CHLORIDE 0.9% 500 ML 300 ML IV STA (08:20)
[2025-03-08 08:23] LABS: Spherocytes Present
[2025-03-08 10:04] LABS: Appearance,Urine Turbid (Clear); Bacteria,Urine Occasional /hpf; Bilirubin,Urine Negative (Negative); Blood,Urine Moderate (Negative); Color,Urine Yellow; Glucose,Urine (UA) 3+ (Negative); Ketones,Urine 1+ (Negative); Leukocyte Esterase,Urine Large (Negative); Mucus,Urine Many /hpf; Nitrite,Urine Positive (Negative); PH, Urine 5.5 (5.0-8.0); Protein,Urine 1+ (Negative); RBC,Urine 6 /hpf (0-5); Specific Gravity,Urine 1.021 (1.001-1.035); Urobilinogen,Urine <2.0 mg/dL (<2.0); WBC,Urine >182 /hpf (0-5)
--- NOTE | 2025-03-08 12:47 | CT ---
EXAMINATION TYPE: CT chest angio for PE CT DLP: 324.9 mGycm, Automated exposure control for dose reduction was used. DATE OF EXAM: 03/08/2025 12:35 PM COMPARISON: Chest radiograph 03/08/2025, PET/CT 10/26/2024, CT chest abdomen 09/21/2024 CLINICAL INDICATION:Female, 64 years old with history of RAFA, elevated d-dimer; RAFA, Elevated d dimer TECHNIQUE/CONTRAST: CTA scan of the thorax is performed with IV Contrast, patient injected with 100 ml mL of Isovue 370, pulmonary embolism protocol. MIP images are created and reviewed. FINDINGS: Pulmonary Artery: There is no evidence for a filling defect within the pulmonary vasculature to sugge st acute pulmonary embolism. The pulmonary artery is dilated measuring up to 4.2 cm in diameter. Ref lux of contrast into the IVC. Lungs/Pleura: Small to moderate size bilateral pleural effusions with associated atelectasis. Patchy groundglass opacities throughout the lungs. Most prominent within the bilateral upper lobes. Patchy c onsolidated opacity within the posterior aspect of the right upper lobe. Scattered regions of linear atelectasis within the bilateral lower lobes. Few scattered pulmonary micronodules are demonstrated. Consider follow-up CT in 6 months. Airway: Large airways are patent. Heart: Cardiomegaly is demonstrated.No pericardial effusion. Mild coronary artery calcifications pres ent. Vasculature: No evidence of aortic aneurysm. Minimal atherosclerotic calcification of the aorta and i ts branches. Mediastinum: Enlarged left paratracheal 1.3 cm lymph node. Musculoskeletal: No acute osseous abnormalities. Advanced right shoulder arthropathy. Soft Tissues: Diffuse anasarca. Lower neck: No significant findings. Upper Abdomen: Redemonstration of right renal superior pole 3.5 cm simple appearing cyst. No foci rec ommended. IMPRESSION: 1. No evidence of pulmonary embolism. 2. Diffuse patchy groundglass opacities throughout the lungs with cardiomegaly and small to moderate- sized bilateral pleural effusions. Addition there are few scattered subcentimeter groundglass nodular opacities with posterior right upper lobe consolidative opacity. Findings suggest CHF exacerbation/v olume overload with pulmonary edema, diffuse anasarca, and possible superimposed infectious/inflammat ory process. 3. Reactive mediastinal lymphadenopathy likely secondary to #2. 4. Dilated main pulmonary artery suggesting pulmonary arterial hypertension. [facility], , 03/08/2025 12:45 PM
[2025-03-08] MEDS ORDERED: ACETAMINOPHEN TAB 325 MG TAB PO PRN (12:58)
[2025-03-08] MEDS ORDERED: NALOXONE 0.4 MG/ML 1 ML VIAL IV PRN (12:58)
[2025-03-08] MEDS ORDERED: ALBUTEROL NEBULIZED 2.5 MG/3 ML INHALATION PRN (13:00)
[2025-03-08] MEDS ORDERED: HYDROcodone/APAP 7.5-325MG 1 EACH TAB PO PRN (13:00)
[2025-03-08] MEDS ORDERED: bisacodyL 10 MG SUPP RECTAL PRN (13:00)
[2025-03-08] MEDS: CIPROFLOXACIN/DEXTROSE PMX 400 MG in DEXTROSE/WATER 1 200ML.BAG IVPB SCH (13:14)
[2025-03-08] MEDS: LINEZOLID 600 MG TAB PO SCH (14:41)
[2025-03-08 14:51] LABS: Glucose,Whole Blood 219 mg/dL (70-110)
[2025-03-08] MEDS: METOPROLOL TARTRATE 5 MG/5 ML VIAL IVP STA (15:29)
[2025-03-08] MEDS: methylPREDNISolone SOD SUCCI 40 MG/ML 1 ML VIAL IV SCH (15:31)
[2025-03-08] MEDS ORDERED: IPRATROPIUM-ALBUTEROL 3 ML NEB INHALATION SCH (16:00)
[2025-03-08] MEDS: FERROUS SULFATE 325 MG TAB PO SCH (16:16)
[2025-03-08] MEDS: APIXABAN 5 MG TAB PO SCH (16:16)
[2025-03-08] MEDS: SYMBICORT 80-4.5 MCG INHALER INHALATION SCH (20:20)
[2025-03-08] MEDS: ATORVASTATIN 10 MG TAB PO SCH (20:42)
[2025-03-08] MEDS: SENNOSIDES 8.6 MG TAB PO SCH (20:42)
[2025-03-08] MEDS: PANTOPRAZOLE 40 MG TABLET PO SCH (20:43)
[2025-03-09] MEDS: METOPROLOL TARTRATE 5 MG/5 ML VIAL IVP STA (05:13)
[2025-03-09] MEDS: TIOTROPIUM 2.5 MCG INHALER INHALATION SCH (06:22)
[2025-03-09] MEDS: DAPAGLIFLOZIN PROPANEDIOL 5 MG TABLET PO SCH (07:55)
[2025-03-09] MEDS: DULoxetine HCL 60 MG CAPSULE.DR PO SCH (07:55)
[2025-03-09] MEDS: CHOLECALCIFEROL 125 MCG (5000 IU) TABLET PO SCH (07:55)
[2025-03-09] MEDS: METOPROLOL SUCCINATE (ER) 100 MG TAB.ER.24H PO SCH (07:55)
[2025-03-09] MEDS: DILTIAZEM CD 240 MG CAP.ER.24H PO SCH (07:55)
[2025-03-09 08:11] LABS: Glucose,Whole Blood 232 mg/dL (70-110)
[2025-03-09] MEDS: DILTIAZEM 5 MG/ML 5 ML VIAL IVP STA (08:23)
[2025-03-09] MEDS: DILTIAZEM 125 MG in DEXTROSE 5% IN WATER 100 ML IV SCH (08:23)
[2025-03-09] MEDS: HYDROXYCHLOROQUINE SULFATE 200 MG TAB PO SCH (08:32)
[2025-03-09 08:47] LABS: HCT 26.7 % (37.2-46.3); Lymphocytes % (A) 7.4 %; MCH 27.8 pg (27.0-32.0); MCV 92.7 fL (80.0-97.0); Mean Platelet Volume 9.5 fL (9.5-12.2); Monocytes # (A) 0.03 10*3/uL (0.20-1.00); Monocytes % (A) 1.1 %; Neutrophils # (A) 2.46 10*3/uL (1.80-7.70); Neutrophils % (A) 90.8 %; Platelet Count 375 10*3/uL (140-440); RBC 2.88 10*6/uL (4.10-5.20); RDW 24.2 % (11.5-14.5); WBC 2.71 10*3/uL (4.50-10.00)
[2025-03-09 08:57] LABS: ALT 7 U/L (4-34); AST 8 U/L (14-36); African American GFR (CKD) >90 (>60 ml/min/1.73 sqM); Albumin 2.5 g/dL (3.5-5.0); Alkaline Phosphatase 126 U/L (38-126); Anion Gap 7 mmol/L; Blood Urea Nitrogen 12 mg/dL (7-17); Calcium 8.4 mg/dL (8.4-10.2); Carbon Dioxide 26 mmol/L (22-30); Chloride 102 mmol/L (98-107); Glucose 176 mg/dL (74-99); Non-African American GFR(CKD) >90 (>60 ml/min/1.73 sqM); Potassium 4.9 mmol/L (3.5-5.1); Sodium 135 mmol/L (137-145); Total Bilirubin 0.5 mg/dL (0.2-1.3); Total Protein 5.2 g/dL (6.3-8.2)
--- NOTE | 2025-03-09 09:25 | P.CRDCN ---
History of Present Illness Consult date: 03/09/25 Consult reason: atrial fibrillation (With RVR) History of present illness: This is a 64-year-old female patient of Dr. 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 We have been asked to evaluate the patient for A-fib with RVR. Patient presented to the hospital in A-fib with RVR and is status post IV metoprolol tartrate 5 mg x 2. This morning, patient was in A-fib with RVR up to 200 bpm. We are adding and Cardizem 7.5 mg IV push now followed by Cardizem drip at 7.5 mg/h, metoprolol succinate 100 mg daily. Blood pressure 117/91, pulse ox 97% on room air. Patient came in from [facility] due to difficulty in breathing. She also was having sweating. -EKG: #1 atrial fibrillation at 121 bpm, #2 atrial fibrillation 202 bpm -Chest x-ray: Posterior increasing density may be pleural effusion. -CTA of the chest negative for PE. Diffuse patchy groundglass opacities throughout the lungs with cardiomegaly and small to moderate-sized bilateral pleural effusions. Reactive mediastinal lymphadenopathy likely secondary to #2. Pulmonary artery hypertension. -Laboratory studies: WBC 2.7, hemoglobin 8, creatinine 0.53, D-dimer 1.07, troponin negative x 1, proBNP 2810. Urinalysis positive for UTI. -Home cardiac medications: Eliquis 5 mg twice daily, atorvastatin 10 mg at bedtime, Farxiga 5 mg daily, Cardizem 240 mg daily -Echocardiogram performed in the office on 11/12/2024 revealed EF 50 to 55%, mild left ventricular hypertrophy, trace aortic regurgitation, moderate mitral regurgitation, mild tricuspid regurgitation, PASP 35 mmHg. Review Of Systems: At the time of my exam: CONSTITUTIONAL: Denies fever or chills. HEENT: Denies blurred vision, vision changes, or eye pain. Denies hemoptysis CARDIOVASCULAR: Denies chest pain. Denies orthopnea. Denies PND. Denies palpitations RESPIRATORY: Reports shortness of breath. GASTROINTESTINAL: Denies abdominal pain. Denies nausea or vomiting. HEMATOLOGIC: Denies bleeding disorders. GENITOURINARY: Denies any blood in urine. SKIN: Denies puritis. Denies rash. Physical examination: Gen: This is 64-year-old female appears to be in no acute distress VS: reviewed HEENT: Head is atraumatic, normocephalic. Pupils equal, round. Sclerae is anicteric. NECK: Supple. No JVD. LUNGS: Clear to auscultation. No wheezes or rhonchi. No intercostal retractions. HEART: Irregular r rate and rhythm. No murmur. Tachycardic ABDOMEN: Soft No tenderness. EXTREMITIES: No pedal edema. No calf tenderness. NEUROLOGICAL: Patient is awake, alert and oriented x3. 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 Nurse practitioner note has been reviewed, I agree with documented findings and plan of care. Patient was seen and examined. 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 Second and Third vetebre are fragile per pt Smoking Status: Former smoker - Past Family History Mother Family Medical History: Congestive Heart Failure (CHF) Father Additional Family Medical History / Comment(s): Fibrosycrosis Medications and Allergies Home Medications Medication Instructions Recorded Confirmed Type Apixaban [Eliquis] 5 mg PO BID@0800,1700 11/16/24 03/08/25 History Metoprolol Succinate [Toprol XL] 100 mg PO DAILY@0800 11/16/24 03/08/25 History Tiotropium [place] [Spiriva 1 puff INHALATION RT-DAILY@0800 11/16/24 03/08/25 History Handihaler] Cholecalciferol [Vitamin D3 (25 125 mcg PO DAILY@0800 01/30/25 03/08/25 History Mcg = 1000 Iu)] Ferrous Sulfate [Iron (65 MG 325 mg PO TID@0800,1200,1700 01/30/25 03/08/25 History Elemental)] Hydroxychloroquine Sulfate 200 mg PO DAILY@0800 02/26/25 03/08/25 History [Plaquenil] dilTIAZem HCL [dilTIAZem HCL 24Hr 240 mg PO DAILY@0802/26/25 03/08/25 History ER ([place])] Acetaminophen Tab [Tylenol Tab] 500 mg PO Q8H PRN 03/08/25 03/08/25 History Albuterol Sulfate [Ventolin HFA] 1 puff INHALATION RT-QID PRN 03/08/25 03/08/25 History Atorvastatin [Lipitor] 10 mg PO HS 03/08/25 03/08/25 History DULoxetine HCL [Cymbalta] 60 mg PO DAILY@0800 03/08/25 03/08/25 History Dapagliflozin Propanediol [Farxiga] 5 mg PO DAILY@0800 03/08/25 03/08/25 History Fluticasone Propion/Salmeterol 1 puff INHALATION RT-BID 03/08/25 03/08/25 History [Advair 250-50 Diskus] HYDROcodone/APAP 7.5-325MG [Brady 1 tab PO Q4H PRN 03/08/25 03/08/25 History 7.5-325] INSULIN ASPART (NovoLOG) [NovoLOG See Protocol SQ ACHS 03/08/25 03/08/25 History (formulary)] Ipratropium-Albuterol Nebulize 3 ml INHALATION RT-Q4H PRN 03/08/25 03/08/25 History [Duoneb 0.5 mg-3 mg/3 ml Soln] Linezolid [Zyvox] 600 mg PO Q12H 03/08/25 03/08/25 History Magnesium Hydroxide [Milk of 7,200 mg PO DAILY PRN 03/08/25 03/08/25 History Magnesia Concentrate] Na Phos,M-B/Na Phos,Di-Ba [Fleet 133 ml RECTAL DAILY PRN 03/08/25 03/08/25 Hi story Adult] Omeprazole 40 mg PO BID 03/08/25 03/08/25 History Ondansetron [Zofran] 4 mg PO Q6H PRN 03/08/25 03/08/25 History Sennosides [Senokot] 8.6 mg PO BID 03/08/25 03/08/25 History bisacodyL [Dulcolax] 10 mg RECTAL Q24H PRN 03/08/25 03/08/25 History polyethylene glycoL 3350 [Miralax] 17 gm PO DAILY PRN 03/08/25 03/08/25 History Allergies Allergy/AdvReac Type Severity Reaction Status Date / Time codeine AdvReac Nausea Verified 03/08/25 11:08 Physical Exam Vitals: Vital Signs Temp Pulse Pulse Resp BP BP Pulse Ox 03/09/25 07:53 135 H 18 138/60 94 L 03/09/25 04:00 98 F 113 H 16 162/93 99 03/08/25 23:42 102 H 16 113/82 98 03/08/25 20:00 97.6 F 100 16 133/82 96 03/08/25 18:09 96.9 F L 103 H 20 151/95 96 03/08/25 16:29 98.2 F 108 H 16 129/83 97 03/08/25 15:49 103 H 18 129/88 97 03/08/25 15:28 98.1 F 135 H 18 134/97 97 03/08/25 15:16 149 H 18 130/84 98 03/08/25 14:42 98.4 F 133 H 18 127/73 96 03/08/25 13:50 98.1 F 107 H 24 119/93 98 03/08/25 13:00 110 H 20 133/79 97 03/08/25 11:17 117 H 18 137/82 97 03/08/25 08:13 112 H 03/08/25 08:09 114 H 18 125/100 98 Intake and Output 03/08/25 03/09/25 03/09/25 22:59 06:59 14:59 Intake Total 120 Output Total 250 Balance -130 Intake: Oral 120 Output: Urine 250 Other: Weight 70.307 kg 70.5 kg Results 03/09/25 07:22 03/09/25 07:22 Current Medications Generic Name Dose Route Start Last Admin Trade Name Freq PRN Reason Stop Dose Admin Acetaminophen 650 mg 03/08/25 12:58 Acetaminophen Tab 325 Mg Tab PO Q6HR PRN Mild Pain or Fever > 100.5 Hydrocodone Bitart/Acetaminophen 1 each 03/08/25 13:00 Hydrocodone/Apap 7.5-325mg 1 Each Tab PO Q4H PRN Pain 6-10 Albuterol Sulfate 2.5 mg 03/08/25 13:00 Albuterol Nebulized 2.5 Mg/3 Ml INHALATION RT-QID PRN Shortness Of Breath Albuterol/Ipratropium 3 ml 03/08/25 13:00 Ipratropium-Albuterol 3 Ml Neb INHALATION RT-Q4H PRN COPD Apixaban 5 mg 03/08/25 17:00 03/09/25 07:55 Apixaban 5 Mg Tab PO 5 mg BID@0800,1700 ANTONELLA Administration Protocol Atorvastatin Calcium 10 mg 03/08/25 21:00 03/08/25 20:42 Atorvastatin 10 Mg Tab PO 10 mg HS ANTONELLA Administration Bisacodyl 10 mg 03/08/25 13:00 Bisacodyl 10 Mg Supp RECTAL Q24H PRN Constipation Budesonide/Formoterol Fumarate 2 puff 03/08/25 20:00 03/09/25 06:17 Symbicort 80-4.5 Mcg Inhaler INHALATION 2 puff RT-BID ANTONELLA Administration Cholecalciferol 125 mcg 03/09/25 08:00 03/09/25 07:55 Cholecalciferol 125 Mcg (5000 Iu) Tablet PO 125 mcg DAILY@0800 ANTONELLA Administration Dapagliflozin 5 mg 03/09/25 08:00 03/09/25 07:55 Dapagliflozin Propanediol 5 Mg Tablet PO 5 mg DAILY@0800 ANTONELLA Administration Diltiazem HCl 240 mg 03/09/25 08:00 03/09/25 07:55 Diltiazem Cd 240 Mg Cap.Er.24h PO 240 mg DAILY@0800 ANTONELLA Administration Duloxetine HCl 60 mg 03/09/25 08:00 03/09/25 07:55 Duloxetine Hcl 60 Mg Capsule.Dr PO 60 mg DAILY@0800 ANTONELLA Administration Ferrous Sulfate 325 mg 03/08/25 17:00 03/08/25 16:16 Ferrous Sulfate 325 Mg Tab PO 325 mg TID@0800,1200,1700 ANTONELLA Administration Hydroxychloroquine Sulfate 200 mg 03/09/25 08:00 Hydroxychloroquine Sulfate 200 Mg Tab PO DAILY@0800 [facility] Ciprofloxacin/Dextrose 400 mg/ 200 mls @ 200 mls/hr 03/08/25 13:00 03/08/25 23:38 IV Solution IVPB 200 mls/hr Q12H ANTONELLA Administration Protocol Linezolid 600 mg 03/08/25 13:00 03/08/25 23:38 Linezolid 600 Mg Tab PO 600 mg Q12H [facility] Administration Protocol Methylprednisolone Sodium Succinate 40 mg 03/08/25 16:00 03/08/25 23:38 Methylprednisolone Sod Succi 40 Mg/Ml 1 Ml Vial IV 40 mg Q8HR ANTONELLA Administration Metoprolol Succinate 100 mg 03/09/25 08:00 03/09/25 07:55 Metoprolol Succinate (Er) 100 Mg Tab.Er.24h PO 100 mg DAILY@0800 [facility] Administration Naloxone HCl 0.2 mg 03/08/25 12:58 Naloxone 0.4 Mg/Ml 1 Ml Vial IV Q2M PRN Opioid Reversal Pantoprazole Sodium 40 mg 03/08/25 21:00 03/09/25 07:55 Pantoprazole 40 Mg Tablet PO 40 mg DAILY [facility] Administration Senna 8.6 mg 03/08/25 21:00 03/09/25 07:55 Sennosides 8.6 Mg Tab PO 8.6 mg BID [facility] Administration Tiotropium [place] 2 puff 03/09/25 08:00 03/09/25 06:22 Tiotropium 2.5 Mcg Inhaler INHALATION 2 puff RT-DAILY ANTONELLA Administration Intake and Output 03/08/25 03/09/25 03/09/25 22:59 06:59 14:59 Intake Total 120 Output Total 250 Balance -130 Intake: Oral 120 Output: Urine 250 Other: Weight 70.307 kg 70.5 kg 03/08/25 07:25 03/08/25 07:25
[2025-03-09 10:04] LABS: Anisocytosis (M) Present
[2025-03-09 10:05] LABS: RBC Fragments Present
[2025-03-09 10:07] LABS: Ovalocytes Present
[2025-03-09 10:09] LABS: Stomatocytes Present
[2025-03-09 11:15] LABS: Glucose,Whole Blood 246 mg/dL (70-110)
[2025-03-09 14:00] LABS: Glucose,Whole Blood 243 mg/dL (70-110)
--- NOTE | 2025-03-09 14:02 | CA ---
Transthoracic Echo Report Name: Bety Leon Age: 64 Gender: F : 1960 Exam Date: 03/09/2025 11:41 Exam Location: [facility] Ht (in): 61 Wt (lb): 155 Ordering Physician: Ashleigh Reynolds Attending/Referring Phys: [id number], Rodolfo Neurologist Beverley Estrella RDCS Procedure CPT: Indications: LVF Cardiac Hx: Technical Quality: Good Contrast 1: Total Dose (mL): Contrast 2: Total Dose (mL): MEASUREMENTS (Male / Female) Normal Values 2D ECHO LV Diastolic Diameter PLAX 4.1 cm 4.2 - 5.9 / 3.9 - 5.3 cm LV Systolic Diameter PLAX 2.9 cm IVS Diastolic Thickness 1.1 cm 0.6 - 1.0 / 0.6 - 0.9 cm LVPW Diastolic Thickness 1.2 cm 0.6 - 1.0 / 0.6 - 0.9 cm LV Relative Wall Thickness 0.6 RV Internal Dim ED PLAX 3.5 cm LA Systolic Diameter LX 5.0 cm 3.0 - 4.0 / 2.7 - 3.8 cm LV Diastolic Volume MOD BP 57.1 cm??? 67 - 155 / 56 - 104 cm??? LV Systolic Volume MOD BP 23.3 cm??? 22 - 58 / 19 - 49 cm??? LV Ejection Fraction MOD BP 59.2 % >= 55 % LV Cardiac Index MOD BP 2144.4 cm???/min???m??? LV Diastolic Volume MOD 4C 50.8 cm??? LV Systolic Volume MOD 4C 19.5 cm??? LV Ejection Fraction MOD 4C 61.7 % LV Cardiac Index MOD 4C 1989.6 cm???/min???m??? LV Diastolic Length 4C 6.8 cm LV Systolic Length 4C 6.4 cm LV Diastolic Volume MOD 2C 53.1 cm??? LV Systolic Volume MOD 2C 20.3 cm??? LV Ejection Fraction MOD 2C 61.8 % LV Cardiac Index MOD 2C 2082.8 cm???/min???m??? LV Diastolic Length 2C 7.5 cm LV Systolic Length 2C 6.9 cm LA Volume 68.4 cm??? 18 - 58 / 22 - 52 cm??? LA Volume Index 38.8 cm???/m??? 16 - 28 cm???/m??? M-MODE Aortic Root Diameter MM 3.2 cm AV Cusp Separation MM 1.9 cm DOPPLER AV Peak Velocity 138.1 cm/s AV Peak Gradient 7.6 mmHg MV Peak Velocity 153.4 cm/s MV Peak Gradient 9.4 mmHg MV Mean Velocity 78.2 cm/s MV Mean Gradient 3.2 mmHg MV Velocity Time Integral 33.6 cm MV Area PHT 5.4 cm??? MR Peak Velocity 471.7 cm/s MR Peak Gradient 89.0 mmHg MV Deceleration Time 172.7 ms TR Peak Velocity 306.5 cm/s TR Peak Gradient 37.6 mmHg Right Ventricular Systolic Press 40.0 mmHg FINDINGS Left Ventricle Left ventricular ejection fraction is estimated at 55-60 %. Mildly increased septal wall thickness. Mildly increased posterior wall thickness. Left ventricular cavity size normal. No obvious regional wall motion abnormalities. Diastolic dysfunction could not be assessed because of atrial fibrillation. Right Ventricle Mild right ventricular dilatation. Mild pulmonary hypertension. Right Atrium Normal right atrial size. No right atrial thrombus or mass seen. Left Atrium Severely increased left atrial diameter. Moderately increased left atrial volume. Mildly increased left atrial area. No left atrial thrombus or mass present. Mitral Valve Mitral valve thickened. Mild mitral annular calcification. [id number] mitral regurgitation. Aortic Valve Trileaflet aortic valve. No aortic valve stenosis or regurgitation. Tricuspid Valve Structurally normal tricuspid valve. Mild tricuspid regurgitation. Pulmonic Valve Pulmonic valve not well visualized. Trace to mild pulmonic regurgitation. Pericardium Small pericardial effusion with epicardial fat. Left pleural effusion. Aorta Normal size aortic root and proximal ascending aorta. CONCLUSIONS LVEF 55% Mild concentric LVH No obvious regional wall motion abnormality Indeterminate diastolic dysfunction Mild RV dilatation with RVSP of 40 mmHg Severe left atrial dilatation Moderate to severe mitral regurgitation Small pericardial effusion with epicardial fat Previewed by: Dr Kirit Chavarria (Electronically Signed) Final Date: 09 March 2025 14:01
--- NOTE | 2025-03-09 14:14 | P.CNPUL ---
History of Present Illness Consult date: 03/09/25 Reason for consult: dyspnea History of present illness: On 03/09/2025, the patient is being seen in consultation for increased shortness of breath. A 64-year-old female patient with multiple medical problems and comorbidities who presented to the emergency department experiencing worsening shortness of breath and the patient was also in A-fib with rapid ventricular response. The patient was seen by cardiology. The patient was given IV meto prolol 5 mg x 2 and based on her ongoing tachycardia, the patient was started on a Cardizem drip at 7.5 mg an hour. She did she is also on metoprolol 100 mg p.o. daily. She is on anticoagulation with Eliquis. A CTA of the chest was also done and there is no evidence of any pulmonary embolism. There is evidence of diffuse patchy groundglass pulmonary opacities consistent with CHF along with bilateral pleural effusion consistent with CHF. No airspace disease. No consolidation. There is some reactive mediastinal lymphadenopathy. At this point, the patient is less tachycardic. Heart rate is around 105. She is on 2 L of oxygen by nasal cannula with a pulse ox of 93%. On her labs, the patient was also suspected urinary tract infection the patient was started on IV ciprofloxacin. She was also on Zyvox and this was continued based on recent infected left hip hemiarthroplasty for which the patient has undergone further surgical intervention, removal of hardware and reconstruction of the left hip joint at [facility] and she was discharged home on Zyvox. Noted this joint infection was suspected to be related to Streptococcus pneumonia based on a culture that was obtained here in our hospital on 02/10/2025. Previous urine cultures from 02/25/2025 was positive for Pseudomonas aeruginosa and ESBL producing Klebsiella pneumoniae. This patient is known to have COPD, congestive heart failure, preserved LV function with an ejection fraction of 55% and she has also been noted to have moderate to severe mitral regurgitation and mild RV dilatation with an RVSP of 40 based on echocardiogram that was done on 03/07/2025. She also has, atrial fibrillation, previous history of CVA on multiple occasions, rheumatoid arthritis, seizure disorder, chronic hypoxic respiratory failure in the patient is maintained on oxygen 2 L/min nasal cannula, she also gives a remote history of lung cancer, neuroendocrine type i and details of the treatment for lung cancer is not known. Nevertheless, the most recent PET/CT that was done in 10/28/2024 showed no metabolic activity involving the chest chest suggest any residual disease or malignancy. She also has history of peptic ulcer disease/gastric ulcer and she encountered GI bleeding during her stay at [facility] and the patient underwent EGD and cauterization of the gastric ulcer and subsequently she was restarted on Eliquis. She suffers from chronic anemia. Her current white cell count is at 2.7, hemoglobin is at 8 and a platelet count of 375. Sodium levels at 135, BUN is 12 with a creatinine of 0.53. Review of Systems Constitutional: Reports fatigue, Reports poor appetite, Reports weakness Eyes: denies as per HPI, denies blurred vision, denies bulging eye, denies decreased vision, denies diplopia, denies discharge, denies dry eye, denies irritation, denies itching, denies pain, denies photophobia, denies loss of peripheral vision, denies loss of vision, denies tunnel vision/blind spots Ears: deny: decreased hearing, ear discharge, earache, tinnitus Ears, nose, mouth and throat: Reports as per HPI Breasts: absent: as per HPI, change in shape, gynecomastia, masses, nipple discharge, pain, skin changes, swelling Breasts: Reports as per HPI Cardiovascular: Reports claudication, Reports decreased exercise tolerance, Reports dyspnea on exertion, Reports irregular heart beat, Reports leg edema, Reports shortness of breath Respiratory: Reports dyspnea, Reports home oxygen, Reports wheezing Gastrointestinal: Reports as per HPI Genitourinary: Reports as per HPI Menstruation: Reports as per HPI Musculoskeletal: Reports gait dysfunction, Reports limitation of motion, Reports muscle weakness Musculoskeletal: bilateral: ankle swelling, absent: ankle pain, ankle stiffness Integumentary: Reports as per HPI Neurological: Reports weakness Psychiatric: Reports as per HPI Endocrine: Reports as per HPI Hematologic/Lymphatic: Reports as per HPI Allergic/Immunologic: Reports as per HPI Past Medical History Past Medical History: Atrial Fibrillation, Heart Failure, COPD, CVA/TIA, Rheumatoid Arthritis (RA), Seizure Disorder Additional Past Medical History / Comment(s): chronic hypoxic respiratory failure, 2 liters/min, Chronic atrial fibrillation, Rheumaoid arthritis, CHF, COPD, Cancer to lungs, CVA x 3, Miscarriages, Multiple personality disorder, low hgb, pre-diabetic. Left hip joint infection post arthroplasty and the patient had a total joint reconstruction at [facility] ( infection was strep). Gastric ulcer post [facility] and she had cauterization and she was started on Eliquis. 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 Second and Third vetebre are fragile per pt Smoking Status: Former smoker - Past Family History Mother Family Medical History: Congestive Heart Failure (CHF) Father Additional Family Medical History / Comment(s): Fibrosycrosis Medications and Allergies Home Medications Medication Instructions Recorded Confirmed Type Apixaban [Eliquis] 5 mg PO BID@0800,1700 11/16/24 03/08/25 History Metoprolol Succinate [Toprol XL] 100 mg PO DAILY@0800 11/16/24 03/08/25 History Tiotropium [place] [Spiriva 1 puff INHALATION RT-DAILY@0800 11/16/24 03/08/25 History Handihaler] Cholecalciferol [Vitamin D3 (25 125 mcg PO DAILY@0800 01/30/25 03/08/25 History Mcg = 1000 Iu)] Ferrous Sulfate [Iron (65 MG 325 mg PO TID@0800,1200,1700 01/30/25 03/08/25 History Elemental)] Hydroxychloroquine Sulfate 200 mg PO DAILY@0800 02/26/25 03/08/25 History [Plaquenil] dilTIAZem HCL [dilTIAZem HCL 24Hr 240 mg PO DAILY@0800 02/26/25 03/08/25 History ER ([place])] Acetaminophen Tab [Tylenol Tab] 500 mg PO Q8H PRN 03/08/25 03/08/25 History Albuterol Sulfate [Ventolin HFA] 1 puff INHALATION RT-QID PRN 03/08/25 03/08/25 History Atorvastatin [Lipitor] 10 mg PO HS 03/08/25 03/08/25 History DULoxetine HCL [Cymbalta] 60 mg PO DAILY@0800 03/08/25 03/08/25 History Dapagliflozin Propanediol [Farxiga] 5 mg PO DAILY@0800 03/08/25 03/08/25 History Fluticasone Propion/Salmeterol 1 puff INHALATION RT-BID 03/08/25 03/08/25 History [Advair 250-50 Diskus] HYDROcodone/APAP 7.5-325MG [[place] 1 tab PO Q4H PRN 03/08/25 03/08/25 History 7.5-325] INSULIN ASPART (NovoLOG) [NovoLOG See Protocol SQ ACHS 03/08/25 03/08/25 History (formulary)] Ipratropium-Albuterol Nebulize 3 ml INHALATION RT-Q4H PRN 03/08/25 03/08/25 History [Duoneb 0.5 mg-3 mg/3 ml Soln] Linezolid [Zyvox] 600 mg PO Q12H 03/08/25 03/08/25 History Magnesium Hydroxide [Milk of 7,200 mg PO DAILY PRN 03/08/25 03/08/25 History Magnesia Concentrate] Na Phos,M-B/Na Phos,Di-Ba [Fleet 133 ml RECTAL DAILY PRN 03/08/25 03/08/25 History Adult] Omeprazole 40 mg PO BID 03/08/25 03/08/25 History Ondansetron [Zofran] 4 mg PO Q6H PRN 03/08/25 03/08/25 History Sennosides [Senokot] 8.6 mg PO BID 03/08/25 03/08/25 History bisacodyL [Dulcolax] 10 mg RECTAL Q24H PRN 03/08/25 03/08/25 History polyethylene glycoL 3350 [Miralax] 17 gm PO DAILY PRN 03/08/25 03/08/25 History Allergies Allergy/AdvReac Type Severity Reaction Status Date / Time codeine AdvReac Nausea Verified 03/08/25 11:08 Physical Exam Vitals: Vital Signs Temp Pulse Pulse Resp BP BP Pulse Ox 03/09/25 10:07 111 H 131/91 03/09/25 09:02 118 H 03/09/25 08:26 131 H 20 117/91 97 03/09/25 08:10 202 H 129/83 03/09/25 07:53 135 H 18 138/60 94 L 03/09/25 04:00 98 F 113 H 16 162/93 99 03/08/25 23:42 102 H 16 113/82 98 03/08/25 20:00 97.6 F 100 16 133/82 96 03/08/25 18:09 96.9 F L 103 H 20 151/95 96 03/08/25 16:29 98.2 F 108 H 16 129/83 97 03/08/25 15:49 103 H 18 129/88 97 03/08/25 15:28 98.1 F 135 H 18 134/97 97 03/08/25 15:16 149 H 18 130/84 98 03/08/25 14:42 98.4 F 133 H 18 127/73 96 03/08/25 13:50 98.1 F 107 H 24 119/93 98 03/08/25 13:00 110 H 20 133/79 97 03/08/25 11:17 117 H 18 137/82 97 Intake and Output 03/08/25 03/09/25 03/09/25 22:59 06:59 14:59 Intake Total 120 Output Total 250 Balance -130 Intake: Oral 120 Output: Urine 250 Other: # Voids 1 # Bowel Movements 1 Weight 70.307 kg 70.5 kg The patient appeared well nourished and normally developed. Vital signs as documented. The patient is calm and comfortable and she has a body mass index of 29.4. She is currently on oxygen at 2 L with a pulse ox of 93% Head exam is unremarkable. No scleral icterus or corneal arcus noted. Neck is without jugular venous distension, thyromegaly, or carotid bruits. Carot id upstrokes are brisk bilaterally. Lungs are diminished in lung bases along with bibasilar crackles Cardiac exam reveals the PMI to be normally sized and situated. Irregular consistent with atrial fibrillation first and second heart sounds normal. No murmurs, rubs or gallops. Abdominal exam reveals normal bowel sounds, no masses, no organomegaly and no aortic enlargement. Extremities are nonedematous and both femoral and pedal pulses are normal. The surgical wound site over the left hip area is dry clean and intact. Sutures are still in place. There is no active drainage. No cellulitis or abscess formation. No drainage. Examination of the skin revealed no evidence of significant rashes, suspicious appearing nevi or other concerning lesions. Wound in the left hip area is dry clean and intact. Neurologically, the patient is awake and alert and the patient does not have any focal neurological deficit. Cranial nerves are essentially intact. Results - Laboratory Findings CBC and BMP: 03/09/25 07:22 03/09/25 07:22 PT/INR, D-dimer PT 13.1 sec (10.0-12.5) H 03/08/25 07: INR 1.2 (<1.2) H 03/08/25: D-Dimer 1.07 mg/L FEU (<0.60) H 03/08/25 11:16 Abnormal lab findings: Abnormal Labs 03/08/25 03/08/25 03/08/25 07: 07:25 07:25 WBC 11.03 H RBC 3.08 L Hgb 8.4 L Hct 28.0 L MCHC 30.0 L Immature Gran # 0.08 H Neutrophils # 10.01 H Lymphocytes # 0.45 L Monocytes # Eosinophils # PT 13.1 H INR 1.2 H APTT 40.0 H D-Dimer Sodium 135 L Creatinine 0.49 L Glucose 146 H POC Glucose (mg/dL) Plasma Lactic Acid Giovanny AST 13 L Alkaline Phosphatase 163 H Total Protein 5.7 L Albumin 2.7 L Urine Appearance Urine Protein Urine Glucose (UA) Urine Ketones Urine Blood Urine Nitrite Ur Leukocyte Esterase Urine RBC Urine WBC Urine WBC Clumps Urine Bacteria Urine Mucus 03/08/25 03/08/25 03/08/25 07:25 07:25 11:16 WBC RBC Hgb Hct MCHC Immature Gran # Neutrophils # Lymphocytes # Monocytes # Eosinophils # PT INR APTT D-Dimer 1.07 H Sodium Creatinine Glucose POC Glucose (mg/dL) Plasma Lactic Acid Giovanny 2.4 H* AST Alkaline Phosphatase Total Protein Albumin Urine Appearance Turbid H Urine Protein 1+ H Urine Glucose (UA) 3+ H Urine Ketones 1+ H Urine Blood Moderate H Urine Nitrite Positive H Ur Leukocyte Esterase Large H Urine RBC 6 H Urine WBC >182 H Urine WBC Clumps Many H Urine Bacteria Occasional H Urine Mucus Many H 03/08/25 03/09/25 03/09/25 14:50 07:22 07:22 WBC 2.71 L RBC 2.88 L Hgb 8.0 L Hct 26.7 L MCHC 30.0 L Immature Gran # Neutrophils # Lymphocytes # 0.20 L Monocytes # 0.03 L Eosinophils # 0.00 L PT INR APTT D-Dimer Sodium 135 L Creatinine Glucose 176 H POC Glucose (mg/dL) 219 H Plasma Lactic Acid Giovanny AST 8 L Alkaline Phosphatase Total Protein 5.2 L Albumin 2.5 L Urine Appearance Urine Protein Urine Glucose (UA) Urine Ketones Urine Blood Urine Nitrite Ur Leukocyte Esterase Urine RBC Urine WBC Urine WBC Clumps Urine Bacteria Urine Mucus 03/09/25 08:08 WBC RBC Hgb Hct MCHC Immature Gran # Neutrophils # Lymphocytes # Monocytes # Eosinophils # PT INR APTT D-Dimer Sodium Creatinine Glucose POC Glucose (mg/dL) 232 H Plasma Lactic Acid Giovanny AST Alkaline Phosphatase Total Protein Albumin Urine Appearance Urine Protein Urine Glucose (UA) Urine Ketones Urine Blood Urine Nitrite Ur Leukocyte Esterase Urine RBC Urine WBC Urine WBC Clumps Urine Bacteria Urine Mucus - Diagnostic Findings Chest x-ray: image reviewed CT scan - chest: image reviewed Assessment and Plan Plan: Acute on chronic shortness of breath secondary decompensated heart failure and pulmonary edema. CTA of the chest was noted and the patient has bilateral groundglass pulmonary filtrates with bilateral pleural effusion consistent with CHF. Echocardiogram shows a CHF with preserved LV function with moderate severe mitral regurgitation and mild degree of pulmonary hypertension. Exacerbation of CHF could be related also to A-fib/RVR Acute exacerbation of CHF, preserved LV function with moderate-severe MR Chronic A-fib with RVR, currently on Cardizem drip at 7.5 mg an hour and the patient is also on metoprolol and Eliquis. Chronic hypoxic respiratory failure, remains on O2 at 2 L/min nasal cannula COPD History of CVA History of lung cancer, questionable neuroendocrine type of tumor based on the patient's history. Most recent PET/CT on 10/28/2024 showed no evidence of any metabolic uptake to suggest any residual disease Infected left hip hemiarthroplasty status post surgical drainage and reconstruction of the left, infection was likely due to strep and the patient is currently on Zyvox UTI, likely recurrent and previous urine cultures was positive for Pseudomonas and ESBL producing Klebsiella pneumonia Gastric ulcer post EGD and cauterization, remains on anticoagulation with Eliquis Leukopenia Chronic anemia Rheumatoid arthritis History of seizure disorder Chronic debility secondary above-mentioned comorbidities Plan Continue DuoNeb updrafts Continue Spiriva and Symbicort May discontinue the IV Solu-Medrol Consider modifying the antibiotic coverage to include extensive gram-negative and ESBL producing Klebsiella, consider IV Invanz Continue Zyvox Continue diuretics Titrate oxygen flow to maintain saturation above 90% Management of A-fib per cardiology the patient remains on Cardizem drip for rate control Continue metoprolol Continue anticoagulation with Eliquis Watch for any signs of GI bleeding Will continue to follow
[2025-03-09 15:59] LABS: Glucose,Whole Blood 246 mg/dL (70-110)
[2025-03-09] MEDS: ERTAPENEM 1 GM in SODIUM CHLORIDE 0.9% 50 ML IVPB SCH (16:02)
[2025-03-09 20:41] LABS: Glucose,Whole Blood 253 mg/dL (70-110)
[2025-03-10 05:57] LABS: Glucose,Whole Blood 261 mg/dL (70-110)
[2025-03-10 08:32] LABS: African American GFR (CKD) >90 (>60 ml/min/1.73 sqM); Anion Gap 8 mmol/L; Blood Urea Nitrogen 16 mg/dL (7-17); Carbon Dioxide 26 mmol/L (22-30); Chloride 103 mmol/L (98-107); Glucose 233 mg/dL (74-99); Non-African American GFR(CKD) >90 (>60 ml/min/1.73 sqM); Potassium 4.5 mmol/L (3.5-5.1); Sodium 137 mmol/L (137-145)
--- NOTE | 2025-03-10 09:57 | P.PN ---
Subjective Progress Note Date: 03/10/25 Consult reason: atrial fibrillation (With RVR) History of present illness: This is a 64-year-old female patient of Dr. Decker with past medical history of p ersistent atrial fibrillation, congestive heart failure, COPD, hypertension, 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 We have been asked to evaluate the patient for A-fib with RVR. Patient presented to the hospital in A-fib with RVR and is status post IV metoprolol tartrate 5 mg x 2. This morning, patient was in A-fib with RVR up to 200 bpm. We are adding and Cardizem 7.5 mg IV push now followed by Cardizem drip at 7.5 mg/h, metoprolol succinate 100 mg daily. Blood pressure 117/91, pulse ox 97% on room air. Patient came in from [facility] due to difficulty in breathing. She also was having sweating. -EKG: #1 atrial fibrillation at 121 bpm, #2 atrial fibrillation 202 bpm -Chest x-ray: Posterior increasing density may be pleural effusion. -CTA of the chest negative for PE. Diffuse patchy groundglass opacities throughout the lungs with cardiomegaly and small to moderate-sized bilateral pleural effusions. Reactive mediastinal lymphadenopathy likely secondary to #2. Pulmonary artery hypertension. -Laboratory studies: WBC 2.7, hemoglobin 8, creatinine 0.53, D-dimer 1.07, troponin negative x 1, proBNP 2810. Urinalysis positive for UTI. -Home cardiac medications: Eliquis 5 mg twice daily, atorvastatin 10 mg at bedtime, Farxiga 5 mg daily, Cardizem 240 mg daily -Echocardiogram performed in the office on 11/12/2024 revealed EF 50 to 55%, mild left ventricular hypertrophy, trace aortic regurgitation, moderate mitral regurgitation, mild tricuspid regurgitation, PASP 35 mmHg. 03/10 Patient seen and examined. She states she is still breathing a little bit hard today. She remains in atrial fibrillation running 100. Rate is much better controlled from yesterday where she was running 200. Yesterday, patient was started on Cardizem bolus 7.5 mg followed by drip at 7.5 mg and continued on metoprolol succinate 100 mg daily. Blood pressure 115/67, pulse ox 95% on 2 L nasal cannula. Repeat blood work reveals creatinine 0.5. Echocardiogram reveals EF 55 to 60%, mild concentric LVH, RVSP 40 mmHg, moderate to severe mitral regurgitation, small pericardial effusion. Physical examination: Gen: This is 64-year-old female appears to be in no acute distress VS: reviewed HEENT: Head is atraumatic, normocephalic. Pupils equal, round. Sclerae is anicteric. NECK: Supple. No JVD. LUNGS: Clear to auscultation. No wheezes or rhonchi. No intercostal retractions. HEART: Irregular r rate and rhythm. No murmur. ABDOMEN: Soft No tenderness. EXTREMITIES: No pedal edema. No calf tenderness. NEUROLOGICAL: Patient is awake, alert and oriented x3. 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 Patient was seen and examined. Objective - Vital Signs Vital signs: Vital Signs Temp 97.6 F 03/10/25 09:22 Pulse 111 H 03/10/25 09:22 Resp 15 03/10/25 09:22 BP 115/67 03/10/25 09:22 Pulse Ox 95 03/10/25 09:22 FiO2 Intake & Output 03/09/25 03/10/25 03/10/25 18:59 06:59 18:59 Intake Total 577 84.75 236 Balance 577 84.75 236 Weight 70.5 kg 74 kg Intake: Intake, IV Titration 84.75 Amount Diltiazem 125 mg In 84.75 Dextrose 5% in Water 100 ml @ 7.5 MG/HR 7.5 mls/hr IV .[id number] [facility] Rx#: [id number] Oral [id number] Other: # Voids 1 1 1 # Bowel Movements 1 1 - Labs CBC & Chem 7: 03/09/25 07:22 03/10/25 07:01 Labs: Abnormal Lab Results - Last 24 Hours (Table) 03/09/25 03/09/25 03/09/25 Range/Units 07:22 11:14 13:59 Lymphocytes # 0.20 L (0.90-5.00) 10*3/uL Monocytes # 0.03 L (0.20-1.00) 10*3/uL Eosinophils # 0.00 L (0.04-0.35) 10*3/uL Creatinine (0.52-1.04) mg/dL Glucose (74-99) mg/dL POC Glucose (mg/dL) 246 H 243 H (70-110) mg/dL 03/09/25 03/09/25 03/10/25 Range/Units 15:58 20:40 05:56 Lymphocytes # (0.90-5.00) 10*3/uL Monocytes # (0.20-1.00) 10*3/uL Eosinophils # (0.04-0.35) 10*3/uL Creatinine (0.52-1.04) mg/dL Glucose (74-99) mg/dL POC Glucose (mg/dL) 246 H 253 H 261 H (70-110) mg/dL 03/10/25 Range/Units 07:01 Lymphocytes # (0.90-5.00) 10*3/uL Monocytes # (0.20-1.00) 10*3/uL Eosinophils # (0.04-0.35) 10*3/uL Creatinine 0.50 L (0.52-1.04) mg/dL Glucose 233 H (74-99) mg/dL POC Glucose (mg/dL) (70-110) mg/dL Microbiology - Last 24 Hours (Table) 03/08/25 07:25 Urine Culture - Preliminary Urine,Voided Gram Neg Bacilli 03/08/25 07:25 Blood Culture - Preliminary Blood
[2025-03-10 11:34] LABS: Glucose,Whole Blood 316 mg/dL (70-110)
[2025-03-10] MEDS: FUROSEMIDE 10 MG/ML 2 ML VIAL IV SCH (12:39)
[2025-03-10] MEDS: hydrALAZINE HCL 20 MG/ML 1 ML VIAL IVP PRN (15:01)
[2025-03-10 16:33] LABS: Glucose,Whole Blood 324 mg/dL (70-110)
[2025-03-10] MEDS: AMIODARONE 360 MG in DEXTROSE 5% IN WATER 200 ML IV ONE (16:33)
[2025-03-10] MEDS: INSULIN LISPRO (HumaLOG) 100 UNIT/ML 10 mL VL SQ SCH (16:49)
--- NOTE | 2025-03-10 19:18 | P.PN ---
Subjective Progress Note Date: 03/10/25 On 03/09/2025, the patient is being seen in consultation for increased shortness of breath. A 64-year-old female patient with multiple medical problems and comorbidities who presented to the emergency department experiencing worsening shortness of breath and the patient was also in A-fib with rapid ventricular response. The patient was seen by cardiology. The patient was given IV metoprolol 5 mg x 2 and based on her ongoing tachycardia, the patient was started on a Cardizem drip at 7.5 mg an hour. She did she is also on metoprolol 100 mg p.o. daily. She is on anticoagulation with Eliquis. A CTA of the chest was also done and there is no evidence of any pulmonary embolism. There is evidence of diffuse patchy groundglass pulmonary opacities consistent with CHF along with bilateral pleural effusion consistent with CHF. No airspace disease. No consolidation. There is some reactive mediastinal lymphadenopathy. At this point, the patient is less tachycardic. Heart rate is around 105. She is on 2 L of oxygen by nasal cannula with a pulse ox of 93%. On her labs, the patient was also suspected urinary tract infection the patient was started on IV ciprofloxacin. She was also on Zyvox and this was continued based on recent infected left hip hemiarthroplasty for which the patient has undergone further surgical intervention, removal of hardware and reconstruction of the left hip lizzy int at [facility] and she was discharged home on Zyvox. Noted this joint infection was suspected to be related to Streptococcus pneumonia based on a culture that was obtained here in our hospital on 02/10/2025. Previous urine cultures from 02/25/2025 was positive for Pseudomonas aeruginosa and ESBL producing Klebsiella pneumoniae. This patient is known to have COPD, congestive heart failure, preserved LV function with an ejection fraction of 55% and she has also been noted to have m oderate to severe mitral regurgitation and mild RV dilatation with an RVSP of 40 based on echocardiogram that was done on 03/07/2025. She also has, atrial fibrillation, previous history of CVA on multiple occasions, rheumatoid arthritis, seizure disorder, chronic hypoxic respiratory failure in the patient is maintained on oxygen 2 L/min nasal cannula, she also gives a remote history of lung cancer, neuroendocrine type i and details of the treatment for lung cancer is not known. Nevertheless, the most recent PET/CT that was done in 10/28/2024 showed no metabolic activity involving the chest chest suggest any residual disease or malignancy. She also has history of peptic ulcer disease/gastric ulcer and she encountered GI bleeding during her stay at [facility] and the patient underwent EGD and cauterization of the gastric ulcer and subsequently she was restarted on Eliquis. She suffers from chronic anemia. 03/10/2025, patient is being seen for a follow-up. Patient is feeling better compared to yesterday. Less short of breath. She is resting comfortably in bed. She is currently on 2 L of oxygen by nasal cannula with a pulse ox of 97%. No reported fever. No chills. She remains on IV Lasix and the patient is producing adequate amount of urine output. She is on Lasix 20 mg and push every 12 hours. She is also on IV Invanz and Zyvox. Her urine culture was positive for Pseudomonas aeruginosa and ESBL producing Klebsiella. The patient is still in atrial fibrillation. She remains slightly tachycardic. She was started on a Cardizem drip that was running at 7.5 mg/min and she was also placed on metoprolol succinate 100 mg p.o. daily. Echocardiogram shows a preserved LV function with an ejection fraction of 55 to 60%. Moderate to severe mitral regurgitation RVSP of 40 with a small pericardial effusion. The rest of the labs from today show a BUN of 60 mg of 0.5. Sodium levels at 137 and potassium is at 4.5. Objective - Vital Signs Vital signs: Vital Signs Temp 97.6 F 03/10/25 09:22 Pulse 111 H 03/10/25 09:22 Resp 15 03/10/25 09:22 BP 115/67 03/10/25 09:22 Pulse Ox 95 03/10/25 09:22 FiO2 Intake & Output 03/09/25 03/10/25 03/10/25 18:59 06:59 18:59 Intake Total 577 84.75 236 Balance 577 84.75 236 Weight 70.5 kg 74 kg Intake: Intake, IV Titration 84.75 Amount Diltiazem 125 mg In 84.75 Dextrose 5% in Water 100 ml @ 7.5 MG/HR 7.5 mls/hr IV .[id number] [facility] Rx#: [id number] Oral 577 236 Other: # Voids 1 1 1 # Bowel Movements 1 1 - Exam The patient appeared well nourished and normally developed. Vital signs as documented. The patient is calm and comfortable and she has a body mass index of 29.4. She is currently on oxygen at 2 L with a pulse ox of 93% Head exam is unremarkable. No scleral icterus or corneal arcus noted. Neck is without jugular venous distension, thyromegaly, or carotid bruits. Carotid upstrokes are brisk bilaterally. Lungs are diminished in lung bases along with bibasilar crackles Cardiac exam reveals the PMI to be normally sized and situated. Irregular consistent with atrial fibrillation first and second heart sounds normal. No murmurs, rubs or gallops. Abdominal exam reveals normal bowel sounds, no masses, no organomegaly and no aortic enlargement. Extremities are nonedematous and both femoral and pedal pulses are normal. The surgical wound site over the left hip area is dry clean and intact. Sutures are still in place. There is no active drainage. No cellulitis or abscess format ion. No drainage. Examination of the skin revealed no evidence of significant rashes, suspicious appearing nevi or other concerning lesions. Wound in the left hip area is dry clean and intact. Neurologically, the patient is awake and alert and the patient does not have any focal neurological deficit. Cranial nerves are essentially intact. - Labs CBC & Chem 7: 03/09/25 07:22 03/10/25 07:01 Labs: Abnormal Lab Results - Last 24 Hours (Table) 03/09/25 03/09/25 03/09/25 Range/Units 11:14 13:59 15:58 Creatinine (0.52-1.04) mg/dL Glucose (74-99) mg/dL POC Glucose (mg/dL) 246 H 243 H 246 H (70-110) mg/dL 03/09/25 03/10/25 03/10/25 Range/Units 20:40 05:56 07:01 Creatinine 0.50 L (0.52-1.04) mg/dL Glucose 233 H (74-99) mg/dL POC Glucose (mg/dL) 253 H 261 H (70-110) mg/dL Microbiology - Last 24 Hours (Table) 03/08/25 07:25 Urine Culture - Preliminary Urine,Voided Gram Neg Bacilli 03/08/25 07:25 Blood Culture - Preliminary Blood Assessment and Plan Plan: Acute on chronic shortness of breath secondary decompensated heart failure and pulmonary edema. CTA of the chest was noted and the patient has bilateral groundglass pulmonary filtrates with bilateral pleural effusion consistent with CHF. Echocardiogram shows a CHF with preserved LV function with moderate severe mitral regurgitation and mild degree of pulmonary hypertension. Exacerbation of CHF could be related also to A-fib/RVR Acute exacerbation of CHF, preserved LV function with moderate-severe MR Chronic A-fib with RVR, currently on Cardizem drip at 7.5 mg an hour and the patient is also on metoprolol and Eliquis. Chronic hypoxic respiratory failure, remains on O2 at 2 L/min nasal cannula COPD History of CVA History of lung cancer, questionable neuroendocrine type of tumor based on the patient's history. Most recent PET/CT on 10/28/2024 showed no evidence of any metabolic uptake to suggest any residual disease Infected left hip hemiarthroplasty status post surgical drainage and reconstruct ion of the left, infection was likely due to strep and the patient is currently on Zyvox UTI, likely recurrent and urine cultures was positive for Pseudomonas and ESBL producing Klebsiella pneumonia Gastric ulcer post EGD and cauterization, remains on anticoagulation with Eliquis Leukopenia Chronic anemia Rheumatoid arthritis History of seizure disorder Chronic debility secondary above-mentioned comorbidities Plan Stable, still short of breath as the patient is being diuresed and her atrial fibrillation is being further managed. Continue DuoNeb updrafts Continue Spiriva and Symbicort Consider modifying the antibiotic coverage to include extensive gram-negative and ESBL producing Klebsiella, consider IV Invanz. Urine culture was positive for Pseudomonas aeruginosa and Klebsiella Continue Zyvox Continue diuretics Titrate oxygen flow to maintain saturation above 90% Management of A-fib per cardiology the patient remains on Cardizem drip for rate control the patient is also on metoprolol Continue metoprolol Continue anticoagulation with Eliquis Watch for any signs of GI bleeding Will continue to follow Time with Patient: Greater than 30
[2025-03-10 19:48] LABS: Glucose,Whole Blood 239 mg/dL (70-110)
--- NOTE | 2025-03-10 20:23 | P.HPIM ---
History of Present Illness H&P Date: 03/08/25 Chief Complaint: Shortness of breath 64-year-old female with a history of A-fib (on eliquis), COPD with chronic respiratory failure on 2 L nasal cannula and joint replacements including recent left joint infected prosthesis presenting to emergency department via EMS from [facility] with complaint of difficulty in breathing. Patient states that she was in her room this morning when she woke from her sleep she states that she was drenched in sweat and was having a difficult time breathing. Currently patient states that she is feeling better than she did this morning however still feels mildly short of breath. States episode of sweating this morning is the first time this event has happened. She denies abdominal pain, chest pain, dizziness, lightheadedness. Nausea with no reported emesis, urinary symptoms, known dark or bloody stools. patient is currently on linezolid 2 times a day due to infected left hip prosthesis. Blood work completed in ED reveals a WBC of 11.03, hemoglobin 8.4, platelet count of 425, sodium 135, potassium 4.3, BUN/creatinine of 10/0.49, blood glucose 219, troponin less than 0.012 UA is positive for nitrites and leukocyte esterase with WBCs and bacteria Review of Systems REVIEW OF SYSTEMS: CONSTITUTIONAL: No fever, no malaise, no fatigue. HEENT: No recent visual problems or hearing problems. Denied any sore throat. CARDIOVASCULAR: No chest pain, orthopnea, PND, no palpitations, no syncope. PULMONARY: No shortness of breath, no cough, no hemoptysis. GASTROINTESTINAL: No diarrhea, no nausea, no vomiting, no abdominal pain. NEUROLOGICAL: No headaches, no weakness, no numbness. HEMATOLOGICAL: Denies any bleeding or petechiae. GENITOURINARY: Denies any burning micturition, frequency, or urgency. MUSCULOSKELETAL/RHEUMATOLOGICAL: Denies any joint pain, swelling, or any muscle pain. ENDOCRINE: Denies any polyuria or polydipsia. The rest of the 14-point review of systems is negative. 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 Second and Third vetebre are fragile per pt Past Psychological History: Bipolar, Depression Smoking Status: Former smoker Past Alcohol Use History: Occasional Past Drug Use History: None Reported - Past Family History Mother Family Medical History: Congestive Heart Failure (CHF) Father Additional Family Medical History / Comment(s): Fibrosycrosis Medications and Allergies Home Medications Medication Instructions Recorded Confirmed Type Apixaban [Eliquis] 5 mg PO BID@0800,1700 11/16/24 03/08/25 History Metoprolol Succinate [Toprol XL] 100 mg PO DAILY@0800 11/16/24 03/08/25 History Tiotropium [place] [Spiriva 1 puff INHALATION RT-DAILY@0800 11/16/24 03/08/25 History Handihaler] Cholecalciferol [Vitamin D3 (25 125 mcg PO DAILY@0800 01/30/25 03/08/25 History Mcg = 1000 Iu)] Ferrous Sulfate [Iron (65 MG 325 mg PO TID@0800,1200,1700 01/30/25 03/08/25 History Elemental)] Hydroxychloroquine Sulfate 200 mg PO DAILY@0800 02/26/25 03/08/25 History [Plaquenil] dilTIAZem HCL [dilTIAZem HCL 24Hr 240 mg PO DAILY@0800 02/26/25 03/08/25 History ER ([place])] Acetaminophen Tab [Tylenol Tab] 500 mg PO Q8H PRN 03/08/25 03/08/25 History Albuterol Sulfate [Ventolin HFA] 1 puff INHALATION RT-QID PRN 03/08/25 03/08/25 History Atorvastatin [Lipitor] 10 mg PO HS 03/08/25 03/08/25 History DULoxetine HCL [Cymbalta] 60 mg PO DAILY@0800 03/08/25 03/08/25 History Dapagliflozin Propanediol [Farxiga] 5 mg PO DAILY@0800 03/08/25 03/08/25 History Fluticasone Propion/Salmeterol 1 puff INHALATION RT-BID 03/08/25 03/08/25 History [Advair 250-50 Diskus] HYDROcodone/APAP 7.5-325MG [[place] 1 tab PO Q4H PRN 03/08/25 03/08/25 History 7.5-325] INSULIN ASPART (NovoLOG) [NovoLOG See Protocol SQ ACHS 03/08/25 03/08/25 History (formulary)] Ipratropium-Albuterol Nebulize 3 ml INHALATION RT-Q4H PRN 03/08/25 03/08/25 History [Duoneb 0.5 mg-3 mg/3 ml Soln] Linezolid [Zyvox] 600 mg PO Q12H 03/08/25 03/08/25 History Magnesium Hydroxide [Milk of 7,200 mg PO DAILY PRN 03/08/25 03/08/25 History Magnesia Concentrate] Na Phos,M-B/Na Phos,Di-Ba [Fleet 133 ml RECTAL DAILY PRN 03/08/25 03/08/25 History Adult] Omeprazole 40 mg PO BID 03/08/25 03/08/25 History Ondansetron [Zofran] 4 mg PO Q6H PRN 03/08/25 03/08/25 History Sennosides [Senokot] 8.6 mg PO BID 03/08/25 03/08/25 History bisacodyL [Dulcolax] 10 mg RECTAL Q24H PRN 03/08/25 03/08/25 History polyethylene glycoL 3350 [Miralax] 17 gm PO DAILY PRN 03/08/25 03/08/25 History Allergies Allergy/AdvReac Type Severity Reaction Status Date / Time codeine AdvReac Nausea Verified 03/08/25 11:08 Physical Exam Vitals: Vital Signs Temp Pulse Resp BP Pulse Ox 03/08/25 13:50 98.1 F 107 H 24 119/93 98 03/08/25 13:00 110 H 20 133/79 97 03/08/25 11:17 117 H 18 137/82 97 03/08/25 08:13 112 H 03/08/25 08:09 114 H 18 125/100 98 03/08/25 08:01 103 H 03/08/25 07:15 108 H 18 113/91 97 03/08/25 07:01 112 H 16 113/90 98 03/08/25 06:44 96.2 F L 111 H 18 118/106 94 L Intake and Output 03/07/25 03/08/25 03/08/25 22:59 06:59 14:59 Other: Weight 70.307 kg Neck exam: Present: normal inspection. Absent: tenderness, meningismus, lymphadenopathy Respiratory exam: Present: wheezes, decreased breath sounds. Absent: normal lung sounds bilaterally, respiratory distress Cardiovascular Exam: Present: tachycardia, irregular rhythm, normal heart sounds. Absent: normal rhythm, systolic murmur, diastolic murmur, rubs, gallop, clicks GI/Abdominal exam: Present: soft, normal bowel sounds. Absent: distended, tenderness, guarding, rebound, rigid Extremities exam: Present: normal inspection, full ROM, normal capillary refill. Absent: tenderness, pedal edema, joint swelling, calf tenderness Back exam: Present: normal inspection Skin exam: Present: warm, dry, intact, normal color. Absent: rash Results CBC & Chem 7: 03/09/25 07:22 03/10/25 07:01 Labs: Abnormal Lab Results - Last 24 Hours (Table) 03/08/25 03/08/25 03/08/25 Range/Units 07:25 07: 07:25 WBC 11.03 H (4.50-10.00) 10*3/uL RBC 3.08 L (4.10-5.20) 10*6/uL Hgb 8.4 L (12.0-15.0) g/dL Hct 28.0 L (37.2-46.3) % MCHC 30.0 L (32.0-37.0) g/dL Immature Gran # 0.08 H (0.00-0.04) 10*3/uL Neutrophils # 10.01 H (1.80-7.70) 10*3/uL Lymphocytes # 0.45 L (0.90-5.00) 10*3/uL PT 13.1 H (10.0-12.5) sec INR 1.2 H (<1.2) APTT 40.0 H (22.0-30.0) sec D-Dimer (<0.60) mg/L FEU Sodium 135 L (137-145) mmol/L Creatinine 0.49 L (0.52-1.04) mg/dL Glucose 146 H (74-99) mg/dL Plasma Lactic Acid Giovanny (0.7-2.0) mmol/L AST 13 L (14-36) U/L Alkaline Phosphatase 163 H (38-126) U/L Total Protein 5.7 L (6.3-8.2) g/dL Albumin 2.7 L (3.5-5.0) g/dL Urine Appearance (Clear) Urine Protein (Negative) Urine Glucose (UA) (Negative) Urine Ketones (Negative) Urine Blood (Negative) Urine Nitrite (Negative) Ur Leukocyte Esterase (Negative) Urine RBC (0-5) /hpf Urine WBC (0-5) /hpf Urine WBC Clumps (None) /hpf Urine Bacteria (None) /hpf Urine Mucus (None) /hpf 03/08/25 03/08/25 03/08/25 Range/Units 07:25 07:25 11:16 WBC (4.50-10.00) 10*3/uL RBC (4.10-5.20) 10*6/uL Hgb (12.0-15.0) g/dL Hct (37.2-46.3) % MCHC (32.0-37.0) g/dL Immature Gran # (0.00-0.04) 10*3/uL Neutrophils # (1.80-7.70) 10*3/uL Lymphocytes # (0.90-5.00) 10*3/uL PT (10.0-12.5) sec INR (<1.2) APTT (22.0-30.0) sec D-Dimer 1.07 H (<0.60) mg/L FEU Sodium (137-145) mmol/L Creatinine (0.52-1.04) mg/dL Glucose (74-99) mg/dL Plasma Lactic Acid Giovanny 2.4 H* (0.7-2.0) mmol/L AST (14-36) U/L Alkaline Phosphatase (38-126) U/L Total Protein (6.3-8.2) g/dL Albumin (3.5-5.0) g/dL Urine Appearance Turbid H (Clear) Urine Protein 1+ H (Negative) Urine Glucose (UA) 3+ H (Negative) Urine Ketones 1+ H (Negative) Urine Blood Moderate H (Negative) Urine Nitrite Positive H (Negative) Ur Leukocyte Esterase Large H (Negative) Urine RBC 6 H (0-5) /hpf Urine WBC >182 H (0-5) /hpf Urine WBC Clumps Many H (None) /hpf Urine Bacteria Occasional H (None) /hpf Urine Mucus Many H (None) /hpf Assessment and Plan Assessment: 1. Acute hypoxic respiratory failure; multifactorial; related to acute exacerbation CHF with possible mild exacerbation COPD 2. Acute exacerbation CHF with preserved LVEF CTA of the chest was noted and the patient has bilateral groundglass pulmonary filtrates with bilateral pleural effusion consistent with CHF. Echocardiogram shows a CHF with preserved LV function with moderate severe mitral regurgitation and mild degree of pulmonary hypertension. Exacerbation of CHF could be related also to A-fib/RVR - Patient has been placed on IV Lasix; echocardiogram is ordered - Cardiology is consulted 3. Moderate to severe MR 4. Atrial fibrillation with RVR; patient is currently on IV Cardizem infusion at rate of 75 mg an hour - Continue with home dose of metoprolol and Eliquis; 2D echo is ordered - Await further recommendations from cardiology 5. COPD/chronic hypoxic respiratory failure - We will continue with home inhaler therapy; continue with O2 per nasal cannula with plans to titrate or wean as able - Pulmonary service on board 6. UTI; patient received IV Rocephin in ED; await final urine culture report 7. History of seizure disorder 8. History of lung cancer; likely neuroendocrine type based on patient's history Most recent PET/CT on 10/28/2024 showed no evidence of any metabolic uptake to suggest any residual disease 9. Hypertension; metoprolol 100 mg daily DVT prophylaxis; SCDs/systemic anticoagulation CODE STATUS; full code
--- NOTE | 2025-03-10 20:24 | P.PN ---
Subjective Progress Note Date: 03/09/25 64-year-old female with a history of A-fib (on eliquis), COPD with chronic respiratory failure on 2 L nasal cannula and joint replacements including recent left joint infected prosthesis presenting to emergency department via EMS from [facility] with complaint of difficulty in breathing. Patient states that she was in her room this morning when she woke from her sleep she states that she was drenched in sweat and was having a difficult time breathing. Currently patient states that she is feeling better than she did this morning however still feels mildly short of breath. States episode of sweating this morning is the first time this event has happened. She denies abdominal pain, chest pain, dizziness, lightheadedness. Nausea with no reported emesis, urinary symptoms, known dark or bloody stools. patient is currently on linezolid 2 times a day due to infected left hip prosthesis. Blood work completed in ED reveals a WBC of 11.03, hemoglobin 8.4, platelet count of 425, sodium 135, potassium 4.3, BUN/creatinine of 10/0.49, blood glucose 219, troponin less than 0.012 UA is positive for nitrites and leukocyte esterase with WBCs and bacteria Objective - Vital Signs Vital signs: Vital Signs Temp 98 F 03/09/25 04:00 Pulse 111 H 03/09/25 10:07 Resp 20 03/09/25 08:26 BP 131/91 03/09/25 10:07 Pulse Ox 97 03/09/25 08:26 FiO2 Intake & Output 03/08/25 03/09/25 03/09/25 18:59 06:59 18:59 Intake Total 120 Output Total 250 Balance -130 Weight 70.307 kg 70.5 kg Intake: Oral 120 Output: Urine 250 Other: # Voids 1 # Bowel Movements 1 - Exam Neck exam: Present: normal inspection. Absent: tenderness, meningismus, lymphadenopathy Respiratory exam: Present: wheezes, decreased breath sounds. Absent: normal lung sounds bilaterally, respiratory distress Cardiovascular Exam: Present: tachycardia, irregular rhythm, normal heart sounds. Absent: normal rhythm, systolic murmur, diastolic murmur, rubs, gallop, clicks GI/Abdominal exam: Present: soft, normal bowel sounds. Absent: distended, tenderness, guarding, rebound, rigid Extremities exam: Present: normal inspection, full ROM, normal capillary refill. Absent: tenderness, pedal edema, joint swelling, calf tenderness Back exam: Present: normal inspection Skin exam: Present: warm, dry, intact, normal color. Absent: rash - Labs CBC & Chem 7: 03/09/25 07:22 03/10/25 07:01 Labs: Abnormal Lab Results - Last 24 Hours (Table) 03/08/25 03/08/25 03/09/25 Range/Units 11:16 14:50 07:22 WBC 2.71 L (4.50-10.00) 10*3/uL RBC 2.88 L (4.10-5.20) 10*6/uL Hgb 8.0 L (12.0-15.0) g/dL Hct 26.7 L (37.2-46.3) % MCHC 30.0 L (32.0-37.0) g/dL Lymphocytes # 0.20 L (0.90-5.00) 10*3/uL Monocytes # 0.03 L (0.20-1.00) 10*3/uL Eosinophils # 0.00 L (0.04-0.35) 10*3/uL D-Dimer 1.07 H (<0.60) mg/L FEU Sodium (137-145) mmol/L Glucose (74-99) mg/dL POC Glucose (mg/dL) 219 H (70-110) mg/dL AST (14-36) U/L Total Protein (6.3-8.2) g/dL Albumin (3.5-5.0) g/dL 03/09/25 03/09/25 03/09/25 Range/Units 07:22 08:08 11:14 WBC (4.50-10.00) 10*3/uL RBC (4.10-5.20) 10*6/uL Hgb (12.0-15.0) g/dL Hct (37.2-46.3) % MCHC (32.0-37.0) g/dL Lymphocytes # (0.90-5.00) 10*3/uL Monocytes # (0.20-1.00) 10*3/uL Eosinophils # (0.04-0.35) 10*3/uL D-Dimer (<0.60) mg/L FEU Sodium 135 L (137-145) mmol/L Glucose 176 H (74-99) mg/dL POC Glucose (mg/dL) 232 H 246 H (70-110) mg/dL AST 8 L (14-36) U/L Total Protein 5.2 L (6.3-8.2) g/dL Albumin 2.5 L (3.5-5.0) g/dL Assessment and Plan Assessment: 1. Acute hypoxic respiratory failure; multifactorial; related to acute exacerbation CHF with possible mild exacerbation COPD 2. Acute exacerbation CHF with preserved LVEF CTA of the chest was noted and the patient has bilateral groundglass pulmonary filtrates with bilateral pleural effusion consistent with CHF. Echocardiogram shows a CHF with preserved LV function with moderate severe mitral regurgitation and mild degree of pulmonary hypertension. Exacerbation of CHF could be related also to A-fib/RVR - Patient has been placed on IV Lasix; echocardiogram is ordered - Cardiology is consulted 3. Moderate to severe MR 4. Atrial fibrillation with RVR; patient is currently on IV Cardizem infusion at rate of 75 mg an hour - Continue with home dose of metoprolol and Eliquis; 2D echo is ordered - Await further recommendations from cardiology 5. COPD/chronic hypoxic respiratory failure - We will continue with home inhaler therapy; continue with O2 per nasal cannula with plans to titrate or wean as able - Pulmonary service on board 6. UTI; patient received IV Rocephin in ED; await final urine culture report 7. History of seizure disorder 8. History of lung cancer; likely neuroendocrine type based on patient's his tory Most recent PET/CT on 10/28/2024 showed no evidence of any metabolic uptake to suggest any residual disease 9. Hypertension; metoprolol 100 mg daily DVT prophylaxis; SCDs/systemic anticoagulation CODE STATUS; full code
--- NOTE | 2025-03-10 20:26 | P.PN ---
Subjective Progress Note Date: 03/10/25 64-year-old female with a history of A-fib (on eliquis), COPD with chronic respiratory failure on 2 L nasal cannula and joint replacements including recent left joint infected prosthesis presenting to emergency department via EMS from [facility] with complaint of difficulty in breathing. Patient states that she was in her room this morning when she woke from her sleep she states that she was drenched in sweat and was having a difficult time breathing. Currently patient states that she is feeling better than she did this morning however still feels mildly short of breath. States episode of sweating this morning is the first time this event has happened. She denies abdominal pain, chest pain, dizziness, lightheadedness. Nausea with no reported emesis, urinary symptoms, known dark or bloody stools. patient is currently on linezolid 2 times a day due to infected left hip prosthesis. Blood work completed in ED reveals a WBC of 11.03, hemoglobin 8.4, platelet count of 425, sodium 135, potassium 4.3, BUN/creatinine of 10/0.49, blood glucose 219, troponin less than 0.012 UA is positive for nitrites and leukocyte esterase with WBCs and bacteria 03/10/2025 - patient is seen and evaluated in room at bedside. Patient is feeling better compared to yesterday. She is resting comfortably in bed. - She is currently on 2 L of oxygen by nasal cannula with a pulse ox of 97%. - Patient remains on IV Lasix and the patient is producing adequate amount of u rine output. She is on Lasix 20 mg and push every 12 hours. She is also on IV Invanz and Zyvox. - urine culture was positive for Pseudomonas aeruginosa and ESBL producing Klebsiella-patient is on IV Invanz and Zyvox. - patient is still in atrial fibrillation. She remains slightly tachycardic. She was started on a Cardizem drip that was running at 7.5 mg/min and she was also placed on metoprolol succinate 100 mg p.o. daily. Echocardiogram shows a preserved LV function with an ejection fraction of 55 to 60%. Moderate to severe mitral regurgitation RVSP of 40 with a small pericardial effusion. Patient remains on metoprolol; cardiology is following Objective - Vital Signs Vital signs: Vital Signs Temp 97.6 F 03/10/25 09:22 Pulse 111 H 03/10/25 09:22 Resp 15 03/10/25 09:22 BP 115/67 03/10/25 09:22 Pulse Ox 95 03/10/25 09:22 FiO2 Intake & Output 03/09/25 03/10/25 03/10/25 18:59 06:59 18:59 Intake Total 577 84.75 236 Balance 577 84.75 236 Weight 70.5 kg 74 kg Intake: Intake, IV Titration 84.75 Amount Diltiazem 125 mg In 84.75 Dextrose 5% in Water 100 ml @ 7.5 MG/HR 7.5 mls/hr IV .[id number] [facility] Rx#: [id number] Oral 577 236 Other: # Voids 1 1 1 # Bowel Movements 1 1 - Exam Neck exam: Present: normal inspection. Absent: tenderness, meningismus, lymphadenopathy Respiratory exam: Present: wheezes, decreased breath sounds. Absent: normal lung sounds bilaterally, respiratory distress Cardiovascular Exam: Present: tachycardia, irregular rhythm, normal heart sounds. Absent: normal rhythm, systolic murmur, diastolic murmur, rubs, gallop, clicks GI/Abdominal exam: Present: soft, normal bowel sounds. Absent: distended, tenderness, guarding, rebound, rigid Extremities exam: Present: normal inspection, full ROM, normal capillary refill. Absent: tenderness, pedal edema, joint swelling, calf tenderness Back exam: Present: normal inspection Skin exam: Present: warm, dry, intact, normal color. Absent: rash - Labs CBC & Chem 7: 03/09/25 07:22 03/10/25 07:01 Labs: Abnormal Lab Results - Last 24 Hours (Table) 03/09/25 03/09/25 03/09/25 Range/Units 11:14 13:59 15:58 Creatinine (0.52-1.04) mg/dL Glucose (74-99) mg/dL POC Glucose (mg/dL) 246 H 243 H 246 H (70-110) mg/dL 03/09/25 03/10/25 03/10/25 Range/Units 20:40 05:56 07:01 Creatinine 0.50 L (0.52-1.04) mg/dL Glucose 233 H (74-99) mg/dL POC Glucose (mg/dL) 253 H 261 H (70-110) mg/dL Microbiology - Last 24 Hours (Table) 03/08/25 07:25 Urine Culture - Preliminary Urine,Voided Gram Neg Bacilli 03/08/25 07:25 Blood Culture - Preliminary Blood Assessment and Plan Assessment: 1. Acute hypoxic respiratory failure; multifactorial; related to acute exacerbation CHF with possible mild exacerbation COPD 2. Acute exacerbation CHF with preserved LVEF CTA of the chest was noted and the patient has bilateral groundglass pulmonary filtrates with bilateral pleural effusion consistent with CHF. Echocardiogram shows a CHF with preserved LV function with moderate severe mitral regurgitation and mild degree of pulmonary hypertension. Exacerbation of CHF could be related also to A-fib/RVR - Patient has been placed on IV Lasix; echocardiogram is ordered - Cardiology is consulted 3. Moderate to severe MR 4. Atrial fibrillation with RVR; patient is currently on IV Cardizem infusion at rate of 75 mg an hour - Continue with home dose of metoprolol and Eliquis; 2D echo is ordered - Await further recommendations from cardiology 5. COPD/chronic hypoxic respiratory failure - We will continue with home inhaler therapy; continue with O2 per nasal cannula with plans to titrate or wean as able - Pulmonary service on board 6. UTI; patient received IV Rocephin in ED; await final urine culture report 7. History of seizure disorder 8. History of lung cancer; likely neuroendocrine type based on patient's history Most recent PET/CT on 10/28/2024 showed no evidence of any metabolic uptake to suggest any residual disease 9. Hypertension; metoprolol 100 mg daily DVT prophylaxis; SCDs/systemic anticoagulation CODE STATUS; full code
[2025-03-10] MEDS: INSULIN GLARGINE (LANTUS) 100 UNIT/ML SYR SQ SCH (21:06)
[2025-03-10] MEDS: AMIODARONE 450 MG in DEXTROSE 5% IN WATER 250 ML IV SCH (22:08)
[2025-03-11 05:39] LABS: Glucose,Whole Blood 191 mg/dL (70-110)
[2025-03-11 11:39] LABS: Glucose,Whole Blood 189 mg/dL (70-110)
--- NOTE | 2025-03-11 11:41 | P.PN ---
Subjective HISTORY OF PRESENT ILLNESS: This is a 64-year-old female patient of Dr. 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 We have been asked to evaluate the patient for A-fib with RVR. Patient presented to the hospital in A-fib with RVR and is status post IV metoprolol tartrate 5 mg x 2. This morning, patient was in A-fib with RVR up to 200 bpm. We are adding and Cardizem 7.5 mg IV push now followed by Cardizem drip at 7.5 mg/h, metoprolol succinate 100 mg daily. Blood pressure 117/91, pulse ox 97% on room air. Patient came in from [facility] due to difficulty in breathing. She also was having sweating. -EKG: #1 atrial fibrillation at 121 bpm, #2 atrial fibrillation 202 bpm -Chest x-ray: Posterior increasing density may be pleural effusion. -CTA of the chest negative for PE. Diffuse patchy groundglass opacities throughout the lungs with cardiomegaly and small to moderate-sized bilateral pleural effusions. Reactive mediastinal lymphadenopathy likely secondary to #2. Pulmonary artery hypertension. -Laboratory studies: WBC 2.7, hemoglobin 8, creatinine 0.53, D-dimer 1.07, troponin negative x 1, proBNP 2810. Urinalysis positive for UTI. -Home cardiac medications: Eliquis 5 mg twice daily, atorvastatin 10 mg at [facility], Farxiga 5 mg daily, Cardizem 240 mg daily -Echocardiogram performed in the office on 11/12/2024 revealed EF 50 to 55%, mild left ventricular hypertrophy, trace aortic regurgitation, moderate mitral regurgitation, mild tricuspid regurgitation, PASP 35 mmHg. 03/10 Patient seen and examined. She states she is still breathing a little bit hard today. She remains in atrial fibrillation running 100. Rate is much better controlled from yesterday where she was running 200. Yesterday, patient was started on Cardizem bolus 7.5 mg followed by drip at 7.5 mg and continued on metoprolol succinate 100 mg daily. Blood pressure 115/67, pulse ox 95% on 2 L nasal cannula. Repeat blood work reveals creatinine 0.5. Echocardiogram reveals EF 55 to 60%, mild concentric LVH, RVSP 40 mmHg, moderate to severe mitral regurgitation, small pericardial effusion. 03/11/2025 Patient examined this morning at the bedside. Patient is currently undergoing swallow eval by speech therapy. patient currently denies chest pain or pressure. She denies shortness of breath. She denies any dizziness or lightheadedness. She remains in atrial fibrillation with a heart rate in the 80s. She was started on IV amiodarone yesterday afternoon per Dr. Chavarria. PHYSICAL EXAM: VITAL SIGNS: Reviewed. GENERAL: Well-developed in no acute distress. NECK: Supple. No JVD or thyromegaly LUNGS: Respirations even and unlabored. Lungs essentially clear to auscultation bilaterally. HEART: Regular rate and rhythm. S1 and S2 heard. EXTREMITIES: Normal range of motion. No clubbing or cyanosis. Peripheral pulses intact. 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 Begin oral Lasix 20 mg daily Continue telemetry monitoring Further recommendations pending patient course Nurse practitioner note has been reviewed by physician. Signing provider agrees with the documented findings, assessment, and plan of care documented by [employer] as a scribe. Objective - Vital Signs Vital signs: Vital Signs Temp 97.9 F 03/11/25 11:17 Pulse 89 03/11/25 11:17 Resp 16 03/11/25 11:17 BP 150/93 03/11/25 11:17 Pulse Ox 92 L 03/11/25 11:17 FiO2 Intake & Output 03/10/25 03/11/25 03/11/25 18:59 06:59 18:59 Intake Total 476 130 Output Total 750 1500 Balance 476 -620 -1500 Weight 74 kg Intake: IV 10 0.9 10 Oral 476 120 Output: Urine 750 1500 Other: Voiding Method External Catheter External Catheter # Voids 1 # Bowel Movements 1 1 - Labs CBC & Chem 7: 03/09/25 07:22 03/10/25 07:01 Labs: Abnormal Lab Results - Last 24 Hours (Table) 03/10/25 03/10/25 03/11/25 Range/Units 16:30 19:46 05:38 POC Glucose (mg/dL) 324 H 239 H 191 H (70-110) mg/dL Microbiology - Last 24 Hours (Table) 03/08/25 07:25 Blood Culture - Preliminary Blood 03/08/25 07:25 Urine Culture - Final Urine,Voided Pseudomonas aeruginosa Klebsiella pneumo ESBL MDRO
--- NOTE | 2025-03-11 15:37 | P.PN ---
Subjective Progress Note Date: 03/11/25 Principal diagnosis: Acute diastolic congestive heart failure with bilateral pleural effusions, moderate-severe mitral regurgitation and underlying atrial fibrillation with RVR On 03/09/2025, the patient is being seen in consultation for increased shortness of breath. A 64-year-old female patient with multiple medical problems and comorbidities who presented to the emergency department experiencing worsening shortness of breath and the patient was also in A-fib with rapid ventricular response. The patient was seen by cardiology. The patient was given IV metoprolol 5 mg x 2 and based on her ongoing tachycardia, the patient was started on a Cardizem drip at 7.5 mg an hour. She did she is also on metoprolol 100 mg p.o. daily. She is on anticoagulation with Eliquis. A CTA of the chest was also done and there is no evidence of any pulmonary embolism. There is evid ence of diffuse patchy groundglass pulmonary opacities consistent with CHF along with bilateral pleural effusion consistent with CHF. No airspace disease. No consolidation. There is some reactive mediastinal lymphadenopathy. At this point, the patient is less tachycardic. Heart rate is around 105. She is on 2 L of oxygen by nasal cannula with a pulse ox of 93%. On her labs, the patient was also suspected urinary tract infection the patient was started on IV ciprofloxacin. She was also on Zyvox and this was continued based on recent infected left hip hemiarthroplasty for which the patient has undergone further surgical intervention, removal of hardware and reconstruction of the left hip joint at [facility] and she was discharged home on Zyvox. Noted this joint infection was suspected to be related to Streptococcus pneumonia based on a culture that was obtained here in our hospital on 02/10/2025. Previous urine cultures from 02/25/2025 was positive for Pseudomonas aeruginosa and ESBL producing Klebsiella pneumoniae. This patient is known to have COPD, congestive heart failure, preserved LV function with an ejection fraction of 55% and she has also been noted to have moderate to severe mitral regurgitation and mild RV dilatation with an RVSP of 40 based on echocardiogram that was done on 03/07/2025. She also has, atrial fibrillation, previous history of CVA on multiple occasions, rheumatoid arthritis, seizure disorder, chronic hypoxic respiratory failure in the patient is maintained on oxygen 2 L/min nasal cannula, she also gives a remote history of lung cancer, neuroendocrine type i and details of the treatment for lung cancer is not known. Nevertheless, the most recent PET/CT that was done in 10/28/2024 showed no metabolic activity involving the chest chest suggest any residual disease or malignancy. She also has history of peptic ulcer disease/g astric ulcer and she encountered GI bleeding during her stay at [facility] and the patient underwent EGD and cauterization of the gastric ulcer and subsequently she was restarted on Eliquis. She suffers from chronic anemia. 03/10/2025, patient is being seen for a follow-up. Patient is feeling better compared to yesterday. Less short of breath. She is resting comfortably in bed. She is currently on 2 L of oxygen by nasal cannula with a pulse ox of 97%. No reported fever. No chills. She remains on IV Lasix and the patient is producing adequate amount of urine output. She is on Lasix 20 mg and push every 12 hours. She is also on IV Invanz and Zyvox. Her urine culture was positive for Pseudomonas aeruginosa and ESBL producing Klebsiella. The patient is still in atrial fibrillation. She remains slightly tachycardic. She was started on a Cardizem drip that was running at 7.5 mg/min and she was also placed on metoprolol succinate 100 mg p.o. daily. Echocardiogram shows a preserved LV function with an ejection fraction of 55 to 60%. Moderate to severe mitral regurgitation RVSP of 40 with a small pericardial effusion. The rest of the labs from today show a BUN of 60 mg of 0.5. Sodium levels at 137 and potassium is at 4.5. Seen today on 03/11/2025, patient is feeling better, breathing easier, she is on 2 L nasal cannula less shortness of breath. Swallow evaluation has been done, findings are pending initial admission chest x-ray is suggestive of pulmonary edema, WBC count today is 2.7 hemoglobin is 8, basic metabolic profile is normal renal profile is normal urinalysis is suggestive of ongoing urinary tract infection, cultures are positive for Pseudomonas aeruginosa and Klebsiella pneumonia/ESBL, patient is on Invanz. Objective - Vital Signs Vital signs: Vital Signs Temp 97.9 F 03/11/25 11:17 Pulse 89 03/11/25 11:17 Resp 16 03/11/25 11:17 BP 150/93 03/11/25 11:17 Pulse Ox 92 L 03/11/25 11:17 FiO2 Intake & Output 03/10/25 03/11/25 03/11/25 18:59 06:59 18:59 Intake Total 476 130 490 Output Total 750 2100 Balance 775 -253 -9903 Weight 74 kg Intake: IV 10 0.9 10 Intake, IV Titration 250 Amount Amiodarone 450 mg In 250 Dextrose 5% in Water 250 ml @ 0.5 MG/MIN 16.667 mls/hr IV .Q15H [facility] Rx#: [id number] Oral 476 120 240 Output: Urine 750 2100 Other: Voiding Method External Catheter External Catheter # Voids 1 # Bowel Movements 1 1 - Exam Physical exam revealed a 64-year-old female in no distress, on 2 L nasal cannula Head: Atraumatic, normocephalic Neck exam: Supple no neck masses no JVD no stridor Respiratory exam: Crackles at the bases no rhonchi no wheezes Cardiovascular Exam: Present: tachycardia, irregular rhythm, normal heart sounds. Absent: normal rhythm, systolic murmur, diastolic murmur, rubs, gallop, clicks GI/Abdominal exam: Soft nontender no MAG no rebound no guarding Extremities exam: No clubbing edema or cyanosis Neurologic: Alert oriented x 3 no gross focal deficit Skin exam: No rashes - Labs CBC & Chem 7: 03/09/25 07:22 03/10/25 07:01 Labs: Abnormal Lab Results - Last 24 Hours (Table) 03/10/25 03/10/25 03/11/25 Range/Units 16:30 19:46 05:38 POC Glucose (mg/dL) 324 H 239 H 191 H (70-110) mg/dL 03/11/25 Range/Units 11:37 POC Glucose (mg/dL) 189 H (70-110) mg/dL Microbiology - Last 24 Hours (Table) 03/08/25 07:25 Blood Culture - Preliminary Blood 03/08/25 07:25 Urine Culture - Final Urine,Voided Pseudomonas aeruginosa Klebsiella pneumo ESBL MDRO Assessment and Plan Assessment: Impression: Acute hypoxic respiratory failure Acute diastolic congestive heart failure Moderate severe mitral regurgitation Atrial fibrillation with RVR Underlying mild COPD Acute urinary tract infection, polymicrobial infection with ESBL/Klebsiella pneumoniae and Pseudomonas, on Invanz History of seizure disorder History of bronchogenic carcinoma Benign essential hypertension History of CVA Chronic medical debility History of rheumatoid arthritis Chronic anemia History of gastric ulcer Recommendation: Continue antibiotics for UTI Continue updrafts Continue diuretics Titrate oxygen accordingly Cardiology is addressing the picture of congestive heart failure and atrial fi brillation patient is on Cardizem and metoprolol Continue anticoagulation therapy with Eliquis Will continue to Time with Patient: Less than 30
[2025-03-11 16:46] LABS: Glucose,Whole Blood 161 mg/dL (70-110)
--- NOTE | 2025-03-11 18:12 | P.PN ---
Progress Note - Text Progress Note Date: 03/11/25 64-year-old female with a history of A-fib (on eliquis), COPD with chronic respiratory failure on 2 L nasal cannula and joint replacements including recent left joint infected prosthesis presenting to emergency department via EMS from [facility] with complaint of difficulty in breathing. Patient states that she was in her room this morning when she woke from her sleep she states that she was drenched in sweat and was having a difficult time breathing. Currently patient states that she is feeling better than she did this morning however still feels mildly short of breath. States episode of sweating this morning is the first time this event has happened. She denies abdominal pain, chest pain, dizziness, lightheadedness. Nausea with no reported emesis, urinary symptoms, known dark or bloody stools. patient is currently on linezolid 2 times a day due to infected left hip prosthesis. Blood work completed in ED reveals a WBC of 11.03, hemoglobin 8.4, platelet count of 425, sodium 135, potassium 4.3, BUN/creatinine of 10/0.49, blood glucose 219, troponin less than 0.012 UA is positive for nitrites and leukocyte esterase with WBCs and bacteria 03/10/2025 - patient is seen and evaluated in room at bedside. Patient is feeling better compared to yesterday. She is resting comfortably in bed. - She is currently on 2 L of oxygen by nasal cannula with a pulse ox of 97%. - Patient remains on IV Lasix and the patient is producing adequate amount of urine output. She is on Lasix 20 mg and push every 12 hours. She is also on IV Invanz and Zyvox. - urine culture was positive for Pseudomonas aeruginosa and ESBL producing Klebsiella-patient is on IV Invanz and Zyvox. - patient is still in atrial fibrillation. She remains slightly tachycardic. She was started on a Cardizem drip that was running at 7.5 mg/min and she was also placed on metoprolol succinate 100 mg p.o. daily. Echocardiogram shows a preserved LV function with an ejection fraction of 55 to 60%. Moderate to severe mitral regurgitation RVSP of 40 with a small pericardial effusion. Patient remains on metoprolol; cardiology is following March 11: Laying in bed. Breathing a bit better. Decreased appetite. Edema present. On IV or ertapenem. IV Solu-Medrol. Symbicort. Has been switched over to p.o. Lasix. On 2 L nasal cannula. Patient being switched over to IV amiodarone 100 twice daily. A-fib controlled. Patient did undergo modified barium swallow today. Did well. Change prednisone to oral Active Medications Acetaminophen (Acetaminophen Tab 325 Mg Tab) 650 mg PO Q6HR PRN PRN Reason: Mild Pain or Fever > 100.5 Hydrocodone Bitart/Acetaminophen (Hydrocodone/Apap 7.5-325mg 1 Each Tab) 1 each PO Q4H PRN PRN Reason: Pain 6-10 Albuterol Sulfate (Albuterol Nebulized 2.5 Mg/3 Ml) 2.5 mg INHALATION RT-QID PRN PRN Reason: Shortness Of Breath Albuterol/Ipratropium (Ipratropium-Albuterol 3 Ml Neb) 3 ml INHALATION RT-Q4H PRN PRN Reason: COPD Amiodarone HCl (Amiodarone 200 Mg Tab) 400 mg PO BID [facility] Apixaban (Apixaban 5 Mg Tab) 5 mg PO BID@0800,1700 [facility]; Protocol Last Admin: 03/11/25 16:56 Dose: 5 mg Atorvastatin Calcium (Atorvastatin 10 Mg Tab) 10 mg PO HS [facility] Last Admin: 03/10/25 21:06 Dose: 10 mg Bisacodyl (Bisacodyl 10 Mg Supp) 10 mg RECTAL Q24H PRN PRN Reason: Constipation Budesonide/Formoterol Fumarate (Symbicort 80-4.5 Mcg Inhaler) 2 puff INHALATION RT-BID [facility] Last Admin: 03/11/25 09:24 Dose: 2 puff Cholecalciferol (Cholecalciferol 125 Mcg (5000 Iu) Tablet) 125 mcg PO DAILY@0800 [facility] Last Admin: 03/11/25 08:10 Dose: 125 mcg Dapagliflozin (Dapagliflozin Propanediol 5 Mg Tablet) 5 mg PO DAILY@0800 [facility] Last Admin: 03/11/25 08:10 Dose: 5 mg Diltiazem HCl (Diltiazem Cd 240 Mg Cap.Er.24h) 240 mg PO DAILY@0800 [facility] Last Admin: 03/11/25 08:09 Dose: 240 mg Duloxetine HCl (Duloxetine Hcl 60 Mg Capsule.Dr) 60 mg PO DAILY@0800 [facility] Last Admin: 03/11/25 08:09 Dose: 60 mg Ferrous Sulfate (Ferrous Sulfate 325 Mg Tab) 325 mg PO TID@0800,1200,1700 [facility] Last Admin: 03/11/25 16:56 Dose: 325 mg Furosemide (Furosemide 20 Mg Tab) 20 mg PO DAILY [facility] Hydralazine HCl (Hydralazine Hcl 20 Mg/Ml 1 Ml Vial) 10 mg IVP Q6HR PRN PRN Reason: Blood Pressure - High Last Admin: 03/10/25 15:01 Dose: 10 mg Hydroxychloroquine Sulfate (Hydroxychloroquine Sulfate 200 Mg Tab) 200 mg PO DAILY@0800 [facility] Last Admin: 03/11/25 08:09 Dose: 200 mg Ertapenem 1 gm/ Sodium (Chloride) 50 mls @ 100 mls/hr IVPB Q24H [facility]; Protocol Last Admin: 03/11/25 15:35 Dose: 100 mls/hr Insulin Glargine (Insulin Glargine (Lantus) 100 Unit/Ml Syr) 20 unit SQ HS [facility] Last Admin: 03/10/25 21:06 Dose: 20 unit Insulin Human Lispro (Insulin Lispro (Humalog) 100 Unit/Ml 10 Ml Vl) 0 unit SQ ACHS [facility]; Protocol Last Admin: 03/11/25 16:56 Dose: 2 unit Linezolid (Linezolid 600 Mg Tab) 600 mg PO Q12H [facility]; Protocol Last Admin: 03/11/25 12:35 Dose: 600 mg Methylprednisolone Sodium Succinate (Methylprednisolone Sod Succi 40 Mg/Ml 1 Ml Vial) 40 mg IV Q8HR [facility] Last Admin: 03/11/25 15:35 Dose: 40 mg Metoprolol Succinate (Metoprolol Succinate (Er) 100 Mg Tab.Er.24h) 100 mg PO DAILY@0800 [facility] Last Admin: 03/11/25 08:10 Dose: 100 mg Naloxone HCl (Naloxone 0.4 Mg/Ml 1 Ml Vial) 0.2 mg IV Q2M PRN PRN Reason: Opioid Reversal Pantoprazole Sodium (Pantoprazole 40 Mg Tablet) 40 mg PO DAILY [facility] Last Admin: 03/11/25 08:09 Dose: 40 mg Senna (Sennosides 8.6 Mg Tab) 8.6 mg PO BID [facility] Last Admin: 03/11/25 08:08 Dose: Not Given Tiotropium Paxton (Tiotropium 2.5 Mcg Inhaler) 2 puff INHALATION RT-DAILY ANTONELLA Last Admin: 03/11/25 09:24 Dose: 2 puff On examination: VITAL SIGNS: [97.7, 84, 14, 133 x 96, 97% 2 L] GENERAL APPEARANCE: Laying in bed, a bit tired. HEENT: Normal external appearance of nose and ear. Oral cavity normal EYES: Pupils equal. Conjunctiva normal. NECK: JVD not raised. Mass not palpable. RESPIRATORY: Respiratory effort normal. Lungs decreased breath. CARDIOVASCULAR: Heart sounds regular. Edema present. ABDOMEN: Soft. Liver and spleen not palpable. No tenderness. No mass palpable. PSYCHIATRY: Alert and oriented x3. Mood and affect normal. INVESTIGATIONS, reviewed in the clinical context: March 10: Potassium 4.5 BUN 16 creatinine 0.5 March 09: White count 2.7 hemoglobin 8 platelets recently 5 UA: Positive for nitrate, leukoesterase Urine culture: Pseudomonas aeruginosa, Klebsiella pneumoniae ESBL MDRO Assessment: -Acute hypoxic respiratory failure; multifactorial; related to acute exacerbation CHF with possible mild exacerbation COPD -Acute exacerbation CHF with preserved LVEF: Better CTA of the chest was noted and the patient has bilateral groundglass pulmonary filtrates with bilateral pleural effusion consistent with CHF. Echocardiogram shows a CHF with preserved LV function with moderate severe mitral regurgitation and mild degree of pulmonary hypertension. Exacerbation of CHF could be related also to A-fib/RVR - Received IV Lasix; now switched over to oral Lasix - Cardiology following -Moderate to severe MR -Persistent atrial fibrillation with RVR initially; currently rate controlled Received IV Cardizem and then IV amiodarone Now on oral amiodarone 400 twice daily. Malik. Cardizem CD to 40 mg a day. Toprol-XL 100 mg a day - Cardiology following -Acute COPD/chronic hypoxic respiratory failure exacerbation: Better - We will continue with home inhaler therapy; continue with O2 per nasal cannula with plans to titrate or wean as able - Pulmonary service on board Changed to p.o. prednisone -Acute UTI, with urine culture positive for Pseudomonas aeruginosa and Klebsiella pneumoniae ESBL/MDRO This was present also on February 25.-Then patient had no urinary symptoms, and felt to be colonization. Disposition patient started on IV ertapenem. Will get opinion from ID - Normocytic anemia. 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 Status post I&D February 10, at [facility].. Cultures grew Streptococcus pneumonia. Patient to continue with Zyvox 600 mg twice daily through March 23. That she will transition to amoxicillin for chronic suppression. Patient to follow-up with her ID and keep appointment. -History of seizure disorder - Recent GI bleed on February 14. Patient underwent EGD with epinephrine cauterization. And clipping. Later resumed on Eliquis. -History of lung cancer; likely neuroendocrine type based on patient's history Most recent PET/CT on 10/28/2024 showed no evidence of any metabolic uptake to suggest any residual disease -Essential hypertension; Toprol. Cardizem -Medical power of traffic law attorney: Son Anton - Primary osteoarthritis and also secondary osteoarthritis from previous surgeries on the left hip - Depression 2 weeks ago seen by psychiatrist Dr. Octavio Patel 60 mg a day - Long-term resident, at [facility]
[2025-03-11 20:10] LABS: Glucose,Whole Blood 153 mg/dL (70-110)
[2025-03-11] MEDS: AMIODARONE 200 MG TAB PO SCH (21:24)
[2025-03-12 06:35] LABS: Glucose,Whole Blood 63 mg/dL (70-110)
--- NOTE | 2025-03-12 06:46 | FL ---
EXAMINATION TYPE: FL barium swallow w video DATE OF EXAM: 03/11/2025 MODIFIED SWALLOW / DEGLUTITION STUDY CLINICAL HISTORY: Dysphagia. Rule out aspiration. TECHNIQUE: Deglutition study is performed utilizing thin liquid barium, honey and nectar thick liqui d barium, barium thick pudding, and barium coated cracker. 2 minutes 42 seconds of fluoro time and 4 0 images obtained. Total dose area product (DAP) in uGy*m?, mGy*cm? (or similar): 212.09 COMPARISON: None. FINDINGS: The oral and pharyngeal phases show satisfactory initiation and propagation with all modali ties tested. Normal mastication is seen with solid modalities tested. There is no evidence of penet ration or aspiration with any modality tested. Minimal pharyngeal residue was appreciated. IMPRESSION: No aspiration identified. Please refer to speech therapist notes for further details if necessary. [facility], , 03/12/2025 6:44 AM
[2025-03-12 06:59] LABS: Glucose,Whole Blood 74 mg/dL (70-110)
[2025-03-12 07:10] LABS: Basophils # (A) 0.01 10*3/uL (0.00-0.10); Basophils % (A) 0.2 %; Lymphocytes # (A) 0.26 10*3/uL (0.90-5.00); Lymphocytes % (A) 5.4 %; MCH 27.5 pg (27.0-32.0); MCV 88.7 fL (80.0-97.0); Mean Platelet Volume 9.5 fL (9.5-12.2); Monocytes # (A) 0.27 10*3/uL (0.20-1.00); Monocytes % (A) 5.6 %; Neutrophils # (A) 4.19 10*3/uL (1.80-7.70); Neutrophils % (A) 87.8 %; Platelet Count 277 10*3/uL (140-440); RBC 3.27 10*6/uL (4.10-5.20); RDW 22.2 % (11.5-14.5); WBC 4.78 10*3/uL (4.50-10.00)
[2025-03-12 08:07] LABS: African American GFR (CKD) >90 (>60 ml/min/1.73 sqM); Anion Gap 6 mmol/L; Blood Urea Nitrogen 16 mg/dL (7-17); Calcium 8.6 mg/dL (8.4-10.2); Carbon Dioxide 31 mmol/L (22-30); Chloride 98 mmol/L (98-107); Glucose 65 mg/dL (74-99); Non-African American GFR(CKD) >90 (>60 ml/min/1.73 sqM); Potassium 3.3 mmol/L (3.5-5.1); Sodium 135 mmol/L (137-145)
[2025-03-12] MEDS: FUROSEMIDE 20 MG TAB PO SCH (09:17)
[2025-03-12] MEDS: predniSONE 20 MG TAB PO SCH (09:17)
[2025-03-12 10:58] VITALS: BMI 29.1
--- NOTE | 2025-03-12 11:09 | P.PN ---
Subjective HISTORY OF PRESENT ILLNESS: This is a 64-year-old female patient of Dr. 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 We have been asked to evaluate the patient for A-fib with RVR. Patient presented to the hospital in A-fib with RVR and is status post IV metoprolol tartrate 5 mg x 2. This morning, patient was in A-fib with RVR up to 200 bpm. We are adding and Cardizem 7.5 mg IV push now followed by Cardizem drip at 7.5 mg/h, metoprolol succinate 100 mg daily. Blood pressure 117/91, pulse ox 97% on room air. Patient came in from [facility] due to difficulty in breathing. She also was having sweating. -EKG: #1 atrial fibrillation at 121 bpm, #2 atrial fibrillation 202 bpm -Chest x-ray: Posterior increasing density may be pleural effusion. -CTA of the chest negative for PE. Diffuse patchy groundglass opacities throughout the lungs with cardiomegaly and small to moderate-sized bilateral pleural effusions. Reactive mediastinal lymphadenopathy likely secondary to #2. Pulmonary artery hypertension. -Laboratory studies: WBC 2.7, hemoglobin 8, creatinine 0.53, D-dimer 1.07, troponin negative x 1, proBNP 2810. Urinalysis positive for UTI. -Home cardiac medications: Eliquis 5 mg twice daily, atorvastatin 10 mg at [facility], Farxiga 5 mg daily, Cardizem 240 mg daily -Echocardiogram performed in the office on 11/12/2024 revealed EF 50 to 55%, mild left ventricular hypertrophy, trace aortic regurgitation, moderate mitral regurgitation, mild tricuspid regurgitation, PASP 35 mmHg. 03/10 Patient seen and examined. She states she is still breathing a little bit hard today. She remains in atrial fibrillation running 100. Rate is much better controlled from yesterday where she was running 200. Yesterday, patient was started on Cardizem bolus 7.5 mg followed by drip at 7.5 mg and continued on metoprolol succinate 100 mg daily. Blood pressure 115/67, pulse ox 95% on 2 L nasal cannula. Repeat blood work reveals creatinine 0.5. Echocardiogram reveals EF 55 to 60%, mild concentric LVH, RVSP 40 mmHg, moderate to severe mitral regurgitation, small pericardial effusion. 03/11/2025 Patient examined this morning at the bedside. Patient is currently undergoing swallow eval by speech therapy. patient currently denies chest pain or pressure. She denies shortness of breath. She denies any dizziness or lightheadedness. She remains in atrial fibrillation with a heart rate in the 80s. She was started on IV amiodarone yesterday afternoon per Dr. Chavarria. 03/12/2025 Patient examined this morning the bedside. Patient currently denies chest pain or pressure. She denies shortness of breath. Telemetry reveals atrial fibrillation with a heart rate in the 80s. PHYSICAL EXAM: VITAL SIGNS: Reviewed. GENERAL: Well-developed in no acute distress. NECK: Supple. No JVD or thyromegaly LUNGS: Respirations even and unlabored. Lungs essentially clear to auscultation bilaterally. HEART: Regular rate and rhythm. S1 and S2 heard. EXTREMITIES: Normal range of motion. No clubbing or cyanosis. Peripheral pulses intact. 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 Signing provider agrees with the documented findings, assessment, and plan of care documented by [employer] as a scribe. Objective - Vital Signs Vital signs: Vital Signs Temp 97.5 F L 03/12/25 09:12 Pulse 92 03/12/25 09:12 Resp 17 03/12/25 09:12 BP 149/94 03/12/25 09:12 Pulse Ox 99 03/12/25 09:12 FiO2 Intake & Output 03/11/25 03/12/25 03/12/25 18:59 06:59 18:59 Intake Total 730 236 Output Total 2100 775 400 Balance -1370 -775 -164 Weight 70 kg 70 kg Intake: Intake, IV Titration 250 Amount Amiodarone 450 mg In 250 Dextrose 5% in Water 250 ml @ 0.5 MG/MIN 16.667 mls/hr IV .Q15H [facility] Rx#: [id number] Oral 480 236 Output: Urine 2100 775 400 Other: Voiding Method External Catheter External Catheter External Catheter # Bowel Movements 1 - Labs CBC & Chem 7: 03/12/25 06:48 03/12/25 06:48 Labs: Abnormal Lab Results - Last 24 Hours (Table) 03/11/25 03/11/25 03/11/25 Range/Units 11:37 16:44 20:09 RBC (4.10-5.20) 10*6/uL Hgb (12.0-15.0) g/dL Hct (37.2-46.3) % MCHC (32.0-37.0) g/dL Immature Gran # (0.00-0.04) 10*3/uL Lymphocytes # (0.90-5.00) 10*3/uL Eosinophils # (0.04-0.35) 10*3/uL Sodium (137-145) mmol/L Potassium (3.5-5.1) mmol/L Carbon Dioxide (22-30) mmol/L Creatinine (0.52-1.04) mg/dL Glucose (74-99) mg/dL POC Glucose (mg/dL) 189 H 161 H 153 H (70-110) mg/dL 03/12/25 03/12/25 03/12/25 Range/Units 06:33 06:48 06:48 RBC 3.27 L (4.10-5.20) 10*6/uL Hgb 9.0 L (12.0-15.0) g/dL Hct 29.0 L (37.2-46.3) % MCHC 31.0 L (32.0-37.0) g/dL Immature Gran # 0.05 H (0.00-0.04) 10*3/uL Lymphocytes # 0.26 L (0.90-5.00) 10*3/uL Eosinophils # 0.00 L (0.04-0.35) 10*3/uL Sodium 135 L (137-145) mmol/L Potassium 3.3 L (3.5-5.1) mmol/L Carbon Dioxide 31 H (22-30) mmol/L Creatinine 0.39 L (0.52-1.04) mg/dL Glucose 65 L (74-99) mg/dL POC Glucose (mg/dL) 63 L (70-110) mg/dL Microbiology - Last 24 Hours (Table) 03/08/25 07:25 Blood Culture - Preliminary Blood
--- NOTE | 2025-03-12 12:28 | P.PN ---
Subjective Progress Note Date: 03/12/25 On 03/09/2025, the patient is being seen in consultation for increased shortness of breath. A 64-year-old female patient with multiple medical problems and comorbidities who presented to the emergency department experiencing worsening shortness of breath and the patient was also in A-fib with rapid ventricular response. The patient was seen by cardiology. The patient was given IV metoprolol 5 mg x 2 and based on her ongoing tachycardia, the patient was started on a Cardizem drip at 7.5 mg an hour. She did she is also on metoprolol 100 mg p.o. daily. She is on anticoagulation with Eliquis. A CTA of the chest was also done and there is no evidence of any pulmonary embolism. There is evidence of diffuse patchy groundglass pulmonary opacities consistent with CHF along with bilateral pleural effusion consistent with CHF. No airspace disease. No consolidation. There is some reactive mediastinal lymphadenopathy. At this point, the patient is less tachycardic. Heart rate is around 105. She is on 2 L of oxygen by nasal cannula with a pulse ox of 93%. On her labs, the patient was also suspected urinary tract infection the patient was started on IV ciprofloxacin. She was also on Zyvox and this was continued based on recent infected left hip hemiarthroplasty for which the patient has undergone further surgical intervention, removal of hardware and reconstruction of the left hip joint at [facility] and she was discharged home on Zyvox. Noted this joint infection was suspected to be related to Streptococcus pneumonia based on a culture that was obtained here in our hospital on 02/10/2025. Previous urine cultures from 02/25/2025 was positive for Pseudomonas aeruginosa and ESBL producing Klebsiella pneumoniae. This patient is known to have COPD, congestive heart failure, preserved LV function with an ejection fraction of 55% and she has also been noted to have mo derate to severe mitral regurgitation and mild RV dilatation with an RVSP of 40 based on echocardiogram that was done on 03/07/2025. She also has, atrial fibrillation, previous history of CVA on multiple occasions, rheumatoid arthritis, seizure disorder, chronic hypoxic respiratory failure in the patient is maintained on oxygen 2 L/min nasal cannula, she also gives a remote history of lung cancer, neuroendocrine type i and details of the treatment for lung cancer is not known. Nevertheless, the most recent PET/CT that was done in 10/28/2024 showed no metabolic activity involving the chest chest suggest any residual disease or malignancy. She also has history of peptic ulcer disease/gastric ulcer and she encountered GI bleeding during her stay at [facility] and the patient underwent EGD and cauterization of the gastric ulcer and subsequently she was restarted on Eliquis. She suffers from chronic anemia. 03/10/2025, patient is being seen for a follow-up. Patient is feeling better compared to yesterday. Less short of breath. She is resting comfortably in bed. She is currently on 2 L of oxygen by nasal cannula with a pulse ox of 97%. No reported fever. No chills. She remains on IV Lasix and the patient is producing adequate amount of urine output. She is on Lasix 20 mg and push every 12 hours. She is also on IV Invanz and Zyvox. Her urine culture was positive for Pseudomonas aeruginosa and ESBL producing Klebsiella. The patient is still in atrial fibrillation. She remains slightly tachycardic. She was started on a Cardizem drip that was running at 7.5 mg/min and she was also placed on metoprolol succinate 100 mg p.o. daily. Echocardiogram shows a preserved LV function with an ejection fraction of 55 to 60%. Moderate to severe mitral regurgitation RVSP of 40 with a small pericardial effusion. The rest of the labs from today show a BUN of 60 mg of 0.5. Sodium levels at 137 and potassium is at 4.5. Seen today on 03/11/2025, patient is feeling better, breathing easier, she is on 2 L nasal cannula less shortness of breath. Swallow evaluation has been done, findings are pending initial admission chest x-ray is suggestive of pulmonary edema, WBC count today is 2.7 hemoglobin is 8, basic metabolic profile is normal renal profile is normal urinalysis is suggestive of ongoing urinary tract infection, cultures are positive for Pseudomonas aeruginosa and Klebsiella pneumonia/ESBL, patient is on Invanz. The patient is seen today March 12, 2025 in follow-up on the selective care unit. She is resting comfortably in bed. Awake and alert in no acute distress. Maintaining O2 saturations in the high 90s on 2 L/min per nasal cannula. She is afebrile. Hemodynamically stable. Barium swallow revealed no evidence of aspiration. Speech therapy recommended a regular diet with thin liquids. Urine culture was positive for Pseudomonas aeruginosa and Klebsiella. Blood culture revealed no growth. White count 4.7. Hemoglobin 9.0. Platelets 277. Sodium 135. Potassium 3.3. Bicarb 31. BUN 16. Creatinine 0.39. Glucose 74. She remains on DuoNeb inhalations, Symbicort, Spiriva. Remains on Solu-Medrol. Remains on oral diuretics. Antibiotics in the form of ertapenem. Anticoagulated with Eliquis. Currently in a -2.1 L balance. Objective - Vital Signs Vital signs: Vital Signs Temp 97.5 F L 03/12/25 11:15 Pulse 100 03/12/25 11:15 Resp 17 03/12/25 11:15 BP 134/83 03/12/25 11:15 Pulse Ox 98 03/12/25 11:15 FiO2 Intake & Output 03/11/25 03/12/25 03/12/25 18:59 06:59 18:59 Intake Total 730 236 Output Total 2100 775 400 Balance -1370 -775 -843 Weight 70 kg 70 kg Intake: Intake, IV Titration 250 Amount Amiodarone 450 mg In 250 Dextrose 5% in Water 250 ml @ 0.5 MG/MIN 16.667 mls/hr IV .Q[facility]H [facility] Rx#: [id number] Oral 480 236 Output: Urine 2100 775 400 Other: Voiding Method External Catheter External Catheter External Catheter # Bowel Movements 1 1 - Exam GENERAL EXAM: Alert, pleasant 64-year-old female, on 2 L nasal cannula, comfortable in no apparent distress. HEAD: Normocephalic. EYES: Normal reaction of pupils, equal size. NOSE: Clear with pink turbinates. THROAT: No erythema or exudates. NECK: No masses, no JVD. CHEST: No chest wall deformity. LUNGS: Equal air entry with faint bibasilar crackles. CVS: S1 and S2 normal with no audible murmur, regular rhythm. ABDOMEN: No hepatosplenomegaly, normal bowel sounds, no guarding or rigidity. SPINE: No scoliosis or deformity SKIN: No rashes CENTRAL NERVOUS SYSTEM: No focal deficits, tone is normal in all 4 extremities. EXTREMITIES: There is no peripheral edema. No clubbing, no cyanosis. Peripheral pulses are intact. - Labs CBC & Chem 7: 03/12/25 06:48 03/12/25 06:48 Labs: Abnormal Lab Results - Last 24 Hours (Table) 03/11/25 03/11/25 03/12/25 Range/Units 16:44 20:09 06:33 RBC (4.10-5.20) 10*6/uL Hgb (12.0-15.0) g/dL Hct (37.2-46.3) % MCHC (32.0-37.0) g/dL Immature Gran # (0.00-0.04) 10*3/uL Lymphocytes # (0.90-5.00) 10*3/uL Eosinophils # (0.04-0.35) 10*3/uL Sodium (137-145) mmol/L Potassium (3.5-5.1) mmol/L Carbon Dioxide (22-30) mmol/L Creatinine (0.52-1.04) mg/dL Glucose (74-99) mg/dL POC Glucose (mg/dL) 161 H 153 H 63 L (70-110) mg/dL 03/12/25 03/12/25 Range/Units 06:48 06:48 RBC 3.27 L (4.10-5.20) 10*6/uL Hgb 9.0 L (12.0-15.0) g/dL Hct 29.0 L (37.2-46.3) % MCHC 31.0 L (32.0-37.0) g/dL Immature Gran # 0.05 H (0.00-0.04) 10*3/uL Lymphocytes # 0.26 L (0.90-5.00) 10*3/uL Eosinophils # 0.00 L (0.04-0.35) 10*3/uL Sodium 135 L (137-145) mmol/L Potassium 3.3 L (3.5-5.1) mmol/L Carbon Dioxide 31 H (22-30) mmol/L Creatinine 0.39 L (0.52-1.04) mg/dL Glucose 65 L (74-99) mg/dL POC Glucose (mg/dL) (70-110) mg/dL Microbiology - Last 24 Hours (Table) 03/08/25 07:25 Blood Culture - Preliminary Blood Assessment and Plan Assessment: Acute hypoxic respiratory failure secondary to an acute exacerbation of diastolic congestive heart failure Moderate severe mitral regurgitation Atrial fibrillation with RVR Underlying mild COPD Acute urinary tract infection, polymicrobial infection with ESBL/Klebsiella pneumoniae and Pseudomonas, on Invanz History of seizure disorder History of bronchogenic carcinoma Benign essential hypertension History of CVA Chronic medical debility History of rheumatoid arthritis Chronic anemia History of gastric ulcer Plan: The patient was seen and evaluated Labs and medications reviewed Titrate down the FiO2 as tolerated Continue Solu-Medrol Initiated prednisone taper Continue Symbicort, Spiriva Continue bronco DuoNeb and elations Anticoagulated with Eliquis Antibiotics per ID service Currently on ertapenem Will switch to oral antibiotics at discharge Plan is to return to [facility] I have personally seen and examined the patient, performed the documentation and the assessment and plan as written. Number of minutes spent on the visit: 10 Dictation was produced using [employer] dictation software. Please excuse any grammatical, word or spelling errors.
[2025-03-12 12:29] LABS: Glucose,Whole Blood 146 mg/dL (70-110)
[2025-03-12] MEDS: POTASSIUM CHLORIDE ER 20 MEQ TAB.ER PO SCH (12:32)
[2025-03-12 16:31] LABS: Glucose,Whole Blood 146 mg/dL (70-110)
--- NOTE | 2025-03-12 19:36 | P.PN ---
Progress Note - Text Progress Note Date: 03/12/25 64-year-old female with a history of A-fib (on eliquis), COPD with chronic respiratory failure on 2 L nasal cannula and joint replacements including recent left joint infected prosthesis presenting to emergency department via EMS from [facility] with complaint of difficulty in breathing. Patient states that she was in her room this morning when she woke from her sleep she states that she was drenched in sweat and was having a difficult time breathing. Currently patient states that she is feeling better than she did this morning however still feels mildly short of breath. States episode of sweating this morning is the first time this event has happened. She denies abdominal pain, chest pain, dizziness, lightheadedness. Nausea with no reported emesis, urinary symptoms, known dark or bloody stools. patient is currently on linezolid 2 times a day due to infected left hip prosthesis. Blood work completed in ED reveals a WBC of 11.03, hemoglobin 8.4, platelet count of 425, sodium 135, potassium 4.3, BUN/creatinine of 10/0.49, blood glucose 219, troponin less than 0.012 UA is positive for nitrites and leukocyte esterase with WBCs and bacteria 03/10/2025 - patient is seen and evaluated in room at bedside. Patient is feeling better compared to yesterday. She is resting comfortably in bed. - She is currently on 2 L of oxygen by nasal cannula with a pulse ox of 97%. - Patient remains on IV Lasix and the patient is producing adequate amount of urine output. She is on Lasix 20 mg and push every 12 hours. She is also on IV Invanz and Zyvox. - urine culture was positive for Pseudomonas aeruginosa and ESBL producing Klebsiella-patient is on IV Invanz and Zyvox. - patient is still in atrial fibrillation. She remains slightly tachycardic. She was started on a Cardizem drip that was running at 7.5 mg/min and she was also placed on metoprolol succinate 100 mg p.o. daily. Echocardiogram shows a preserved LV function with an ejection fraction of 55 to 60%. Moderate to severe mitral regurgitation RVSP of 40 with a small pericardial effusion. Patient remains on metoprolol; cardiology is following March 11: Laying in bed. Breathing a bit better. Decreased appetite. Edema present. On IV or ertapenem. IV Solu-Medrol. Symbicort. Has been switched over to p.o. Lasix. On 2 L nasal cannula. Patient being switched over to po amiodarone 100 twice daily. A-fib controlled. Patient did undergo modified barium swallow today. Did well. Change prednisone to oral March 12: Feeling better. Seen by ID. Discussed with Dr. Herrera. 1 more day of IV ertapenem that can be discontinued tomorrow. Plan for discharge tomorrow. Active Medications Acetaminophen (Acetaminophen Tab 325 Mg Tab) 650 mg PO Q6HR PRN PRN Reason: Mild Pain or Fever > 100.5 Hydrocodone Bitart/Acetaminophen (Hydrocodone/Apap 7.5-325mg 1 Each Tab) 1 each PO Q4H PRN PRN Reason: Pain 6-10 Albuterol Sulfate (Albuterol Nebulized 2.5 Mg/3 Ml) 2.5 mg INHALATION RT-QID PRN PRN Reason: Shortness Of Breath Albuterol/Ipratropium (Ipratropium-Albuterol 3 Ml Neb) 3 ml INHALATION RT-Q4H PRN PRN Reason: COPD Amiodarone HCl (Amiodarone 200 Mg Tab) 400 mg PO BID [facility] Last Admin: 03/12/25 09:16 Dose: 400 mg Apixaban (Apixaban 5 Mg Tab) 5 mg PO BID@0800,1700 [facility]; Protocol Last Admin: 03/12/25 15:56 Dose: 5 mg Atorvastatin Calcium (Atorvastatin 10 Mg Tab) 10 mg PO [facility] Last Admin: 03/11/25 21:24 Dose: 10 mg Bisacodyl (Bisacodyl 10 Mg Supp) 10 mg RECTAL Q24H PRN PRN Reason: Constipation Budesonide/Formoterol Fumarate (Symbicort 80-4.5 Mcg Inhaler) 2 puff INHALATION RT-BID [facility] Last Admin: 03/12/25 08:36 Dose: 2 puff Cholecalciferol (Cholecalciferol 125 Mcg (5000 Iu) Tablet) 125 mcg PO DAILY@0800 [facility] Last Admin: 03/12/25 09:16 Dose: 125 mcg Dapagliflozin (Dapagliflozin Propanediol 5 Mg Tablet) 5 mg PO DAILY@0800 [facility] Last Admin: 03/12/25 09:17 Dose: 5 mg Diltiazem HCl (Diltiazem Cd 240 Mg Cap.Er.24h) 240 mg PO DAILY@0800 [facility] Last Admin: 03/12/25 09:17 Dose: 240 mg Duloxetine HCl (Duloxetine Hcl 60 Mg Capsule.Dr) 60 mg PO DAILY@0800 [facility] Last Admin: 03/12/25 09:16 Dose: 60 mg Ferrous Sulfate (Ferrous Sulfate 325 Mg Tab) 325 mg PO TID@0800,1200,1700 [facility] Last Admin: 03/12/25 15:56 Dose: 325 mg Furosemide (Furosemide 20 Mg Tab) 20 mg PO DAILY [facility] Last Admin: 03/12/25 09:17 Dose: 20 mg Hydroxychloroquine Sulfate (Hydroxychloroquine Sulfate 200 Mg Tab) 200 mg PO DAILY@0800 [facility] Last Admin: 03/12/25 09:16 Dose: 200 mg Ertapenem 1 gm/ Sodium (Chloride) 50 mls @ 100 mls/hr IVPB Q24H [facility]; Protocol Last Admin: 03/12/25 15:56 Dose: 100 mls/hr Insulin Glargine (Insulin Glargine (Lantus) 100 Unit/Ml Syr) 20 unit SQ HS [facility] Last Admin: 03/11/25 21:24 Dose: 20 unit Insulin Human Lispro (Insulin Lispro (Humalog) 100 Unit/Ml 10 Ml Vl) 0 unit SQ ACHS [facility]; Protocol Last Admin: 03/12/25 16:56 Dose: Not Given Linezolid (Linezolid 600 Mg Tab) 600 mg PO Q12H [facility]; Protocol Last Admin: 03/12/25 12:32 Dose: 600 mg Metoprolol Succinate (Metoprolol Succinate (Er) 100 Mg Tab.Er.24h) 100 mg PO DAILY@0800 [facility] Last Admin: 03/12/25 09:16 Dose: 100 mg Naloxone HCl (Naloxone 0.4 Mg/Ml 1 Ml Vial) 0.2 mg IV Q2M PRN PRN Reason: Opioid Reversal Pantoprazole Sodium (Pantoprazole 40 Mg Tablet) 40 mg PO DAILY [facility] Last Admin: 03/12/25 09:16 Dose: 40 mg Prednisone (Prednisone 20 Mg Tab) 40 mg PO DAILY [facility] Last Admin: 03/12/25 09:17 Dose: 40 mg Senna (Sennosides 8.6 Mg Tab) 8.6 mg PO BID [facility] Last Admin: 03/12/25 09:18 Dose: Not Given Tiotropium Luck (Tiotropium 2.5 Mcg Inhaler) 2 puff INHALATION RT-DAILY [facility] Last Admin: 03/12/25 08:37 Dose: 2 puff On examination: VITAL SIGNS: 37.5, 99, 17, 1 3684, 100% 2 L GENERAL APPEARANCE: Laying in bed, comfortable HEENT: Normal external appearance of nose and ear. Oral cavity normal EYES: Pupils equal. Conjunctiva normal. NECK: JVD not raised. Mass not palpable. RESPIRATORY: Respiratory effort normal. Lungs decreased breath. CARDIOVASCULAR: Heart sounds irregular. Edema present. ABDOMEN: Soft. Liver and spleen not palpable. No tenderness. No mass palpable. PSYCHIATRY: Alert and oriented x3. Mood and affect normal. INVESTIGATIONS, reviewed in the clinical context: March 12: Potassium 3.3 creatinine 0.39 white count 4.7 hemoglobin 9 March 10: Potassium 4.5 BUN 16 creatinine 0.5 March 09: White count 2.7 hemoglobin 8 platelets recently 5 UA: Positive for nitrate, leukoesterase Urine culture: Pseudomonas aeruginosa, Klebsiella pneumoniae ESBL MDRO Assessment: -Acute hypoxic respiratory failure; multifactorial; related to acute exacerbation CHF with possible mild exacerbation COPD -Acute exacerbation CHF with preserved LVEF: Better CTA of the chest was noted and the patient has bilateral groundglass pulmonary f iltrates with bilateral pleural effusion consistent with CHF. Echocardiogram shows a CHF with preserved LV function with moderate severe mitral regurgitation and mild degree of pulmonary hypertension. Exacerbation of CHF could be related also to A-fib/RVR - Received IV Lasix; now switched over to oral Lasix - Cardiology following -Moderate to severe MR -Persistent atrial fibrillation with RVR initially; currently rate controlled Received IV Cardizem and then IV amiodarone Now on oral amiodarone 400 twice daily. Eliquis. Cardizem CD to 40 mg a day. Toprol-XL 100 mg a day - Cardiology following -Acute COPD/chronic hypoxic respiratory failure exacerbation: Better - We will continue with home inhaler therapy; continue with O2 per nasal cannula with plans to titrate or wean as able - Pulmonary service on board Changed to p.o. prednisone -Acute UTI, with urine culture positive for Pseudomonas aeruginosa and Klebsiella pneumoniae ESBL/MDRO This was present also on February 25.-Then patient had no urinary symptoms, and felt to be colonization. This admission patient started on IV ertapenem. Seen by ID: 1 more day of IV ertapenem tomorrow - Normocytic anemia. 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 Status post I&D February 10, at [facility].. Cultures grew Streptococcus pneumonia. Patient to continue with Zyvox 600 mg twice daily through March 23. That she will transition to amoxicillin for chronic suppression. Patient to follow-up with her ID and keep appointment. -History of seizure disorder - Recent GI bleed on February 14. Patient underwent EGD with epinephrine cauterization. And clipping. Later resumed on Eliquis. -History of lung cancer; likely neuroendocrine type based on patient's history Most recent PET/CT on 10/28/2024 showed no evidence of any metabolic uptake to suggest any residual disease -Essential hypertension; Toprol. Cardizem -Medical power of employment law attorney: Son Anton - Primary osteoarthritis and also secondary osteoarthritis from previous surgeries on the left hip - Depression 2 weeks ago seen by psychiatrist Dr. Cunningham Cymbalta 60 mg a day - Long-term resident, at [facility] Cut back prednisone. Decrease Lantus. Plan for discharge to [facility] tomorrow.
[2025-03-12 20:12] LABS: Glucose,Whole Blood 200 mg/dL (70-110)
[2025-03-12] MEDS: INSULIN GLARGINE (LANTUS) 100 UNIT/ML SYR SQ SCH (21:39)
[2025-03-13 02:02] LABS: Appearance,Urine Turbid (Clear); Bacteria,Urine Few /hpf; Bilirubin,Urine 1+ (Negative); Blood,Urine Moderate (Negative); Budding Yeast,Urine Many /hpf; Calcium Oxalate Crystals,Urine Many /hpf; Color,Urine Light Red; Glucose,Urine (UA) 3+ (Negative); Ketones,Urine Negative (Negative); Leukocyte Esterase,Urine Large (Negative); Mucus,Urine Rare /hpf; Nitrite,Urine Negative (Negative); Protein,Urine 1+ (Negative); RBC,Urine >182 /hpf (0-5); Specific Gravity,Urine 1.033 (1.001-1.035); WBC,Urine 8 /hpf (0-5)
[2025-03-13 05:46] LABS: Glucose,Whole Blood 141 mg/dL (70-110)
--- NOTE | 2025-03-13 08:41 | P.CONS ---
History of Present Illness - Reason for Consult Consult date: 03/12/25 Positive urine culture Requesting physician: Popeye Barksdale - Chief Complaint Shortness of breath x 1 day on admission - History of Present Illness Patient is a 64-year-old female with a past medical history significant for COPD CVA TIA seizure disorder atrial fibrillation presenting to the hospital about 4 days ago for evaluation of increasing shortness of breath. The patient symptoms started the day of presentation to the hospital patient denies having any chest pain significant cough or URI symptoms no nausea vomiting no abdominal pain or any diarrhea on presentation to the hospital patient was afebrile and no fever have been recorded subsequently patient was tachycardic but not hypotensive hypoxic currently on 2 L nasal cannula oxygen, patient did have mild elevated white count of 11.03 on admission that has subsequently normalized creatinine was normal she did have a positive UA that has been treated with Invanz 1 g daily urine culture is now growing ESBL Klebsiella and Pseudomonas aeruginosa blood pressure has been negative patient did have a chest x-ray posteriorly increasing density he may be a pleural effusion and cardiomegaly patient did have a CT angiogram of the chest moderate size bilateral effusion with compressive atelectasis patchy consulted opacity within the posterior aspect of the right upper lobe, finding was suggestive of possible CHF as the patient volume overload with pulmonary edema diffuse anasarca versus superimposed infection infectious disease was consulted for further management of antibiotic therapy, patient currently denies having any urinary burning or frequency suprapubic or flank pain Review of Systems Positive point and negatives has been mentioned in the HPI, complete review of systems was performed and all other systems are negative Past Medical History Past Medical History: Atrial Fibrillation, COPD, CVA/TIA, Seizure Disorder Additional Past Medical History / Comment(s): Rheumaoid arthritis, CHF, COPD, Cancer to lungs, CVA x 3, Miscarriages, Multiple personality disorder, low hgb, pre-diabetic History of Any Multi-Drug Resistant Organisms: ESBL Year Discovered:: 03/08/25 MDRO Source:: urine Past Surgical History: Adenoidectomy, Section, Tonsillectomy Additional Past Surgical History / Comment(s): hip replacement x 6 r/t juvenile rheumatoid arthritis, Last time February 2025, 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, Past Anesthesia/Blood Transfusion Reactions: No Reported Reaction Additional Past Anesthesia/Blood Transfusion Reaction / Comm: hard to intubate. Second and Third vetebre are fragile per pt Past Psychological History: Bipolar, Depression Smoking Status: Former smoker Past Alcohol Use History: Occasional Past Drug Use History: None Reported - Past Family History Mother Family Medical History: Congestive Heart Failure (CHF) Father Additional Family Medical History / Comment(s): Fibrosycrosis Medications and Allergies Home Medications Medication Instructions Recorded Confirmed Type Apixaban [Eliquis] 5 mg PO BID@0800,1700 11/16/24 03/08/25 History Metoprolol Succinate [Toprol XL] 100 mg PO DAILY@0800 11/16/24 03/08/25 History Tiotropium Debord [Spiriva 1 puff INHALATION RT-DAILY@0800 11/16/24 03/08/25 History Handihaler] Cholecalciferol [Vitamin D3 (25 125 mcg PO DAILY@0800 01/30/25 03/08/25 History Mcg = 1000 Iu)] Ferrous Sulfate [Iron (65 MG 325 mg PO TID@0800,1200,1700 01/30/25 03/08/25 History Elemental)] Hydroxychloroquine Sulfate 200 mg PO DAILY@0800 02/26/25 03/08/25 History [Plaquenil] dilTIAZem HCL [dilTIAZem HCL 24Hr 240 mg PO DAILY@0800 02/26/25 03/08/25 History ER ([place])] Acetaminophen Tab [Tylenol Tab] 500 mg PO Q8H PRN 03/08/25 03/08/25 History Albuterol Sulfate [Ventolin HFA] 1 puff INHALATION RT-QID PRN 03/08/25 03/08/25 History Atorvastatin [Lipitor] 10 mg PO HS 03/08/25 03/08/25 History DULoxetine HCL [Cymbalta] 60 mg PO DAILY@0800 03/08/25 03/08/25 History Dapagliflozin Propanediol [Farxiga] 5 mg PO DAILY@0800 03/08/25 03/08/25 History Fluticasone Propion/Salmeterol 1 puff INHALATION RT-BID 03/08/25 03/08/25 History [Advair 250-50 Diskus] HYDROcodone/APAP 7.5-325MG [Chestnut 1 tab PO Q4H PRN 03/08/25 03/08/25 History 7.5-325] INSULIN ASPART (NovoLOG) [NovoLOG See Protocol SQ ACHS 03/08/25 03/08/25 History (formulary)] Ipratropium-Albuterol Nebulize 3 ml INHALATION RT-Q4H PRN 03/08/25 03/08/25 History [Duoneb 0.5 mg-3 mg/3 ml Soln] Linezolid [Zyvox] 600 mg PO Q12H 03/08/25 03/08/25 History Magnesium Hydroxide [Milk of 7,200 mg PO DAILY PRN 03/08/25 03/08/25 History Magnesia Concentrate] Na Phos,M-B/Na Phos,Di-Ba [Fleet 133 ml RECTAL DAILY PRN 03/08/25 03/08/25 History Adult] Omeprazole 40 mg PO BID 03/08/25 03/08/25 History Ondansetron [Zofran] 4 mg PO Q6H PRN 03/08/25 03/08/25 History Sennosides [Senokot] 8.6 mg PO BID 03/08/25 03/08/25 History bisacodyL [Dulcolax] 10 mg RECTAL Q24H PRN 03/08/25 03/08/25 History polyethylene glycoL 3350 [Miralax] 17 gm PO DAILY PRN 03/08/25 03/08/25 History Allergies Allergy/AdvReac Type Severity Reaction Status Date / Time codeine AdvReac Nausea Verified 03/08/25 11:08 Physical Exam Vitals: Vital Signs Temp Pulse Resp BP Pulse Ox 03/12/25 09:12 97.5 F L 92 17 149/94 99 03/12/25 03:35 97.7 F 89 16 142/85 99 03/11/25 23:30 98.0 F 87 16 150/97 99 03/11/25 20:14 97.7 F 107 H 16 145/90 99 03/11/25 16:54 97.7 F 84 14 163/96 97 03/11/25 11:17 97.9 F 89 16 150/93 92 L Intake and Output 03/11/25 03/12/25 03/12/25 22:59 06:59 14:59 Intake Total 240 236 Output Total 775 400 Balance 240 -290 -546 Intake: Oral 240 236 Output: Urine 775 400 Other: Voiding Method External Catheter External Catheter External Catheter # Bowel Movements 1 Weight 70 kg 70 kg GENERAL DESCRIPTION: Elderly female lying in bed, no distress. No tachypnea or accessory muscle of respiration use. HEENT: Shows Pallor , no scleral icterus. Oral mucous membrane is dry. NECK: Trachea central, no thyromegaly. LUNGS: Unlabored breathing. Decreased breath sound at the base HEART: S1, S2, regular rate and rhythm. No loud murmur ABDOMEN: Soft, no tenderness , guarding or rigidity, no organomegaly EXTREMITIES: No edema of feet. SKIN: No rash, no masses palpable. NEUROLOGICAL: The patient is awake, alert, oriented x3, mood and affect normal. Results CBC & Chem 7: 03/12/25 06:48 03/12/25 06:48 Labs: Abnormal Lab Results - Last 24 Hours (Table) 03/11/25 03/11/25 03/11/25 Range/Units 11:37 16:44 20:09 RBC (4.10-5.20) 10*6/uL Hgb (12.0-15.0) g/dL Hct (37.2-46.3) % MCHC (32.0-37.0) g/dL Immature Gran # (0.00-0.04) 10*3/uL Lymphocytes # (0.90-5.00) 10*3/uL Eosinophils # (0.04-0.35) 10*3/uL Sodium (137-145) mmol/L Potassium (3.5-5.1) mmol/L Carbon Dioxide (22-30) mmol/L Creatinine (0.52-1.04) mg/dL Glucose (74-99) mg/dL POC Glucose (mg/dL) 189 H 161 H 153 H (70-110) mg/dL 03/12/25 03/12/25 03/12/25 Range/Units 06:33 06:48 06:48 RBC 3.27 L (4.10-5.20) 10*6/uL Hgb 9.0 L (12.0-15.0) g/dL Hct 29.0 L (37.2-46.3) % MCHC 31.0 L (32.0-37.0) g/dL Immature Gran # 0.05 H (0.00-0.04) 10*3/uL Lymphocytes # 0.26 L (0.90-5.00) 10*3/uL Eosinophils # 0.00 L (0.04-0.35) 10*3/uL Sodium 135 L (137-145) mmol/L Potassium 3.3 L (3.5-5.1) mmol/L Carbon Dioxide 31 H (22-30) mmol/L Creatinine 0.39 L (0.52-1.04) mg/dL Glucose 65 L (74-99) mg/dL POC Glucose (mg/dL) 63 L (70-110) mg/dL Microbiology - Last 24 Hours (Table) 03/08/25 07:25 Blood Culture - Preliminary Blood Assessment and Plan (1) Positive urine culture Current Visit: Yes Status: Acute Code(s): R82.79 - OTHER ABNORMAL FINDINGS ON MICROBIOLOG EXAMINATION OF URINE SNOMED Code(s): 961827730 (2) 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) producing Klebsiella oxy toca Current Visit: Yes Status: Acute Code(s): Z22.358 - CARRIER OF OTHER ENTEROBACTERALES SNOMED Code(s): 60816639 Plan: 1patient with a positive urine culture growing both ESBL Klebsiella as well as Pseudomonas aeruginosa however the patient currently do not have any symptoms to suggest UTI with no burning frequency suprapubic or flank pain patient did not have any fever on presentation to hospital mildly elevated white count that has subsequently normalized, her pulmonary symptoms are being attributed to CHF exacerbation both by pulmonary and cardiology who has been seeing the patient over the last 4 days rather than pneumonia 2will recommend to discontinue Invanz and monitor the patient closely off antibiotic therapy We will follow on clinical condition and cultures to further adjust medication if needed Thank you for this consultation we will follow the patient along with you Dictation was produced using W[employer] dictation software. please excuse any grammatical, word or spelling errors. Time with Patient: Greater than 30
[2025-03-13] MEDS: predniSONE 10 MG TAB PO SCH (08:49)
[2025-03-13] MEDS: IPRATROPIUM-ALBUTEROL 3 ML NEB INHALATION PRN (09:52)
[2025-03-13 11:22] LABS: Glucose,Whole Blood 165 mg/dL (70-110)
--- NOTE | 2025-03-13 11:46 | P.PN ---
Subjective HISTORY OF PRESENT ILLNESS: This is a 64-year-old female patient of Dr. 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 We have been asked to evaluate the patient for A-fib with RVR. Patient presented to the hospital in A-fib with RVR and is status post IV metoprolol tartrate 5 mg x 2. This morning, patient was in A-fib with RVR up to 200 bpm. We are adding and Cardizem 7.5 mg IV push now followed by Cardizem drip at 7.5 mg/h, metoprolol succinate 100 mg daily. Blood pressure 117/91, pulse ox 97% on room air. Patient came in from [facility] due to difficulty in breathing. She also was having sweating. -EKG: #1 atrial fibrillation at 121 bpm, #2 atrial fibrillation 202 bpm -Chest x-ray: Posterior increasing density may be pleural effusion. -CTA of the chest negative for PE. Diffuse patchy groundglass opacities throughout the lungs with cardiomegaly and small to moderate-sized bilateral pleural effusions. Reactive mediastinal lymphadenopathy likely secondary to #2. Pulmonary artery hypertension. -Laboratory studies: WBC 2.7, hemoglobin 8, creatinine 0.53, D-dimer 1.07, troponin negative x 1, proBNP 2810. Urinalysis positive for UTI. -Home cardiac medications: Eliquis 5 mg twice daily, atorvastatin 10 mg at [facility], Farxiga 5 mg daily, Cardizem 240 mg daily -Echocardiogram performed in the office on 11/12/2024 revealed EF 50 to 55%, mild left ventricular hypertrophy, trace aortic regurgitation, moderate mitral regurgitation, mild tricuspid regurgitation, PASP 35 mmHg. 03/10 Patient seen and examined. She states she is still breathing a little bit hard today. She remains in atrial fibrillation running 100. Rate is much better controlled from yesterday where she was running 200. Yesterday, patient was started on Cardizem bolus 7.5 mg followed by drip at 7.5 mg and continued on metoprolol succinate 100 mg daily. Blood pressure 115/67, pulse ox 95% on 2 L nasal cannula. Repeat blood work reveals creatinine 0.5. Echocardiogram reveals EF 55 to 60%, mild concentric LVH, RVSP 40 mmHg, moderate to severe mitral regurgitation, small pericardial effusion. 03/11/2025 Patient examined this morning at the bedside. Patient is currently undergoing swallow eval by speech therapy. patient currently denies chest pain or pressure. She denies shortness of breath. She denies any dizziness or lightheadedness. She remains in atrial fibrillation with a heart rate in the 80s. She was started on IV amiodarone yesterday afternoon per Dr. Chavarria. 03/12/2025 Patient examined this morning the bedside. Patient currently denies chest pain or pressure. She denies shortness of breath. Telemetry reveals atrial fibrillation with a heart rate in the 80s. 03/13/2025 Patient examined this morning at the bedside. Patient currently denies chest pain or pressure. She denies shortness of breath. Telemetry reveals atrial fibrillation with controlled ventricular rate. PHYSICAL EXAM: VITAL SIGNS: Reviewed. GENERAL: Well-developed in no acute distress. NECK: Supple. No JVD or thyromegaly LUNGS: Respirations even and unlabored. Lungs essentially clear to auscultation bilaterally. HEART: Irregular rate and rhythm. S1 and S2 heard. EXTREMITIES: Normal range of motion. No clubbing or cyanosis. Peripheral pulses intact. 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 Please reconsult if needed. Nurse practitioner note has been reviewed by physician. Signing provider agrees with the documented findings, assessment, and plan of care documented by PROFESSOR OF PHYSICS as a scribe. Objective - Vital Signs Vital signs: Vital Signs Temp 97.5 F L 03/13/25 08:45 Pulse 83 03/13/25 10:01 Resp 16 03/13/25 08:45 BP 136/91 03/13/25 08:45 Pulse Ox 100 03/13/25 09:54 FiO2 Intake & Output 04/29/25 04/30/25 04/30/25 18:59 06:59 18:59 Intake Total 638 0 Output Total 400 150 200 Balance 238 -150 -200 Weight 70 kg Intake: Oral 638 0 Output: Urine 400 150 200 Other: Voiding Method External Catheter External Catheter # Bowel Movements 1 - Labs CBC & Chem 7: 03/12/25 06:48 03/12/25 06:48 Labs: Abnormal Lab Results - Last 24 Hours (Table) 03/12/25 03/12/25 03/12/25 Range/Units 12:26 16:30 20:12 POC Glucose (mg/dL) 146 H 146 H 200 H (70-110) mg/dL Urine Appearance (Clear) Urine Protein (Negative) Urine Glucose (UA) (Negative) Urine Blood (Negative) Urine Bilirubin (Negative) Ur Leukocyte Esterase (Negative) Urine RBC (0-5) /hpf Urine WBC (0-5) /hpf Calcium Oxalate Crystal (None) /hpf Urine Bacteria (None) /hpf Urine Mucus (None) /hpf Urine Yeast (Budding) (None) /hpf 03/13/25 03/13/25 Range/Units 01:17 05:45 POC Glucose (mg/dL) 141 H (70-110) mg/dL Urine Appearance Turbid H (Clear) Urine Protein 1+ H (Negative) Urine Glucose (UA) 3+ H (Negative) Urine Blood Moderate H (Negative) Urine Bilirubin 1+ H (Negative) Ur Leukocyte Esterase Large H (Negative) Urine RBC >182 H (0-5) /hpf Urine WBC 8 H (0-5) /hpf Calcium Oxalate Crystal Many H (None) /hpf Urine Bacteria Few H (None) /hpf Urine Mucus Rare H (None) /hpf Urine Yeast (Budding) Many H (None) /hpf
--- NOTE | 2025-03-13 12:39 | P.PN ---
Subjective Progress Note Date: 03/13/25 On 03/09/2025, the patient is being seen in consultation for increased shortness of breath. A 64-year-old female patient with multiple medical problems and comorbidities who presented to the emergency department experiencing worsening shortness of breath and the patient was also in A-fib with rapid ventricular response. The patient was seen by cardiology. The patient was given IV metoprolol 5 mg x 2 and based on her ongoing tachycardia, the patient was started on a Cardizem drip at 7.5 mg an hour. She did she is also on metoprolol 100 mg p.o. daily. She is on anticoagulation with Eliquis. A CTA of the chest was also done and there is no evidence of any pulmonary embolism. There is evidence of diffuse patchy groundglass pulmonary opacities consistent with CHF along with bilateral pleural effusion consistent with CHF. No airspace disease. No consolidation. There is some reactive mediastinal lymphadenopathy. At this point, the patient is less tachycardic. Heart rate is around 105. She is on 2 L of oxygen by nasal cannula with a pulse ox of 93%. On her labs, the patient was also suspected urinary tract infection the patient was started on IV ciprofloxacin. She was also on Zyvox and this was continued based on recent infected left hip hemiarthroplasty for which the patient has undergone further surgical intervention, removal of hardware and reconstruction of the left hip joint at [facility] and she was discharged home on Zyvox. Noted this joint infection was suspected to be related to Streptococcus pneumonia based on a culture that was obtained here in our hospital on 02/10/2025. Previous urine cultures from 02/25/2025 was positive for Pseudomonas aeruginosa and ESBL producing Klebsiella pneumoniae. This patient is known to have COPD, congestive heart failure, preserved LV function with an ejection fraction of 55% and she has also been noted to have mo derate to severe mitral regurgitation and mild RV dilatation with an RVSP of 40 based on echocardiogram that was done on 03/07/2025. She also has, atrial fibrillation, previous history of CVA on multiple occasions, rheumatoid arthritis, seizure disorder, chronic hypoxic respiratory failure in the patient is maintained on oxygen 2 L/min nasal cannula, she also gives a remote history of lung cancer, neuroendocrine type i and details of the treatment for lung cancer is not known. Nevertheless, the most recent PET/CT that was done in 10/28/2024 showed no metabolic activity involving the chest chest suggest any residual disease or malignancy. She also has history of peptic ulcer disease/gastric ulcer and she encountered GI bleeding during her stay at [facility] and the patient underwent EGD and cauterization of the gastric ulcer and subsequently she was restarted on Eliquis. She suffers from chronic anemia. 03/10/2025, patient is being seen for a follow-up. Patient is feeling better compared to yesterday. Less short of breath. She is resting comfortably in bed. She is currently on 2 L of oxygen by nasal cannula with a pulse ox of 97%. No reported fever. No chills. She remains on IV Lasix and the patient is producing adequate amount of urine output. She is on Lasix 20 mg and push every 12 hours. She is also on IV Invanz and Zyvox. Her urine culture was positive for Pseudomonas aeruginosa and ESBL producing Klebsiella. The patient is still in atrial fibrillation. She remains slightly tachycardic. She was started on a Cardizem drip that was running at 7.5 mg/min and she was also placed on metoprolol succinate 100 mg p.o. daily. Echocardiogram shows a preserved LV function with an ejection fraction of 55 to 60%. Moderate to severe mitral regurgitation RVSP of 40 with a small pericardial effusion. The rest of the labs from today show a BUN of 60 mg of 0.5. Sodium levels at 137 and potassium is at 4.5. Seen today on 03/11/2025, patient is feeling better, breathing easier, she is on 2 L nasal cannula less shortness of breath. Swallow evaluation has been done, findings are pending initial admission chest x-ray is suggestive of pulmonary edema, WBC count today is 2.7 hemoglobin is 8, basic metabolic profile is normal renal profile is normal urinalysis is suggestive of ongoing urinary tract infection, cultures are positive for Pseudomonas aeruginosa and Klebsiella pneumonia/ESBL, patient is on Invanz. The patient is seen today March 12, 2025 in follow-up on the selective care unit. She is resting comfortably in bed. Awake and alert in no acute distress. Maintaining O2 saturations in the high 90s on 2 L/min per nasal cannula. She is afebrile. Hemodynamically stable. Barium swallow revealed no evidence of aspiration. Speech therapy recommended a regular diet with thin liquids. Urine culture was positive for Pseudomonas aeruginosa and Klebsiella. Blood culture revealed no growth. White count 4.7. Hemoglobin 9.0. Platelets 277. Sodium 135. Potassium 3.3. Bicarb 31. BUN 16. Creatinine 0.39. Glucose 74. She remains on DuoNeb inhalations, Symbicort, Spiriva. Remains on Solu-Medrol. Remains on oral diuretics. Antibiotics in the form of ertapenem. Anticoagulated with Eliquis. Currently in a -2.1 L balance. The patient is seen today March 13, 2025 in follow-up on the selective care unit. She is awake and alert in no acute distress. Denies any worsening shortness of breath, cough or congestion. Maintaining good O2 saturations up to 100% on 2 L/min per nasal cannula. Afebrile. Hemodynamically stable. Urine culture was positive for Pseudomonas and Klebsiella. She has been transitioned to Zyvox. Glucose 165. She remains on Spiriva, Symbicort and albuterol. Continued on a prednisone taper. Anticoagulated with Eliquis. Remains on oral diuretics. Objective - Vital Signs Vital signs: Vital Signs Temp 97.5 F L 03/13/25 11:58 Pulse 89 03/13/25 11:58 Resp 14 03/13/25 11:58 BP 119/77 03/13/25 11:58 Pulse Ox 97 03/13/25 11:58 FiO2 Intake & Output 03/12/25 03/13/25 03/13/25 18:59 06:59 18:59 Intake Total 638 0 Output Total 400 150 200 Balance 238 -150 -200 Weight 70 kg Intake: Oral 638 0 Output: Urine 400 150 200 Other: Voiding Method External Catheter External Catheter External Catheter # Bowel Movements 1 - Exam GENERAL EXAM: Alert, pleasant 64-year-old female, resting in bed, on 2 L nasal cannula, in no apparent distress. HEAD: Normocephalic. EYES: Normal reaction of pupils, equal size. NOSE: Clear with pink turbinates. THROAT: No erythema or exudates. NECK: No masses, no JVD. CHEST: No chest wall deformity. LUNGS: Equal air entry with faint bibasilar crackles. CVS: S1 and S2 normal with no audible murmur, regular rhythm. ABDOMEN: No hepatosplenomegaly, normal bowel sounds, no guarding or rigidity. SPINE: No scoliosis or deformity SKIN: No rashes CENTRAL NERVOUS SYSTEM: No focal deficits, tone is normal in all 4 extremities. EXTREMITIES: There is no peripheral edema. No clubbing, no cyanosis. Peripheral pulses are intact. - Labs CBC & Chem 7: 03/12/25 06:48 03/12/25 06:48 Labs: Abnormal Lab Results - Last 24 Hours (Table) 03/12/25 03/12/25 03/13/25 Range/Units 16:30 20:12 01:17 POC Glucose (mg/dL) 146 H 200 H (70-110) mg/dL Urine Appearance Turbid H (Clear) Urine Protein 1+ H (Negative) Urine Glucose (UA) 3+ H (Negative) Urine Blood Moderate H (Negative) Urine Bilirubin 1+ H (Negative) Ur Leukocyte Esterase Large H (Negative) Urine RBC >182 H (0-5) /hpf Urine WBC 8 H (0-5) /hpf Calcium Oxalate Crystal Many H (None) /hpf Urine Bacteria Few H (None) /hpf Urine Mucus Rare H (None) /hpf Urine Yeast (Budding) Many H (None) /hpf 03/13/25 03/13/25 Range/Units 05:45 11:15 POC Glucose (mg/dL) 141 H 165 H (70-110) mg/dL Urine Appearance (Clear) Urine Protein (Negative) Urine Glucose (UA) (Negative) Urine Blood (Negative) Urine Bilirubin (Negative) Ur Leukocyte Esterase (Negative) Urine RBC (0-5) /hpf Urine WBC (0-5) /hpf Calcium Oxalate Crystal (None) /hpf Urine Bacteria (None) /hpf Urine Mucus (None) /hpf Urine Yeast (Budding) (None) /hpf Assessment and Plan Assessment: Acute hypoxic respiratory failure secondary to an acute exacerbation of diastolic congestive heart failure Moderate to severe mitral regurgitation Atrial fibrillation with RVR improved Underlying mild COPD Acute urinary tract infection, polymicrobial infection with ESBL/Klebsiella pneumoniae and Pseudomonas, on Zyvox History of seizure disorder History of bronchogenic carcinoma Benign essential hypertension History of CVA Chronic medical debility History of rheumatoid arthritis Chronic anemia History of gastric ulcer Plan: The patient was seen and evaluated Labs and medications reviewed Titrate down/off the FiO2 as tolerated Continue prednisone taper Continue Symbicort, Spiriva Continue albuterol Anticoagulated with Eliquis Currently on Zyvox Plan is to return to [place] possibly today I have personally seen and examined the patient, performed the documentation and the assessment and plan as written. Number of minutes spent on the visit: 10 Dictation was produced using ALTHIA dictation software. Please excuse any grammatical, word or spelling errors.
--- NOTE | 2025-03-13 15:05 | P.DS ---
Providers Date of admission: 03/08/25 11:10 Expected date of discharge: 03/13/25 Attending physician: Popeye Barksdale Consults: 03/08/25 12:58 Consult Physician Routine Consulting Provider: Jorge Reeder Consult Reason/Comments: COPD exacerbation Do you want consulting provider notified?: Yes, Notify in am 03/11/25 17:54 Consult Physician Routine Consulting Provider: Suhail Tamayo Consult Reason/Comments: Positive urine culture Do you want consulting provider notified?: Yes Primary care physician: [facility] Course: 64-year-old female with a history of A-fib (on eliquis), COPD with chronic respiratory failure on 2 L nasal cannula and joint replacements including recent left joint infected prosthesis presenting to emergency department via EMS from [facility] with complaint of difficulty in breathing. Patient states that she was in her room this morning when she woke from her sleep she states that she was drenched in sweat and was having a difficult time breathing. Currently patient states that she is feeling better than she did this morning however still feels mildly short of breath. States episode of sweating this morning is the first time this event has happened. She denies abdominal pain, chest pain, dizziness, lightheadedness. Nausea with no reported emesis, urinary symptoms, known dark or bloody stools. patient is currently on linezolid 2 times a day due to infected left hip prosthesis. Blood work completed in ED reveals a WBC of 11.03, hemoglobin 8.4, platelet count of 425, sodium 135, potassium 4.3, BUN/creatinine of 10/0.49, blood glucose 219, troponin less than 0.012 UA is positive for nitrites and leukocyte esterase with WBCs and bacteria 03/10/2025 - patient is seen and evaluated in room at bedside. Patient is feeling better compared to yesterday. She is resting comfortably in bed. - She is currently on 2 L of oxygen by nasal cannula with a pulse ox of 97%. - Patient remains on IV Lasix and the patient is producing adequate amount of urine output. She is on Lasix 20 mg and push every 12 hours. She is also on IV Invanz and Zyvox. - urine culture was positive for Pseudomonas aeruginosa and ESBL producing Klebsiella-patient is on IV Invanz and Zyvox. - patient is still in atrial fibrillation. She remains slightly tachycardic. She was started on a Cardizem drip that was running at 7.5 mg/min and she was also placed on metoprolol succinate 100 mg p.o. daily. Echocardiogram shows a preserved LV function with an ejection fraction of 55 to 60%. Moderate to severe mitral regurgitation RVSP of 40 with a small pericardial effusion. Patient remains on metoprolol; cardiology is following March 11: Laying in bed. Breathing a bit better. Decreased appetite. Edema present. On IV or ertapenem. IV Solu-Medrol. Symbicort. Has been switched over to p.o. Lasix. On 2 L nasal cannula. Patient being switched over to po amiodarone 100 twice daily. A-fib controlled. Patient did undergo modified barium swallow today. Did well. Change prednisone to oral March 12: Feeling better. Seen by ID. Discussed with Dr. Herrera. 1 more day of IV ertapenem that can be discontinued tomorrow. Plan for discharge tomorrow. March 13: Stable. IV ertapenem dose completed. Patient eating well. Patient follow-up with Dr. Victoria Decker outpatient. Patient also follow-up with orthopedic doctor and ID outpatient. Return to rehab On examination: VITAL SIGNS: 97.5, 89, 14, 119 x 77, 97% 2 L GENERAL APPEARANCE: Laying in bed, comfortable HEENT: Normal external appearance of nose and ear. Oral cavity normal EYES: Pupils equal. Conjunctiva normal. NECK: JVD not raised. Mass not palpable. RESPIRATORY: Respiratory effort normal. Lungs decreased breath. CARDIOVASCULAR: Heart sounds irregular. Edema present. ABDOMEN: Soft. Liver and spleen not palpable. No tenderness. No mass palpable. PSYCHIATRY: Alert and oriented x3. Mood and affect normal. INVESTIGATIONS, reviewed in the clinical context: March 12: Potassium 3.3 creatinine 0.39 white count 4.7 hemoglobin 9 March 10: Potassium 4.5 BUN 16 creatinine 0.5 March 09: White count 2.7 hemoglobin 8 platelets recently 5 UA: Positive for nitrate, leukoesterase Urine culture: Pseudomonas aeruginosa, Klebsiella pneumoniae ESBL MDRO Assessment: -Acute hypoxic respiratory failure; multifactorial; related to acute exacerbation CHF with possible mild exacerbation COPD: Improved -Acute exacerbation CHF with preserved LVEF: Improved CTA of the chest was noted and the patient has bilateral groundglass pulmonary filtrates with bilateral pleural effusion consistent with CHF. Echocardiogram shows a CHF with preserved LV function with moderate severe mitral regurgitation and mild degree of pulmonary hypertension. Exacerbation of CHF could be related also to A-fib/RVR - Received IV Lasix; now on oral Lasix 20 mg - Cardiology following -Moderate to severe MR -Persistent atrial fibrillation with RVR initially; currently rate controlled Received IV Cardizem and then IV amiodarone Now on oral amiodarone 400 twice daily. Eliquis. Cardizem CD to 40 mg a day. Toprol-XL 100 mg a day - Cardiology following -Acute COPD/chronic hypoxic respiratory failure exacerbation: Improved - We will continue with home inhaler therapy; continue with O2 per nasal cannula with plans to titrate or wean as able - Pulmonary service on board Received hold prednisone. Will be discontinued -Acute UTI, with urine culture positive for Pseudomonas aeruginosa and Klebs iella pneumoniae ESBL/MDRO This was present also on February 25.-Then patient had no urinary symptoms, and felt to be colonization. This admission patient started on IV ertapenem. Received 3-day course of ertapenem. Completed - Normocytic anemia. 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 Status post I&D February 10, at [facility].. Cultures grew Streptococcus pneumonia. Patient to continue with Zyvox 600 mg twice daily through March 23. That she will transition to amoxicillin for chronic suppression. Patient to follow-up with her ID and keep appointment. -History of seizure disorder - Recent GI bleed on February 14. Patient underwent EGD with epinephrine cauterization. And clipping. Later resumed on Eliquis. -History of lung cancer; likely neuroendocrine type based on patient's history Most recent PET/CT on 10/28/2024 showed no evidence of any metabolic uptake to suggest any residual disease -Essential hypertension; Toprol. Cardizem -Medical power of deputy attorney general: Son Anton - Primary osteoarthritis and also secondary osteoarthritis from previous surgeries on the left hip - Depression 2 weeks ago seen by psychiatrist Dr. Octavio Patel 60 mg a day - Long-term resident, at [facility] Disposition: [facility] Patient Condition at Discharge: Stable Plan - Discharge Summary Discharge Rx Participant: No New Discharge Prescriptions: New Amiodarone [Cordarone] See Rx Instructions .ROUTE .COMPLEX #1 tab Furosemide [Lasix] 20 mg PO DAILY tab Continue Metoprolol Succinate [Toprol XL] 100 mg PO DAILY@0800 Apixaban [Eliquis] 5 mg PO BID@0800,1700 Cholecalciferol [Vitamin D3 (25 Mcg = 1000 Iu)] 125 mcg PO DAILY@0800 DULoxetine HCL [Cymbalta] 60 mg PO DAILY@0800 Ondansetron [Zofran] 4 mg PO Q6H PRN PRN Reason: Nausea And Vomiting Albuterol Sulfate [Ventolin HFA] 1 puff INHALATION RT-QID PRN PRN Reason: Shortness Of Breath Magnesium Hydroxide [Milk of Magnesia Concentrate] 7,200 mg PO DAILY PRN PRN Reason: Constipation bisacodyL [Dulcolax] 10 mg RECTAL Q24H PRN PRN Reason: Constipation Atorvastatin [Lipitor] 10 mg PO HS Tiotropium [place] [Spiriva Handihaler] 1 puff INHALATION RT-DAILY@0800 Ferrous Sulfate [Iron (65 MG Elemental)] 325 mg PO TID@0800,1200,1700 dilTIAZem HCL [dilTIAZem HCL 24Hr ER (LA)] 240 mg PO DAILY@0800 Hydroxychloroquine Sulfate [Plaquenil] 200 mg PO DAILY@0800 Dapagliflozin Propanediol [Farxiga] 5 mg PO DAILY@0800 Omeprazole 40 mg PO BID INSULIN ASPART (NovoLOG) [NovoLOG (formulary)] See Protocol SQ ACHS HYDROcodone/APAP 7.5-325MG [[place] 7.5-325] 1 tab PO Q4H PRN PRN Reason: Pain Linezolid [Zyvox] 600 mg PO Q12H polyethylene glycoL 3350 [Miralax] 17 gm PO DAILY PRN PRN Reason: Constipation Ipratropium-Albuterol Nebulize [Duoneb 0.5 mg-3 mg/3 ml Soln] 3 ml INHALATION RT-Q4H PRN PRN Reason: COPD Na Phos,M-B/Na Phos,Di-Ba [Fleet Adult] 133 ml RECTAL DAILY PRN PRN Reason: Constipation Fluticasone Propion/Salmeterol [Advair 250-50 Diskus] 1 puff INHALATION RT- BID Acetaminophen Tab [Tylenol] 500 mg PO Q8H PRN PRN Reason: Pain Changed Sennosides [Senokot] 8.6 mg PO BID PRN #0 PRN Reason: Constipation Discharge Medication List Apixaban [Eliquis] 5 mg PO BID@0800,1700 11/16/24 [History] Metoprolol Succinate [Toprol XL] 100 mg PO DAILY@0800 11/16/24 [History] Tiotropium [place] [Spiriva Handihaler] 1 puff INHALATION RT-DAILY@0800 11/16/24 [History] Cholecalciferol [Vitamin D3 (25 Mcg = 1000 Iu)] 125 mcg PO DAILY@0801/30/25 [History] Ferrous Sulfate [Iron (65 MG Elemental)] 325 mg PO TID@0800,1200,1700 01/30/25 [History] Hydroxychloroquine Sulfate [Plaquenil] 200 mg PO DAILY@0802/26/25 [History] dilTIAZem HCL [dilTIAZem HCL 24Hr ER (LA)] 240 mg PO DAILY@0802/26/25 [History] Acetaminophen Tab [Tylenol] 500 mg PO Q8H PRN 03/08/25 [History] Albuterol Sulfate [Ventolin HFA] 1 puff INHALATION RT-QID PRN 03/08/25 [History] Atorvastatin [Lipitor] 10 mg PO HS 03/08/25 [History] DULoxetine HCL [Cymbalta] 60 mg PO DAILY@0803/08/25 [History] Dapagliflozin Propanediol [Farxiga] 5 mg PO DAILY@0800 03/08/25 [History] Fluticasone Propion/Salmeterol [Advair 250-50 Diskus] 1 puff INHALATION RT-BID 03/08/25 [History] HYDROcodone/APAP 7.5-325MG [[place] 7.5-325] 1 tab PO Q4H PRN 03/08/25 [History] INSULIN ASPART (NovoLOG) [NovoLOG (formulary)] See Protocol SQ ACHS 03/08/25 [History] Ipratropium-Albuterol Nebulize [Duoneb 0.5 mg-3 mg/3 ml Soln] 3 ml INHALATION RT-Q4H PRN 03/08/25 [History] Linezolid [Zyvox] 600 mg PO Q12H 03/08/25 [History] Magnesium Hydroxide [Milk of Magnesia Concentrate] 7,200 mg PO DAILY PRN 03/08/25 [History] Na Phos,M-B/Na Phos,Di-Ba [Fleet Adult] 133 ml RECTAL DAILY PRN 03/08/25 [History] Omeprazole 40 mg PO BID 03/08/25 [History] Ondansetron [Zofran] 4 mg PO Q6H PRN 03/08/25 [History] bisacodyL [Dulcolax] 10 mg RECTAL Q24H PRN 03/08/25 [History] polyethylene glycoL 3350 [Miralax] 17 gm PO DAILY PRN 03/08/25 [History] Amiodarone [Cordarone] See Rx Instructions .ROUTE .COMPLEX #1 tab 03/13/25 [Rx] Furosemide [Lasix] 20 mg PO DAILY tab 03/13/25 [Rx] Sennosides [Senokot] 8.6 mg PO BID PRN #0 03/13/25 [Rx] Follow up Appointment(s)/Referral(s): Te Menchaca DO [Primary Care Provider] - 1-2 days Bimal Decker MD [STAFF PHYSICIAN] - 2 Weeks
[2025-03-13 16:04] LABS: Glucose,Whole Blood 220 mg/dL (70-110)
--- NOTE | 2025-03-13 17:07 | P.PN ---
Subjective Progress Note Date: 03/13/25 Principal diagnosis: Reason for follow-up is positive urine culture Patient is a 64-year-old female with a past medical history significant for COPD CVA TIA seizure disorder atrial fibrillation presenting to the hospital about 5 days ago for evaluation of increasing shortness of breath, patient did have a positive urine culture prompting this consultation. On today's evaluation that is 03/13/2025,the patient remains to be afebrile, patient is on 2 L nasal cannula supplemental oxygen and denies any worsening shortness of breath no chest pain or cough.Patient denies having any nausea or vomiting, no abdominal pain is complaining of some diarrhea however no urinary symptoms. Objective - Vital Signs Vital signs: Vital Signs Temp 97.5 F L 03/13/25 11:58 Pulse 89 03/13/25 14:54 Resp 14 03/13/25 11:58 BP 119/77 03/13/25 11:58 Pulse Ox 97 03/13/25 11:58 FiO2 Intake & Output 03/12/25 03/13/25 03/13/25 18:59 06:59 18:59 Intake Total 638 120 Output Total 400 150 400 Balance 238 -150 -280 Weight 70 kg Intake: Oral 638 120 Output: Urine 400 150 400 Other: Voiding Method External Catheter External Catheter External Catheter # Voids 1 # Bowel Movements 1 1 - Exam GENERAL DESCRIPTION: An elderly female lying in bed in no distress RESPIRATORY SYSTEM: Unlabored breathing , decreased breath sounds at bases HEART: S1 S2 regular rate and rhythm , ABDOMEN: Soft , no tenderness EXTREMITIES: No edema feet - Labs CBC & Chem 7: 03/12/25 06:48 03/12/25 06:48 Labs: Abnormal Lab Results - Last 24 Hours (Table) 03/12/25 03/13/25 03/13/25 Range/Units 20:12 01:17 05:45 POC Glucose (mg/dL) 200 H 141 H (70-110) mg/dL Urine Appearance Turbid H (Clear) Urine Protein 1+ H (Negative) Urine Glucose (UA) 3+ H (Negative) Urine Blood Moderate H (Negative) Urine Bilirubin 1+ H (Negative) Ur Leukocyte Esterase Large H (Negative) Urine RBC >182 H (0-5) /hpf Urine WBC 8 H (0-5) /hpf Calcium Oxalate Crystal Many H (None) /hpf Urine Bacteria Few H (None) /hpf Urine Mucus Rare H (None) /hpf Urine Yeast (Budding) Many H (None) /hpf 03/13/25 03/13/25 Range/Units 11:15 16:02 POC Glucose (mg/dL) 165 H 220 H (70-110) mg/dL Urine Appearance (Clear) Urine Protein (Negative) Urine Glucose (UA) (Negative) Urine Blood (Negative) Urine Bilirubin (Negative) Ur Leukocyte Esterase (Negative) Urine RBC (0-5) /hpf Urine WBC (0-5) /hpf Calcium Oxalate Crystal (None) /hpf Urine Bacteria (None) /hpf Urine Mucus (None) /hpf Urine Yeast (Budding) (None) /hpf Microbiology - Last 24 Hours (Table) 03/08/25 07:25 Blood Culture - Final Blood Assessment and Plan (1) Positive urine culture Current Visit: Yes Status: Acute Code(s): R82.79 - OTHER ABNORMAL FINDINGS ON MICROBIOLOG EXAMINATION OF URINE SNOMED Code(s): 640385520 (2) 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 Current Visit: Yes Status: Acute Code(s): Z22.358 - CARRIER OF OTHER ENTEROBACTERALES SNOMED Code(s): 39978720 (3) Diarrhea Current Visit: Yes Status: Acute Code(s): R19.7 - DIARRHEA, UNSPECIFIED SNOMED Code(s): 07067310 Plan: 1patient with a positive urine culture growing both ESBL Klebsiella as well as Pseudomonas aeruginosa however the patient currently do not have any symptoms to suggest UTI with no burning frequency suprapubic or flank pain patient did not have any fever on presentation to hospital mildly elevated white count that has subsequently normalized, her pulmonary symptoms are being attributed to CHF exacerbation both by pulmonary and cardiology who has been seeing the patient over the last 4 days rather than pneumonia 2patient Invanz has been discontinued no need for antibiotics on discharge 3diarrhea instructed to increase her probiotic and yogurt intake Dictation was produced using [employer] dictation software. please excuse any grammatical, word or spelling errors. Time with Patient: Less than 30
[2025-03-13 20:20] LABS: Glucose,Whole Blood 158 mg/dL (70-110)
[2025-03-14 06:21] LABS: Glucose,Whole Blood 68 mg/dL (70-110)
[2025-03-14 06:37] LABS: Glucose,Whole Blood 80 mg/dL (70-110)
[2025-03-14 11:10] VITALS: RESP 17
--- NOTE | 2025-03-14 11:34 | P.PN ---
Progress Note - Text Progress Note Date: 03/13/25 Hospital Course: 64-year-old female with a history of A-fib (on eliquis), COPD with chronic respiratory failure on 2 L nasal cannula and joint replacements including recent left joint infected prosthesis presenting to emergency department via EMS from [facility] with complaint of difficulty in breathing. Patient states that she was in her room this morning when she woke from her sleep she states that she was drenched in sweat and was having a difficult time breathing. Currently patient states that she is feeling better than she did this morning however still feels mildly short of breath. States episode of sweating this morning is the first time this event has happened. She denies abdominal pain, chest pain, dizziness, lightheadedness. Nausea with no reported emesis, urinary symptoms, known dark or bloody stools. patient is currently on linezolid 2 times a day due to infected left hip prosthesis. Blood work completed in ED reveals a WBC of 11.03, hemoglobin 8.4, platelet count of 425, sodium 135, potassium 4.3, BUN/creatinine of 10/0.49, blood glucose 219, troponin less than 0.012 UA is positive for nitrites and leukocyte esterase with WBCs and bacteria 03/10/2025 - patient is seen and evaluated in room at bedside. Patient is feeling better compared to yesterday. She is resting comfortably in bed. - She is currently on 2 L of oxygen by nasal cannula with a pulse ox of 97%. - Patient remains on IV Lasix and the patient is producing adequate amount of urine output. She is on Lasix 20 mg and push every 12 hours. She is also on IV Invanz and Zyvox. - urine culture was positive for Pseudomonas aeruginosa and ESBL producing Klebsiella-patient is on IV Invanz and Zyvox. - patient is still in atrial fibrillation. She remains slightly tachycardic. She was started on a Cardizem drip that was running at 7.5 mg/min and she was also placed on metoprolol succinate 100 mg p.o. daily. Echocardiogram shows a preserved LV function with an ejection fraction of 55 to 60%. Moderate to severe mitral regurgitation RVSP of 40 with a small pericardial effusion. Patient remains on metoprolol; cardiology is following March 11: Laying in bed. Breathing a bit better. Decreased appetite. Edema present. On IV or ertapenem. IV Solu-Medrol. Symbicort. Has been switched over to p.o. Lasix. On 2 L nasal cannula. Patient being switched over to po amiodarone 100 twice daily. A-fib controlled. Patient did undergo modified barium swallow today. Did well. Change prednisone to oral March 12: Feeling better. Seen by ID. Discussed with Dr. Herrera. 1 more day of IV ertapenem that can be discontinued tomorrow. Plan for discharge tomorrow. March 13: Stable. IV ertapenem dose completed. Patient eating well. Patient follow-up with Dr. Victoria Decker outpatient. Patient also follow-up with orthopedic doctor and ID outpatient. Pending authorization to return to rehab On examination: VITAL SIGNS: 97.5, 89, 14, 119 x 77, 97% 2 L GENERAL APPEARANCE: Laying in bed, comfortable HEENT: Normal external appearance of nose and ear. Oral cavity normal EYES: Pupils equal. Conjunctiva normal. NECK: JVD not raised. Mass not palpable. RESPIRATORY: Respiratory effort normal. Lungs decreased breath. CARDIOVASCULAR: Heart sounds irregular. Edema present. ABDOMEN: Soft. Liver and spleen not palpable. No tenderness. No mass palpable. PSYCHIATRY: Alert and oriented x3. Mood and affect normal. INVESTIGATIONS, reviewed in the clinical context: March 12: Potassium 3.3 creatinine 0.39 white count 4.7 hemoglobin 9 March 10: Potassium 4.5 BUN 16 creatinine 0.5 March 09: White count 2.7 hemoglobin 8 platelets recently 5 UA: Positive for nitrate, leukoesterase Urine culture: Pseudomonas aeruginosa, Klebsiella pneumoniae ESBL MDRO Assessment: -Acute hypoxic respiratory failure; multifactorial; related to acute exacerbation CHF with possible mild exacerbation COPD: Improved -Acute exacerbation CHF with preserved LVEF: Improved CTA of the chest was noted and the patient has bilateral groundglass pulmonary filtrates with bilateral pleural effusion consistent with CHF. Echocardiogram shows a CHF with preserved LV function with moderate severe mitral regurgitation and mild degree of pulmonary hypertension. Exacerbation of CHF could be related also to A-fib/RVR - Received IV Lasix; now on oral Lasix 20 mg - Cardiology following -Moderate to severe MR -Persistent atrial fibrillation with RVR initially; currently rate controlled Received IV Cardizem and then IV amiodarone Now on oral amiodarone 400 twice daily. Eliquis. Cardizem CD to 40 mg a day. Toprol-XL 100 mg a day - Cardiology following -Acute COPD/chronic hypoxic respiratory failure exacerbation: Improved - We will continue with home inhaler therapy; continue with O2 per nasal cannula with plans to titrate or wean as able - Pulmonary service on board Received hold prednisone. Will be discontinued -Acute UTI, with urine culture positive for Pseudomonas aeruginosa and Klebsiella pneumoniae ESBL/MDRO This was present also on February 25.-Then patient had no urinary symptoms, and felt to be colonization. This admission patient started on IV ertapenem. Received 3-day course of ertapenem. Completed - Normocytic anemia. 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 Status post I&D February 10, at [facility].. Cultures grew Streptococcus pneumonia. Patient to continue with Zyvox 600 mg twice daily through March 23. That she will transition to amoxicillin for chronic suppression. Patient to follow-up with her ID and keep appointment. -History of seizure disorder - Recent GI bleed on February 14. Patient underwent EGD with epinephrine cauterization. And clipping. Later resumed on Eliquis. -History of lung cancer; likely neuroendocrine type based on patient's history Most recent PET/CT on 10/28/2024 showed no evidence of any metabolic uptake to suggest any residual disease -Essential hypertension; Toprol. Cardizem -Medical power of estate planning attorney: Son Anton - Primary osteoarthritis and also secondary osteoarthritis from previous surgeries on the left hip - Depression 2 weeks ago seen by psychiatrist Dr. Cunningham Cymbalta 60 mg a day - Long-term resident, at [facility] Authorization pending to go to rehab
[2025-03-14 11:49] LABS: Glucose,Whole Blood 104 mg/dL (70-110)
--- NOTE | 2025-03-14 13:17 | P.PN ---
Subjective Progress Note Date: 03/14/25 On 03/09/2025, the patient is being seen in consultation for increased shortness of breath. A 64-year-old female patient with multiple medical problems and comorbidities who presented to the emergency department experiencing worsening shortness of breath and the patient was also in A-fib with rapid ventricular response. The patient was seen by cardiology. The patient was given IV metoprolol 5 mg x 2 and based on her ongoing tachycardia, the patient was started on a Cardizem drip at 7.5 mg an hour. She did she is also on metoprolol 100 mg p.o. daily. She is on anticoagulation with Eliquis. A CTA of the chest was also done and there is no evidence of any pulmonary embolism. There is evidence of diffuse patchy groundglass pulmonary opacities consistent with CHF along with bilateral pleural effusion consistent with CHF. No airspace disease. No consolidation. There is some reactive mediastinal lymphadenopathy. At this point, the patient is less tachycardic. Heart rate is around 105. She is on 2 L of oxygen by nasal cannula with a pulse ox of 93%. On her labs, the patient was also suspected urinary tract infection the patient was started on IV ciprofloxacin. She was also on Zyvox and this was continued based on recent infected left hip hemiarthroplasty for which the patient has undergone further surgical intervention, removal of hardware and reconstruction of the left hip joint at [facility] and she was discharged home on Zyvox. Noted this joint infection was suspected to be related to Streptococcus pneumonia based on a culture that was obtained here in our hospital on 02/10/2025. Previous urine cultures from 02/25/2025 was positive for Pseudomonas aeruginosa and ESBL producing Klebsiella pneumoniae. This patient is known to have COPD, congestive heart failure, preserved LV function with an ejection fraction of 55% and she has also been noted to have mo derate to severe mitral regurgitation and mild RV dilatation with an RVSP of 40 based on echocardiogram that was done on 03/07/2025. She also has, atrial fibrillation, previous history of CVA on multiple occasions, rheumatoid arthritis, seizure disorder, chronic hypoxic respiratory failure in the patient is maintained on oxygen 2 L/min nasal cannula, she also gives a remote history of lung cancer, neuroendocrine type i and details of the treatment for lung cancer is not known. Nevertheless, the most recent PET/CT that was done in 10/28/2024 showed no metabolic activity involving the chest chest suggest any residual disease or malignancy. She also has history of peptic ulcer disease/gastric ulcer and she encountered GI bleeding during her stay at [facility] and the patient underwent EGD and cauterization of the gastric ulcer and subsequently she was restarted on Eliquis. She suffers from chronic anemia. 03/10/2025, patient is being seen for a follow-up. Patient is feeling better compared to yesterday. Less short of breath. She is resting comfortably in bed. She is currently on 2 L of oxygen by nasal cannula with a pulse ox of 97%. No reported fever. No chills. She remains on IV Lasix and the patient is producing adequate amount of urine output. She is on Lasix 20 mg and push every 12 hours. She is also on IV Invanz and Zyvox. Her urine culture was positive for Pseudomonas aeruginosa and ESBL producing Klebsiella. The patient is still in atrial fibrillation. She remains slightly tachycardic. She was started on a Cardizem drip that was running at 7.5 mg/min and she was also placed on metoprolol succinate 100 mg p.o. daily. Echocardiogram shows a preserved LV function with an ejection fraction of 55 to 60%. Moderate to severe mitral regurgitation RVSP of 40 with a small pericardial effusion. The rest of the labs from today show a BUN of 60 mg of 0.5. Sodium levels at 137 and potassium is at 4.5. Seen today on 03/11/2025, patient is feeling better, breathing easier, she is on 2 L nasal cannula less shortness of breath. Swallow evaluation has been done, findings are pending initial admission chest x-ray is suggestive of pulmonary edema, WBC count today is 2.7 hemoglobin is 8, basic metabolic profile is normal renal profile is normal urinalysis is suggestive of ongoing urinary tract infection, cultures are positive for Pseudomonas aeruginosa and Klebsiella pneumonia/ESBL, patient is on Invanz. The patient is seen today March 12, 2025 in follow-up on the selective care unit. She is resting comfortably in bed. Awake and alert in no acute distress. Maintaining O2 saturations in the high 90s on 2 L/min per nasal cannula. She is afebrile. Hemodynamically stable. Barium swallow revealed no evidence of aspiration. Speech therapy recommended a regular diet with thin liquids. Urine culture was positive for Pseudomonas aeruginosa and Klebsiella. Blood culture revealed no growth. White count 4.7. Hemoglobin 9.0. Platelets 277. Sodium 135. Potassium 3.3. Bicarb 31. BUN 16. Creatinine 0.39. Glucose 74. She remains on DuoNeb inhalations, Symbicort, Spiriva. Remains on Solu-Medrol. Remains on oral diuretics. Antibiotics in the form of ertapenem. Anticoagulated with Eliquis. Currently in a -2.1 L balance. The patient is seen today March 13, 2025 in follow-up on the selective care unit. She is awake and alert in no acute distress. Denies any worsening shortness of breath, cough or congestion. Maintaining good O2 saturations up to 100% on 2 L/min per nasal cannula. Afebrile. Hemodynamically stable. Urine culture was positive for Pseudomonas and Klebsiella. She has been transitioned to Zyvox. Glucose 165. She remains on Spiriva, Symbicort and albuterol. Continued on a prednisone taper. Anticoagulated with Eliquis. Remains on oral diuretics. The patient is seen today March 14, 2025 in follow-up on the selective care unit. She is currently sitting up in bed. Awake and alert in no acute distress. She denies any worsening shortness of breath, cough or congestion. Maintaining good O2 saturations in the 90s on 2 L/min per nasal cannula. She is afebrile. Hemodynamically stable. Her main complaint today is of diarrhea. She has been continued on Zyvox. Urine culture was positive for Pseudomonas aeruginosa and Klebsiella ESBL MDRO. Glucose 104. She remains on Symbicort, albuterol, Spiriva. Anticoagulated with Eliquis. Remains on oral diuretics. Objective - Vital Signs Vital signs: Vital Signs Temp 97.7 F 03/14/25 11:09 Pulse 103 H 03/14/25 11:09 Resp 17 03/14/25 11:09 BP 150/87 03/14/25 11:09 Pulse Ox 99 03/14/25 11:09 FiO2 Intake & Output 03/13/25 03/14/25 03/14/25 18:59 06:59 18:59 Intake Total 342 Output Total 800 150 400 Balance -458 150 400 Weight 74.5 kg Intake: Oral 342 Output: Urine 800 150 400 Other: Voiding Method External Catheter External Catheter External Catheter # Voids 1 # Bowel Movements 1 1 2 - Exam GENERAL EXAM: Alert, 64-year-old female, on 2 L nasal cannula, in no apparent distress. HEAD: Normocephalic. EYES: Normal reaction of pupils, equal size. NOSE: Clear with pink turbinates. THROAT: No erythema or exudates. NECK: No masses, no JVD. CHEST: No chest wall deformity. LUNGS: Equal air entry with faint bibasilar crackles. CVS: S1 and S2 normal with no audible murmur, regular rhythm. ABDOMEN: No hepatosplenomegaly, normal bowel sounds, no guarding or rigidity. SPINE: No scoliosis or deformity SKIN: No rashes CENTRAL NERVOUS SYSTEM: No focal deficits, tone is normal in all 4 extremities. EXTREMITIES: There is no peripheral edema. No clubbing, no cyanosis. Peripheral pulses are intact. - Labs CBC & Chem 7: 03/12/25 06:48 03/12/25 06:48 Labs: Abnormal Lab Results - Last 24 Hours (Table) 03/13/25 03/13/25 03/14/25 Range/Units 16:02 20:19 06:19 POC Glucose (mg/dL) 220 H 158 H 68 L (70-110) mg/dL Microbiology - Last 24 Hours (Table) 03/08/25 07:25 Blood Culture - Final Blood Assessment and Plan Assessment: Acute hypoxic respiratory failure secondary to an acute exacerbation of diastolic congestive heart failure Moderate to severe mitral regurgitation Atrial fibrillation with RVR improved Underlying mild COPD Acute urinary tract infection, polymicrobial infection with ESBL MDRO/Klebsiella pneumoniae and Pseudomonas, on Zyvox History of seizure disorder History of bronchogenic carcinoma Benign essential hypertension History of CVA Chronic medical debility History of rheumatoid arthritis Chronic anemia History of gastric ulcer Plan: The patient was seen and evaluated Labs and medications reviewed Titrate down/off the FiO2 as tolerated Continue Symbicort, Spiriva Continue albuterol Anticoagulated with Eliquis Currently on Zyvox Currently has diarrhea Check a C. difficile screen Plan is to return to [facility], awaiting authorization I have personally seen and examined the patient, performed the documentation and the assessment and plan as written. Number of minutes spent on the visit: 10 Dictation was produced using [employer] dictation software. Please excuse any grammatical, word or spelling errors.
[2025-03-14] MEDS ORDERED: CHOLESTYRAMINE (WITH SUGAR) 4 GM PACKET PO SCH (14:01)
--- NOTE | 2025-03-14 14:24 | P.DS ---
Providers Date of admission: 03/08/25 11:10 Expected date of discharge: 03/14/25 Attending physician: Popeye Barksdale Consults: 03/08/25 12:58 Consult Physician Routine Consulting Provider: Jorge Reeder Consult Reason/Comments: COPD exacerbation Do you want consulting provider notified?: Yes, Notify in am 03/11/25 17:54 Consult Physician Routine Consulting Provider: Suhail Tamayo Consult Reason/Comments: Positive urine culture Do you want consulting provider notified?: Yes Primary care physician: [facility] Course: Hospital Course: 64-year-old female with a history of A-fib (on eliquis), COPD with chronic respiratory failure on 2 L nasal cannula and joint replacements including recent left joint infected prosthesis presenting to emergency department via EMS from [facility] with complaint of difficulty in breathing. Patient states that she was in her room this morning when she woke from her sleep she states that she was drenched in sweat and was having a difficult time breathing. Currently patient states that she is feeling better than she did this morning however still feels mildly short of breath. States episode of sweating this morning is the first time this event has happened. She denies abdominal pain, chest pain, dizziness, lightheadedness. Nausea with no reported emesis, urinary symptoms, known dark or bloody stools. patient is currently on linezolid 2 times a day due to infected left hip prosthesis. Blood work completed in ED reveals a WBC of 11.03, hemoglobin 8.4, platelet count of 425, sodium 135, potassium 4.3, BUN/creatinine of 10/0.49, blood glucose 219, troponin less than 0.012 UA is positive for nitrites and leukocyte esterase with WBCs and bacteria 03/10/2025 - patient is seen and evaluated in room at bedside. Patient is feeling better compared to yesterday. She is resting comfortably in bed. - She is currently on 2 L of oxygen by nasal cannula with a pulse ox of 97%. - Patient remains on IV Lasix and the patient is producing adequate amount of urine output. She is on Lasix 20 mg and push every 12 hours. She is also on IV Invanz and Zyvox. - urine culture was positive for Pseudomonas aeruginosa and ESBL producing Klebsiella-patient is on IV Invanz and Zyvox. - patient is still in atrial fibrillation. She remains slightly tachycardic. She was started on a Cardizem drip that was running at 7.5 mg/min and she was also placed on metoprolol succinate 100 mg p.o. daily. Echocardiogram shows a preserved LV function with an ejection fraction of 55 to 60%. Moderate to severe mitral regurgitation RVSP of 40 with a small pericardial effusion. Patient remains on metoprolol; cardiology is following March 11: Laying in bed. Breathing a bit better. Decreased appetite. Edema present. On IV or ertapenem. IV Solu-Medrol. Symbicort. Has been switched over to p.o. Lasix. On 2 L nasal cannula. Patient being switched over to po amiodarone 100 twice daily. A-fib controlled. Patient did undergo modified barium swallow today. Did well. Change prednisone to oral March 12: Feeling better. Seen by ID. Discussed with Dr. Herrera. 1 more day of IV ertapenem that can be discontinued tomorrow. Plan for discharge tomorrow. March 13: Stable. IV ertapenem dose completed. Patient eating well. Patient follow-up with Dr. Victoria Decker outpatient. Patient also follow-up with orthopedic doctor and ID outpatient. Pending authorization to return to rehab March 14: Spoke to peer to peer from [facility]. Dr. Yarbrough. He is required a further note from physical therapy. Later informed by the home health care case manager Antonio at that patient was declined for rehab. She will return as a long-term to [facility]. Patient full assist Per cardiology [facility] to be discontinued. Both Lantus and prednisone discontinued Discussion and discharge planning more than 35 minutes On examination: VITAL SIGNS: 97.7, 103, 17, 1 5087, 99% 2 L GENERAL APPEARANCE: Laying in bed, comfortable HEENT: Normal external appearance of nose and ear. Oral cavity normal EYES: Pupils equal. Conjunctiva normal. NECK: JVD not raised. Mass not palpable. RESPIRATORY: Respiratory effort normal. Lungs decreased breath. CARDIOVASCULAR: Heart sounds irregular. Edema present. ABDOMEN: Soft. Liver and spleen not palpable. No tenderness. No mass palpable. PSYCHIATRY: Alert and oriented x3. Mood and affect normal. INVESTIGATIONS, reviewed in the clinical context: March 12: Potassium 3.3 creatinine 0.39 white count 4.7 hemoglobin 9 March 10: Potassium 4.5 BUN 16 creatinine 0.5 March 09: White count 2.7 hemoglobin 8 platelets recently 5 UA: Positive for nitrate, leukoesterase Urine culture: Pseudomonas aeruginosa, Klebsiella pneumoniae ESBL MDRO Assessment: -Acute hypoxic respiratory failure; multifactorial; related to acute exacerbation CHF with possible mild exacerbation COPD: Improved -Acute exacerbation CHF with preserved LVEF: Improved CTA of the chest was noted and the patient has bilateral groundglass pulmonary filtrates with bilateral pleural effusion consistent with CHF. Echocardiogram shows a CHF with preserved LV function with moderate severe mitral regurgitation and mild degree of pulmonary hypertension. Exacerbation of CHF could be related also to A-fib/RVR - Received IV Lasix; now on oral Lasix 20 mg - Cardiology following -Moderate to severe MR -Persistent atrial fibrillation with RVR initially; currently rate controlled Received IV Cardizem and then IV amiodarone Now on oral amiodarone 400 twice daily. Eliquis. Cardizem CD to 40 mg a day. Toprol-XL 100 mg a day - Cardiology following -Acute COPD/chronic hypoxic respiratory failure exacerbation: Improved - We will continue with home inhaler therapy; continue with O2 per nasal cannula with plans to titrate or wean as able - Pulmonary service on board Received prednisone. Will be discontinued -Acute UTI, with urine culture positive for Pseudomonas aeruginosa and Klebsiella pneumoniae ESBL/MDRO This was present also on February 25.-Then patient had no urinary symptoms, and felt to be colonization. This admission patient started on IV ertapenem. Received 3-day course of ertapenem. Completed - Normocytic anemia. 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 Status post I&D February 10, at [facility].. Cultures grew Streptococcus pneumonia. Patient to continue with Zyvox 600 mg twice daily through March 23. That she will transition to amoxicillin for chronic suppression. Patient to follow-up with her ID and keep appointment. -History of seizure disorder - Recent GI bleed on February 14. Patient underwent EGD with epinephrine cauterization. And clipping. Later resumed on Eliquis. -History of lung cancer; likely neuroendocrine type based on patient's history Most recent PET/CT on 10/28/2024 showed no evidence of any metabolic uptake to suggest any residual disease -Essential hypertension; Toprol. Cardizem -Medical power of consumer attorney: Son Anton - Primary osteoarthritis and also secondary osteoarthritis from previous surgeries on the left hip - Depression 2 weeks ago seen by psychiatrist Dr. Cunningham Cymbalta 60 mg a day - Long-term resident, at [facility] Disposition: Long-term resident, [facility] Labs: CBC, BMP 3 days Plan - Discharge Summary Discharge Rx Participant: No New Discharge Prescriptions: New Amiodarone [Cordarone] See Rx Instructions .ROUTE .COMPLEX #1 tab Furosemide [Lasix] 20 mg PO DAILY tab Continue Metoprolol Succinate [Toprol XL] 100 mg PO DAILY@0800 Apixaban [Eliquis] 5 mg PO BID@0800,1700 Cholecalciferol [Vitamin D3 (25 Mcg = 1000 Iu)] 125 mcg PO DAILY@0800 DULoxetine HCL [Cymbalta] 60 mg PO DAILY@0800 Ondansetron [Zofran] 4 mg PO Q6H PRN PRN Reason: Nausea And Vomiting Albuterol Sulfate [Ventolin HFA] 1 puff INHALATION RT-QID PRN PRN Reason: Shortness Of Breath Magnesium Hydroxide [Milk of Magnesia Concentrate] 7,200 mg PO DAILY PRN PRN Reason: Constipation bisacodyL [Dulcolax] 10 mg RECTAL Q24H PRN PRN Reason: Constipation Atorvastatin [Lipitor] 10 mg PO HS Tiotropium [place] [Spiriva Handihaler] 1 puff INHALATION RT-DAILY@0800 Ferrous Sulfate [Iron (65 MG Elemental)] 325 mg PO TID@0800,1200,1700 dilTIAZem HCL [dilTIAZem HCL 24Hr ER (LA)] 240 mg PO DAILY@0800 Hydroxychloroquine Sulfate [Plaquenil] 200 mg PO DAILY@0800 Omeprazole 40 mg PO BID INSULIN ASPART (NovoLOG) [NovoLOG (formulary)] See Protocol SQ ACHS HYDROcodone/APAP 7.5-325MG [[place] 7.5-325] 1 tab PO Q4H PRN PRN Reason: Pain Linezolid [Zyvox] 600 mg PO Q12H polyethylene glycoL 3350 [Miralax] 17 gm PO DAILY PRN PRN Reason: Constipation Ipratropium-Albuterol Nebulize [Duoneb 0.5 mg-3 mg/3 ml Soln] 3 ml INHALATION RT-Q4H PRN PRN Reason: COPD Na Phos,M-B/Na Phos,Di-Ba [Fleet Adult] 133 ml RECTAL DAILY PRN PRN Reason: Constipation Fluticasone Propion/Salmeterol [Advair 250-50 Diskus] 1 puff INHALATION RT- BID Acetaminophen Tab [Tylenol] 500 mg PO Q8H PRN PRN Reason: Pain Changed Sennosides [Senokot] 8.6 mg PO BID PRN #0 PRN Reason: Constipation Discontinued Dapagliflozin Propanediol [Farxiga] 5 mg PO DAILY@0800 Discharge Medication List Apixaban [Eliquis] 5 mg PO BID@0800,1700 11/16/24 [History] Metoprolol Succinate [Toprol XL] 100 mg PO DAILY@0800 11/16/24 [History] Tiotropium [place] [Spiriva Handihaler] 1 puff INHALATION RT-DAILY@0800 11/16/24 [History] Cholecalciferol [Vitamin D3 (25 Mcg = 1000 Iu)] 125 mcg PO DAILY@0800 01/30/25 [History] Ferrous Sulfate [Iron (65 MG Elemental)] 325 mg PO TID@0800,1200,1700 01/30/25 [History] Hydroxychloroquine Sulfate [Plaquenil] 200 mg PO DAILY@0800 02/26/25 [History] dilTIAZem HCL [dilTIAZem HCL 24Hr ER (LA)] 240 mg PO DAILY@0800 02/26/25 [History] Acetaminophen Tab [Tylenol] 500 mg PO Q8H PRN 03/08/25 [History] Albuterol Sulfate [Ventolin HFA] 1 puff INHALATION RT-QID PRN 03/08/25 [History] Atorvastatin [Lipitor] 10 mg PO HS 03/08/25 [History] DULoxetine HCL [Cymbalta] 60 mg PO DAILY@0800 03/08/25 [History] Fluticasone Propion/Salmeterol [Advair 250-50 Diskus] 1 puff INHALATION RT-BID 03/08/25 [History] HYDROcodone/APAP 7.5-325MG [[place] 7.5-325] 1 tab PO Q4H PRN 03/08/25 [History] INSULIN ASPART (NovoLOG) [NovoLOG (formulary)] See Protocol SQ ACHS 03/08/25 [History] Ipratropium-Albuterol Nebulize [Duoneb 0.5 mg-3 mg/3 ml Soln] 3 ml INHALATION RT-Q4H PRN 03/08/25 [History] Linezolid [Zyvox] 600 mg PO Q12H 03/08/25 [History] Magnesium Hydroxide [Milk of Magnesia Concentrate] 7,200 mg PO DAILY PRN 03/08/25 [History] Na Phos,M-B/Na Phos,Di-Ba [Fleet Adult] 133 ml RECTAL DAILY PRN 03/08/25 [ History] Omeprazole 40 mg PO BID 03/08/25 [History] Ondansetron [Zofran] 4 mg PO Q6H PRN 03/08/25 [History] bisacodyL [Dulcolax] 10 mg RECTAL Q24H PRN 03/08/25 [History] polyethylene glycoL 3350 [Miralax] 17 gm PO DAILY PRN 03/08/25 [History] Amiodarone [Cordarone] See Rx Instructions .ROUTE .COMPLEX #1 tab 03/13/25 [Rx] Furosemide [Lasix] 20 mg PO DAILY tab 03/13/25 [Rx] Sennosides [Senokot] 8.6 mg PO BID PRN #0 03/13/25 [Rx] Follow up Appointment(s)/Referral(s): Te Menchaca DO [Primary Care Provider] - 1-2 days Bimal Decker MD [STAFF PHYSICIAN] - 2 Weeks
[2025-03-14 17:23] VITALS: BP 138/83; PULSE 89; TEMP 97.5
--- NOTE | 2025-03-14 22:59 | P.PN ---
Subjective Progress Note Date: 03/14/25 Principal diagnosis: Reason for follow-up is positive urine culture Patient is a 64-year-old female with a past medical history significant for COPD CVA TIA seizure disorder atrial fibrillation presenting to the hospital about 5 days ago for evaluation of increasing shortness of breath, patient did have a positive urine culture prompting this consultation. On today's evaluation that is 03/14/2025, the patient continues to be afebrile, the patient is on 2 L nasal oxygen and breathing comfortably, the Pt denies having any chest pain or any worsening cough, the patient denies having any abdominal pain no vomiting however is complaining of more diarrhea today. No new labs has been obtained today Objective - Vital Signs Vital signs: Vital Signs Temp 97.7 F 03/14/25 11:09 Pulse 103 H 03/14/25 11:09 Resp 17 03/14/25 11:09 BP 150/87 03/14/25 11:09 Pulse Ox 99 03/14/25 11:09 FiO2 Intake & Output 03/13/25 03/14/25 03/14/25 18:59 06:59 18:59 Intake Total 342 Output Total 800 150 400 Balance -458 -150 -400 Weight 74.5 kg Intake: Oral 342 Output: Urine 800 150 400 Other: Voiding Method External Catheter External Catheter External Catheter # Voids 1 # Bowel Movements 1 1 2 - Exam GENERAL DESCRIPTION: An elderly female lying in bed in no distress RESPIRATORY SYSTEM: Unlabored breathing , decreased breath sounds at bases HEART: S1 S2 regular rate and rhythm , ABDOMEN: Soft , no tenderness EXTREMITIES: No edema feet - Labs CBC & Chem 7: 03/12/25 06:48 03/12/25 06:48 Labs: Abnormal Lab Results - Last 24 Hours (Table) 03/13/25 03/13/25 03/14/25 Range/Units 16:02 20:19 06:19 POC Glucose (mg/dL) 220 H 158 H 68 L (70-110) mg/dL Microbiology - Last 24 Hours (Table) 03/08/25 07:25 Blood Culture - Final Blood Assessment and Plan (1) Positive urine culture Status: Acute Code(s): R82.79 - OTHER ABNORMAL FINDINGS ON MICROBIOLOG EXAMINATION OF URINE SNOMED Code(s): 325090927 (2) 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 Status: Acute Code(s): Z22.358 - CARRIER OF OTHER ENTEROBACTERALES SNOMED Code(s): 36780113 (3) Diarrhea Status: Acute Code(s): R19.7 - DIARRHEA, UNSPECIFIED SNOMED Code(s): 69179401 Plan: 1patient with a positive urine culture growing both ESBL Klebsiella as well as Pseudomonas aeruginosa however the patient currently do not have any symptoms to suggest UTI with no burning frequency suprapubic or flank pain patient did not have any fever on presentation to hospital mildly elevated white count that has subsequently normalized, her pulmonary symptoms are being attributed to CHF exacerbation both by pulmonary and cardiology who has been seeing the patient over the last 4 days rather than pneumonia 2patient Invanz has been discontinued no need for antibiotics on discharge 3diarrhea stool for C. difficile is requested results will be followed we will treat if positive will add Questran for symptomatic relief Dictation was produced using [employer] dictation software. please excuse any grammatical, word or spelling errors. Time with Patient: Less than 30
== END 2025-03-14 17:18 | DRG 291 ==
LOC: EC 06:43 → 4SSUR 11:10 → 3SCARD 16:02
PROVIDERS: ADMIT Hospitalist; ATTEND Hospitalist
PROC: 05HA33Z Insertion of Infusion Device into Left Brachial Vein, Percutaneous Approach (ICD-10-PCS; principal; 2025-03-11 08:30)
DX: I11.0 Hypertensive heart disease with heart failure (principal); I50.33 Acute on chronic diastolic (congestive) heart failure; J96.21 Acute and chronic respiratory failure with hypoxia; K25.4 Chronic or unspecified gastric ulcer with hemorrhage; I31.39 Other pericardial effusion (noninflammatory); I27.21 Secondary pulmonary arterial hypertension; J44.1 Chronic obstructive pulmonary disease with (acute) exacerbation; B96.5 Pseudomonas (aeruginosa) (mallei) (pseudomallei) as the cause of diseases classified elsewhere; I48.19 Other persistent atrial fibrillation; G40.909 Epilepsy, unspecified, not intractable, without status epilepticus; M08.00 Unspecified juvenile rheumatoid arthritis of unspecified site; F32.A Depression, unspecified; D64.9 Anemia, unspecified; I34.0 Nonrheumatic mitral (valve) insufficiency; T84.52XA Infection and inflammatory reaction due to internal left hip prosthesis, initial encounter; N39.0 Urinary tract infection, site not specified; Z16.12 Extended spectrum beta lactamase (ESBL) resistance; J98.11 Atelectasis; Z16.24 Resistance to multiple antibiotics; B95.3 Streptococcus pneumoniae as the cause of diseases classified elsewhere; Z79.899 Other long term (current) drug therapy; Z85.118 Personal history of other malignant neoplasm of bronchus and lung; R19.7 Diarrhea, unspecified; Y83.1 Surgical operation with implant of artificial internal device as the cause of abnormal reaction of the patient, or of later complication, without mention of misadventure at the time of the procedure; R53.81 Other malaise; Z87.11 Personal history of peptic ulcer disease; M19.91 Primary osteoarthritis, unspecified site; Z79.01 Long term (current) use of anticoagulants; Z79.51 Long term (current) use of inhaled steroids; Z79.84 Long term (current) use of oral hypoglycemic drugs; Z86.73 Personal history of transient ischemic attack (TIA), and cerebral infarction without residual deficits; Z87.891 Personal history of nicotine dependence; Z82.49 Family history of ischemic heart disease and other diseases of the circulatory system
CPT/HCPCS: 36410; 36415; 71046; 71275; 74230; 76937; 80048; 80053; 81001; 83605; 83735; 83880; 84484; 85025; 85379; 85610; 85730; 87040; 87077; 87086; 87186; 87324; 93005; 93306; 94640; 96361; 96365; 96375; 96376; 99285

== ENCOUNTER 2025-03-20 18:02 | Observation (INO) | payer MEDICARE, OTHER ==
[2025-03-20 18:48] LABS: Eosinophils # (A) 0.04 10*3/uL (0.04-0.35); Eosinophils % (A) 0.7 %; HCT 20.3 % (37.2-46.3); Immature Platelet Fraction 4.5 % (1.1-6.1); Lymphocytes % (A) 10.5 %; MCH 27.6 pg (27.0-32.0); Mean Platelet Volume 10.8 fL (9.5-12.2); Monocytes # (A) 0.38 10*3/uL (0.20-1.00); Monocytes % (A) 6.6 %; Neutrophils # (A) 4.67 10*3/uL (1.80-7.70); Neutrophils % (A) 81.5 %; RBC 2.28 10*6/uL (4.10-5.20); RDW 21.2 % (11.5-14.5); WBC 5.73 10*3/uL (4.50-10.00)
[2025-03-20 18:51] LABS: HGB 6.3 g/dL (12.0-15.0); Platelet Count 122 10*3/uL (140-440)
[2025-03-20 18:56] LABS: INR 1.2 (<1.2); Partial Thromboplastin Time 28.8 sec (22.0-30.0); Prothrombin Time 13.3 sec (10.0-12.5)
[2025-03-20 18:58] LABS: ALT 13 U/L (4-34); AST 15 U/L (14-36); African American GFR (CKD) >90 (>60 ml/min/1.73 sqM); Albumin 2.6 g/dL (3.5-5.0); Alkaline Phosphatase 68 U/L (38-126); Anion Gap 8 mmol/L; Blood Urea Nitrogen 17 mg/dL (7-17); Calcium 8.2 mg/dL (8.4-10.2); Carbon Dioxide 29 mmol/L (22-30); Chloride 97 mmol/L (98-107); Glucose 117 mg/dL (74-99); Magnesium 1.7 mg/dL (1.6-2.3); Non-African American GFR(CKD) >90 (>60 ml/min/1.73 sqM); Potassium 3.5 mmol/L (3.5-5.1); Sodium 134 mmol/L (137-145); Total Bilirubin 0.6 mg/dL (0.2-1.3); Total Protein 4.7 g/dL (6.3-8.2)
--- NOTE | 2025-03-20 20:33 | ED ---
General Adult HPI - General Chief complaint: Recheck/Abnormal Lab/Rx Stated complaint: abn labs Time Seen by Provider: 03/20/25 18:15 Source: patient, RN notes reviewed, old records reviewed Mode of arrival: EMS Limitations: no limitations - History of Present Illness Initial comments: This is a 64-year-old female who presents to the emergency department complaining of low hemoglobin. Patient had outpatient blood drawn and she had a hemoglobin of 6.1. Patient states she had hip surgery [place] 2 months ago and she is on antibiotics for an infection there. Patient denies any sites of bleeding that she knows of. Patient states she is on a blood thinner. Patient denies any chest pain or difficulty breathing. Patient states she does feel tired. - Related Data Home Medications Medication Instructions Recorded Confirmed Apixaban [Eliquis] 5 mg PO BID@0800,1700 11/16/24 03/08/25 Metoprolol Succinate [Toprol XL] 100 mg PO DAILY@0800 11/16/24 03/08/25 Tiotropium [place] [Spiriva 1 puff INHALATION RT-DAILY@0800 11/16/24 03/08/25 Handihaler] Cholecalciferol [Vitamin D3 (25 125 mcg PO DAILY@0800 01/30/25 03/08/25 Mcg = 1000 Iu)] Ferrous Sulfate [Iron (65 MG 325 mg PO TID@0800,1200,1700 01/30/25 03/08/25 Elemental)] Hydroxychloroquine Sulfate 200 mg PO DAILY@0800 02/26/25 03/08/25 [Plaquenil] dilTIAZem HCL [dilTIAZem HCL 24Hr 240 mg PO DAILY@0800 02/26/25 03/08/25 ER (LA)] Acetaminophen Tab [Tylenol] 500 mg PO Q8H PRN 03/08/25 03/08/25 Albuterol Sulfate [Ventolin HFA] 1 puff INHALATION RT-QID PRN 03/08/25 03/08/25 Atorvastatin [Lipitor] 10 mg PO HS 03/08/25 03/08/25 DULoxetine HCL [Cymbalta] 60 mg PO DAILY@0800 03/08/25 03/08/25 Fluticasone Propion/Salmeterol 1 puff INHALATION RT-BID 03/08/25 03/08/25 [Advair 250-50 Diskus] HYDROcodone/APAP 7.5-325MG [[place] 1 tab PO Q4H PRN 03/08/25 03/08/25 7.5-325] INSULIN ASPART (NovoLOG) [NovoLOG See Protocol SQ ACHS 03/08/25 03/08/25 (formulary)] Ipratropium-Albuterol Nebulize 3 ml INHALATION RT-Q4H PRN 03/08/25 03/08/25 [Duoneb 0.5 mg-3 mg/3 ml Soln] Linezolid [Zyvox] 600 mg PO Q12H 03/08/25 03/08/25 Magnesium Hydroxide [Milk of 7,200 mg PO DAILY PRN 03/08/25 03/08/25 Magnesia Concentrate] Na Phos,M-B/Na Phos,Di-Ba [Fleet 133 ml RECTAL DAILY PRN 03/08/25 03/08/25 Adult] Omeprazole 40 mg PO BID 03/08/25 03/08/25 Ondansetron [Zofran] 4 mg PO Q6H PRN 03/08/25 03/08/25 bisacodyL [Dulcolax] 10 mg RECTAL Q24H PRN 03/08/25 03/08/25 polyethylene glycoL 3350 [Miralax] 17 gm PO DAILY PRN 03/08/25 03/08/25 Previous Rx's Medication Instructions Recorded Amiodarone [Cordarone] See Rx Instructions .ROUTE 03/13/25 .COMPLEX #1 tab Furosemide [Lasix] 20 mg PO DAILY tab 03/13/25 Sennosides [Senokot] 8.6 mg PO BID PRN #0 03/13/25 Allergies Allergy/AdvReac Type Severity Reaction Status Date / Time codeine AdvReac Nausea Verified 03/08/25 11:08 Review of Systems ROS Statement: Those systems with pertinent positive or pertinent negative responses have been documented in the HPI. ROS Other: All systems not noted in ROS Statement are negative. 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 Second and Third vetebre are fragile per pt Past Psychological History: Bipolar, Depression Smoking Status: Former smoker Past Alcohol Use History: Occasional Past Drug Use History: None Reported - Past Family History Mother Family Medical History: Congestive Heart Failure (CHF) Father Additional Family Medical History / Comment(s): Fibrosycrosis General Exam - General Exam Comments Initial Comments: GENERAL: Patient is well-developed and well-nourished. Patient is nontoxic and well- hydrated and is in mild distress. ENT: Neck is soft and supple. No significant lymphadenopathy is noted. Oropharynx is clear. Moist mucous membranes. Neck has full range of motion without eliciting any pain. EYES: The sclera were anicteric and conjunctiva were pink and moist. Extraocular movements were intact and pupils were equal round and reactive to light. Eyelids were unremarkable. PULMONARY: Unlabored respirations. Good breath sounds bilaterally. No audible rales rhonchi or wheezing was noted. CARDIOVASCULAR: There is a regular rate and rhythm without any murmurs gallops or rubs. ABDOMEN: Soft and nontender with normal bowel sounds. SKIN: Skin is pale NEUROLOGIC: Patient is alert and oriented x3. Cranial nerves II through XII are grossly intact. Motor and sensory are also intact. Normal speech, volume and content. Symmetrical smile. MUSCULOSKELETAL: Normal extremities with adequate strength and full range of motion. No lower extremity swelling or edema. No calf tenderness. LYMPHATICS: No significant lymphadenopathy is noted PSYCHIATRIC: Normal psychiatric evaluation. Limitations: no limitations Course Vital Signs 03/20/25 03/20/25 18:12 19:45 Temperature 98 F Pulse Rate 86 86 Respiratory 16 18 Rate Blood Pressure 107/70 100/59 O2 Sat by Pulse 99 100 Oximetry Medical Decision Making - Medical Decision Making EKG is interpreted by myself EKG shows a sinus rhythm at 86 bpm UT interval is 301 QRS 102 QT interval is 4 9 QTc is 452. Patient's EKG shows no ST segment elevation however does show some T wave depression in precordial leads V3 through V6 and inferior leads II to III and aVF Was pt. sent in by a medical professional or institution (CORDELIA Mcdonough, SERVICE UNIT OPERATOR, urgent care, hospital, or senior living...) When possible be specific @ -No Did you speak to anyone other than the patient for history (EMS, parent, family, police, friend...)? What history was obtained from this source @ -No Did you review nursing and triage notes (agree or disagree)? Why? @ -I reviewed and agree with nursing and triage notes Were old charts reviewed (outside hosp., previous admission, EMS record, old EKG, old radiological studies, urgent care reports/EKG's, senior living records)? Report findings @ -No old charts were reviewed Differential Diagnosis? @ -Lab error, anemia, GI bleed, hematoma, this is not an all-inclusive list EKG interpreted by me (3pts min.). @ -As above X-rays interpreted by me (1pt min.). @ -None done CT interpreted by me (1pt min.). @ -None done U/S interpreted by me (1pt. min.). @ -None done What testing was considered but not performed or refused? (CT, X-rays, U/S, labs)? Why? @ -None What meds were considered but not given or refused? Why? @ -None Did you discuss the management of the patient with other professionals (professionals i.e. CORDELIA Mcdonough, SERVICE UNIT OPERATOR, lab, RT, psych nurse, health care social worker, flat lock operator, teacher, chief customer officer, briefcase sewer)? Give summary @ -Spoke with Dr. Barksdale he agreed to admit the patient Was smoking cessation discussed for >3mins.? @ -No Was critical care preformed (if so, how long)? @ -35 minutes Were there social determinants of health that impacted care today? How? (Homelessness, low income, unemployed, alcoholism, drug addiction, transportation, low edu. Level, literacy, decrease access to med. care, long term, rehab)? @ -No Was there de-escalation of care discussed even if they declined (Discuss DNR or withdrawal of care, Hospice)? DNR status @ -No What co-morbidities impacted this encounter? (DM, HTN, Smoking, COPD, CAD, Cancer, CVA, ARF, Chemo, Hep., AIDS, mental health diagnosis, sleep apnea, morbid obesity)? @ -None Was patient admitted / discharged? Hospital course, mention meds given and route, prescriptions, significant lab abnormalities, going to OR and other perti nent info. @ -Patient was anemic I gave the patient a unit of blood. Patient will be admitted to Dr. Barksdale serial CBCs will be done and a CAT scan of the hip will be done Undiagnosed new problem with uncertain prognosis? @ -No Drug Therapy requiring intensive monitoring for toxicity (Heparin, Nitro, Insulin, Cardizem)? @ -No Were any procedures done? @ -No Diagnosis/symptom? @ -Anemia Acute, or Chronic, or Acute on Chronic? @ -Acute Uncomplicated (without systemic symptoms) or Complicated (systemic symptoms)? @ -Complicated Side effects of treatment? @ -No Exacerbation, Progression, or Severe Exacerbation? @ -No Poses a threat to life or bodily function? How? (Chest pain, [place], [place], pneumonia, PE, COPD, DKA, ARF, appy, cholecystitis, CVA, Diverticulitis, Homicidal, Suicidal, threat to staff... and all critical care pts) @ -Yes this can lead to lower hemoglobin hypoxia and endorgan dysfunction - Lab Data Result diagrams: 03/20/25 18:40 03/20/25 18:40 Lab Results 03/20/25 03/20/25 03/20/25 Range/Units 18:24 18:40 18:40 WBC 5.73 (4.50-10.00) 10*3/uL RBC 2.28 L (4.10-5.20) 10*6/uL Hgb 6.3 L* D (12.0-15.0) g/dL Hct 20.3 L (37.2-46.3) % MCV 89.0 (80.0-97.0) fL MCH 27.6 (27.0-32.0) pg MCHC 31.0 L (32.0-37.0) g/dL Plt Count 122 L D (140-440) 10*3/uL MPV 10.8 (9.5-12.2) fL Immature Gran % (Auto) 0.7 % Neutrophils % 81.5 % Lymphocytes % 10.5 % Monocytes % 6.6 % Eosinophils % 0.7 % Basophils % 0.0 % Immature Gran # 0.04 (0.00-0.04) 10*3/uL Neutrophils # 4.67 (1.80-7.70) 10*3/uL Lymphocytes # 0.60 L (0.90-5.00) 10*3/uL Monocytes # 0.38 (0.20-1.00) 10*3/uL Eosinophils # 0.04 (0.04-0.35) 10*3/uL Basophils # 0.00 (0.00-0.10) 10*3/uL Immature Plt Fraction 4.5 (1.1-6.1) % PT 13.3 H (10.0-12.5) sec INR 1.2 H (<1.2) APTT 28.8 (22.0-30.0) sec Sodium (137-145) mmol/L Potassium (3.5-5.1) mmol/L Chloride (98-107) mmol/L Carbon Dioxide (22-30) mmol/L Anion Gap mmol/L BUN (7-17) mg/dL Creatinine (0.52-1.04) mg/dL Est GFR (CKD-EPI)AfAm (>60 ml/min/1.73 sqM) Est GFR (CKD-EPI)NonAf (>60 ml/min/1.73 sqM) Glucose (74-99) mg/dL Calcium (8.4-10.2) mg/dL Magnesium (1.6-2.3) mg/dL Total Bilirubin (0.2-1.3) mg/dL AST (14-36) U/L ALT (4-34) U/L Alkaline Phosphatase (38-126) U/L Troponin I (0.000-0.034) ng/mL Total Protein (6.3-8.2) g/dL Albumin (3.5-5.0) g/dL Blood Type O Positive Blood Type Recheck O Pos Bld Type Recheck Status No Antibody Screen POSITIVE Crossmatch See Detail Spec Expiration Date 03/23/2025232303/20/25 03/20/25 Range/Units 18:40 18:40 WBC (4.50-10.00) 10*3/uL RBC (4.10-5.20) 10*6/uL Hgb (12.0-15.0) g/dL Hct (37.2-46.3) % MCV (80.0-97.0) fL MCH (27.0-32.0) pg MCHC (32.0-37.0) g/dL Plt Count (140-440) 10*3/uL MPV (9.5-12.2) fL Immature Gran % (Auto) % Neutrophils % % Lymphocytes % % Monocytes % % Eosinophils % % Basophils % % Immature Gran # (0.00-0.04) 10*3/uL Neutrophils # (1.80-7.70) 10*3/uL Lymphocytes # (0.90-5.00) 10*3/uL Monocytes # (0.20-1.00) 10*3/uL Eosinophils # (0.04-0.35) 10*3/uL Basophils # (0.00-0.10) 10*3/uL Immature Plt Fraction (1.1-6.1) % PT (10.0-12.5) sec INR (<1.2) APTT (22.0-30.0) sec Sodium 134 L (137-145) mmol/L Potassium 3.5 (3.5-5.1) mmol/L Chloride 97 L (98-107) mmol/L Carbon Dioxide 29 (22-30) mmol/L Anion Gap 8 mmol/L BUN 17 (7-17) mg/dL Creatinine 0.43 L (0.52-1.04) mg/dL Est GFR (CKD-EPI)AfAm >90 (>60 ml/min/1.73 sqM) Est GFR (CKD-EPI)NonAf >90 (>60 ml/min/1.73 sqM) Glucose 117 H (74-99) mg/dL Calcium 8.2 L (8.4-10.2) mg/dL Magnesium 1.7 (1.6-2.3) mg/dL Total Bilirubin 0.6 (0.2-1.3) mg/dL AST 15 (14-36) U/L ALT 13 (4-34) U/L Alkaline Phosphatase 68 (38-126) U/L Troponin I <0.012 (0.000-0.034) ng/mL Total Protein 4.7 L (6.3-8.2) g/dL Albumin 2.6 L (3.5-5.0) g/dL Blood Type Blood Type Recheck Bld Type Recheck Status Antibody Screen Crossmatch Spec Expiration Date Disposition Clinical Impression: Anemia Disposition: ADMITTED IP TO THIS HOSP Referrals: Te Menchaca DO [Primary Care Provider] - 1-2 days Time of Disposition: 20:33
[2025-03-20 21:09] LABS: Eosinophils # (A) 0.05 10*3/uL (0.04-0.35); Eosinophils % (A) 0.9 %; Immature Platelet Fraction 4.3 % (1.1-6.1); Lymphocytes # (A) 0.63 10*3/uL (0.90-5.00); Lymphocytes % (A) 11.6 %; MCH 27.4 pg (27.0-32.0); MCHC 31.1 g/dL (32.0-37.0); MCV 88.1 fL (80.0-97.0); Mean Platelet Volume 10.7 fL (9.5-12.2); Monocytes # (A) 0.26 10*3/uL (0.20-1.00); Monocytes % (A) 4.8 %; Neutrophils # (A) 4.43 10*3/uL (1.80-7.70); Platelet Count 116 10*3/uL (140-440); RBC 2.19 10*6/uL (4.10-5.20); RDW 21.1 % (11.5-14.5); WBC 5.41 10*3/uL (4.50-10.00)
[2025-03-20 21:14] LABS: HCT 19.3 % (37.2-46.3)
--- NOTE | 2025-03-21 00:56 | CT ---
EXAM: CT Left Lower Extremity Without Intravenous Contrast, Hip CLINICAL HISTORY: ITS.REASON CT Reason: Blood loss TECHNIQUE: Axial computed tomography images of the left hip without intravenous contrast. CTDI is 17.5 mGy and DLP is 729.5 mGy-cm. This CT exam was performed using one or more of the following dose reduction techniques: automated exposure control, adjustment of the mA and/or kV according to patient size, and/or use of iterative reconstruction technique. COMPARISON: No relevant prior studies available. FINDINGS: Bones/joints: LEFT hip arthroplasty with plate and screw fixation of the acetabulum and multiple acetabular augmentation screws. No periprosthetic fracture or dislocation. Soft tissues: Organizing collection in the overlying subcutaneous fat measures approximately 18.4 x 4.5 cm. Correlate for postsurgical hematoma. If there is concern for infection, an abscess cannot entirely be excluded. This collection is located deep to the incision scar. IMPRESSION: 1. Organizing collection in the overlying subcutaneous fat measures approximately 18.4 x 4.5 cm. Correlate for postsurgical hematoma. If there is concern for infection, an abscess cannot entirely be excluded. This collection is located deep to the incision scar. 2. LEFT hip arthroplasty with plate and screw fixation of the acetabulum and multiple acetabular augmentation screws. No periprosthetic fracture or dislocation.
[2025-03-21 03:20] LABS: Basophils # (A) 0.01 10*3/uL (0.00-0.10); Basophils % (A) 0.2 %; Eosinophils # (A) 0.05 10*3/uL (0.04-0.35); Eosinophils % (A) 1.1 %; HCT 23.2 % (37.2-46.3); Immature Platelet Fraction 3.7 % (1.1-6.1); Lymphocytes # (A) 0.62 10*3/uL (0.90-5.00); Lymphocytes % (A) 13.2 %; MCH 28.7 pg (27.0-32.0); MCHC 32.8 g/dL (32.0-37.0); MCV 87.5 fL (80.0-97.0); Mean Platelet Volume 10.5 fL (9.5-12.2); Monocytes # (A) 0.31 10*3/uL (0.20-1.00); Monocytes % (A) 6.6 %; Neutrophils # (A) 3.65 10*3/uL (1.80-7.70); Platelet Count 109 10*3/uL (140-440); RBC 2.65 10*6/uL (4.10-5.20); RDW 19.1 % (11.5-14.5); WBC 4.68 10*3/uL (4.50-10.00)
[2025-03-21 03:23] LABS: HGB 7.6 g/dL (12.0-15.0)
[2025-03-21] MEDS ORDERED: polyethylene glycoL 3350 17 GM POWD.PACK PO PRN (10:27)
[2025-03-21] MEDS ORDERED: SENNOSIDES 8.6 MG TAB PO PRN (10:27)
[2025-03-21] MEDS ORDERED: ACETAMINOPHEN TAB 500 MG TAB PO PRN (10:27)
[2025-03-21] MEDS ORDERED: NA PHOS,M-B/NA PHOS,DI-BA 133 ML ENEMA RECTAL PRN (10:27)
[2025-03-21] MEDS ORDERED: MAGNESIUM HYDROXIDE 2,400 MG/30 ML CUP PO PRN (10:27)
[2025-03-21] MEDS ORDERED: bisacodyL 10 MG SUPP RECTAL PRN (10:27)
[2025-03-21] MEDS ORDERED: ALBUTEROL NEBULIZED 2.5 MG/3 ML INHALATION PRN (10:27)
--- NOTE | 2025-03-21 10:46 | P.HPIM ---
History of Present Illness H&P Date: 03/20/25 Chief Complaint: Anemia 64-year-old female with a history of A-fib (on eliquis), COPD with chronic respiratory failure on 2 L nasal cannula and joint replacements including recent left joint infected prosthesis Patient seen in the ER. 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 Status post I&D February 10. Course complicated by GI bleed status post EGD with epinephrine. Cauterization. And clipping. On February 14. She was restarted on therapeutic anticoagulant Eliquis. Cultures from her left hip grew Streptococcus pneumoniae. She will be treated with linezolid 600 mg twice daily through March 23. They will be transition to amoxicillin for chronic suppression. She will follow-up with outpatient infectious disease. Attending: Dr. Annamaria Enriquez]. Recently in the hospital from March 08 through March 14.: UTI withPseudomonas aeruginosa and Klebsiella pneumoniae ESBL/MDRO. Completed the course of ertapenem. Patient sent in from [facility] they found her hemoglobin to be low. Hence she was sent down to the ER. Hemoglobin was 6. Patient given a unit of blood in the ER. Patient denies any dark stools. She does have dressing change left hip every day at the [facility]. Not sure of any blood drainage from the same. She is able to stand with assist. Appetite is fair. No fever no chills. Spoke to ER physician Dr. Camarillo as admission is being done to do a CT scan of the left hip. Review of systems: GEN.: Tired EYES: None HEENT: None NECK: None RESPIRATORY: None CARDIOVASCULAR: None GASTROINTESTINAL: None GENITOURINARY: None MUSCULOSKELETAL: Left hip replaced 7 days ago LYMPHATICS: None HEMATOLOGICAL: None PSYCHIATRY: Anxiety NEUROLOGICAL: Prior to surgery using a wheelchair Social history: Former smoker. Occasional alcohol. Long-term resident at [facility]. Uses wheelchair On examination: VITAL SIGNS: 98, 71, 18, 96 x 60, 100% 4 L GENERAL APPEARANCE: Laying in bed, comfortable HEENT: Normal external appearance of nose and ear. Oral cavity normal EYES: Pupils equal. Conjunctiva pale. NECK: JVD not raised. Mass not palpable. RESPIRATORY: Respiratory effort normal. Lungs decreased breath. CARDIOVASCULAR: Heart sounds irregular. Edema present. ABDOMEN: Soft. Liver and spleen not palpable. No tenderness. No mass palpable. PSYCHIATRY: Alert and oriented x3. Mood and affect normal. MUSCULOSKELETAL:No Clubbing/cyanosis;muscles-grossly intact. OA. Limited range of motion left hip. Left thigh dressed sitting over incisions NEUROLOGICAL: Cranial nerves grossly intact; no facial asymmetry, power and sensation grossly intact. LYMPHATICS: No lymph nodes palpable in the axilla and neck INVESTIGATIONS, reviewed in the clinical context: March 20: White count 5.4 hemoglobin 6 platelets 116 sodium 134 potassium 3.5 BUN 17 creatinine 0.43 EKG tracing personally reviewed by me-normal sinus rhythm. ST-T wave changes. Previous labs: March 12, 2025: Hemoglobin 9 Assessment: -Acute drop in hemoglobin. From 9 on March 12 now down to 6.0 Patient had a hematoma on the left hip at the surgical site. This will be monitored. Patient is on Eliquis for atrial fibrillation. This will be held for now. CT scan left hip pending - CHF with preserved LVEF: Lasix -Moderate to severe MR -Paroxysmal atrial fibrillation. Since blood pressure is low we will continue with Toprol-XL 100 mg a day. Hold Cardizem CD for now. Because of suspected hematoma left hip hold Eliquis -COPD/chronic hypoxic respiratory failure EllebRamesh Garcia. -A week ago treated for Pseudomonas aeruginosa and Klebsiella pneumoniae ESBL/MDRO, with 1 week of IV ertapenem - Normocytic anemia. 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 Status post I&D February 10, at [facility].. Cultures grew Streptococcus pneumonia. Patient to continue with Zyvox 600 mg twice daily through March 23. That she will transition to amoxicillin for chronic suppression. -History of seizure disorder - Recent GI bleed on February 14. Patient underwent EGD with epinephrine cauterization. And clipping. Later resumed on Eliquis. -History of lung cancer; likely neuroendocrine type based on patient's history Most recent PET/CT on 10/28/2024 showed no evidence of any metabolic uptake to suggest any residual disease -Essential hypertension; currently blood pressure running low Toprol. Cardizem-hold -Medical power of state's attorney: Son Anton - Primary osteoarthritis and also secondary osteoarthritis from previous surgeries on the left hip - Depression Cymbalta 60 mg a day - Long-term resident, at [facility] If the CT scan shows hematoma may l need orthopedic. Hold Eliquis for now Given the complexity and severity of patient's condition expect the patient to be in the hospital at least for 2 overnights Past Medical History Past Medical History: Atrial Fibrillation, COPD, CVA/TIA, Seizure Disorder Additional Past Medical History / Comment(s): Rheumaoid arthritis, CHF, COPD, Cancer to lungs, CVA x 3, Miscarriages, Multiple personality disorder, low hgb, pre-diabetic History of Any Multi-Drug Resistant Organisms: ESBL Date of last positivie culture/infection: 03/08/25 MDRO Source:: urine Past Surgical History: Adenoidectomy, Section, Tonsillectomy Additional Past Surgical History / Comment(s): hip replacement x 6 r/t juvenile rheumatoid arthritis, Last time February 2025, 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 Second and Third vetebre are fragile per pt Past Psychological History: Bipolar, Depression Smoking Status: Former smoker Past Alcohol Use History: Occasional Past Drug Use History: None Reported - Past Family History Mother Family Medical History: Congestive Heart Failure (CHF) Father Additional Family Medical History / Comment(s): Fibrosycrosis Medications and Allergies Home Medications Medication Instructions Recorded Confirmed Type Apixaban [Eliquis] 5 mg PO BID@0800,1700 11/16/24 03/21/25 History Metoprolol Succinate [Toprol XL] 100 mg PO DAILY@0800 11/16/24 03/21/25 History Tiotropium [place] [Spiriva 1 puff INHALATION RT-DAILY@0800 11/16/24 03/21/25 History Handihaler] Cholecalciferol [Vitamin D3 (25 125 mcg PO DAILY@0800 01/30/25 03/21/25 History Mcg = 1000 Iu)] Ferrous Sulfate [Iron (65 MG 325 mg PO TID@0800,1200,1700 01/30/25 03/21/25 History Elemental)] Hydroxychloroquine Sulfate 200 mg PO DAILY@0800 02/26/25 03/21/25 History [Plaquenil] dilTIAZem HCL [dilTIAZem HCL 24Hr 240 mg PO DAILY@0800 02/26/25 03/21/25 History ER ([place])] Acetaminophen Tab [Tylenol] 500 mg PO Q8H PRN 03/08/25 03/21/25 History Albuterol Sulfate [Ventolin HFA] 1 puff INHALATION RT-QID PRN 03/08/25 03/21/25 History Atorvastatin [Lipitor] 10 mg PO HS 03/08/25 03/21/25 History DULoxetine HCL [Cymbalta] 60 mg PO DAILY@0800 03/08/25 03/21/25 History Fluticasone Propion/Salmeterol 1 puff INHALATION RT-BID@0800,1700 03/08/25 03/21/25 History [Advair 250-50 Diskus] HYDROcodone/APAP 7.5-325MG [[place] 1 tab PO Q4H PRN 03/08/25 03/21/25 History 7.5-325] INSULIN ASPART (NovoLOG) [NovoLOG See Protocol SQ ACHS 03/08/25 03/21/25 History (formulary)] Ipratropium-Albuterol Nebulize 3 ml INHALATION RT-Q4H PRN 03/08/25 03/21/25 History [Duoneb 0.5 mg-3 mg/3 ml Soln] Linezolid [Zyvox] 600 mg PO BID@0800,2100 03/08/25 03/21/25 History Magnesium Hydroxide [Milk of 7,200 mg PO DAILY PRN 03/08/25 03/21/25 History Magnesia Concentrate] Na Phos,M-B/Na Phos,Di-Ba [Fleet 133 ml RECTAL DAILY PRN 03/08/25 03/21/25 History Adult] Omeprazole 40 mg PO BID@0600,1700 03/08/25 03/21/25 History Ondansetron [Zofran] 4 mg PO Q6H PRN 03/08/25 03/21/25 History bisacodyL [Dulcolax] 10 mg RECTAL Q24H PRN 03/08/25 03/21/25 History polyethylene glycoL 3350 [Miralax] 17 gm PO DAILY PRN 03/08/25 03/21/25 History Furosemide [Lasix] 20 mg PO DAILY tab 03/13/25 03/21/25 Rx Sennosides [Senokot] 8.6 mg PO BID PRN #0 03/13/25 03/21/25 Rx Amiodarone [Cordarone] See Taper PO DIRECTED 03/21/25 03/21/25 History Caldesene Powder 1 applic TOPICAL BID 03/21/25 03/21/25 History Calprotect Cream 1 applic TOPICAL BID 03/21/25 03/21/25 History Loperamide HCl [Imodium A-D] 2 - 4 mg PO DIRECTED PRN MDD 4 03/21/25 03/21/25 History tablets Magic Cup 1 dose PO DAILY@1200 03/21/25 03/21/25 History Allergies Allergy/AdvReac Type Severity Reaction Status Date / Time codeine AdvReac Nausea Verified 03/21/25 09:17 Physical Exam Vitals: Vital Signs Temp Pulse Resp BP Pulse Ox 03/20/25 20:57 71 18 96/60 100 03/20/25 19:45 86 18 100/59 100 03/20/25 18:12 98 F 86 16 107/70 99 Intake and Output 03/20/25 03/20/25 03/20/25 06:59 14:59 22:59 Other: Weight 69.853 kg Results CBC & Chem 7: 03/21/25 03:09 03/20/25 18:40 Labs: Abnormal Lab Results - Last 24 Hours (Table) 03/20/25 03/20/25 03/20/25 Range/Units 18:24 18:40 18:40 RBC 2.28 L (4.10-5.20) 10*6/uL Hgb 6.3 L* D (12.0-15.0) g/dL Hct 20.3 L (37.2-46.3) % MCHC 31.0 L (32.0-37.0) g/dL Plt Count 122 L D (140-440) 10*3/uL Lymphocytes # 0.60 L (0.90-5.00) 10*3/uL PT 13.3 H (10.0-12.5) sec INR 1.2 H (<1.2) Sodium (137-145) mmol/L Chloride (98-107) mmol/L Creatinine (0.52-1.04) mg/dL Glucose (74-99) mg/dL Calcium (8.4-10.2) mg/dL Total Protein (6.3-8.2) g/dL Albumin (3.5-5.0) g/dL Crossmatch See Detail 03/20/25 03/20/25 Range/Units 18:40 20:58 RBC 2.19 L (4.10-5.20) 10*6/uL Hgb 6.0 L* (12.0-15.0) g/dL Hct 19.3 L* (37.2-46.3) % MCHC 31.1 L (32.0-37.0) g/dL Plt Count 116 L (140-440) 10*3/uL Lymphocytes # 0.63 L (0.90-5.00) 10*3/uL PT (10.0-12.5) sec INR (<1.2) Sodium 134 L (137-145) mmol/L Chloride 97 L (98-107) mmol/L Creatinine 0.43 L (0.52-1.04) mg/dL Glucose 117 H (74-99) mg/dL Calcium 8.2 L (8.4-10.2) mg/dL Total Protein 4.7 L (6.3-8.2) g/dL Albumin 2.6 L (3.5-5.0) g/dL Crossmatch
[2025-03-21] MEDS ORDERED: FERROUS SULFATE 325 MG TAB PO SCH (12:00)
[2025-03-21] MEDS ORDERED: NON FORMULARY DRUG (Magic Cup 1 EACH Ml) PO SCH (12:00)
[2025-03-21] MEDS: LINEZOLID 600 MG TAB PO SCH (12:43)
[2025-03-21] MEDS: HYDROXYCHLOROQUINE SULFATE 200 MG TAB PO SCH (12:43)
[2025-03-21] MEDS: METOPROLOL SUCCINATE (ER) 100 MG TAB.ER.24H PO SCH (12:43)
[2025-03-21] MEDS: DULoxetine HCL 60 MG CAPSULE.DR PO SCH (12:47)
[2025-03-21] MEDS: PANTOPRAZOLE 40 MG TABLET PO SCH (12:47)
[2025-03-21] MEDS: SYMBICORT 80-4.5 MCG INHALER INHALATION SCH (13:15)
[2025-03-21] MEDS: IPRATROPIUM 0.5 MG/2.5 ML NEBU INHALATION SCH (13:15)
--- NOTE | 2025-03-21 15:06 | P.PN ---
Progress Note - Text Progress Note Date: 03/21/25 Chief Complaint: Anemia 64-year-old female with a history of A-fib (on eliquis), COPD with chronic respiratory failure on 2 L nasal cannula and joint replacements including recent left joint infected prosthesis Patient seen in the ER. 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 Status post I&D February 10. Course complicated by GI bleed status post EGD with epinephrine. Cauterization. And clipping. On February 14. She was restarted on therapeutic anticoagulant Eliquis. Cultures from her left hip grew Streptococcus pneumoniae. She will be treated with linezolid 600 mg twice daily through March 23. They will be transition to amoxicillin for chronic suppression. She will follow-up with outpatient infectious disease. Attending: Dr. Annamaria Enriquez]. Recently in the hospital from March 08 through March 14.: UTI withPseudomonas aeruginosa and Klebsiella pneumoniae ESBL/MDRO. Completed the course of ertapenem. Patient sent in from [facility] they found her hemoglobin to be low. Hence she was sent down to the ER. Hemoglobin was 6. Patient given a unit of blood in the ER. Patient denies any dark stools. She does have dressing change left hip every day at the [facility]. Not sure of any blood drainage from the same. She is able to stand with assist. Appetite is fair. No fever no chills. Spoke to ER physician Dr. Camarillo as admission is being done to do a CT scan of the left hip. March 21: Received a unit of blood last night. Hemoglobin this morning 7.6. Have held off Eliquis, did not receive a dose last night.. Discussed with the patient. Orthopedics was consulted for the hematoma. Patient has no clinical symptoms of infection. No fever no white count Active Medications Acetaminophen (Acetaminophen Tab 500 Mg Tab) 500 mg PO Q8H PRN PRN Reason: Mild Pain Hydrocodone Bitart/Acetaminophen (Hydrocodone/Apap 7.5-325mg 1 Each Tab) 1 each PO Q4H PRN PRN Reason: Pain Albuterol/Ipratropium (Ipratropium-Albuterol 3 Ml Neb) 3 ml INHALATION RT-Q4H PRN PRN Reason: COPD Atorvastatin Calcium (Atorvastatin 10 Mg Tab) 10 mg PO HS ANTONELLA Bisacodyl (Bisacodyl 10 Mg Supp) 10 mg RECTAL Q24H PRN PRN Reason: Constipation Budesonide/Formoterol Fumarate (Symbicort 80-4.5 Mcg Inhaler) 2 puff INHALATION RT-BID@0800,1700 [facility] Last Admin: 03/21/25 13:15 Dose: 2 puff Cholecalciferol (Cholecalciferol 25 Mcg (1000 Iu) Tablet) 125 mcg PO DAILY@0800 [facility] Duloxetine HCl (Duloxetine Hcl 60 Mg Capsule.Dr) 60 mg PO DAILY@0800 [facility] Last Admin: 03/21/25 12:47 Dose: 60 mg Hydroxychloroquine Sulfate (Hydroxychloroquine Sulfate 200 Mg Tab) 200 mg PO DAILY@0800 [facility] Last Admin: 03/21/25 12:43 Dose: 200 mg Ipratropium [place] (Ipratropium 0.5 Mg/2.5 Ml Nebu) 0.5 mg INHALATION RT-QID [facility] Last Admin: 03/21/25 13:15 Dose: 0.5 mg Linezolid (Linezolid 600 Mg Tab) 600 mg PO BID@0800,2100 [facility]; Protocol Last Admin: 03/21/25 12:43 Dose: 600 mg Magnesium Hydroxide (Magnesium Hydroxide 2,400 Mg/30 Ml Cup) 2,400 mg PO DAILY PRN PRN Reason: Constipation Metoprolol Succinate (Metoprolol Succinate (Er) 100 Mg Tab.Er.24h) 100 mg PO DAILY@0800 [facility] Last Admin: 03/21/25 12:43 Dose: 100 mg Nystatin (Nystatin 100,000 Unit/Gm Powd 15 Gm) 1 applic TOPICAL BID [facility]; Protocol Stop: 04/11/25 21:00 Ondansetron HCl (Ondansetron Odt 4 Mg Tab) 4 mg PO Q6H PRN PRN Reason: Nausea And Vomiting Pantoprazole Sodium (Pantoprazole 40 Mg Tablet) 40 mg PO BID@0600,1700 [facility] Last Admin: 03/21/25 12:47 Dose: 40 mg Polyethylene Glycol (Polyethylene Glycol 3350 17 Gm Powd.Pack) 17 gm PO DAILY PRN PRN Reason: Constipation Senna (Sennosides 8.6 Mg Tab) 8.6 mg PO BID PRN PRN Reason: Constipation Sodium Biphosphate/Sodium Phosphate (Na Phos,M-B/Na Phos,Di-Ba 133 Ml Enema) 133 ml RECTAL DAILY PRN PRN Reason: Constipation Social history: Former smoker. Occasional alcohol. Long-term resident at [facility]. Uses wheelchair On examination: VITAL SIGNS: 97.4, 83, 14, 116 x 66, 97% on 2 L GENERAL APPEARANCE: Laying in bed, comfortable HEENT: Normal external appearance of nose and ear. Oral cavity normal EYES: Pupils equal. Conjunctiva pale. NECK: JVD not raised. Mass not palpable. RESPIRATORY: Respiratory effort normal. Lungs decreased breath. CARDIOVASCULAR: Heart sounds irregular. Edema present. ABDOMEN: Soft. Liver and spleen not palpable. No tenderness. No mass palpable. PSYCHIATRY: Alert and oriented x3. Mood and affect normal. MUSCULOSKELETAL:No Clubbing/cyanosis;muscles-grossly intact. OA. Limited range of motion left hip. Left thigh-dressing over incisions NEUROLOGICAL: Cranial nerves grossly intact; no facial asymmetry, power and sensation grossly intact. LYMPHATICS: No lymph nodes palpable in the axilla and neck INVESTIGATIONS, reviewed in the clinical context: CT left hip[March 21]: Organizing collection in the overlying subcutaneous fat measures approximately 18 x 4 x 4.5 cm. Correlate for postsurgical hematoma. March 21: White count 4.6 hemoglobin 7.6 platelets 109 March 20: White count 5.4 hemoglobin 6 platelets 116 sodium 134 potassium 3.5 BUN 17 creatinine 0.43 EKG tracing personally reviewed by me-normal sinus rhythm. ST-T wave changes. Previous labs: March 12, 2025: Hemoglobin 9 Assessment: -Acute anemia. From 9 on March 12 now down to 6.0, likely from left hip hematoma postsurgical, precipitated by being on Eliquis Patient's previously also had a hematoma. CT scan now shows a hematoma 18 x 4 x 4.5 cm. Discussed the pros and cons about Eliquis and given the drop of hemoglobin we will hold off Eliquis going forward. - Left hip postsurgical hematoma precipitated by Eliquis Eliquis has been held. Orthopedics consulted - CHF with preserved LVEF: Lasix -Moderate to severe MR -Paroxysmal atrial fibrillation. Since blood pressure is low we will continue with Toprol-XL 100 mg a day. Hold Cardizem CD for now. Because of suspected hematoma left hip hold Eliquis -COPD/chronic hypoxic respiratory failure DuoNeb. Advair. 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 Status post I&D February 10, at [facility].. Cultures grew Streptococcus pneumonia. Patient to continue with Zyvox 600 mg twice daily through March 23. That she will transition to amoxicillin for chronic suppression. -History of seizure disorder - GI bleed on February 14. Patient underwent EGD with epinephrine cauterization. And clipping. Later resumed on Eliquis. -History of lung cancer; likely neuroendocrine type based on patient's history Most recent PET/CT on 10/28/2024 showed no evidence of any metabolic uptake to suggest any residual disease -Essential hypertension; currently blood pressure running low Toprol. Continue Cardizem remains-hold -Medical power of finance attorney: Son Anton - Primary osteoarthritis and also secondary osteoarthritis from previous surgeries on the left hip - Depression Cymbalta 60 mg a day - Long-term resident, at [facility] Consult Ortho. Hold Eliquis. 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 Second and Third vetebre are fragile per pt Past Psychological History: Bipolar, Depression Smoking Status: Former smoker Past Alcohol Use History: Occasional Past Drug Use History: None Reported
--- NOTE | 2025-03-21 20:05 | P.CNOR ---
History of Present Illness - [facility] Consult date: 03/21/25 History of present illness: This is a very pleasant 64-year-old female with a history of A-fib (on eliquis), COPD with chronic respiratory failure on 2 L nasal cannula, and extensive left hip joint replacement history. Per patient, patient had a primary left total hip arthroplasty at the age of 23 for rheumatoid arthritis, this was then revised around the age of 38. From age 38 until recently the patient had been doing well but then developed pain in her left hip. This eventually led to a diagnosis of left prosthetic joint infection and another revision was completed at [facility] earlier this year and is status post I&D 02/10/2025. This was complicated by GI bleed status post EGD with epinephrine, cauterization and clipping. Per chart review on 02/14/2025 she was restarted on therapeutic anticoagulant Eliquis. Cultures from her left hip grew Streptococcus pneumoniae. She was treated with linezolid 600 mg twice daily through March 23. And then the plan was to be transitioned to amoxicillin for chronic suppression. The plan was for her to follow-up with outpatient infectious disease. Attending: Dr. Annamaria Enriquez. Plan was to have left hip dressing changes every day at [facility]. Recently in [facility] from March 08 through March 14 for UTI with Pseudomonas aeruginosa and Klebsiella pneumoniae ESBL/MDRO and completed a course of ertapenem. For this admission, patient was sent to our hospital from [facility] with a chief concern of hemoglobin of 6. Orthopedics was consulted after a left hip CT without contrast showed organizing collection in the subcutaneous fat. I spoke with patient today at time of exam and they state they are not having any left hip pain. They state that they were able to stand and take several short steps on 03/19/2025. Patient denies any fevers or chills. Patient denies any cough, shortness of breath, or chest pain. Patient anticoagulation of Eliquis has been held. On 03/21/2025 patient's white count was 4.86. Past Medical History Past Medical History: Atrial Fibrillation, COPD, CVA/TIA, Seizure Disorder Additional Past Medical History / Comment(s): Rheumaoid arthritis, CHF, COPD, Cancer to lungs, CVA x 3, Miscarriages, Multiple personality disorder, low hgb, pre-diabetic History of Any Multi-Drug Resistant Organisms: ESBL Year Discovered:: 03/08/25 MDRO Source:: urine Past Surgical History: Adenoidectomy, Section, Tonsillectomy Additional Past Surgical History / Comment(s): hip replacement x 6 r/t juvenile rheumatoid arthritis, Last time February 2025, 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, Past Anesthesia/Blood Transfusion Reactions: No Reported Reaction Additional Past Anesthesia/Blood Transfusion Reaction / Comm: hard to intubate. Second and Third vetebre are fragile per pt Past Psychological History: Bipolar, Depression Smoking Status: Former smoker Past Alcohol Use History: Occasional Past Drug Use History: None Reported - Past Family History Mother Family Medical History: Congestive Heart Failure (CHF) Father Additional Family Medical History / Comment(s): Fibrosycrosis Medications and Allergies Home Medications Medication Instructions Recorded Confirmed Type Apixaban [Eliquis] 5 mg PO BID@0800,1700 11/16/24 03/21/25 History Metoprolol Succinate [Toprol XL] 100 mg PO DAILY@0800 11/16/24 03/21/25 History Tiotropium [place] [Spiriva 1 puff INHALATION RT-DAILY@0800 11/16/24 03/21/25 History Handihaler] Cholecalciferol [Vitamin D3 (25 125 mcg PO DAILY@0800 01/30/25 03/21/25 History Mcg = 1000 Iu)] Ferrous Sulfate [Iron (65 MG 325 mg PO TID@0800,1200,1700 01/30/25 03/21/25 History Elemental)] Hydroxychloroquine Sulfate 200 mg PO DAILY@0800 02/26/25 03/21/25 History [Plaquenil] dilTIAZem HCL [dilTIAZem HCL 24Hr 240 mg PO DAILY@0800 02/26/25 03/21/25 History ER ([place])] Acetaminophen Tab [Tylenol] 500 mg PO Q8H PRN 03/08/25 03/21/25 History Albuterol Sulfate [Ventolin HFA] 1 puff INHALATION RT-QID PRN 03/08/25 03/21/25 History Atorvastatin [Lipitor] 10 mg PO HS 03/08/25 03/21/25 History DULoxetine HCL [Cymbalta] 60 mg PO DAILY@0800 03/08/25 03/21/25 History Fluticasone Propion/Salmeterol 1 puff INHALATION RT-BID@0800,1700 03/08/25 03/21/25 History [Advair 250-50 Diskus] HYDROcodone/APAP 7.5-325MG [[place] 1 tab PO Q4H PRN 03/08/25 03/21/25 History 7.5-325] INSULIN ASPART (NovoLOG) [NovoLOG See Protocol SQ ACHS 03/08/25 03/21/25 History (formulary)] Ipratropium-Albuterol Nebulize 3 ml INHALATION RT-Q4H PRN 03/08/25 03/21/25 History [Duoneb 0.5 mg-3 mg/3 ml Soln] Linezolid [Zyvox] 600 mg PO BID@0800,2100 03/08/25 03/21/25 History Magnesium Hydroxide [Milk of 7,200 mg PO DAILY PRN 03/08/25 03/21/25 History Magnesia Concentrate] Na Phos,M-B/Na Phos,Di-Ba [Fleet 133 ml RECTAL DAILY PRN 03/08/25 03/21/25 History Adult] Omeprazole 40 mg PO BID@0600,1700 03/08/25 03/21/25 History Ondansetron [Zofran] 4 mg PO Q6H PRN 03/08/25 03/21/25 History bisacodyL [Dulcolax] 10 mg RECTAL Q24H PRN 03/08/25 03/21/25 History polyethylene glycoL 3350 [Miralax] 17 gm PO DAILY PRN 03/08/25 03/21/25 History Furosemide [Lasix] 20 mg PO DAILY tab 03/13/25 03/21/25 Rx Sennosides [Senokot] 8.6 mg PO BID PRN #0 03/13/25 03/21/25 Rx Amiodarone [Cordarone] See Taper PO DIRECTED 03/21/25 03/21/25 History Caldesene Powder 1 applic TOPICAL BID 03/21/25 03/21/25 History Calprotect Cream 1 applic TOPICAL BID 03/21/25 03/21/25 History Loperamide HCl [Imodium A-D] 2 - 4 mg PO DIRECTED PRN MDD 4 03/21/25 03/21/25 History tablets Magic Cup 1 dose PO DAILY@1200 03/21/25 03/21/25 History Allergies Allergy/AdvReac Type Severity Reaction Status Date / Time codeine AdvReac Nausea Verified 03/21/25 09:17 Physical Examination Patient was examined at bedside Patient was resting in bed. No acute distress. Patient's head was normocephalic and atraumatic. Patient had equal chest expansion with nonlabored breathing. Left lower extremity exam: Patient denies any pain with logroll. Inspection: There is a dressing over the lateral border of the left hip. Dressing is taken down and shows a surgical wound along the lateral border of the left hip. There are nylon sutures superficially. There is no anh erythema. There is no purulence. There is no active drainage. Palpation: There is no tenderness to palpation over the lateral and anterior left hip. Palpation of the thigh and calf are soft to compression. Femoral nerve function is grossly tact. Patient can plantarflex and dorsiflex their left ankle and toes. Patient has a palpable dorsalis pedis pulse. Capillary refill is under 2 seconds in the left lower extremity. Results - Labs Labs: Abnormal Lab Results - Last 24 Hours (Table) 03/20/25 03/20/25 03/21/25 Range/Units 18:24 20:58 03:09 RBC 2.19 L 2.65 L (4.10-5.20) 10*6/uL Hgb 6.0 L* 7.6 L D (12.0-15.0) g/dL Hct 19.3 L* 23.2 L (37.2-46.3) % MCHC 31.1 L (32.0-37.0) g/dL RDW 19.1 H (11.5-14.5) % Plt Count 116 L 109 L (140-440) 10*3/uL Lymphocytes # 0.63 L 0.62 L (0.90-5.00) 10*3/uL Crossmatch See Detail H & H 03/20/25 03/20/25 03/21/25 Range/Units 18:40 20:58 03:09 Hgb 6.3 L* D 6.0 L* 7.6 L D (12.0-15.0) g/dL Hct 20.3 L 19.3 L* 23.2 L (37.2-46.3) % Coagulation 03/20/25 Range/Units 18:40 INR 1.2 H (<1.2) Result Diagrams: 03/22/25 05:03/20/25 18:40 Assessment and Plan Assessment: -Status post left total hip arthroplasty -Left hip postsurgical hematoma precipitated by Eliquis -Recent sepsis with 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 -Long-term resident, at [facility] Plan: No acute orthopedic operative intervention is recommended at this time. Continue incision management as per prior surgical recommendations of daily dressing changes. Weight-bear as tolerated on the left lower extremity. Will continue to check incision. Dictation was produced using Vot[employer] dictation software, please excuse any grammatical, word or spelling errors. Patient was independently evaluated by myself and I agree with the above history, exam and plan. At this time no surgical intervention is warranted, continue to trend hemoglobin levels as patient has multiple possible sources due to her recent medical history. Should patient require any additional intervention to her left hip given the complex nature of her previous surgical interventions would recommend transfer to her facility of record at [facility] for coordinated care with orthopedics. Demetrio Marin MD
[2025-03-21] MEDS: IPRATROPIUM-ALBUTEROL 3 ML NEB INHALATION PRN (20:32)
[2025-03-21] MEDS: ATORVASTATIN 10 MG TAB PO SCH (20:54)
[2025-03-21] MEDS: NYSTATIN 100,000 UNIT/GM POWD 15 GM TOPICAL SCH (20:55)
[2025-03-22 06:31] LABS: Basophils # (A) 0.01 10*3/uL (0.00-0.10); Basophils % (A) 0.2 %; Eosinophils # (A) 0.05 10*3/uL (0.04-0.35); Eosinophils % (A) 0.8 %; HCT 24.5 % (37.2-46.3); HGB 7.8 g/dL (12.0-15.0); Lymphocytes # (A) 0.67 10*3/uL (0.90-5.00); Lymphocytes % (A) 10.3 %; MCH 28.1 pg (27.0-32.0); MCHC 31.8 g/dL (32.0-37.0); MCV 88.1 fL (80.0-97.0); Monocytes # (A) 0.43 10*3/uL (0.20-1.00); Monocytes % (A) 6.6 %; Neutrophils # (A) 5.22 10*3/uL (1.80-7.70); Neutrophils % (A) 80.6 %; Platelet Count 108 10*3/uL (140-440); RBC 2.78 10*6/uL (4.10-5.20); RDW 19.6 % (11.5-14.5); WBC 6.48 10*3/uL (4.50-10.00)
[2025-03-22] MEDS: CHOLECALCIFEROL 25 MCG (1000 IU) TABLET PO SCH (08:38)
--- NOTE | 2025-03-22 09:28 | P.PN ---
Subjective Progress Note Date: 03/22/25 This is a very pleasant 64-year-old female with a history of A-fib (on eliquis), COPD with chronic respiratory failure on 2 L nasal cannula, and extensive left hip joint replacement history. Per patient, patient had a primary left total hip arthroplasty at the age of 23 for rheumatoid arthritis, this was then revised around the age of 38. From age 38 until recently the patient had been doing well but then developed pain in her left hip. This eventually led to a diagnosis of left prosthetic joint infection and another revision was completed at [facility] earlier this year and is status post I&D 02/10/2025. This was complicated by GI bleed status post EGD with epinephrine, cauterization and clipping. Per chart review on 02/14/2025 she was restarted on therapeutic anticoagulant Eliquis. Cultures from her left hip grew Streptococcus pneumoniae. She was treated with linezolid 600 mg twice daily through March 23. And then the plan was to be transitioned to amoxicillin for chronic suppression. The plan was for her to follow-up with outpatient infectious disease. Attending: Dr. Annamaria Enriquez. Plan was to have left hip dressing changes every day at [facility]. Recently in [facility] from March 08 through March 14 for UTI with Pseudomonas aeruginosa and Klebsiella pneumoniae ESBL/MDRO and completed a course of ertapenem. For this admission, patient was sent to our hospital from [facility] with a chief concern of hemoglobin of 6. Orthopedics was consulted after a left hip CT without contrast showed organizing collection in the subcutaneous fat. I spoke with patient today at time of exam and they state they are not having any left hip pain. They state that they were able to stand and take several short steps on 03/19/2025. Patient denies any fevers or chills. Patient denies any cough, shortness of breath, or chest pain. Patient anticoagulation of Eliquis has been held. On 03/21/2025 patient's white count was 4.86. 03/22/2025 Progress: Patient denies acute events overnight. Patient states they do not have any left hip pain today. Patient states their dressing was changed yesterday. Objective - Vital Signs Vital signs: Vital Signs Temp 97.9 F 03/22/25 07:04 Pulse 96 03/22/25 07:04 Resp 18 03/22/25 07:04 BP 123/81 03/22/25 07:04 Pulse Ox 99 03/22/25 07:04 FiO2 Intake & Output 03/21/25 03/22/25 03/22/25 18:59 06:59 18:59 Intake Total 500 Balance 500 Weight 69.853 kg Intake: Oral 500 Other: Voiding Method External Catheter External Catheter # Voids 0 # Bowel Movements 1 - Exam Patient was examined at bedside Patient was resting in bed. No acute distress. Patient's head was normocephalic and atraumatic. Patient had equal chest expansion with nonlabored breathing. Left lower extremity exam: Patient denies any pain with logroll. Inspection: There is a dressing over the lateral border of the left hip. Dressing is taken down and shows a surgical wound along the lateral border of the left hip. There are nylon sutures superficially. There is no anh erythema. There is no purulence. There is no active drainage. Palpation: There is no tenderness to palpation over the lateral and anterior left hip. Palpation of the thigh and calf are soft to compression. Femoral nerve function is grossly tact. Patient can plantarflex and dorsiflex their left ankle and toes. Patient has a palpable dorsalis pedis pulse. 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 -Long-term resident, at [facility] Plan: No acute orthopedic operative intervention is recommended at this time. Continue incision management as per prior surgical recommendations of daily dressing changes and weightbearing recommendations. Dictation was produced using Prompt.ly dictation software, please excuse any grammatical, word or spelling errors. Patient was independently evaluated by myself and i agree with the above stated update and plan. At this time no surgical intervention is warranted, should bleeding be determined to be related to her recent surgical site would recommend transfer to her facility of [facility] for coordinated intervention between orthopedics and possibly radiology.
[2025-03-22] MEDS: TIOTROPIUM 2.5 MCG INHALER INHALATION SCH (09:32)
--- NOTE | 2025-03-22 10:58 | P.CONS ---
History of Present Illness - Reason for Consult Consult date: 03/22/25 Anemia, questionable GI bleed Requesting physician: Popeye Barksdale - Chief Complaint Abnormal outpatient labs - History of Present Illness This a pleasant 64-year-old female who presented to the emergency department directed by her physician secondary to abnormal outpatient labs. Apparently patient's hemoglobin was 6.1 she was directed to come to the hospital for furthe r evaluation possible blood transfusion. Past medical history includes atrial fibrillation on Eliquis, COPD with chronic respiratory failure on home oxygen and history of joint replacement with recent left hip replacement followed by complications with infection and hematoma. Patient states she had hip surgery in January at the [facility], she had reportedly developed an infection had to undergo I&D at the end of January complicated by GI bleed and underwent upper endoscopy with findings of ulcer status post epinephrine and cauterization and clipping per primary medical team's note. She was also readmitted from March 08 through March 14 for urinary tract infection with Pseudomonas aeruginosa and Klebsiella pneumoniae ESBL/MDRO and completed treatment. She has been at [facility] and had outpatient labs with a hemoglobin of 6 and was sent in and he has received 1 unit of blood. She denies any black stool or blood in her stool. No abdominal pain nausea or vomiting. She does have a dressing to the left hip. She had a CT of the hip with noted collection likely hematoma. Orthopedics following recommend conservative management. Review of Systems REVIEW OF SYSTEMS: CARDIOPULMONARY: No chest pain or shortness of breath. Gastrointestinal: No abdominal pain. No nausea or vomiting. No hematemesis, coffee-ground emesis. No rectal bleeding, or melena. GENITOURINARY: No dysuria or hematuria. MUSCULOSKELETAL: Recent left hip surgery, left hip incision with surrounding hematoma, dressing with drainage. SKIN: No rashes. No jaundice. ENDOCRINE: No chills, fevers. No excessive weight gain or loss. No polydipsia or polyuria. PSYCHIATRIC: Unremarkable. NEUROLOGY: No change in mental status. Denies dizziness, headache. ENT: Vision unremarkable. CONSTITUTIONAL: No recent weight loss. No fever, chills, night sweats. Past Medical History Past Medical History: Atrial Fibrillation, COPD, CVA/TIA, Seizure Disorder Additional Past Medical History / Comment(s): Rheumaoid arthritis, CHF, COPD, Cancer to lungs, CVA x 3, Miscarriages, Multiple personality disorder, low hgb, pre-diabetic History of Any Multi-Drug Resistant Organisms: ESBL Year Discovered:: 03/08/25 MDRO Source:: urine Past Surgical History: Adenoidectomy, Section, Tonsillectomy Additional Past Surgical History / Comment(s): hip replacement x 6 r/t juvenile rheumatoid arthritis, Last time February 2025, 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, Past Anesthesia/Blood Transfusion Reactions: No Reported Reaction Additional Past Anesthesia/Blood Transfusion Reaction / Comm: hard to intubate. Second and Third vetebre are fragile per pt Past Psychological History: Bipolar, Depression Smoking Status: Former smoker Past Alcohol Use History: Occasional Past Drug Use History: None Reported - Past Family History Mother Family Medical History: Congestive Heart Failure (CHF) Father Additional Family Medical History / Comment(s): Fibrosycrosis Medications and Allergies Home Medications Medication Instructions Recorded Confirmed Type Apixaban [Eliquis] 5 mg PO BID@0800,1700 11/16/24 03/21/25 History Metoprolol Succinate [Toprol XL] 100 mg PO DAILY@0800 11/16/24 03/21/25 History Tiotropium [place] [Spiriva 1 puff INHALATION RT-DAILY@0800 11/16/24 03/21/25 History Handihaler] Cholecalciferol [Vitamin D3 (25 125 mcg PO DAILY@0800 01/30/25 03/21/25 History Mcg = 1000 Iu)] Ferrous Sulfate [Iron (65 MG 325 mg PO TID@0800,1200,1700 01/30/25 03/21/25 History Elemental)] Hydroxychloroquine Sulfate 200 mg PO DAILY@0800 02/26/25 03/21/25 History [Plaquenil] dilTIAZem HCL [dilTIAZem HCL 24Hr 240 mg PO DAILY@0800 02/26/25 03/21/25 History ER ([place])] Acetaminophen Tab [Tylenol] 500 mg PO Q8H PRN 03/08/25 03/21/25 History Albuterol Sulfate [Ventolin HFA] 1 puff INHALATION RT-QID PRN 03/08/25 03/21/25 History Atorvastatin [Lipitor] 10 mg PO HS 03/08/25 03/21/25 History DULoxetine HCL [Cymbalta] 60 mg PO DAILY@0800 03/08/25 03/21/25 History Fluticasone Propion/Salmeterol 1 puff INHALATION RT-BID@0800,1700 03/08/25 03/21/25 History [Advair 250-50 Diskus] HYDROcodone/APAP 7.5-325MG [Cuervo 1 tab PO Q4H PRN 03/08/25 03/21/25 History 7.5-325] INSULIN ASPART (NovoLOG) [NovoLOG See Protocol SQ ACHS 03/08/25 03/21/25 History (formulary)] Ipratropium-Albuterol Nebulize 3 ml INHALATION RT-Q4H PRN 03/08/25 03/21/25 History [Duoneb 0.5 mg-3 mg/3 ml Soln] Linezolid [Zyvox] 600 mg PO BID@0800,2100 03/08/25 03/21/25 History Magnesium Hydroxide [Milk of 7,200 mg PO DAILY PRN 03/08/25 03/21/25 History Magnesia Concentrate] Na Phos,M-B/Na Phos,Di-Ba [Fleet 133 ml RECTAL DAILY PRN 03/08/25 03/21/25 History Adult] Omeprazole 40 mg PO BID@0600,1700 03/08/25 03/21/25 History Ondansetron [Zofran] 4 mg PO Q6H PRN 03/08/25 03/21/25 History bisacodyL [Dulcolax] 10 mg RECTAL Q24H PRN 03/08/25 03/21/25 History polyethylene glycoL 3350 [Miralax] 17 gm PO DAILY PRN 03/08/25 03/21/25 History Furosemide [Lasix] 20 mg PO DAILY tab 03/13/25 03/21/25 Rx Sennosides [Senokot] 8.6 mg PO BID PRN #0 03/13/25 03/21/25 Rx Amiodarone [Cordarone] See Taper PO DIRECTED 03/21/25 03/21/25 History Caldesene Powder 1 applic TOPICAL BID 03/21/25 03/21/25 History Calprotect Cream 1 applic TOPICAL BID 03/21/25 03/21/25 History Loperamide HCl [Imodium A-D] 2 - 4 mg PO DIRECTED PRN MDD 4 03/21/25 03/21/25 History tablets Magic Cup 1 dose PO DAILY@1200 03/21/25 03/21/25 History Allergies Allergy/AdvReac Type Severity Reaction Status Date / Time codeine AdvReac Nausea Verified 03/21/25 09:17 Physical Exam Vitals: Vital Signs Temp Pulse Pulse Resp BP Pulse Ox 03/22/25 00:25 97.8 F 88 17 123/75 98 03/21/25 20:50 82 03/21/25 20:34 84 03/21/25 19:05 98 F 83 17 107/67 100 03/21/25 17:13 84 03/21/25 17:01 82 03/21/25 14:00 97.4 F L 83 14 116/66 97 03/21/25 13:34 82 03/21/25 13:19 84 03/21/25 07:41 98.3 F 91 15 104/70 95 Intake and Output 03/21/25 03/21/25 03/22/25 14:59 22:59 06:59 Intake Total 500 Balance 500 Intake: Oral 500 Other: Voiding Method External Catheter External Catheter # Voids 0 # Bowel Movements 1 Weight 69.853 kg General appearance: The patient is alert, oriented, appears in no acute distress. HET: Head is normocephalic and atraumatic. Conjunctiva pink. Sclera anicteric. Neck: Supple without lymphadenopathy. Trachea midline. Heart: Regular. Lungs: Equal expansion, normal respiratory effort. Abdomen: Soft, nontender, nondistended. Skin: No rashes. No jaundice. Extremities: Left hip with dressing with drainage, swelling noted. Neurological: No focal deficits. Alert and oriented x3. Results CBC & Chem 7: 03/22/25 05:25 03/20/25 18:40 Comments: Hip CT reports organizing collection in the overlying subcutaneous fat measures approximately 18.4 x 4.5 cm. Correlate for postsurgical hematoma. Left hip arthroplasty with plate and screw fixation of the aceta below and multiple acetabular augmentation screws. No periprosthetic fracture or d islocation. Assessment and Plan (1) Anemia Narrative/Plan: 64-year-old female with multiple comorbidities including atrial fibrillation on Eliquis who has recently undergone left hip surgery followed by treatment for infection of the hip as well as urinary tract infection hospitalized at [facility] and apparently was diagnosed with upper GI bleed underwent upper endoscopy with reported findings of an ulcer status post epinephrine, cautery and clip. Patient states that she has had no symptoms of GI bleed, no blood in her stool or black stool. She was noted to be anemic with a history of anemia since November of this year with previous blood transfusions in February of this year. She is admitted with a left hip hematoma, anemia may be secondary to hematoma also need to consider possible etiology of anemia of chronic disease. No plans on endoscopic evaluation. Current Visit: Yes Status: Acute Code(s): D64.9 - ANEMIA, UNSPECIFIED SNOMED Code(s): 832266750 (2) Atrial fibrillation Current Visit: Yes Status: Acute Code(s): I48.91 - UNSPECIFIED ATRIAL FIBRILLATION SNOMED Code(s): 27023405 (3) Hematoma of left hip Current Visit: Yes Status: Acute Code(s): S70.02XA - CONTUSION OF LEFT HIP, INITIAL ENCOUNTER SNOMED Code(s): 13377295483157507 (4) History of upper gastrointestinal bleeding Current Visit: Yes Status: Acute Code(s): Z87.19 - PERSONAL HISTORY OF OTHER DISEASES OF THE DIGESTIVE SYSTEM SNOMED Code(s): 220755090 Plan: 1. Continue symptomatic and supportive care 2. Diet as tolerated 3. Continue Protonix 40 mg twice daily 4. Continue with recommendations from orthopedics 5. May resume Eliquis per discretion of primary medical team and orthopedics 6. No plans on endoscopic evaluation 7. Transfuse for hemoglobin less than 7 8. Patient can follow-up outpatient with gastroenterology if she has signs and symptoms of GI bleed Thank you for allowing us to participate in the care of the patient, the GI service will sign off, gastroenterology will not be available at the hospital this weekend and through next week. If further evaluation by gastroenterology is required the patient will need transfer as per the primary team's discretion. Dr. Aviva Decker I agree with the dictator's note, documented as a scribe by Monse Lezama.
--- NOTE | 2025-03-22 15:28 | P.PN ---
Progress Note - Text Progress Note Date: 03/22/25 Chief Complaint: Anemia 64-year-old female with a history of A-fib (on eliquis), COPD with chronic respiratory failure on 2 L nasal cannula and joint replacements including recent left joint infected prosthesis Patient seen in the ER. [ 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 Status post I&D February 10. Course complicated by GI bleed status post EGD with epinephrine. Cauterization. And clipping. On February 14. She was restarted on therapeutic anticoagulant Eliquis. Cultures from her left hip grew Streptococcus pneumoniae. She will be treated with linezolid 600 mg twice daily through March 23. They will be transition to amoxicillin for chronic suppression. She will follow-up with outpatient infectious disease. Attending: Dr. Annamaria Enriquez]. Recently in the hospital from March 08 through March 14.: UTI withPseudomonas aeruginosa and Klebsiella pneumoniae ESBL/MDRO. Completed the course of ertapenem. Patient sent in from [facility] they found her hemoglobin to be low. Hence she was sent down to the ER. Hemoglobin was 6. Patient given a unit of blood in the ER. Patient denies any dark stools. She does have dressing change left hip every day at the [facility]. Not sure of any blood drainage from the same. She is able to stand with assist. Appetite is fair. No fever no chills. Spoke to ER physician Dr. Camarillo as admission is being done to do a CT scan of the left hip. March 21: Received a unit of blood last night. Hemoglobin this morning 7.6. Have held off Eliquis, did not receive a dose last night.. Discussed with the patient. Orthopedics was consulted for the hematoma. Patient has no clinical symptoms of infection. No fever no white count March 22: Hemoglobin remained stable. Seen by orthopedics. Not for draining the hematoma. Also seen by GI. Continue Protonix. No endoscopy currently. Will need a repeat CT scan to make sure hematoma is reducing.. Disc again with the patient about keeping her off the anticoagulation because of repeated hematoma in the hip Active Medications Acetaminophen (Acetaminophen Tab 500 Mg Tab) 500 mg PO Q8H PRN PRN Reason: Mild Pain Hydrocodone Bitart/Acetaminophen (Hydrocodone/Apap 7.5-325mg 1 Each Tab) 1 each PO Q4H PRN PRN Reason: Pain Albuterol/Ipratropium (Ipratropium-Albuterol 3 Ml Neb) 3 ml INHALATION RT-Q4H PRN PRN Reason: COPD Last Admin: 03/21/25 20:32 Dose: 3 ml Atorvastatin Calcium (Atorvastatin 10 Mg Tab) 10 mg PO HS [facility] Last Admin: 03/21/25 20:54 Dose: 10 mg Bisacodyl (Bisacodyl 10 Mg Supp) 10 mg RECTAL Q24H PRN PRN Reason: Constipation Budesonide/Formoterol Fumarate (Symbicort 80-4.5 Mcg Inhaler) 2 puff INHALATION RT-BID@0800,1700 [facility] Last Admin: 03/22/25 09:28 Dose: 2 puff Cholecalciferol (Cholecalciferol 25 Mcg (1000 Iu) Tablet) 125 mcg PO DAILY@0800 [facility] Last Admin: 03/22/25 08:38 Dose: 125 mcg Duloxetine HCl (Duloxetine Hcl 60 Mg Capsule.Dr) 60 mg PO DAILY@0800 [facility] Last Admin: 03/22/25 08:38 Dose: 60 mg Hydroxychloroquine Sulfate (Hydroxychloroquine Sulfate 200 Mg Tab) 200 mg PO DAILY@0800 [facility] Last Admin: 03/22/25 08:38 Dose: 200 mg Linezolid (Linezolid 600 Mg Tab) 600 mg PO BID@0800,2100 [facility]; Protocol Last Admin: 03/22/25 08:38 Dose: 600 mg Magnesium Hydroxide (Magnesium Hydroxide 2,400 Mg/30 Ml Cup) 2,400 mg PO DAILY PRN PRN Reason: Constipation Metoprolol Succinate (Metoprolol Succinate (Er) 100 Mg Tab.Er.24h) 100 mg PO DAILY@0800 [facility] Last Admin: 03/22/25 08:39 Dose: 100 mg Nystatin (Nystatin 100,000 Unit/Gm Powd 15 Gm) 1 applic TOPICAL BID [facility]; Protocol Stop: 04/11/25 21:00 Last Admin: 03/22/25 08:39 Dose: 1 applic Ondansetron HCl (Ondansetron Odt 4 Mg Tab) 4 mg PO Q6H PRN PRN Reason: Nausea And Vomiting Pantoprazole Sodium (Pantoprazole 40 Mg Tablet) 40 mg PO BID@0600,1700 [facility] Last Admin: 03/22/25 05:55 Dose: 40 mg Polyethylene Glycol (Polyethylene Glycol 3350 17 Gm Powd.Pack) 17 gm PO DAILY PRN PRN Reason: Constipation Senna (Sennosides 8.6 Mg Tab) 8.6 mg PO BID PRN PRN Reason: Constipation Sodium Biphosphate/Sodium Phosphate (Na Phos,M-B/Na Phos,Di-Ba 133 Ml Enema) 133 ml RECTAL DAILY PRN PRN Reason: Constipation Tiotropium [place] (Tiotropium 2.5 Mcg Inhaler) 2 puff INHALATION RT-DAILY ANTONELLA Last Admin: 03/22/25 09:32 Dose: 2 puff Social history: Former smoker. Occasional alcohol. Long-term resident at [facility]. Uses wheelchair On examination: VITAL SIGNS: 97.9, 96, 18, 123 x 81, 99% 1 L GENERAL APPEARANCE: Laying in bed, comfortable HEENT: Normal external appearance of nose and ear. Oral cavity normal EYES: Pupils equal. Conjunctiva pale. NECK: JVD not raised. Mass not palpable. RESPIRATORY: Respiratory effort normal. Lungs decreased breath. CARDIOVASCULAR: Heart sounds irregular. Edema present. ABDOMEN: Soft. Liver and spleen not palpable. No tenderness. No mass palpable. PSYCHIATRY: Alert and oriented x3. Mood and affect normal. MUSCULOSKELETAL:No Clubbing/cyanosis;muscles-grossly intact. OA. Limited range of motion left hip. Left thigh-dressing over incisions NEUROLOGICAL: Cranial nerves grossly intact; no facial asymmetry, power and sensation grossly intact. LYMPHATICS: No lymph nodes palpable in the axilla and neck INVESTIGATIONS, reviewed in the clinical context: March 22: Hemoglobin 7.8 CT left hip[March 21]: Organizing collection in the overlying subcutaneous fat measures approximately 18 x 4 x 4.5 cm. Correlate for postsurgical hematoma. March 21: White count 4.6 hemoglobin 7.6 platelets 109 March 20: White count 5.4 hemoglobin 6 platelets 116 sodium 134 potassium 3.5 BUN 17 creatinine 0.43 EKG tracing personally reviewed by me-normal sinus rhythm. ST-T wave changes. Previous labs: March 12, 2025: Hemoglobin 9 Assessment: -Acute anemia. From on March 12 now down to 6.0, likely from left hip hematoma postsurgical, precipitated by being on Eliquis Patient's previously also had a hematoma. CT scan now shows a hematoma 18 x 4 x 4.5 cm. Discussed the pros and cons about Eliquis and given the drop of hemoglobin we will hold off Eliquis going forward. - Left hip postsurgical hematoma precipitated by Eliquis Eliquis discontinued. Seen by orthopedics.: Not for any further intervention - CHF with preserved LVEF: Lasix -Moderate to severe MR -Paroxysmal atrial fibrillation. Since blood pressure is low we will continue with Toprol-XL 100 mg a day. Hold Cardizem CD for now. Because of suspected hematoma left hip hold Eliquis -COPD/chronic hypoxic respiratory failure DuoNeb. Garcia. 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 Status post I&D February 10, at [facility].. Cultures grew Streptococcus pneumonia. Patient to continue with Zyvox 600 mg twice daily through March 23. That she will transition to amoxicillin for chronic suppression. -History of seizure disorder - GI bleed on February 14. Patient underwent EGD with epinephrine cauterization. And clipping. Later resumed on Eliquis. Seen by GI Dr. Aviva Decker. Not for any further intervention. Continue Protonix -History of lung cancer; likely neuroendocrine type based on patient's history Most recent PET/CT on 10/28/2024 showed no evidence of any metabolic uptake to suggest any residual disease -Essential hypertension; currently blood pressure running low Toprol. Continue Cardizem remains-hold -Medical power of county attorney: Son Anton - Primary osteoarthritis and also secondary osteoarthritis from previous surgeries on the left hip - Depression Cymbalta 60 mg a day - Long-term resident, at [facility] Follow hemoglobin. Repeat CT scan in 24 to 48 hours. To follow-up on hematoma Past Medical History Past Medical History: Atrial Fibrillation, COPD, CVA/TIA, Seizure Disorder Additional Past Medical History / Comment(s): Rheumaoid arthritis, CHF, COPD, Cancer to lungs, CVA x 3, Miscarriages, Multiple personality disorder, low hgb, pre-diabetic History of Any Multi-Drug Resistant Organisms: ESBL Date of last positivie culture/infection: 03/08/25 MDRO Source:: urine Past Surgical History: Adenoidectomy, Section, Tonsillectomy Additional Past Surgical History / Comment(s): hip replacement x 6 r/t juvenile rheumatoid arthritis, Last time February 2025, 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 Second and Third vetebre are fragile per pt Past Psychological History: Bipolar, Depression Smoking Status: Former smoker Past Alcohol Use History: Occasional Past Drug Use History: None Reported
--- NOTE | 2025-03-23 08:07 | P.PN ---
Subjective Progress Note Date: 03/23/25 This is a very pleasant 64-year-old female with a history of A-fib (on eliquis), COPD with chronic respiratory failure on 2 L nasal cannula, and extensive left hip joint replacement history. Per patient, patient had a primary left total hip arthroplasty at the age of 23 for rheumatoid arthritis, this was then revised around the age of 38. From age 38 until recently the patient had been doing well but then developed pain in her left hip. This eventually led to a diagnosis of left prosthetic joint infection and another revision was completed at [facility] earlier this year and is status post I&D 02/10/2025. This was complicated by GI bleed status post EGD with epinephrine, cauterization and clipping. Per chart review on 02/14/2025 she was restarted on therapeutic anticoagulant Eliquis. Cultures from her left hip grew Streptococcus pneumoniae. She was treated with linezolid 600 mg twice daily through March 23. And then the plan was to be transitioned to amoxicillin for chronic suppression. The plan was for her to follow-up with outpatient infectious disease. Attending: Dr. Annamaria Enriquez. Plan was to have left hip dressing changes every day at [facility]. Recently in [facility] from March 08 through March 14 for UTI with Pseudomonas aeruginosa and Klebsiella pneumoniae ESBL/MDRO and completed a course of ertapenem. For this admission, patient was sent to our hospital from [facility] with a chief concern of hemoglobin of 6. Orthopedics was consulted after a left hip CT without contrast showed organizing collection in the subcutaneous fat. I spoke with patient today at time of exam and they state they are not having any left hip pain. They state that they were able to stand and take several short steps on 03/19/2025. Patient denies any fevers or chills. Patient denies any cough, shortness of breath, or chest pain. Patient anticoagulation of Eliquis has been held. On 03/21/2025 patient's white count was 4.86. 03/22/2025 Progress: Patient denies acute events overnight. Patient states they do not have any left hip pain today. Patient states their dressing was changed yesterday. 03/23/2025 Progress: Patient denies acute events overnight. Patient states they do not have any left hip pain today. Patient states their dressing was changed yesterday. Objective - Vital Signs Vital signs: Vital Signs Temp 97.5 F L 03/23/25 02:21 Pulse 89 03/23/25 02:21 Resp 15 03/23/25 02:21 BP 121/79 03/23/25 02:21 Pulse Ox 97 03/23/25 02:21 FiO2 Intake & Output 03/22/25 03/23/25 03/23/25 18:59 06:59 18:59 Intake Total 1080 Output Total 300 Balance 780 Weight 69.853 kg Intake: Oral 1080 Output: Urine 300 Other: Voiding Method External Catheter External Catheter # Voids 3 2 # Bowel Movements 4 2 - Exam Patient was examined at bedside Patient was resting in bed. No acute distress. Patient's head was normocephalic and atraumatic. Patient had equal chest expansion with nonlabored breathing. Left lower extremity exam: Patient denies any pain with logroll. Inspection: There is a dressing over the lateral border of the left hip. Dressing is taken down and shows a surgical wound along the lateral border of the left hip. There are nylon sutures superficially. There is no anh erythema. There is no purulence. There is no active drainage. There is some serous fluid on the bandage. Palpation: There is no tenderness to palpation over the lateral and anterior left hip. Palpation of the thigh and calf are soft to compression. Femoral nerve function is grossly tact. Patient can plantarflex and dorsiflex their left ankle and toes. Patient has a palpable dorsalis pedis pulse. 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 -Long-term resident, at [facility] Plan: No acute orthopedic operative intervention is recommended at this time. Continue incision management as per prior surgical recommendations of daily dressing changes and weightbearing recommendations. We will sign off at this time. Dictation was produced using [employer] software, please excuse any grammatical, word or spelling errors.
[2025-03-23 12:20] LABS: Glucose,Whole Blood 368 mg/dL (70-110)
[2025-03-23] MEDS ORDERED: DEXTROSE 50% SYRINGE 50 ML IVP PRN ×2 (13:00)
--- NOTE | 2025-03-23 14:33 | P.PN ---
Progress Note - Text Progress Note Date: 03/23/25 Chief Complaint: Anemia 64-year-old female with a history of A-fib (on eliquis), COPD with chronic respiratory failure on 2 L nasal cannula and joint replacements including recent left joint infected prosthesis Patient seen in the ER. 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 Status post I&D February 10. Course complicated by GI bleed status post EGD with epinephrine. Cauterization. And clipping. On February 14. She was restarted on therapeutic anticoagulant Eliquis. Cultures from her left hip grew Streptococcus pneumoniae. She will be treated with linezolid 600 mg twice daily through March 23. They will be transition to amoxicillin for chronic suppression. She will follow-up with outpatient infectious disease. Attending: Dr. Annamaria Enriquez]. Recently in the hospital from March 08 through March 14.: UTI withPseudomonas aeruginosa and Klebsiella pneumoniae ESBL/MDRO. Completed the course of ertapenem. Patient sent in from [facility] they found her hemoglobin to be low. Hence she was sent down to the ER. Hemoglobin was 6. Patient given a unit of blood in the ER. Patient denies any dark stools. She does have dressing change left hip every day at the [facility]. Not sure of any blood drainage from the same. She is able to stand with assist. Appetite is fair. No fever no chills. Spoke to ER physician Dr. Camarillo as admission is being done to do a CT scan of the left hip. March 21: Received a unit of blood last night. Hemoglobin this morning 7.6. Have held off Eliquis, did not receive a dose last night.. Discussed with the patient. Orthopedics was consulted for the hematoma. Patient has no clinical symptoms of infection. No fever no white count March 22: Hemoglobin remained stable. Seen by orthopedics. Not for draining the hematoma. Also seen by GI. Continue Protonix. No endoscopy currently. Will need a repeat CT scan to make sure hematoma is reducing.. Disc again with the patient about keeping her off the anticoagulation because of repeated hematoma in the hip March 23: Patient A-fib became uncontrolled today. Already on Toprol-XL. Add oral Cardizem 30 mg every 8. Patient is to remain off anticoagulation. Will do a CT scan tomorrow morning to follow-up on the size. Other medications to continue. Patient Accu-Chek 368. Patient was taking Jardiance prior to getting [facility] to the [facility]. Will resume the same. Diabetic diet. Sliding scale insulin. Active Medications Acetaminophen (Acetaminophen Tab 500 Mg Tab) 500 mg PO Q8H PRN PRN Reason: Mild Pain Hydrocodone Bitart/Acetaminophen (Hydrocodone/Apap 7.5-325mg 1 Each Tab) 1 each PO Q4H PRN PRN Reason: Pain Albuterol/Ipratropium (Ipratropium-Albuterol 3 Ml Neb) 3 ml INHALATION RT-Q4H PRN PRN Reason: COPD Last Admin: 03/22/25 20:59 Dose: 3 ml Atorvastatin Calcium (Atorvastatin 10 Mg Tab) 10 mg PO HS [facility] Last Admin: 03/22/25 20:49 Dose: 10 mg Bisacodyl (Bisacodyl 10 Mg Supp) 10 mg RECTAL Q24H PRN PRN Reason: Constipation Budesonide/Formoterol Fumarate (Symbicort 80-4.5 Mcg Inhaler) 2 puff INHALATION RT-BID@0800,1700 [facility] Last Admin: 03/23/25 08:23 Dose: 2 puff Cholecalciferol (Cholecalciferol 25 Mcg (1000 Iu) Tablet) 125 mcg PO DAILY@0800 [facility] Last Admin: 03/23/25 08:41 Dose: 125 mcg Dapagliflozin (Dapagliflozin Propanediol 10 Mg Tablet) 10 mg PO DAILY [facility] Dextrose/Water (Dextrose 50% Syringe 50 Ml) 25 ml IVP PER PROTOCOL PRN; Protocol PRN Reason: Hypoglycemia Dextrose/Water (Dextrose 50% Syringe 50 Ml) 50 ml IVP PER PROTOCOL PRN; Protocol PRN Reason: Hypoglycemia Diltiazem HCl (Diltiazem Oral 30 Mg Tab) 30 mg PO TID [facility] Duloxetine HCl (Duloxetine Hcl 60 Mg Capsule.Dr) 60 mg PO DAILY@0800 [facility] Last Admin: 03/23/25 08:41 Dose: 60 mg Hydroxychloroquine Sulfate (Hydroxychloroquine Sulfate 200 Mg Tab) 200 mg PO DAILY@0800 [facility] Last Admin: 03/23/25 08:41 Dose: 200 mg Insulin Human Lispro (Insulin Lispro (Humalog) 100 Unit/Ml 10 Ml Vl) 0 unit SQ [facility]; Protocol Linezolid (Linezolid 600 Mg Tab) 600 mg PO BID@0800,2100 [facility]; Protocol Last Admin: 03/23/25 08:41 Dose: 600 mg Magnesium Hydroxide (Magnesium Hydroxide 2,400 Mg/30 Ml Cup) 2,400 mg PO DAILY PRN PRN Reason: Constipation Metoprolol Succinate (Metoprolol Succinate (Er) 100 Mg Tab.Er.24h) 100 mg PO DAILY@0800 [facility] Last Admin: 03/23/25 08:41 Dose: 100 mg Nystatin (Nystatin 100,000 Unit/Gm Powd 15 Gm) 1 applic TOPICAL BID [facility]; Protocol Stop: 04/11/25 21:00 Last Admin: 03/23/25 08:42 Dose: 1 applic Ondansetron HCl (Ondansetron Odt 4 Mg Tab) 4 mg PO Q6H PRN PRN Reason: Nausea And Vomiting Pantoprazole Sodium (Pantoprazole 40 Mg Tablet) 40 mg PO BID@0600,1700 [facility] Last Admin: 03/23/25 06:54 Dose: 40 mg Polyethylene Glycol (Polyethylene Glycol 3350 17 Gm Powd.Pack) 17 gm PO DAILY PRN PRN Reason: Constipation Senna (Sennosides 8.6 Mg Tab) 8.6 mg PO BID PRN PRN Reason: Constipation Sodium Biphosphate/Sodium Phosphate (Na Phos,M-B/Na Phos,Di-Ba 133 Ml Enema) 133 ml RECTAL DAILY PRN PRN Reason: Constipation Tiotropium [place] (Tiotropium 2.5 Mcg Inhaler) 2 puff INHALATION RT-DAILY [facility] Last Admin: 03/23/25 08:23 Dose: 2 puff Social history: Former smoker. Occasional alcohol. Long-term resident at [facility]. Uses wheelchair On examination: VITAL SIGNS: 97.6, 120, 20, 12/12/1984, 100% 2 L GENERAL APPEARANCE: Laying in bed, comfortable HEENT: Normal external appearance of nose and ear. Oral cavity normal EYES: Pupils equal. Conjunctiva pale. NECK: JVD not raised. Mass not palpable. RESPIRATORY: Respiratory effort normal. Lungs decreased breath. CARDIOVASCULAR: Heart sounds irregular. Edema present. ABDOMEN: Soft. Liver and spleen not palpable. No tenderness. No mass palpable. PSYCHIATRY: Alert and oriented x3. Mood and affect normal. MUSCULOSKELETAL:No Clubbing/cyanosis;muscles-grossly intact. OA. Limited range of motion left hip. Left thigh-dressing over incisions NEUROLOGICAL: Cranial nerves grossly intact; no facial asymmetry, power and sensation grossly intact. LYMPHATICS: No lymph nodes palpable in the axilla and neck INVESTIGATIONS, reviewed in the clinical context: March 23: Accu-Chek 368 March 22: Hemoglobin 7.8 CT left hip[March 21]: Organizing collection in the overlying subcutaneous fat measures approximately 18 x 4 x 4.5 cm. Correlate for postsurgical hematoma. March 21: White count 4.6 hemoglobin 7.6 platelets 109 March 20: White count 5.4 hemoglobin 6 platelets 116 sodium 134 potassium 3.5 BUN 17 creatinine 0.43 EKG tracing personally reviewed by me-normal sinus rhythm. ST-T wave changes. Previous labs: March 12, 2025: Hemoglobin 9 Assessment: -Acute anemia. From 9 on March 12 now down to 6.0, likely from left hip hematoma postsurgical, precipitated by being on Eliquis Patient's previously also had a hematoma. CT scan now shows a hematoma 18 x 4 x 4.5 cm. Discussed the pros and cons about Eliquis and given the drop of hemoglobin we will hold off Eliquis going forward. - Left hip postsurgical hematoma precipitated by Eliquis Eliquis discontinued. Seen by orthopedics.: Not for any further intervention Follow-up CT scan tomorrow - CHF with preserved LVEF: Lasix -Moderate to severe MR -Paroxysmal atrial fibrillation., Today with rapid ventricular rate Since blood pressure is low we will continue with Toprol-XL 100 mg a day. Add oral Cardizem 30 mg every 8 Because of suspected hematoma left hip hold Eliquis -COPD/chronic hypoxic respiratory failure DuoNeb. Garcia. 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 Status post I&D February 10, at [facility].. Cultures grew Streptococcus pneumonia. Patient to continue with Zyvox 600 mg twice daily through March 23. That she will transition to amoxicillin for chronic suppression. -History of seizure disorder - GI bleed on February 14. Patient underwent EGD with epinephrine cauterization. And clipping. Later resumed on Eliquis. Seen by GI Dr. Aviva Decker. Not for any further intervention. Continue Protonix -History of lung cancer; likely neuroendocrine type based on patient's history Most recent PET/CT on 10/28/2024 showed no evidence of any metabolic uptake to suggest any residual disease -Essential hypertension; currently blood pressure running low Toprol. Continue - Diabetes mellitus type 2: Oral hypoglycemic Start Jardiance. Accu-Cheks with sliding scale. -Medical power of landscaping manager: Son Anton - Primary osteoarthritis and also secondary osteoarthritis from previous surgeries on the left hip - Depression Cymbalta 60 mg a day - Long-term resident, at [facility] CT scan tomorrow morning for follow-up hematoma. Add oral Cardizem 30 mg every 8. 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 Second and Third vetebre are fragile per pt Past Psychological History: Bipolar, Depression Smoking Status: Former smoker Past Alcohol Use History: Occasional Past Drug Use History: None Reported
[2025-03-23 16:52] LABS: Glucose,Whole Blood 148 mg/dL (70-110)
[2025-03-23] MEDS: INSULIN LISPRO (HumaLOG) 100 UNIT/ML 10 mL VL SQ SCH (16:59)
[2025-03-23] MEDS: DILTIAZEM ORAL 30 MG TAB PO SCH (17:22)
[2025-03-23] MEDS: DAPAGLIFLOZIN PROPANEDIOL 10 MG TABLET PO SCH (17:22)
[2025-03-23 21:04] LABS: Glucose,Whole Blood 155 mg/dL (70-110)
[2025-03-24 06:15] LABS: Glucose,Whole Blood 107 mg/dL (70-110)
[2025-03-24] MEDS: ONDANSETRON ODT 4 MG TAB PO PRN (08:35)
--- NOTE | 2025-03-24 09:17 | CT ---
EXAMINATION TYPE: CT hip LT wo con DATE OF EXAM: 03/24/2025 8:21 AM COMPARISON: CT 03/20/2025. CLINICAL INDICATION: Female, 64 years old with history of f/u hematoma; PHH, TECHNIQUE: Axial images were obtained of the CT hip LT wo con, Additional coronal and sagittal reform atted images and soft tissue and bone window were obtained for review. 3-D reconstruction was created on a separate workstation. Contrast used: mL of , (None if empty) Oral contrast used: (None if empty) CT DLP: 909.6 mGycm, Automated exposure control for dose reduction was used. FINDINGS: Left hip fixation hardware with hardware intact. There is a small fluid collection just lat eral to the hip measuring 27 x 27 x 220 mm. Previously similar in size. IMPRESSION: 1. No evidence of fracture. 2. Postsurgical changes left hip hardware appears intact. 3. Subcutaneous fluid collection along the left lateral hip which may represent seroma, hematoma kem levi less likely abscess in the absence of clinical signs of infection. Overall size is not all that d ifferent from prior. [facility], , 03/24/2025 9:15 AM
[2025-03-24 12:13] LABS: Glucose,Whole Blood 133 mg/dL (70-110)
[2025-03-24] MEDS: LOSARTAN 25 MG TAB PO SCH (13:56)
[2025-03-24] MEDS: HYDROcodone/APAP 7.5-325MG 1 EACH TAB PO PRN (13:56)
[2025-03-24] MEDS: SPIRONOLACTONE 25 MG TAB PO SCH (13:57)
[2025-03-24] MEDS: AMIODARONE 200 MG TAB PO SCH (13:57)
[2025-03-24] MEDS: DILTIAZEM CD 120 MG CAP.ER.24H PO SCH (13:57)
[2025-03-24] MEDS: SODIUM FERRIC GLUCONAT-SUCROSE 125 MG in SODIUM CHLORIDE 0.9% 100 ML IVPB ONE (14:07)
--- NOTE | 2025-03-24 15:32 | P.CRDCN ---
History of Present Illness Consult date: 03/24/25 History of present illness: HPI: Patient is a 64-year-old female with a history of paroxysmal atrial fibrillation, COPD, chronic hypoxia on 2 liters, recent left hip replacement with left hip hematoma, and septic arthritis for this she had a joint washout done at [facility]. She also has a history of complicated UTI. She also had a recent history of GI bleeding requiring clipping and cauterization. She resides at [facility]. She was seen by the cardiology service on 02/2025 for atrial fibrillation with RVR management. At discharge, she was on metoprolol XL 100 mg daily, Cardizem 240 mg daily, and an amiodarone taper, with continued anticoagulation with Eliquis 5 mg BID. This time she was sent to the hospital from [facility] when she was noticed to be severely anemic. On admission she was found to have a hemoglobin of 6 requiring blood transfusion. Over last 24 hours patient has been experiencing atrial fibrillation with RVR for which cardiology was consulted for A-fib management and anticoagulation recommendations Pertinent cardiac Labs: Admission LV Hb 6, WBC 5.4, Na 134, K 3.5, Brake Holder 0.4, Trop negative - TSH on 03/2025 was 1.9. Cardiac home meds: Amiodarone 200 mg, Lipitor 10 mg, Cardizem 240 mg, Metoprolol XL 100 mg Pertinent cardiac testing: - EK03/2025: Atrial fibrillation with RVR, HR 117 BPM, nonspecific ST changes in lateral leads - EK02/2025: Atrial fibrillation with RVR REVIEW OF SYSTEMS: 14 point review of system is negative except what is mentioned above in HPI. PHYSICAL EXAMINATION: Neck: Brisk carotid upstroke, no jugular venous distention. Lungs: Poor respiratory effort with diminished breath sounds, mild crackles audible Heart: Irregular , S1-S2, no murmur or rub. Abdomen: Soft nontender, positive bowel sounds. Extremities: 1+ pitting edema bilateral lower extremity Neuro: Alert, oriented, no focal deficits. Detailed neuro exam was not performed. ASSESSMENT: # Atrial fibrillation with RVR. Prior history of paroxysmal A-fib # History of HFpEF, stable at present # Moderate mitral regurgitation # Concerns of left hip hemarthrosis and septic arthritis after left hip replacement status post washout # Complicated UTI with ESBL # Recent GI bleeding requiring clipping and cauterization PLAN: # Continue metoprolol XL 100 mg daily # Increase Cardizem CD to 120 mg daily. Uptitrate the dose as tolerated by blood pressure and heart rate # Start amiodarone 200 mg daily # Hold anticoagulation due to anemia and recent GI bleeding with left hip hemarthrosis. # Continue GI prophylaxis # Recommend outpatient Watchman device evaluation # Stop Farxiga due to recent complicated UTI # Replace IV iron one dose with PO iron supplementation Overall prognosis is guarded Past Medical History Past Medical History: Atrial Fibrillation, COPD, CVA/TIA, Seizure Disorder Additional Past Medical History / Comment(s): Rheumaoid arthritis, CHF, COPD, Cancer to lungs, CVA x 3, Miscarriages, Multiple personality disorder, low hgb, pre-diabetic History of Any Multi-Drug Resistant Organisms: ESBL Date of last positivie culture/infection: 03/08/25 MDRO Source:: urine Past Surgical History: Adenoidectomy, Section, Tonsillectomy Additional Past Surgical History / Comment(s): hip replacement x 6 r/t juvenile rheumatoid arthritis, Last time February 2025, 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 Second and Third vetebre are fragile per pt Past Psychological History: Bipolar, Depression Smoking Status: Former smoker Past Alcohol Use History: Occasional Past Drug Use History: None Reported - Past Family History Mother Family Medical History: Congestive Heart Failure (CHF) Father Additional Family Medical History / Comment(s): Fibrosycrosis Medications and Allergies Home Medications Medication Instructions Recorded Confirmed Type Apixaban [Eliquis] 5 mg PO BID@0800,1700 11/16/24 03/21/25 History Metoprolol Succinate [Toprol XL] 100 mg PO DAILY@0800 11/16/24 03/21/25 History Tiotropium [place] [Spiriva 1 puff INHALATION RT-DAILY@79911/16/24 03/21/25 History Handihaler] Cholecalciferol [Vitamin D3 (25 125 mcg PO DAILY@0800 01/30/25 03/21/25 History Mcg = 1000 Iu)] Ferrous Sulfate [Iron (65 MG 325 mg PO TID@0800,1200,1700 01/30/25 03/21/25 History Elemental)] Hydroxychloroquine Sulfate 200 mg PO DAILY@0800 02/26/25 03/21/25 History [Plaquenil] dilTIAZem HCL [dilTIAZem HCL 24Hr 240 mg PO DAILY@0800 02/26/25 03/21/25 History ER ([place])] Acetaminophen Tab [Tylenol] 500 mg PO Q8H PRN 03/08/25 03/21/25 History Albuterol Sulfate [Ventolin HFA] 1 puff INHALATION RT-QID PRN 03/08/25 03/21/25 History Atorvastatin [Lipitor] 10 mg PO HS 03/08/25 03/21/25 History DULoxetine HCL [Cymbalta] 60 mg PO DAILY@0800 03/08/25 03/21/25 History Fluticasone Propion/Salmeterol 1 puff INHALATION RT-BID@0800,1700 03/08/2503/21 History [Advair 250-50 Diskus] HYDROcodone/APAP 7.5-325MG [[place] 1 tab PO Q4H PRN 03/08/25 03/21/25 History 7.5-325] INSULIN ASPART (NovoLOG) [NovoLOG See Protocol SQ [facility]CHS 03/08/25 03/21/25 History (formulary)] Ipratropium-Albuterol Nebulize 3 ml INHALATION RT-Q4H PRN 03/08/25 03/21/25 History [Duoneb 0.5 mg-3 mg/3 ml Soln] Linezolid [Zyvox] 600 mg PO BID@0800,2100 03/08/25 03/21/25 History Magnesium Hydroxide [Milk of 7,200 mg PO DAILY PRN 03/08/25 03/21/25 History Magnesia Concentrate] Na Phos,M-B/Na Phos,Di-Ba [Fleet 133 ml RECTAL DAILY PRN 03/08/25 03/21/25 History Adult] Omeprazole 40 mg PO BID@0600,1700 03/08/25 03/21/25 History Ondansetron [Zofran] 4 mg PO Q6H PRN 03/08/25 03/21/25 History bisacodyL [Dulcolax] 10 mg RECTAL Q24H PRN 03/08/25 03/21/25 History polyethylene glycoL 3350 [Miralax] 17 gm PO DAILY PRN 03/08/25 03/21/25 History Furosemide [Lasix] 20 mg PO DAILY tab 03/13/25 03/21/25 Rx Sennosides [Senokot] 8.6 mg PO BID PRN #0 03/13/25 03/21/25 Rx Amiodarone [Cordarone] See Taper PO DIRECTED 03/21/25 03/21/25 History Caldesene Powder 1 applic TOPICAL BID 03/21/25 03/21/25 History Calprotect Cream 1 applic TOPICAL BID 03/21/25 03/21/25 History Loperamide HCl [Imodium A-D] 2 - 4 mg PO DIRECTED PRN MDD 4 03/21/25 03/21/25 History tablets Magic Cup 1 dose PO DAILY@1200 03/21/25 03/21/25 History Allergies Allergy/AdvReac Type Severity Reaction Status Date / Time codeine AdvReac Nausea Verified 03/21/25 09:17 Physical Exam Vitals: Vital Signs Temp Pulse Pulse Resp BP Pulse Ox 03/24/25 08:36 99 88 15 03/24/25 07:12 98.0 F 82 18 128/80 100 03/24/25 01:44 97.8 F 88 15 112/67 99 03/23/25 19:17 97.8 F 95 16 125/77 98 03/23/25 17:26 99 142/64 Intake and Output 03/24/25 03/24/25 03/24/25 06:59 14:59 22:59 Intake Total 1080 137 Balance 1080 137 Intake: Oral 1080 137 Other: # Voids 2 Results 03/22/25 05:25 03/20/25 18:40 Current Medications Generic Name Dose Route Start Last Admin Trade Name Freq PRN Reason Stop Dose Admin Acetaminophen 500 mg 03/21/25 10:27 Acetaminophen Tab 500 Mg Tab PO Q8H PRN Mild Pain Hydrocodone Bitart/Acetaminophen 1 each 03/21/25 10:27 03/24/25 13:56 Hydrocodone/Apap 7.5-325mg 1 Each Tab PO 1 each Q4H PRN Administration Pain Albuterol/Ipratropium 3 ml 03/21/25 10:27 03/22/25 20:59 Ipratropium-Albuterol 3 Ml Neb INHALATION 3 ml RT-Q4H PRN Administration COPD Amiodarone HCl 200 mg 03/24/25 13:30 03/24/25 13:57 Amiodarone 200 Mg Tab PO 200 mg DAILY ANTONELLA Administration Atorvastatin Calcium 10 mg 03/21/25 21:00 03/23/25 21:53 Atorvastatin 10 Mg Tab PO 10 mg HS ANTONELLA Administration Bisacodyl 10 mg 03/21/25 10:27 Bisacodyl 10 Mg Supp RECTAL Q24H PRN Constipation Budesonide/Formoterol Fumarate 2 puff 03/21/25 11:00 03/24/25 08:11 Symbicort 80-4.5 Mcg Inhaler INHALATION 2 puff RT-BID@0800,1700 ANTONELLA Administration Cholecalciferol 125 mcg 03/22/25 08:00 03/24/25 08:34 Cholecalciferol 25 Mcg (1000 Iu) Tablet PO 125 mcg DAILY@0800 ANTONELLA Administration Dextrose/Water 25 ml 03/23/25 13:00 Dextrose 50% Syringe 50 Ml IVP PER PROTOCOL PRN Hypoglycemia Protocol Dextrose/Water 50 ml 03/23/25 13:00 Dextrose 50% Syringe 50 Ml IVP PER PROTOCOL PRN Hypoglycemia Protocol Diltiazem HCl 120 mg 03/24/25 13:30 03/24/25 13:57 Diltiazem Cd 120 Mg Cap.Er.24h PO 120 mg DAILY ANTONELLA Administration Duloxetine HCl 60 mg 03/21/25 11:00 03/24/25 08:32 Duloxetine Hcl 60 Mg Capsule.Dr PO 60 mg DAILY@0800 ANTONELLA Administration Hydroxychloroquine Sulfate 200 mg 03/21/25 11:00 03/24/25 08:36 Hydroxychloroquine Sulfate 200 Mg Tab PO 200 mg DAILY@0800 ANTONELLA Administration Insulin Human Lispro 0 unit 03/23/25 17:30 03/24/25 13:34 Insulin Lispro (Humalog) 100 Unit/Ml 10 Ml Vl SQ Not Given ACHS ANTONELLA Protocol Linezolid 600 mg 03/21/25 11:00 03/24/25 08:36 Linezolid 600 Mg Tab PO 600 mg BID@0800,2100 ANTONELLA Administration Protocol Losartan Potassium 12.5 mg 03/24/25 13:30 03/24/25 13:56 Losartan 25 Mg Tab PO 12.5 mg DAILY ANTONELLA Administration Magnesium Hydroxide 2,400 mg 03/21/25 10:27 Magnesium Hydroxide 2,400 Mg/30 Ml Cup PO DAILY PRN Constipation Metoprolol Succinate 100 mg 03/21/25 11:00 03/24/25 08:36 Metoprolol Succinate (Er) 100 Mg Tab.Er.24h PO 100 mg DAILY@0800 [facility] Administration Nystatin 1 applic 03/21/25 21:00 03/24/25 08:36 Nystatin 100,000 Unit/Gm Powd 15 Gm TOPICAL 04/11/25 21:00 1 applic BID ANTONELLA Administration Protocol Ondansetron HCl 4 mg 03/21/25 10:27 03/24/25 08:35 Ondansetron Odt 4 Mg Tab PO 4 mg Q6H PRN Administration Nausea And Vomiting Pantoprazole Sodium 40 mg 03/21/25 11:00 03/24/25 06:37 Pantoprazole 40 Mg Tablet PO 40 mg BID@0600,1700 [facility] Administration Polyethylene Glycol 17 gm 03/21/25 10:27 Polyethylene Glycol 3350 17 Gm Powd.Pack PO DAILY PRN Constipation Polysaccharide Iron Complex 1 each 03/25/25 09:00 Iron Ps Cmplx/Vit B12/Fa 1 Each Cap PO DAILY [facility] Senna 8.6 mg 03/21/25 10:27 Sennosides 8.6 Mg Tab PO BID PRN Constipation Sodium Biphosphate/Sodium Phosphate 133 ml 03/21/25 10:27 Na Phos,M-B/Na Phos,Di-Ba 133 Ml Enema RECTAL DAILY PRN Constipation Spironolactone 12.5 mg 03/24/25 13:30 03/24/25 13:57 Spironolactone 25 Mg Tab PO 12.5 mg DAILY [facility] Administration Tiotropium [place] 2 puff 03/22/25 10:00 03/24/25 08:11 Tiotropium 2.5 Mcg Inhaler INHALATION 2 puff RT-DAILY ANTONELLA Administration Intake and Output 03/24/25 03/24/25 03/24/25 06:59 14:59 22:59 Intake Total 1080 137 Balance 1080 137 Intake: Oral 1080 137 Other: # Voids 2 03/22/25 05:25 03/20/25 18:40
[2025-03-24 16:39] LABS: Glucose,Whole Blood 157 mg/dL (70-110)
--- NOTE | 2025-03-24 20:02 | P.PN ---
Progress Note - Text Progress Note Date: 03/24/25 Chief Complaint: Anemia 64-year-old female with a history of A-fib (on eliquis), COPD with chronic respiratory failure on 2 L nasal cannula and joint replacements including recent left joint infected prosthesis Patient seen in the ER. 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 Status post I&D February 10. Course complicated by GI bleed status post EGD with epinephrine. Cauterization. And clipping. On February 14. She was restarted on therapeutic anticoagulant Eliquis. Cultures from her left hip grew Streptococcus pneumoniae. She will be treated with linezolid 600 mg twice daily through March 23. They will be transition to amoxicillin for chronic suppression. She will follow-up with outpatient infectious disease. Attending: Dr. Annamaria Enriquez]. Recently in the hospital from March 08 through March 14.: UTI withPseudomonas aeruginosa and Klebsiella pneumoniae ESBL/MDRO. Completed the course of ertapenem. Patient sent in from [facility] they found her hemoglobin to be low. Hence she was sent down to the ER. Hemoglobin was 6. Patient given a unit of blood in the ER. Patient denies any dark stools. She does have dressing change left hip every day at the [facility]. Not sure of any blood drainage from the same. She is able to stand with assist. Appetite is fair. No fever no chills. Spoke to ER physician Dr. Camarillo as admission is being done to do a CT scan of the left hip. March 21: Received a unit of blood last night. Hemoglobin this morning 7.6. Have held off Eliquis, did not receive a dose last night.. Discussed with the patient. Orthopedics was consulted for the hematoma. Patient has no clinical symptoms of infection. No fever no white count March 22: Hemoglobin remained stable. Seen by orthopedics. Not for draining the hematoma. Also seen by GI. Continue Protonix. No endoscopy currently. Will need a repeat CT scan to make sure hematoma is reducing.. Disc again with the patient about keeping her off the anticoagulation because of repeated hematoma in the hip March 23: Patient A-fib became uncontrolled today. Already on Toprol-XL. Add oral Cardizem 30 mg every 8. Patient is to remain off anticoagulation. Will do a CT scan tomorrow morning to follow-up on the size. Other medications to continue. Patient Accu-Chek 368. Patient was taking Jardiance prior to getting admitted to the residential. Will resume the same. Diabetic diet. Sliding scale insulin. March 24: Patient started on Cardizem 30 mg 3 times daily yesterday. Back in sinus rhythm. Not for anticoagulation. CT scan of the left hip shows hematoma and reports no change in size. As per treatment plan 3 no history of [place]. Patient Zyvox will be discontinued. Will be put on amoxicillin for chronic suppression. Patient had told the nurse yesterday she want to be no code. Confirmed. Active Medications Acetaminophen (Acetaminophen Tab 500 Mg Tab) 500 mg PO Q8H PRN PRN Reason: Mild Pain Hydrocodone Bitart/Acetaminophen (Hydrocodone/Apap 7.5-325mg 1 Each Tab) 1 each PO Q4H PRN PRN Reason: Pain Last Admin: 03/24/25 13:56 Dose: 1 each Albuterol/Ipratropium (Ipratropium-Albuterol 3 Ml Neb) 3 ml INHALATION RT-Q4H PRN PRN Reason: COPD Last Admin: 03/22/25 20:59 Dose: 3 ml Amiodarone HCl (Amiodarone 200 Mg Tab) 200 mg PO DAILY [facility] Last Admin: 03/24/25 13:57 Dose: 200 mg Amoxicillin (Amoxicillin 500 Mg Cap) 500 mg PO Q8HR [facility]; Protocol Atorvastatin Calcium (Atorvastatin 10 Mg Tab) 10 mg PO HS [facility] Last Admin: 03/23/25 21:53 Dose: 10 mg Bisacodyl (Bisacodyl 10 Mg Supp) 10 mg RECTAL Q24H PRN PRN Reason: Constipation Budesonide/Formoterol Fumarate (Symbicort 80-4.5 Mcg Inhaler) 2 puff INHALATION RT-BID@0800,1700 [facility] Last Admin: 03/24/25 08:11 Dose: 2 puff Cholecalciferol (Cholecalciferol 25 Mcg (1000 Iu) Tablet) 125 mcg PO DAILY@0800 [facility] Last Admin: 03/24/25 08:34 Dose: 125 mcg Dextrose/Water (Dextrose 50% Syringe 50 Ml) 25 ml IVP PER PROTOCOL PRN; Protocol PRN Reason: Hypoglycemia Dextrose/Water (Dextrose 50% Syringe 50 Ml) 50 ml IVP PER PROTOCOL PRN; Protocol PRN Reason: Hypoglycemia Diltiazem HCl (Diltiazem Cd 120 Mg Cap.Er.24h) 120 mg PO DAILY [facility] Last Admin: 03/24/25 13:57 Dose: 120 mg Duloxetine HCl (Duloxetine Hcl 60 Mg Capsule.Dr) 60 mg PO DAILY@0800 [facility] Last Admin: 03/24/25 08:32 Dose: 60 mg Hydroxychloroquine Sulfate (Hydroxychloroquine Sulfate 200 Mg Tab) 200 mg PO DAILY@0800 [facility] Last Admin: 03/24/25 08:36 Dose: 200 mg Insulin Human Lispro (Insulin Lispro (Humalog) 100 Unit/Ml 10 Ml Vl) 0 unit SQ ACHS [facility]; Protocol Last Admin: 03/24/25 17:00 Dose: 1 unit Losartan Potassium (Losartan 25 Mg Tab) 12.5 mg PO DAILY [facility] Last Admin: 03/24/25 13:56 Dose: 12.5 mg Magnesium Hydroxide (Magnesium Hydroxide 2,400 Mg/30 Ml Cup) 2,400 mg PO DAILY PRN PRN Reason: Constipation Metoprolol Succinate (Metoprolol Succinate (Er) 100 Mg Tab.Er.24h) 100 mg PO DAILY@0800 [facility] Last Admin: 03/24/25 08:36 Dose: 100 mg Nystatin (Nystatin 100,000 Unit/Gm Powd 15 Gm) 1 applic TOPICAL BID [facility]; Protocol Stop: 04/11/25 21:00 Last Admin: 03/24/25 08:36 Dose: 1 applic Ondansetron HCl (Ondansetron Odt 4 Mg Tab) 4 mg PO Q6H PRN PRN Reason: Nausea And Vomiting Last Admin: 03/24/25 08:35 Dose: 4 mg Pantoprazole Sodium (Pantoprazole 40 Mg Tablet) 40 mg PO BID@0600,1700 [facility] Last Admin: 03/24/25 17:00 Dose: 40 mg Polyethylene Glycol (Polyethylene Glycol 3350 17 Gm Powd.Pack) 17 gm PO DAILY PRN PRN Reason: Constipation Polysaccharide Iron Complex (Iron Ps Cmplx/Vit B12/Fa 1 Each Cap) 1 each PO DAILY [facility] Senna (Sennosides 8.6 Mg Tab) 8.6 mg PO BID PRN PRN Reason: Constipation Sodium Biphosphate/Sodium Phosphate (Na Phos,M-B/Na Phos,Di-Ba 133 Ml Enema) 133 ml RECTAL DAILY PRN PRN Reason: Constipation Spironolactone (Spironolactone 25 Mg Tab) 12.5 mg PO DAILY [facility] Last Admin: 03/24/25 13:57 Dose: 12.5 mg Tiotropium [place] (Tiotropium 2.5 Mcg Inhaler) 2 puff INHALATION RT-DAILY [facility] Last Admin: 03/24/25 08:11 Dose: 2 puff Social history: Former smoker. Occasional alcohol. Long-term resident at [facility]. Uses wheelchair On examination: VITAL SIGNS: L 98, 99, 18, 134 x 69, 100% 2 L GENERAL APPEARANCE: Laying in bed, comfortable HEENT: Normal external appearance of nose and ear. Oral cavity normal EYES: Pupils equal. Conjunctiva pale. NECK: JVD not raised. Mass not palpable. RESPIRATORY: Respiratory effort normal. Lungs decreased breath. CARDIOVASCULAR: Heart sounds irregular. Edema present. ABDOMEN: Soft. Liver and spleen not palpable. No tenderness. No mass palpable. PSYCHIATRY: Alert and oriented x3. Mood and affect normal. MUSCULOSKELETAL:No Clubbing/cyanosis;muscles-grossly intact. OA. Limited range of motion left hip. Left thigh-dressing over incisions INVESTIGATIONS, reviewed in the clinical context: CT hip [March 24] subcutaneous fluid collection along the left lateral hip. Overall size is not at all different from prior. March 23: Accu-Chek 368 March 22: Hemoglobin 7.8 CT left hip[March 21]: Organizing collection in the overlying subcutaneous fat measures approximately 18 x 4 x 4.5 cm. Correlate for postsurgical hematoma. March 21: White count 4.6 hemoglobin 7.6 platelets 109 March 20: White count 5.4 hemoglobin 6 platelets 116 sodium 134 potassium 3.5 BUN 17 creatinine 0.43 EKG tracing personally reviewed by me-normal sinus rhythm. ST-T wave changes. Previous labs: March 12, 2025: Hemoglobin 9 Assessment: -Acute anemia. From 9 on March 12 now down to 6.0, likely from left hip hematoma postsurgical, precipitated by being on Eliquis Patient's previously also had a hematoma. CT scan now shows a hematoma 18 x 4 x 4.5 cm. Discussed the pros and cons about Eliquis and given the drop of hemoglobin we will hold off Eliquis going forward. - Left hip postsurgical hematoma precipitated by Eliquis Eliquis discontinued. Seen by orthopedics.: Not for any further intervention Follow-up CT scan March 24: Unchanged from before - CHF with preserved LVEF: Lasix -Moderate to severe MR -Paroxysmal atrial fibrillation., Back in sinus rhythm Since blood pressure is low we will continue with Toprol-XL 100 mg a day. Cardizem 30 mg every 8 Because of suspected hematoma left hip hold Eliquis -COPD/chronic hypoxic respiratory failure DuoNeb. [employer]. 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 Status post I&D February 10, at [facility].. Cultures grew Streptococcus pneumonia. Patient to continue with Zyvox 600 mg twice daily through March 23. That she will transition to amoxicillin for chronic suppression. -History of seizure disorder - GI bleed on February 14. Patient underwent EGD with epinephrine cauterization. And clipping. Later resumed on Eliquis. Seen by GI Dr. Aviva Decker. Not for any further intervention. Continue Protonix -History of lung cancer; likely neuroendocrine type based on patient's history Most recent PET/CT on 10/28/2024 showed no evidence of any metabolic uptake to suggest any residual disease -Essential hypertension; currently blood pressure running low Toprol. Continue - Diabetes mellitus type 2: Oral hypoglycemic Start Jardiance. Accu-Cheks with sliding scale. -Medical power of civil litigation attorney: Son Atnon - Primary osteoarthritis and also secondary osteoarthritis from previous surgeries on the left hip - Depression Cymbalta 60 mg a day - Long-term resident, at [facility] CT scan results discussed with the patient. Back in sinus rhythm. Plan for discharge to [facility] tomorrow. 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 Second and Third vetebre are fragile per pt Past Psychological History: Bipolar, Depression Smoking Status: Former smoker Past Alcohol Use History: Occasional Past Drug Use History: None Reported
[2025-03-24 20:35] LABS: Glucose,Whole Blood 122 mg/dL (70-110)
[2025-03-24] MEDS: AMOXICILLIN 500 MG CAP PO SCH (23:44)
[2025-03-25 03:33] LABS: Basophils # (A) 0.15 10*3/uL (0.00-0.10); Basophils % (A) 1.8 %; Eosinophils # (A) 0.32 10*3/uL (0.04-0.35); Eosinophils % (A) 3.7 %; HCT 23.5 % (37.2-46.3); HGB 7.9 g/dL (12.0-15.0); Lymphocytes # (A) 0.34 10*3/uL (0.90-5.00); MCH 29.9 pg (27.0-32.0); MCHC 33.6 g/dL (32.0-37.0); Mean Platelet Volume 11.4 fL (9.5-12.2); Monocytes # (A) 0.72 10*3/uL (0.20-1.00); Monocytes % (A) 8.4 %; Neutrophils # (A) 6.19 10*3/uL (1.80-7.70); Neutrophils % (A) 72.3 %; Platelet Count 120 10*3/uL (140-440); RBC 2.64 10*6/uL (4.10-5.20); RDW 19.3 % (11.5-14.5); WBC 8.56 10*3/uL (4.50-10.00)
[2025-03-25 03:46] VITALS: PULSE 82
[2025-03-25 06:27] LABS: Glucose,Whole Blood 121 mg/dL (70-110)
[2025-03-25 07:55] VITALS: BP 117/62; RESP 18; TEMP 97.5
[2025-03-25] MEDS: IRON PS CMPLX/VIT B12/FA 1 EACH CAP PO SCH (08:48)
--- NOTE | 2025-03-25 11:08 | P.PN ---
Subjective Patient is a 64-year-old female with a history of paroxysmal atrial fibrillation, COPD, chronic hypoxia on 2 liters, recent left hip replacement wit h left hip hematoma, and septic arthritis for this she had a joint washout done at [facility]. She also has a history of complicated UTI. She also had a recent history of GI bleeding requiring clipping and cauterization. She resides at [facility]. She was seen by the cardiology service on 02/2025 for atrial fibrillation with RVR management. At discharge, she was on metoprolol XL 100 mg daily, Cardizem 240 mg daily, and an amiodarone taper, with continued anticoagulation with Eliquis 5 mg BID. This time she was sent to the hospital from [facility] when she was noticed to be severely anemic. On admission she was found to have a hemoglobin of 6 requiring blood transfusion. Over last 24 hours patient has been experiencing atrial fibrillation with RVR for which cardiology was consulted for A-fib management and anticoagulation recommendations Pertinent cardiac Labs: Admission LV Hb 6, WBC 5.4, Na 134, K 3.5, [employer] 0.4, Trop negative - TSH on 03/2025 was 1.9. Cardiac home meds: Amiodarone 200 mg, Lipitor 10 mg, Cardizem 240 mg, Metoprolol XL 100 mg Pertinent cardiac testing: - EK03/2025: Atrial fibrillation with RVR, HR 117 BPM, nonspecific ST changes in lateral leads - EK02/2025: Atrial fibrillation with RVR 03/25/2025 Patient seen and examined resting comfortably in bed in no acute distress. Laboratory data reviewed, hemoglobin 7.9 and platelets 120. Blood pressure 117/62 heart rate 82 afebrile maintaining oxygen saturation on nasal cannula. PHYSICAL EXAMINATION: Neck: Brisk carotid upstroke, no jugular venous distention. Lungs: Poor respiratory effort with diminished breath sounds, mild crackles audible Heart: Irregular , S1-S2, no murmur or rub. Abdomen: Soft nontender, positive bowel sounds. Extremities: 1+ pitting edema bilateral lower extremity Neuro: Alert, oriented, no focal deficits. Detailed neuro exam was not performed. ASSESSMENT: Persistent atrial fibrillation with controlled ventricular rate History of HFpEF, stable at present Moderate mitral regurgitation Concerns of left hip hemarthrosis and septic arthritis after left hip replacement status post washout Complicated UTI with ESBL Recent GI bleeding requiring clipping and cauterization PLAN: Continue current medical regimen. No anticoagulation secondary to anemia. Stable [facility] when medically stable from a cardiac perspective. Follow-up with Dr. Decker in 2 weeks. Nurse Practitioner note has been reviewed, I agree with a documented findings and plan of care. Patient was seen and examined. Objective - Vital Signs Vital signs: Vital Signs Temp 97.5 F L 03/25/25 06:57 Pulse 82 03/25/25 06:57 Resp 18 03/25/25 06:57 BP 117/62 03/25/25 06:57 Pulse Ox 100 03/25/25 08:10 FiO2 Intake & Output 03/24/25 03/25/25 03/25/25 18:59 06:59 18:59 Intake Total 237 240 Balance 237 240 Intake: Intake, IV Titration 100 Amount Sodium Ferric Gluconat- 100 Sucrose 125 mg In Sodium Chloride 0.9% 100 ml @ 100 mls/hr IVPB ONCE ONE Rx#:[id number] Oral 137 240 Other: # Voids 2 # Bowel Movements 1 - Labs CBC & Chem 7: 03/25/25 02:29 03/20/25 18:40 Labs: Abnormal Lab Results - Last 24 Hours (Table) 03/24/25 03/24/25 03/24/25 Range/Units 12:12 16:38 20:33 RBC (4.10-5.20) 10*6/uL Hgb (12.0-15.0) g/dL Hct (37.2-46.3) % RDW (11.5-14.5) % Plt Count (140-440) 10*3/uL Immature Gran # (0.00-0.04) 10*3/uL Lymphocytes # (0.90-5.00) 10*3/uL Basophils # (0.00-0.10) 10*3/uL POC Glucose (mg/dL) 133 H 157 H 122 H (70-110) mg/dL 03/25/25 03/25/25 Range/Units 02:29 06:26 RBC 2.64 L (4.10-5.20) 10*6/uL Hgb 7.9 L (12.0-15.0) g/dL Hct 23.5 L (37.2-46.3) % RDW 19.3 H (11.5-14.5) % Plt Count 120 L (140-440) 10*3/uL Immature Gran # 0.84 H (0.00-0.04) 10*3/uL Lymphocytes # 0.34 L (0.90-5.00) 10*3/uL Basophils # 0.15 H (0.00-0.10) 10*3/uL POC Glucose (mg/dL) 121 H (70-110) mg/dL
[2025-03-25 11:21] LABS: Glucose,Whole Blood 191 mg/dL (70-110)
--- NOTE | 2025-03-25 14:00 | P.DS ---
Providers Date of admission: 03/20/25 20:35 Expected date of discharge: 03/25/25 Attending physician: Popeye Barksdale Consults: 03/21/25 10:31 Consult Physician Routine Consulting Provider: Demetrio Marin Consult Reason/Comments: Left hip hematoma Do you want consulting provider notified?: Yes 03/21/25 15:56 Consult Physician Routine Consulting Provider: Lauren Decker Consult Reason/Comments: Possible GI bleed Do you want consulting provider notified?: Yes 03/23/25 12:52 Consult Physician Routine Consulting Provider: Kirit Chavarria Consult Reason/Comments: ekg afib rvr with hx of afib Do you want consulting provider notified?: Yes Primary care physician: [facility] Course: Chief Complaint: Anemia 64-year-old female with a history of A-fib (on eliquis), COPD with chronic respiratory failure on 2 L nasal cannula and joint replacements including recent left joint infected prosthesis Patient seen in the ER. 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 Status post I&D February 10. Course complicated by GI bleed status post EGD with epinephrine. Cauterization. And clipping. On February 14. She was restarted on therapeutic anticoagulant Eliquis. Cultures from her left hip grew Streptococcus pneumoniae. She will be treated with linezolid 600 mg twice daily through March 23. They will be transition to amoxicillin for chronic suppression. She will follow-up with outpatient infectious disease. Attending: Dr. Annamaria Enriquez]. Recently in the hospital from March 08 through March 14.: UTI withPseudomonas aeruginosa and Klebsiella pneumoniae ESBL/MDRO. Completed the course of ertapenem. Patient sent in from [facility] they found her hemoglobin to be low. Hence she was sent down to the ER. Hemoglobin was 6. Patient given a unit of blood in the ER. Patient denies any dark stools. She does have dressing change left hip every day at the [facility]. Not sure of any blood drainage from the same. She is able to stand with assist. Appetite is fair. No fever no chills. Spoke to ER physician Dr. Camarillo as admission is being done to do a CT scan of the left hip. March 21: Received a unit of blood last night. Hemoglobin this morning 7.6. Have held off Eliquis, did not receive a dose last night.. Discussed with the patient. Orthopedics was consulted for the hematoma. Patient has no clinical symptoms of infection. No fever no white count March 22: Hemoglobin remained stable. Seen by orthopedics. Not for draining the hematoma. Also seen by GI. Continue Protonix. No endoscopy currently. Will need a repeat CT scan to make sure hematoma is reducing.. Disc again with the patient about keeping her off the anticoagulation because of repeated hematoma in the hip March 23: Patient A-fib became uncontrolled today. Already on Toprol-XL. Add oral Cardizem 30 mg every 8. Patient is to remain off anticoagulation. Will do a CT scan tomorrow morning to follow-up on the size. Other medications to continue. Patient Accu-Chek 368. Patient was taking Jardiance prior to [facility]. Will resume the same. Diabetic diet. Sliding scale insulin. March 24: Patient started on Cardizem 30 mg 3 times daily yesterday. Back in sinus rhythm. Not for anticoagulation. CT scan of the left hip shows hematoma and reports no change in size. As per treatment plan 3 no history of [place]. Patient Zyvox will be discontinued. Will be put on amoxicillin for chronic suppression. Patient had told the nurse yesterday she want to be no code. Confirmed. March 25: Remains in sinus rhythm. Heart rate controlled. Zyvox was discontinued and put on amoxicillin as per plan by ID from [facility]. Patient is to follow-up with her orthopedic and ID outpatient. Discussed with patient. Patient remains off Eliquis. Social history: Former smoker. Occasional alcohol. Long-term resident at [facility]. Uses wheelchair On examination: VITAL SIGNS: 97.5, 82, 18, 117 x 62, 100% 2 L GENERAL APPEARANCE: Laying in bed, comfortable HEENT: Normal external appearance of nose and ear. Oral cavity normal EYES: Pupils equal. Conjunctiva pale. NECK: JVD not raised. Mass not palpable. RESPIRATORY: Respiratory effort normal. Lungs decreased breath. CARDIOVASCULAR: Heart sounds irregular. Edema present. ABDOMEN: Soft. Liver and spleen not palpable. No tenderness. No mass palpable. PSYCHIATRY: Alert and oriented x3. Mood and affect normal. MUSCULOSKELETAL:No Clubbing/cyanosis;muscles-grossly intact. OA. Limited range of motion left hip. Left thigh-dressing over incisions INVESTIGATIONS, reviewed in the clinical context: March 25: White count 8.5 hemoglobin 7.[address] hip [March 24] subcutaneous fluid collection along the left lateral hip. Overall size is not at all different from prior. March 23: Accu-Chek 368 March 22: Hemoglobin 7.8 CT left hip[March 21]: Organizing collection in the overlying subcutaneous fat measures approximately 18 x 4 x 4.5 cm. Correlate for postsurgical hematoma. March 21: White count 4.6 hemoglobin 7.6 platelets 109 March 20: White count 5.4 hemoglobin 6 platelets 116 sodium 134 potassium 3.5 BUN 17 creatinine 0.43 EKG tracing personally reviewed by me-normal sinus rhythm. ST-T wave changes. Previous labs: March 12, 2025: Hemoglobin 9 Assessment: -Acute anemia. From 9 on March 12 now down to 6.0, likely from left hip hematoma postsurgical, precipitated by being on Eliquis Patient's previously also had a hematoma. CT scan now shows a hematoma 18 x 4 x 4.5 cm. Discussed the pros and cons about Eliquis and given the drop of hemoglobin we will hold off Eliquis going forward. - Left hip postsurgical hematoma precipitated by Eliquis Eliquis discontinued. Seen by orthopedics.: Not for any further intervention Follow-up CT scan March 24: Unchanged from before Patient to follow-up with her orthopedic physician for [facility]. - CHF with preserved LVEF: Lasix -Moderate to severe MR -Paroxysmal atrial fibrillation., Back in sinus rhythm Since blood pressure is low we will continue with Toprol-XL 100 mg a day. Cardizem CD1 20 mg/day Because of suspected hematoma left hip hold Eliquis -COPD/chronic hypoxic respiratory failure DuoNeb. Advair. 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 Status post I&D February 10, at [facility].. Cultures grew Streptococcus pneumonia. Patient to continue with Zyvox 600 mg twice daily through March 23. That she will transition to amoxicillin for chronic suppression. -History of seizure disorder - GI bleed on February 14. Patient underwent EGD with epinephrine cauterization. And clipping. Later resumed on Eliquis. Seen by GI Dr. Aviva Decker. Not for any further intervention. Continue Protonix -History of lung cancer; likely neuroendocrine type based on patient's history Most recent PET/CT on 10/28/2024 showed no evidence of any metabolic uptake to suggest any residual disease -Essential hypertension; currently blood pressure running low Toprol. Cardizem CD - Diabetes mellitus type 2: Oral hypoglycemic Start Jardiance. Accu-Cheks with sliding scale. -Medical power of attorney general: Son Anton - Primary osteoarthritis and also secondary osteoarthritis from previous surgeries on the left hip - Depression Cymbalta 60 mg a day - Long-term resident, at [facility] -DNR Disposition: [facility] Labs: CBC, BMP 2 days Past Medical History Past Medical History: Atrial Fibrillation, COPD, CVA/TIA, Seizure Disorder Additional Past Medical History / Comment(s): Rheumaoid arthritis, CHF, COPD, Cancer to lungs, CVA x 3, Miscarriages, Multiple personality disorder, low hgb, pre-diabetic History of Any Multi-Drug Resistant Organisms: ESBL Date of last positivie culture/infection: 03/08/25 MDRO Source:: urine Past Surgical History: Adenoidectomy, Section, Tonsillectomy Additional Past Surgical History / Comment(s): hip replacement x 6 r/t juvenile rheumatoid arthritis, Last time February 2025, 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 Second and Third vetebre are fragile per pt Past Psychological History: Bipolar, Depression Smoking Status: Former smoker Past Alcohol Use History: Occasional Past Drug Use History: None Reported Plan - Discharge Summary Discharge Rx Participant: No New Discharge Prescriptions: New Spironolactone [Aldactone] 12.5 mg PO DAILY tab Amoxicillin 500 mg PO Q8HR cap Diltiazem Cd [Cardizem CD] 120 mg PO DAILY cap Nystatin 100,000 Unit/gm Powd [Mycostatin Powder] 1 applic TOPICAL BID each Amiodarone [Cordarone] 200 mg PO DAILY tab Losartan [Cozaar] 12.5 mg PO HS tab Continue Metoprolol Succinate [Toprol XL] 100 mg PO DAILY@0800 Cholecalciferol [Vitamin D3 (25 Mcg = 1000 Iu)] 125 mcg PO DAILY@0800 DULoxetine HCL [Cymbalta] 60 mg PO DAILY@0800 Ondansetron [Zofran] 4 mg PO Q6H PRN PRN Reason: Nausea And Vomiting Albuterol Sulfate [Ventolin HFA] 1 puff INHALATION RT-QID PRN PRN Reason: Shortness Of Breath Magnesium Hydroxide [Milk of Magnesia Concentrate] 7,200 mg PO DAILY PRN PRN Reason: Constipation bisacodyL [Dulcolax] 10 mg RECTAL Q24H PRN PRN Reason: Constipation Atorvastatin [Lipitor] 10 mg PO HS Sennosides [Senokot] 8.6 mg PO BID PRN #0 PRN Reason: Constipation Loperamide HCl [Imodium A-D] 2 - 4 mg PO DIRECTED PRN MDD 4 tablets PRN Reason: Diarrhea Magic Cup 1 dose PO DAILY@1200 Calprotect Cream 1 applic TOPICAL BID Tiotropium [place] [Spiriva Handihaler] 1 puff INHALATION RT-DAILY@0800 Ferrous Sulfate [Iron (65 MG Elemental)] 325 mg PO TID@0800,1200,1700 Hydroxychloroquine Sulfate [Plaquenil] 200 mg PO DAILY@0800 Omeprazole 40 mg PO BID@0600,1700 INSULIN ASPART (NovoLOG) [NovoLOG (formulary)] See Protocol SQ ACHS polyethylene glycoL 3350 [Miralax] 17 gm PO DAILY PRN PRN Reason: Constipation Ipratropium-Albuterol Nebulize [Duoneb 0.5 mg-3 mg/3 ml Soln] 3 ml INHALATION RT-Q4H PRN PRN Reason: COPD Na Phos,M-B/Na Phos,Di-Ba [Fleet Adult] 133 ml RECTAL DAILY PRN PRN Reason: Constipation Fluticasone Propion/Salmeterol [Advair 250-50 Diskus] 1 puff INHALATION RT- BID@0800,1700 Acetaminophen Tab [Tylenol] 500 mg PO Q8H PRN PRN Reason: Pain Caldesene Powder 1 applic TOPICAL BID HYDROcodone/APAP 7.5-325MG [[place] 7.5-325] 1 tab PO Q4H PRN #18 tab PRN Reason: Pain Discontinued Apixaban [Eliquis] 5 mg PO BID@0800,1700 dilTIAZem HCL [dilTIAZem HCL 24Hr ER (LA)] 240 mg PO DAILY@0800 Linezolid [Zyvox] 600 mg PO BID@0800,2100 Furosemide [Lasix] 20 mg PO DAILY tab Amiodarone [Cordarone] See Taper PO DIRECTED Discharge Medication List Metoprolol Succinate [Toprol XL] 100 mg PO DAILY@0800 11/16/24 [History] Tiotropium [place] [Spiriva Handihaler] 1 puff INHALATION RT-DAILY@0800 11/16/24 [History] Cholecalciferol [Vitamin D3 (25 Mcg = 1000 Iu)] 125 mcg PO DAILY@0800 01/30/25 [History] Ferrous Sulfate [Iron (65 MG Elemental)] 325 mg PO TID@0800,1200,1700 01/30/25 [History] Hydroxychloroquine Sulfate [Plaquenil] 200 mg PO DAILY@0800 02/26/25 [History] Acetaminophen Tab [Tylenol] 500 mg PO Q8H PRN 03/08/25 [History] Albuterol Sulfate [Ventolin HFA] 1 puff INHALATION RT-QID PRN 03/08/25 [History] Atorvastatin [Lipitor] 10 mg PO HS 03/08/25 [History] DULoxetine HCL [Cymbalta] 60 mg PO DAILY@0800 03/08/25 [History] Fluticasone Propion/Salmeterol [Advair 250-50 Diskus] 1 puff INHALATION RT-BID@0800,1700 03/08/25 [History] INSULIN ASPART (NovoLOG) [NovoLOG (formulary)] See Protocol SQ ACHS 03/08/25 [History] Ipratropium-Albuterol Nebulize [Duoneb 0.5 mg-3 mg/3 ml Soln] 3 ml INHALATION RT-Q4H PRN 03/08/25 [History] Magnesium Hydroxide [Milk of Magnesia Concentrate] 7,200 mg PO DAILY PRN 03/08/25 [History] Na Phos,M-B/Na Phos,Di-Ba [Fleet Adult] 133 ml RECTAL DAILY PRN 03/08/25 [History] Omeprazole 40 mg PO BID@0600,1700 03/08/25 [History] Ondansetron [Zofran] 4 mg PO Q6H PRN 03/08/25 [History] bisacodyL [Dulcolax] 10 mg RECTAL Q24H PRN 03/08/25 [History] polyethylene glycoL 3350 [Miralax] 17 gm PO DAILY PRN 03/08/25 [History] Sennosides [Senokot] 8.6 mg PO BID PRN #0 03/13/25 [Rx] Caldesene Powder 1 applic TOPICAL BID 03/21/25 [History] Calprotect Cream 1 applic TOPICAL BID 03/21/25 [History] Loperamide HCl [Imodium A-D] 2 - 4 mg PO DIRECTED PRN MDD 4 tablets 03/21/25 [History] Magic Cup 1 dose PO DAILY@1200 03/21/25 [History] Amiodarone [Cordarone] 200 mg PO DAILY tab 03/25/25 [Rx] Amoxicillin 500 mg PO Q8HR cap 03/25/25 [Rx] Diltiazem Cd [Cardizem CD] 120 mg PO DAILY cap 03/25/25 [Rx] HYDROcodone/APAP 7.5-325MG [[place] 7.5-325] 1 tab PO Q4H PRN #18 tab 03/25/25 [Rx] Losartan [Cozaar] 12.5 mg PO HS tab 03/25/25 [Rx] Nystatin 100,000 Unit/gm Powd [Mycostatin Powder] 1 applic TOPICAL BID each 03/25/25 [Rx] Spironolactone [Aldactone] 12.5 mg PO DAILY tab 03/25/25 [Rx] Follow up Appointment(s)/Referral(s): Te Menchaca DO [Primary Care Provider] - 1-2 days Geraldine Cantrell [NON-STAFF] - As Needed Bimal Decker MD [STAFF PHYSICIAN] - 2 Weeks
== END 2025-03-25 16:33 ==
LOC: EC 18:02 → 5NMEDONC 20:35 → INTOOBSV 20:35 → 5NMEDONC 22:09 → 3SCARD 03-21 00:47 → 4SSUR 03-21 05:22
PROVIDERS: ADMIT Hospitalist; ATTEND Hospitalist
DX: D62 Acute posthemorrhagic anemia (principal); M96.840 Postprocedural hematoma of a musculoskeletal structure following a musculoskeletal system procedure; T84.52XA Infection and inflammatory reaction due to internal left hip prosthesis, initial encounter; I11.0 Hypertensive heart disease with heart failure; I50.30 Unspecified diastolic (congestive) heart failure; I48.0 Paroxysmal atrial fibrillation; I95.9 Hypotension, unspecified; J44.9 Chronic obstructive pulmonary disease, unspecified; J96.11 Chronic respiratory failure with hypoxia; I34.0 Nonrheumatic mitral (valve) insufficiency; E11.9 Type 2 diabetes mellitus without complications; M19.91 Primary osteoarthritis, unspecified site; F32.A Depression, unspecified; M06.9 Rheumatoid arthritis, unspecified; G40.909 Epilepsy, unspecified, not intractable, without status epilepticus; Z79.01 Long term (current) use of anticoagulants; Z79.51 Long term (current) use of inhaled steroids; Z79.4 Long term (current) use of insulin; Z79.899 Other long term (current) drug therapy; Z88.5 Allergy status to narcotic agent; Z96.642 Presence of left artificial hip joint; Z87.19 Personal history of other diseases of the digestive system; Z87.891 Personal history of nicotine dependence; Z87.440 Personal history of urinary (tract) infections; Z16.24 Resistance to multiple antibiotics; Z86.19 Personal history of other infectious and parasitic diseases; Z85.118 Personal history of other malignant neoplasm of bronchus and lung
CPT/HCPCS: 96365; 96366; 36430; 99291; 36415; 94640 ×10; 94760; 93005; 86900; 86901; 86902; 80053; 83735; 84484; 85025 ×4; 85610; 85730; 86850; 86920; 86870; 83036; 73700 ×2; G0378 ×7; P9016; J2916